=== PATIENT | female | born 1970 | race Caucasian/White ===

== ENCOUNTER 2018-07-05 20:12 | Inpatient (IN) | payer BC ==
--- NOTE | 2018-07-05 20:54 | EDM.PDOC ---
ED HPI GENERAL MEDICAL PROBLEM - General Chief Complaint: Respiratory Problem Stated Complaint: [facility] Time Seen by Provider: 07/05/18 20:22 Source of Information: Reports: Patient History Limitations: Reports: No Limitations - History of Present Illness INITIAL COMMENTS - FREE TEXT/NARRATIVE: The patient states that she underwent debridement of Luis's gangrene per Dr. Long Tong at [facility] on or about 05/29/2018. According to the patient and her , the patient required supplemental oxygen following surgery, but they do not know why. She remained hospitalized for 2 weeks before being transferred to [facility], where she remained until this past 06/29/2018. The patient's has been caring for the patient since then, with wet-to-dry dressing changes twice a day. The patient has continued to require 5 L of oxygen per nasal cannula at home. The patient states that she did not have any known chronic medical problems, however, was diagnosed during her stay at [facility] with diabetes, chronic kidney disease, and hypertension. The patient now presents with worsening shortness of breath since last night, although states that it has been waxing and waning. She states that her breathing became worse with exertion today. No recent cough. No recent fever. No recent chest pain or palpitations. No prior similar symptoms. The patient does not currently have a PCP, but is scheduled to see Dr. Yovana Goldstein this coming , 07/10/2018. Abdomen Pain Score (Numeric/FACES): 8 - Related Data Allergies Allergy/AdvReac Type Severity Reaction Status Date / Time No Known Allergies Allergy Verified 07/05/18 20:28 Home Meds: Home Meds Ascorbate Calcium [Vitamin C] 500 mg PO DAILY 07/05/18 [History] Ferrous Sulfate 325 mg PO DAILY 07/05/18 [History] Hydrocodone/Acetaminophen [Hydrocodon-Acetaminophen 5-325] 5 - 325 mg PO Q8H PRN 07/05/18 [History] Insulin Detemir [Levemir] 13 unit INJECT BEDTIME 07/05/18 [History] Insulin Lispro [Humalog] 3 unit INJECT TID 07/05/18 [History] Ipratropium/Albuterol Sulfate [Iprat-Albut 0.5-3(2.5) mg/3 ml] 0.5 mg INH QID [History] Ondansetron HCl [Zofran] 4 mg PO Q8H PRN 07/05/18 [History] Pantoprazole Sodium [Protonix] 40 mg PO DAILY 07/05/18 [History] Polyethylene Glycol 3350 [MiraLAX] 17 gram PO DAILY 07/05/18 [History] Promethazine [Phenergan] 0.2 ml TOP Q6H PRN 07/05/18 [History] amLODIPine [Norvasc] 5 mg PO DAILY 07/05/18 [History] Past Medical History Cardiovascular History: Reports: Hypertension Genitourinary History: Reports: Chronic Renal Insuffiency Endocrine/Metabolic History: Reports: Diabetes, Type II, Obesity/BMI 30+ - Past Surgical History HEENT Surgical History: Reports: Myringotomy w Tube(s) (bilateral) Dermatological Surgical History: Reports: Other (See Below) (Pilonidal cystectomy. Luis's gangrene debridement 05/29/2018 at [facility]) Social & Family History - Tobacco Use Smoking Status *Q: Former Smoker Years of Tobacco use: 30 Packs/Tins Daily: 1 Month/Year Tobacco Last Used: Quit 05/29/2018 - Alcohol Use Alcohol Use History: No - Recreational Drug Use Recreational Drug Use: No - Living Situation & Occupation Living situation: Reports: , with Spouse Occupation: Employed ([employer]) ED ROS GENERAL - Review of Systems Review Of Systems: ROS reveals no pertinent complaints other than HPI. ED EXAM, GENERAL - Physical Exam Exam: See Below Exam Limited By: No Limitations General Appearance: Alert, WD/WN, Mild Distress (mild apparent dyspnea) Eye Exam: Bilateral Eye: EOMI, Normal Inspection Ears: Normal External Exam, Hearing Grossly Normal Nose: Normal Inspection, No Blood Throat/Mouth: Normal Inspection, Normal Lips, Normal Voice, No Airway Compromise Head: Atraumatic, Normocephalic Neck: Normal Inspection, Full Range of Motion Respiratory/Chest: No Respiratory Distress, No Accessory Muscle Use, Decreased Breath Sounds (Decreased breath sounds and dullness to percussion lower half of lung esquivel, bilaterally), Crackles (Mid-lung), Rhonchi (Scattered). No: Wheezing Cardiovascular: Normal Peripheral Pulses, No Gallop, No JVD, No Murmur, No Rub, Tachycardia (regular) Peripheral Pulses: 4+: Radial (L), Radial (R) GI/Abdominal: Normal Bowel Sounds, Soft, Non-Tender, No Organomegaly, No Distention, No Abnormal Bruit, No Mass, Other (Obese) Rectal (Female) Exam: Other (Extensive surgical debridement extending from the superior aspect of the right labia majora, across the perineum, and into the right buttock. There is some purulence to the labial area, although the buttock area appears to be clean.) Back Exam: Normal Inspection, Full Range of Motion, NT Extremities: Normal Inspection, Normal Range of Motion, Normal Capillary Refill , Other (4+ pretibial pitting edema bilaterally) Neurological: Alert, Oriented, Normal Cognition, No Motor/Sensory Deficits Psychiatric: Normal Affect Skin Exam: Warm, Dry, Intact, Normal Color, No Rash EKG INTERPRETATION EKG Date: 07/05/18 Time: 20:31 Rhythm: Other (Sinus tachycardia) Rate (Beats/Min): 106 [place]: Normal P-Wave: Present QRS: Normal ST-T: Normal QT: Normal Comparison: NA - No Prior EKG Course - Vital Signs Last Recorded V/S: Last Vital Signs Temp 37.0 C 07/06/18 03:00 Pulse 99 07/05/18 23:51 Resp 25 H 07/06/18 03:00 BP 147/86 H 07/06/18 03:00 Pulse Ox 93 L 07/06/18 03:00 - Orders/Labs/Meds Orders: Active Orders 24 hr Category Date Time Status Insert Brown Catheter [Insert Urinary Catheter] [OM.PC] Care 07/06/18 00:45 Ordered Q24H Urinary Catheter Assessment [RC] Q4HR Care 07/06/18 00:36 Active Ang Chest [CT] Stat Exams 07/05/18 22:15 Taken Chest 2V [CR] Stat Exams 07/05/18 20:23 Taken CULTURE BLOOD [BC] Stat Lab 07/05/18 20:50 Received CULTURE BLOOD [BC] Stat Lab 07/05/18 21:00 Received Blood Culture x2 Reflex Set [OM.PC] Stat Oth 07/05/18 20:23 Ordered Medication Orders Acetaminophen (Tylenol) 650 mg PO Q6H PRN PRN Reason: Pain/Fever Hydrocodone Bitart/Acetaminophen ([place] 325-5 Mg) 1 tab PO Q6H PRN PRN Reason: Pain Albuterol (Proventil Neb Soln) 2.5 mg NEB Q4HRRT PRN PRN Reason: Shortness of Breath Albuterol/Ipratropium (Duoneb 3.0-0.5 Mg/3 Ml) 3 ml NEB QIDRT [facility] Heparin Sodium (Porcine) (Heparin Sodium) 5,000 units IVPUSH Q8HR [facility] Hydralazine HCl (Apresoline) 20 mg IVPUSH Q6H PRN PRN Reason: Hypertension Hydromorphone HCl (Dilaudid) 1 mg IVPUSH Q8H PRN PRN Reason: Pain Last Admin: 07/06/18 01:40 Dose: 1 mg Insulin Human Lispro (Humalog) 0 unit SUBCUT QIDACANDBED [facility]; Protocol Labs: Laboratory Tests 07/05/18 07/05/18 07/05/18 Range/Units 20:40 20:50 20:50 WBC 11.01 H (3.98-10.04) K/mm3 RBC 3.32 L (3.98-5.22) M/mm3 Hgb 9.4 L (11.2-15.7) gm/L Hct 31.2 L (34.1-44.9) % MCV 94.0 (79.4-94.8) fl MCH 28.3 (25.6-32.2) pg MCHC 30.1 L (32.2-35.5) g/dl RDW Std Deviation 58.0 H (36.4-46.3) fL Plt Count 546 H (182-369) K/mm3 MPV 8.3 L (9.4-12.3) fl Neutrophils % (Manual) 66 H (40-60) % Band Neutrophils % 1 (0-10) % Lymphocytes % (Manual) 22 (20-40) % Atypical Lymphs % 0 % Monocytes % (Manual) 6 (2-10) % Eosinophils % (Manual) 4 (0.7-5.8) % Basophils % (Manual) 1 (0.1-1.2) Toxic Granulation Few Platelet Estimate Adequate Plt Morphology Comment Normal Hypochromasia 2+ moderate Anisocytosis 1+ slight RBC Morph Comment Not Reportable PT 11.1 (9.5-12.1) SECONDS INR 1.02 APTT 30 (24-31) SECONDS D-Dimer, Quantitative 0.99 H (0.19-0.50) mg/L Puncture Site Rt brachial ABG pH 7.46 H (7.35-7.45) ABG pCO2 35.0 (35.0-45.0) mmHg ABG pO2 67.0 L (80.0-100.0) mmHg ABG HCO3 24.4 (22.0-26.0) meq/L ABG O2 Saturation 92.3 L (96.0-97.0) % ABG Base Excess 1.1 (-2-2.0) O2 Delivery Device Mask Oxygen Flow Rate 10.0 Sodium (136-145) mEq/L Potassium (3.5-5.1) mEq/L Chloride (98-107) mEq/L Carbon Dioxide (21-32) mEq/L Anion Gap (5-15) BUN (7-18) mg/dL Creatinine (0.55-1.02) mg/dL Est Cr Clr Drug Dosing mL/min Estimated GFR (MDRD) (>60) mL/min BUN/Creatinine Ratio (14-18) Glucose (74-106) mg/dL Lactic Acid (0.4-2.0) mmol/L Calcium (8.5-10.1) mg/dL Total Bilirubin (0.2-1.0) mg/dL AST (15-37) U/L ALT (14-59) U/L Alkaline Phosphatase (46-116) U/L Troponin I (0.00-0.056) ng/mL NT-Pro-B Natriuret Pep (0-125) pg/mL Total Protein (6.4-8.2) g/dl Albumin (3.4-5.0) g/dl Globulin gm/dL Albumin/Globulin Ratio (1-2) Urine Color (Yellow) Urine Appearance (Clear) Urine pH (5.0-8.0) Ur Specific [place] (1.005-1.030) Urine Protein (Negative) Urine Glucose (UA) (Negative) Urine Ketones (Negative) Urine Occult Blood (Negative) Urine Nitrite (Negative) Urine Bilirubin (Negative) Urine Urobilinogen (0.2-1.0) Ur Leukocyte Esterase (Negative) Urine RBC (0-5) /hpf Urine WBC (0-5) /hpf Ur Epithelial Cells (0-5) /hpf Urine Bacteria (FEW) /hpf Hyaline Casts (0-5) /lpf Urine Mucus (FEW) /hpf 07/05/18 07/05/18 07/05/18 Range/Units 20:50 20:50 20:50 WBC (3.98-10.04) K/mm3 RBC (3.98-5.22) M/mm3 Hgb (11.2-15.7) gm/L Hct (34.1-44.9) % MCV (79.4-94.8) fl MCH (25.6-32.2) pg MCHC (32.2-35.5) g/dl RDW Std Deviation (36.4-46.3) fL Plt Count (182-369) K/mm3 MPV (9.4-12.3) fl Neutrophils % (Manual) (40-60) % Band Neutrophils % (0-10) % Lymphocytes % (Manual) (20-40) % Atypical Lymphs % % Monocytes % (Manual) (2-10) % Eosinophils % (Manual) (0.7-5.8) % Basophils % (Manual) (0.1-1.2) Toxic Granulation Platelet Estimate Plt Morphology Comment Hypochromasia Anisocytosis RBC Morph Comment PT (9.5-12.1) SECONDS INR APTT (24-31) SECONDS D-Dimer, Quantitative (0.19-0.50) mg/L Puncture Site ABG pH (7.35-7.45) ABG pCO2 (35.0-45.0) mmHg ABG pO2 (80.0-100.0) mmHg ABG HCO3 (22.0-26.0) meq/L ABG O2 Saturation (96.0-97.0) % ABG Base Excess (-2-2.0) O2 Delivery Device Oxygen Flow Rate Sodium 138 (136-145) mEq/L Potassium 4.9 (3.5-5.1) mEq/L Chloride 104 (98-107) mEq/L Carbon Dioxide 27 (21-32) mEq/L Anion Gap 11.9 (5-15) BUN 24 H (7-18) mg/dL Creatinine 1.9 H (0.55-1.02) mg/dL Est Cr Clr Drug Dosing 36.53 mL/min Estimated GFR (MDRD) 28 (>60) mL/min BUN/Creatinine Ratio 12.6 L (14-18) Glucose 170 H (74-106) mg/dL Lactic Acid 0.6 (0.4-2.0) mmol/L Calcium 8.9 (8.5-10.1) mg/dL Total Bilirubin 0.3 (0.2-1.0) mg/dL AST 69 H (15-37) U/L ALT 69 H (14-59) U/L Alkaline Phosphatase 252 H (46-116) U/L Troponin I < 0.017 (0.00-0.056) ng/mL NT-Pro-B Natriuret Pep 8577 H (0-125) pg/mL Total Protein 7.8 (6.4-8.2) g/dl Albumin 2.4 L (3.4-5.0) g/dl Globulin 5.4 gm/dL Albumin/Globulin Ratio 0.4 L (1-2) Urine Color (Yellow) Urine Appearance (Clear) Urine pH (5.0-8.0) Ur Specific [place] (1.005-1.030) Urine Protein (Negative) Urine Glucose (UA) (Negative) Urine Ketones (Negative) Urine Occult Blood (Negative) Urine Nitrite (Negative) Urine Bilirubin (Negative) Urine Urobilinogen (0.2-1.0) Ur Leukocyte Esterase (Negative) Urine RBC (0-5) /hpf Urine WBC (0-5) /hpf Ur Epithelial Cells (0-5) /hpf Urine Bacteria (FEW) /hpf Hyaline Casts (0-5) /lpf Urine Mucus (FEW) /hpf 07/05/ Range/Units 21:30 WBC (3.98-10.04) K/mm3 RBC (3.98-5.22) M/mm3 Hgb (11.2-15.7) gm/L Hct (34.1-44.9) % MCV (79.4-94.8) fl MCH (25.6-32.2) pg MCHC (32.2-35.5) g/dl RDW Std Deviation (36.4-46.3) fL Plt Count (182-369) K/mm3 MPV (9.4-12.3) fl Neutrophils % (Manual) (40-60) % Band Neutrophils % (0-10) % Lymphocytes % (Manual) (20-40) % Atypical Lymphs % % Monocytes % (Manual) (2-10) % Eosinophils % (Manual) (0.7-5.8) % Basophils % (Manual) (0.1-1.2) Toxic Granulation Platelet Estimate Plt Morphology Comment Hypochromasia Anisocytosis RBC Morph Comment PT (9.5-12.1) SECONDS INR APTT (24-31) SECONDS D-Dimer, Quantitative (0.19-0.50) mg/L Puncture Site ABG pH (7.35-7.45) ABG pCO2 (35.0-45.0) mmHg ABG pO2 (80.0-100.0) mmHg ABG HCO3 (22.0-26.0) meq/L ABG O2 Saturation (96.0-97.0) % ABG Base Excess (-2-2.0) O2 Delivery Device Oxygen Flow Rate Sodium (136-145) mEq/L Potassium (3.5-5.1) mEq/L Chloride (98-107) mEq/L Carbon Dioxide (21-32) mEq/L Anion Gap (5-15) BUN (7-18) mg/dL Creatinine (0.55-1.02) mg/dL Est Cr Clr Drug Dosing mL/min Estimated GFR (MDRD) (>60) mL/min BUN/Creatinine Ratio (14-18) Glucose (74-106) mg/dL Lactic Acid (0.4-2.0) mmol/L Calcium (8.5-10.1) mg/dL Total Bilirubin (0.2-1.0) mg/dL AST (15-37) U/L ALT (14-59) U/L Alkaline Phosphatase (46-116) U/L Troponin I (0.00-0.056) ng/mL NT-Pro-B Natriuret Pep (0-125) pg/mL Total Protein (6.4-8.2) g/dl Albumin (3.4-5.0) g/dl Globulin gm/dL Albumin/Globulin Ratio (1-2) Urine Color Yellow (Yellow) Urine Appearance Clear (Clear) Urine pH 6.0 (5.0-8.0) Ur Specific [place] 1.025 (1.005-1.030) Urine Protein 3+ H (Negative) Urine Glucose (UA) Negative (Negative) Urine Ketones Negative (Negative) Urine Occult Blood Trace-lysed H (Negative) Urine Nitrite Negative (Negative) Urine Bilirubin Negative (Negative) Urine Urobilinogen 0.2 (0.2-1.0) Ur Leukocyte Esterase Negative (Negative) Urine RBC 0-5 (0-5) /hpf Urine WBC 0-5 (0-5) /hpf Ur Epithelial Cells 0-5 (0-5) /hpf Urine Bacteria Not seen (FEW) /hpf Hyaline Casts 0-5 (0-5) /lpf Urine Mucus Not seen (FEW) /hpf Meds: Medications Generic Name Dose Route Start Last Admin Trade Name Freq PRN Reason Stop Dose Admin Acetaminophen 650 mg 07/06/18 01:40 Tylenol PO Q6H PRN Pain/Fever Hydrocodone Bitart/Acetaminophen 1 tab 07/06/18 01:14 [place] 325-5 Mg PO Q6H PRN Pain Albuterol 2.5 mg 07/06/18 01:40 Proventil Neb Soln NEB Q4HRRT PRN Shortness of Breath Albuterol/Ipratropium 3 ml 07/06/18 06:00 Duoneb 3.0-0.5 Mg/3 Ml NEB QIDRT [facility] Heparin Sodium (Porcine) 5,000 units 07/06/18 06:00 Heparin Sodium IVPUSH Q8HR [facility] Hydralazine HCl 20 mg 07/06/18 01:40 Apresoline IVPUSH Q6H PRN Hypertension Hydromorphone HCl 1 mg 07/06/18 01:13 07/06/18 01:40 Dilaudid IVPUSH 1 mg Q8H PRN Administration Pain Insulin Human Lispro 0 unit 07/06/18 07:00 Humalog SUBCUT QIDACANDBED [facility] Protocol Discontinued Medications Generic Name Dose Route Start Last Admin Trade Name Freq PRN Reason Stop Dose Admin Albuterol/Ipratropium 3 ml 07/06/18 03:00 Duoneb 3.0-0.5 Mg/3 Ml NEB Q6HRRT [facility] Furosemide 40 mg 07/05/18 21:58 07/05/18 22:09 Lasix IVPUSH 07/05/18 21:59 40 mg NOW ONE Administration Sodium Chloride 100 mls @ 60 mls/hr 07/05/18 22:45 Normal Saline IV ASDIRECTED [facility] Iopamidol 100 ml 07/05/18 22:36 07/05/18 22:47 Isovue-370 (76%) IVPUSH 07/05/18 22:37 100 ml ONETIME ONE Administration Sodium Chloride 10 ml 07/05/18 22:36 07/05/18 22:47 Saline Flush FLUSH 07/05/18 22:37 10 ml ONETIME ONE Administration - Re-Assessments/Exams Free Text/Narrative Re-Assessment/Exam: 07/05/18 21:26 Two-view chest radiograph reviewed. There is cardiomegaly. There is pulmonary vascular congestion, later on the left than the right. There are bilateral pleural effusions. A focal infiltrate cannot be excluded. No pneumothorax seen. No prior chest radiographs for comparison. Formal read per the Radiologist pending. 07/05/18 21:54 The patient's D-dimer has returned modestly elevated at 0.99. Her BNP is significantly elevated at 8577. Her BUN/Cr is elevated at 24/1.9, which may be responsible for the elevation of the d-dimer and BNP, however, her chest radiograph suggests decompensated CHF. Based on the above findings, I have ordered a CT angiogram of the chest to evaluate for PE, as well as to better evaluate her abnormal chest x-ray. Because the patient appears to be in decompensated CHF, I have not ordered IV fluid to accompany the CT angiogram, and in fact, will diurese the patient. 07/05/18 23:34 CT angiogram of the chest is read by [facility] as: 1. Moderate to large bilateral pleural effusions with compressive atelectasis of both lower lobes 2. Nonspecific mediastinal lymphadenopathy 3. No evidence for pulmonary embolism 4. Small bilateral areas of atelectasis or infiltrate in both upper lung esquivel. With respect to the small bilateral areas of atelectasis or infiltrate in both upper lung esquivel, the patient does not have a history of cough or fever, and while her WBC count is mildly elevated at 11.01, it is with only 1% bandemia, therefore, from a clinical standpoint, the patient does not have pneumonia and antibiotics are not indicated. I would like to have the patient admitted to the hospital for diuresis, an echocardiogram, and bilateral thoracenteses. 07/05/18 23:48 Test results discussed with the patient and her . The patient is agreeable to being admitted. Case then discussed with Dr. Neumann at 23:41. She would prefer that the patient be transferred back to [facility], however, is agreeable to having the patient admitted here provided that Dr. Ryan would be willing to perform the thoracentesis, as she states that she does not perform that procedure. 07/05/18 23:[address] Ryan at 23:49. He is willing to be consulted to perform the thoracenteses. 07/06/18 00:01 Case discussed again with Dr. Neumann at 23:55. She accepted the patient for admission to the ICU. Departure - Departure Time of Disposition: 00:01 Disposition: Admitted As Inpatient 65 Condition: Fair Clinical Impression: Bilateral pleural effusion, Hypoxemia, Congestive heart failure (CHF), Hyperglycemia due to type 2 diabetes mellitus, Chronic kidney disease (CKD) - Discharge Information *PRESCRIPTION DRUG MONITORING PROGRAM REVIEWED*: Not Applicable *COPY OF PRESCRIPTION DRUG MONITORING REPORT IN PATIENT JONNIE: Not Applicable - My Orders Last 24 Hours: My Active Orders 07/05/18 20:23 Chest 2V [CR] Stat Blood Culture x2 Reflex Set [OM.PC] Stat 07/05/18 20:50 CULTURE BLOOD [BC] Stat 07/05/18 21:00 CULTURE BLOOD [BC] Stat 07/05/18 22:15 Ang Chest [CT] Stat - Assessment/Plan Last 24 Hours: My Active Orders 07/05/18 20:23 Chest 2V [CR] Stat Blood Culture x2 Reflex Set [OM.PC] Stat 07/05/18 20:50 CULTURE BLOOD [BC] Stat 07/05/18 21:00 CULTURE BLOOD [BC] Stat 07/05/18 22:15 Ang Chest [CT] Stat
[2018-07-05] MEDS ORDERED: Furosemide 40 MG/4 ML VIAL IVPUSH ONE (21:58)
[2018-07-05] MEDS ORDERED: Iopamidol 755 Mg/ML 100 ML Bottle IVPUSH ONE (22:36)
[2018-07-05] MEDS ORDERED: Sodium Chloride 0.9% 10 ML Syringe FLUSH ONE (22:36)
[2018-07-05] MEDS ORDERED: Sodium Chloride 0.9% 100 ML IV SCH (22:45)
[2018-07-06] MEDS: HYDROmorphone 1 MG/ML Syringe IVPUSH PRN ×2 (01:40→10:50)
[2018-07-06] MEDS ORDERED: Albuterol 0.083% 2.5 MG/3 ML Neb Soln NEB PRN (01:40)
[2018-07-06] MEDS ORDERED: hydrALAZINE 20 MG/ML SDV IVPUSH PRN (01:40)
[2018-07-06] MEDS ORDERED: Albuterol/Ipratropium 3.0-0.5 MG/3 ML Neb Soln NEB SCH (03:00)
[2018-07-06] MEDS ORDERED: Heparin Sodium 5,000 Units/ML Vial SUBCUT ONE (06:00)
[2018-07-06] MEDS: Albuterol/Ipratropium 3.0-0.5 MG/3 ML Neb Soln NEB SCH ×4 (06:08→20:22)
[2018-07-06] MEDS: Acetaminophen 325 MG Tab PO PRN ×2 (06:16→22:29)
[2018-07-06] MEDS: Heparin Sodium 5,000 Units/ML Vial IVPUSH SCH ×4 (06:16→20:43)
[2018-07-06] MEDS: Insulin Lispro 100 Unit/ML 3 ML KwikPen SUBCUT SCH ×4 (06:17→21:13)
[2018-07-06] MEDS: Acetaminophen/HYDROcodone 325-5 MG Tab PO PRN ×3 (07:52→21:04)
--- NOTE | 2018-07-06 09:38 | PCM.SN ---
- Free Text/Narrative Note: Thoracentesis on right side done and produced 1200cc of clear straw colored fluid. No apparent complications of procedure. CXR pending.
[2018-07-06] MEDS: Furosemide 100 MG in Sodium Chloride 0.9% 90 ML IV SCH (12:29)
[2018-07-06] MEDS ORDERED: Ondansetron 4 MG/2 ML SDV IVPUSH PRN ×2 (13:00→18:30)
--- NOTE | 2018-07-06 13:44 | PCM.HP ---
H&P History of Present Illness - General Date of Service: 07/06/18 Admit Problem/Dx: Admission Diagnosis/Problem Admission Diagnosis/Problem Pleural effusion Source of Information: Provider - History of Present Illness Initial Comments - Free Text/Narative: 47 year old female who presents with shortness of breath of undetermined duration. 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 At discharge, she was transferred to [facility]. She has been DC from the rehab center for less than a week. Reportedly the SOB was present at the time of DC from the hospital. She apparently required 5 l/m of oxygen. Evaluation in the ED documents acute respiratory distress, she is hypercapnic and hypoxic. The patient is noted to have 2-3+ peripheral edema on her lower extremities. A 2D echo was not done in [place]. 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 She was reported to have a history of a pilonidal cyst, and was treated at [facility] in clinic. During the hospitalization antibiotics that were provided included Zosyn, Clindamycin, and Vancomycin. The patient was treated for a UTI for 3 days with Fluconazole. The antibiotics were stopped 0n 06/12/18. However Zosyn was restarted after she developed bandemia Lab studies documented a HgbA1C of 13.0. She underwent operative re-exploration performed on 05/30/18. She subsequently underwent an additional debridement on . Re-exploration was again performed on 06/02/18. Pre/Post op diagnosis: Luis Gangrene; The patient underwent a total of four I/Ds. During the hospitalization, the patient had a Brown Catheter which was removed on 06/10/18. CXR changed with developing PNA and increasing O2 required on 06/15/18; peripheral edema L>R noted on on the DC exam. She was then transferred to the TCU, transitional care unit, 06/19/18. Home meds: Motrin 600 mg; [place] 5-325 mg ; Bactrim DS. She went to TCU requiring O2 2 l/m. She was reported to be a current daily tobacco smoker. 1/4 pack daily. Completion of IV antibiotics, 21 days. CXR 0n 06/16/18: retrocardiac opacities and left basilar opacities. Left sided pleural effusion developed subsequent right sided pleural effusion. Pre- albumin weekly was recorded, the goal was 20; documented low albumin 05/30-->7.3 ; 06/06-->10.6. Transfusion of 2 units PRBCs. DCd from TCU, 06/29/18. Cr, was 1.44; GFR 39. Pre-albumin on 06/27 was 13.1 Meds at DC: Norvasc 5 mg; [place] 5-325 mg; Protonix 40 mg; FeSO4 325 mg; Vitamin C 500 mg; Levemir/Humalog; Duoneb; Cultrelle; Zofran. Onset of Symptoms: Reports: Unknown/Unsure Duration of Symptoms: Reports: Day(s):, Getting Worse Location: Reports: Generalized Severity: Moderate Improves with: Reports: Medication Worsens with: Reports: None Associated Symptoms: Reports: Cough, Nausea/Vomiting, Shortness of Breath, Weakness Abdomen Pain Score (Numeric/FACES): 8 Right Groin Pain Score (Numeric/FACES): 2 Right Upper Back Pain Score (Numeric/FACES): 0 Right Lower Posterior Perineal Area Pain Score (Numeric/FACES): 2 - Related Data Allergies/Adverse Reactions: Allergies Allergy/AdvReac Type Severity Reaction Status Date / Time No Known Allergies Allergy Verified 07/05/18 20:28 Home Medications: Home Meds Ascorbate Calcium [Vitamin C] 500 mg PO DAILY 07/05/18 [History] Ferrous Sulfate 325 mg PO DAILY 07/05/18 [History] Hydrocodone/Acetaminophen [Hydrocodon-Acetaminophen 5-325] 5 - 325 mg PO Q8H PRN 07/05/18 [History] Insulin Detemir [Levemir] 13 unit INJECT BEDTIME 07/05/18 [History] Insulin Lispro [Humalog] 3 unit INJECT TID 07/05/18 [History] Ipratropium/Albuterol Sulfate [Iprat-Albut 0.5-3(2.5) mg/3 ml] 0.5 mg INH QID [History] Ondansetron HCl [Zofran] 4 mg PO Q8H PRN 09/22/18 [History] Pantoprazole Sodium [Protonix] 40 mg PO DAILY 07/05/18 [History] Polyethylene Glycol 3350 [MiraLAX] 17 gram PO DAILY 07/05/18 [History] Promethazine [Phenergan] 0.2 ml TOP Q6H PRN 07/05/18 [History] amLODIPine [Norvasc] 5 mg PO DAILY 07/05/18 [History] Past Medical History HEENT History: Reports: Impaired Vision Cardiovascular History: Reports: Hypertension Gastrointestinal History: Reports: Chronic Constipation, GERD Genitourinary History: Reports: Chronic Renal Insuffiency Psychiatric History: Reports: Anxiety Endocrine/Metabolic History: Reports: Diabetes, Type II, Obesity/BMI 30+ Dermatologic History: Reports: Other (See Below) Other Dermatologic History: pylonidol cyst - Past Surgical History HEENT Surgical History: Reports: Myringotomy w Tube(s) (bilateral) Dermatological Surgical History: Reports: Other (See Below) (Pilonidal cystectomy. Luis's gangrene debridement 05/29/2018 at [facility]) Social & Family History - Tobacco Use Smoking Status *Q: Former Smoker Years of Tobacco use: 30 Packs/Tins Daily: 1 Used Tobacco, but Quit: Yes Month/Year Tobacco Last Used: Quit 05/29/2018 - Caffeine Use Caffeine Use: Reports: None - Recreational Drug Use Recreational Drug Use: No - Living Situation & Occupation Living situation: Reports: , with Spouse Occupation: Employed ([employer]) H&P Review of Systems - Review of Systems: Review Of Systems: See Below General: Reports: Malaise, Weakness, Fatigue HEENT: Reports: No Symptoms Pulmonary: Reports: Shortness of Breath Cardiovascular: Reports: No Symptoms Gastrointestinal: Reports: No Symptoms Genitourinary: Reports: No Symptoms Musculoskeletal: Reports: No Symptoms Skin: Reports: No Symptoms Psychiatric: Reports: No Symptoms Neurological: Reports: No Symptoms Hematologic/Lymphatic: Reports: No Symptoms Immunologic: Reports: No Symptoms Exam - Exam Exam: See Below - Vital Signs Vital Signs: Last Vital Signs Temp 36.9 C 07/06/18 12:02 Pulse 99 07/05/18 23:51 Resp 20 07/06/18 12:02 BP 134/63 07/06/18 12:02 Pulse Ox 92 L 07/06/18 12:02 Weight: 102.149 kg - Exam Quality Assessment: Supplemental Oxygen General: Alert, Oriented, Mild Distress HEENT: Conjunctiva Clear, Nares Patent, Normal Nasal Septum, Pupils Equal, Pupils Reactive, PERRLA Neck: Supple, Trachea Midline Lungs: Normal Respiratory Effort, Decreased Breath Sounds, Rhonchi, Wheezing Cardiovascular: Regular Rate, Regular Rhythm GI/Abdominal Exam: Normal Bowel Sounds, Soft, Non-Tender, No Organomegaly, No Distention (Female) Exam: Deferred Rectal (Female) Exam: Deferred Back Exam: Normal Inspection Extremities: Normal Inspection, Pedal Edema (2-3+), Slow Capillary Refill Skin: Warm, Other (surgical wounds with healthy tissue; no exudate) Neurological: Cranial Nerves Intact, Normal Speech Neuro Extensive - Mental Status: Alert Neuro Extensive - Motor, Sensory, Reflexes: CN II-XII Intact Psychiatric: Alert - Patient Data Lab Results Last 24 hrs: Laboratory Results - last 24 hr 07/05/18 07/05/18 07/05/18 Range/Units 20:40 20:50 20:50 WBC 11.01 H (3.98-10.04) K/mm3 RBC 3.32 L (3.98-5.22) M/mm3 Hgb 9.4 L (11.2-15.7) gm/L Hct 31.2 L (34.1-44.9) % MCV 94.0 (79.4-94.8) fl MCH 28.3 (25.6-32.2) pg MCHC 30.1 L (32.2-35.5) g/dl RDW Std Deviation 58.0 H (36.4-46.3) fL Plt Count 546 H (182-369) K/mm3 MPV 8.3 L (9.4-12.3) fl Neut % (Auto) (34.0-71.1) % Lymph % (Auto) (19.3-51.7) % Ross % (Auto) (4.7-12.5) % Eos % (Auto) (0.7-5.8) Baso % (Auto) (0.1-1.2) % Neut # (Auto) (1.56-6.13) K/mm3 Lymph # (Auto) (1.18-3.74) K/mm3 Ross # (Auto) (0.24-0.36) K/mm3 Eos # (Auto) (0.04-0.36) K/mm3 Baso # (Auto) (0.01-0.08) K/mm3 Neutrophils % (Manual) 66 H (40-60) % Band Neutrophils % 1 (0-10) % Lymphocytes % (Manual) 22 (20-40) % Atypical Lymphs % 0 % Monocytes % (Manual) 6 (2-10) % Eosinophils % (Manual) 4 (0.7-5.8) % Basophils % (Manual) 1 (0.1-1.2) Toxic Granulation Few Platelet Estimate Adequate Plt Morphology Comment Normal Hypochromasia 2+ moderate Anisocytosis 1+ slight RBC Morph Comment Not Reportable PT 11.1 (9.5-12.1) SECONDS INR 1.02 APTT 30 (24-31) SECONDS D-Dimer, Quantitative 0.99 H (0.19-0.50) mg/L Puncture Site Rt brachial ABG pH 7.46 H (7.35-7.45) ABG pCO2 35.0 (35.0-45.0) mmHg ABG pO2 67.0 L (80.0-100.0) mmHg ABG HCO3 24.4 (22.0-26.0) meq/L ABG O2 Saturation 92.3 L (96.0-97.0) % ABG Base Excess 1.1 (-2-2.0) O2 Delivery Device Mask Oxygen Flow Rate 10.0 Sodium (136-145) mEq/L Potassium (3.5-5.1) mEq/L Chloride (98-107) mEq/L Carbon Dioxide (21-32) mEq/L Anion Gap (5-15) BUN (7-18) mg/dL Creatinine (0.55-1.02) mg/dL Est Cr Clr Drug Dosing mL/min Estimated GFR (MDRD) (>60) mL/min BUN/Creatinine Ratio (14-18) Glucose (74-106) mg/dL POC Glucose (70-105) mg/dL Lactic Acid (0.4-2.0) mmol/L Calcium (8.5-10.1) mg/dL Magnesium (1.8-2.4) mg/dl Total Bilirubin (0.2-1.0) mg/dL AST (15-37) U/L ALT (14-59) U/L Alkaline Phosphatase (46-116) U/L Troponin I (0.00-0.056) ng/mL NT-Pro-B Natriuret Pep (0-125) pg/mL Total Protein (6.4-8.2) g/dl Albumin (3.4-5.0) g/dl Globulin gm/dL Albumin/Globulin Ratio (1-2) Urine Color (Yellow) Urine Appearance (Clear) Urine pH (5.0-8.0) Ur Specific [place] (1.005-1.030) Urine Protein (Negative) Urine Glucose (UA) (Negative) Urine Ketones (Negative) Urine Occult Blood (Negative) Urine Nitrite (Negative) Urine Bilirubin (Negative) Urine Urobilinogen (0.2-1.0) Ur Leukocyte Esterase (Negative) Urine RBC (0-5) /hpf Urine WBC (0-5) /hpf Ur Epithelial Cells (0-5) /hpf Urine Bacteria (FEW) /hpf Hyaline Casts (0-5) /lpf Urine Mucus (FEW) /hpf Fluid Type Fluid Glucose mg/dL Fluid Total Protein gm/dl Fluid LDH U/L 07/05/18 07/05/18 07/05/18 Range/Units 20:50 20:50 20:50 WBC (3.98-10.04) K/mm3 RBC (3.98-5.22) M/mm3 Hgb (11.2-15.7) gm/L Hct (34.1-44.9) % MCV (79.4-94.8) fl MCH (25.6-32.2) pg MCHC (32.2-35.5) g/dl RDW Std Deviation (36.4-46.3) fL Plt Count (182-369) K/mm3 MPV (9.4-12.3) fl Neut % (Auto) (34.0-71.1) % Lymph % (Auto) (19.3-51.7) % Ross % (Auto) (4.7-12.5) % Eos % (Auto) (0.7-5.8) Baso % (Auto) (0.1-1.2) % Neut # (Auto) (1.56-6.13) K/mm3 Lymph # (Auto) (1.18-3.74) K/mm3 Ross # (Auto) (0.24-0.36) K/mm3 Eos # (Auto) (0.04-0.36) K/mm3 Baso # (Auto) (0.01-0.08) K/mm3 Neutrophils % (Manual) (40-60) % Band Neutrophils % (0-10) % Lymphocytes % (Manual) (20-40) % Atypical Lymphs % % Monocytes % (Manual) (2-10) % Eosinophils % (Manual) (0.7-5.8) % Basophils % (Manual) (0.1-1.2) Toxic Granulation Platelet Estimate Plt Morphology Comment Hypochromasia Anisocytosis RBC Morph Comment PT (9.5-12.1) SECONDS INR APTT (24-31) SECONDS D-Dimer, Quantitative (0.19-0.50) mg/L Puncture Site ABG pH (7.35-7.45) ABG pCO2 (35.0-45.0) mmHg ABG pO2 (80.0-100.0) mmHg ABG HCO3 (22.0-26.0) meq/L ABG O2 Saturation (96.0-97.0) % ABG Base Excess (-2-2.0) O2 Delivery Device Oxygen Flow Rate Sodium 138 (136-145) mEq/L Potassium 4.9 (3.5-5.1) mEq/L Chloride 104 (98-107) mEq/L Carbon Dioxide 27 (21-32) mEq/L Anion Gap 11.9 (5-15) BUN 24 H (7-18) mg/dL Creatinine 1.9 H (0.55-1.02) mg/dL Est Cr Clr Drug Dosing 36.53 mL/min Estimated GFR (MDRD) 28 (>60) mL/min BUN/Creatinine Ratio 12.6 L (14-18) Glucose 170 H (74-106) mg/dL POC Glucose (70-105) mg/dL Lactic Acid 0.6 (0.4-2.0) mmol/L Calcium 8.9 (8.5-10.1) mg/dL Magnesium (1.8-2.4) mg/dl Total Bilirubin 0.3 (0.2-1.0) mg/dL AST 69 H (15-37) U/L ALT 69 H (14-59) U/L Alkaline Phosphatase 252 H (46-116) U/L Troponin I < 0.017 (0.00-0.056) ng/mL NT-Pro-B Natriuret Pep 8577 H (0-125) pg/mL Total Protein 7.8 (6.4-8.2) g/dl Albumin 2.4 L (3.4-5.0) g/dl Globulin 5.4 gm/dL Albumin/Globulin Ratio 0.4 L (1-2) Urine Color (Yellow) Urine Appearance (Clear) Urine pH (5.0-8.0) Ur Specific [place] (1.005-1.030) Urine Protein (Negative) Urine Glucose (UA) (Negative) Urine Ketones (Negative) Urine Occult Blood (Negative) Urine Nitrite (Negative) Urine Bilirubin (Negative) Urine Urobilinogen (0.2-1.0) Ur Leukocyte Esterase (Negative) Urine RBC (0-5) /hpf Urine WBC (0-5) /hpf Ur Epithelial Cells (0-5) /hpf Urine Bacteria (FEW) /hpf Hyaline Casts (0-5) /lpf Urine Mucus (FEW) /hpf Fluid Type Fluid Glucose mg/dL Fluid Total Protein gm/dl Fluid LDH U/L 07/05/18 07/06/18 07/06/18 Range/Units 21:30 01:04 05:44 WBC 7.43 (3.98-10.04) K/mm3 RBC 2.96 L (3.98-5.22) M/mm3 Hgb 8.4 L (11.2-15.7) gm/L Hct 28.0 L (34.1-44.9) % MCV 94.6 (79.4-94.8) fl MCH 28.4 (25.6-32.2) pg MCHC 30.0 L (32.2-35.5) g/dl RDW Std Deviation 57.3 H (36.4-46.3) fL Plt Count 472 H (182-369) K/mm3 MPV 8.5 L (9.4-12.3) fl Neut % (Auto) 55.9 (34.0-71.1) % Lymph % (Auto) 24.8 (19.3-51.7) % Ross % (Auto) 9.7 (4.7-12.5) % Eos % (Auto) 8.7 H (0.7-5.8) Baso % (Auto) 0.8 (0.1-1.2) % Neut # (Auto) 4.15 (1.56-6.13) K/mm3 Lymph # (Auto) 1.84 (1.18-3.74) K/mm3 Ross # (Auto) 0.72 H (0.24-0.36) K/mm3 Eos # (Auto) 0.65 H (0.04-0.36) K/mm3 Baso # (Auto) 0.06 (0.01-0.08) K/mm3 Neutrophils % (Manual) (40-60) % Band Neutrophils % (0-10) % Lymphocytes % (Manual) (20-40) % Atypical Lymphs % % Monocytes % (Manual) (2-10) % Eosinophils % (Manual) (0.7-5.8) % Basophils % (Manual) (0.1-1.2) Toxic Granulation Platelet Estimate Plt Morphology Comment Hypochromasia Anisocytosis RBC Morph Comment PT (9.5-12.1) SECONDS INR APTT (24-31) SECONDS D-Dimer, Quantitative (0.19-0.50) mg/L Puncture Site ABG pH (7.35-7.45) ABG pCO2 (35.0-45.0) mmHg ABG pO2 (80.0-100.0) mmHg ABG HCO3 (22.0-26.0) meq/L ABG O2 Saturation (96.0-97.0) % ABG Base Excess (-2-2.0) O2 Delivery Device Oxygen Flow Rate Sodium (136-145) mEq/L Potassium (3.5-5.1) mEq/L Chloride (98-107) mEq/L Carbon Dioxide (21-32) mEq/L Anion Gap (5-15) BUN (7-18) mg/dL Creatinine (0.55-1.02) mg/dL Est Cr Clr Drug Dosing mL/min Estimated GFR (MDRD) (>60) mL/min BUN/Creatinine Ratio (14-18) Glucose (74-106) mg/dL POC Glucose 168 H (70-105) mg/dL Lactic Acid (0.4-2.0) mmol/L Calcium (8.5-10.1) mg/dL Magnesium (1.8-2.4) mg/dl Total Bilirubin (0.2-1.0) mg/dL AST (15-37) U/L ALT (14-59) U/L Alkaline Phosphatase (46-116) U/L Troponin I (0.00-0.056) ng/mL NT-Pro-B Natriuret Pep (0-125) pg/mL Total Protein (6.4-8.2) g/dl Albumin (3.4-5.0) g/dl Globulin gm/dL Albumin/Globulin Ratio (1-2) Urine Color Yellow (Yellow) Urine Appearance Clear (Clear) Urine pH 6.0 (5.0-8.0) Ur Specific [place] 1.025 (1.005-1.030) Urine Protein 3+ H (Negative) Urine Glucose (UA) Negative (Negative) Urine Ketones Negative (Negative) Urine Occult Blood Trace-lysed H (Negative) Urine Nitrite Negative (Negative) Urine Bilirubin Negative (Negative) Urine Urobilinogen 0.2 (0.2-1.0) Ur Leukocyte Esterase Negative (Negative) Urine RBC 0-5 (0-5) /hpf Urine WBC 0-5 (0-5) /hpf Ur Epithelial Cells 0-5 (0-5) /hpf Urine Bacteria Not seen (FEW) /hpf Hyaline Casts 0-5 (0-5) /lpf Urine Mucus Not seen (FEW) /hpf Fluid Type Fluid Glucose mg/dL Fluid Total Protein gm/dl Fluid LDH U/L 07/06/18 07/06/18 07/06/18 Range/Units 05:44 05:44 05:44 WBC (3.98-10.04) K/mm3 RBC (3.98-5.22) M/mm3 Hgb (11.2-15.7) gm/L Hct (34.1-44.9) % MCV (79.4-94.8) fl MCH (25.6-32.2) pg MCHC (32.2-35.5) g/dl RDW Std Deviation (36.4-46.3) fL Plt Count (182-369) K/mm3 MPV (9.4-12.3) fl Neut % (Auto) (34.0-71.1) % Lymph % (Auto) (19.3-51.7) % Ross % (Auto) (4.7-12.5) % Eos % (Auto) (0.7-5.8) Baso % (Auto) (0.1-1.2) % Neut # (Auto) (1.56-6.13) K/mm3 Lymph # (Auto) (1.18-3.74) K/mm3 Ross # (Auto) (0.24-0.36) K/mm3 Eos # (Auto) (0.04-0.36) K/mm3 Baso # (Auto) (0.01-0.08) K/mm3 Neutrophils % (Manual) (40-60) % Band Neutrophils % (0-10) % Lymphocytes % (Manual) (20-40) % Atypical Lymphs % % Monocytes % (Manual) (2-10) % Eosinophils % (Manual) (0.7-5.8) % Basophils % (Manual) (0.1-1.2) Toxic Granulation Platelet Estimate Plt Morphology Comment Hypochromasia Anisocytosis RBC Morph Comment PT (9.5-12.1) SECONDS INR APTT (24-31) SECONDS D-Dimer, Quantitative (0.19-0.50) mg/L Puncture Site ABG pH (7.35-7.45) ABG pCO2 (35.0-45.0) mmHg ABG pO2 (80.0-100.0) mmHg ABG HCO3 (22.0-26.0) meq/L ABG O2 Saturation (96.0-97.0) % ABG Base Excess (-2-2.0) O2 Delivery Device Oxygen Flow Rate Sodium 138 (136-145) mEq/L Potassium 4.3 (3.5-5.1) mEq/L Chloride 106 (98-107) mEq/L Carbon Dioxide 27 (21-32) mEq/L Anion Gap 9.3 (5-15) BUN 22 H (7-18) mg/dL Creatinine 1.8 H (0.55-1.02) mg/dL Est Cr Clr Drug Dosing 38.56 mL/min Estimated GFR (MDRD) 30 (>60) mL/min BUN/Creatinine Ratio 12.2 L (14-18) Glucose 157 H (74-106) mg/dL POC Glucose (70-105) mg/dL Lactic Acid 0.4 (0.4-2.0) mmol/L Calcium 8.5 (8.5-10.1) mg/dL Magnesium 1.9 (1.8-2.4) mg/dl Total Bilirubin (0.2-1.0) mg/dL AST (15-37) U/L ALT (14-59) U/L Alkaline Phosphatase (46-116) U/L Troponin I (0.00-0.056) ng/mL NT-Pro-B Natriuret Pep 9798 H (0-125) pg/mL Total Protein (6.4-8.2) g/dl Albumin (3.4-5.0) g/dl Globulin gm/dL Albumin/Globulin Ratio (1-2) Urine Color (Yellow) Urine Appearance (Clear) Urine pH (5.0-8.0) Ur Specific [place] (1.005-1.030) Urine Protein (Negative) Urine Glucose (UA) (Negative) Urine Ketones (Negative) Urine Occult Blood (Negative) Urine Nitrite (Negative) Urine Bilirubin (Negative) Urine Urobilinogen (0.2-1.0) Ur Leukocyte Esterase (Negative) Urine RBC (0-5) /hpf Urine WBC (0-5) /hpf Ur Epithelial Cells (0-5) /hpf Urine Bacteria (FEW) /hpf Hyaline Casts (0-5) /lpf Urine Mucus (FEW) /hpf Fluid Type Fluid Glucose mg/dL Fluid Total Protein gm/dl Fluid LDH U/L 07/06/18 07/06/18 07/06/18 Range/Units 05:45 09:15 09:15 WBC (3.98-10.04) K/mm3 RBC (3.98-5.22) M/mm3 Hgb (11.2-15.7) gm/L Hct (34.1-44.9) % MCV (79.4-94.8) fl MCH (25.6-32.2) pg MCHC (32.2-35.5) g/dl RDW Std Deviation (36.4-46.3) fL Plt Count (182-369) K/mm3 MPV (9.4-12.3) fl Neut % (Auto) (34.0-71.1) % Lymph % (Auto) (19.3-51.7) % Ross % (Auto) (4.7-12.5) % Eos % (Auto) (0.7-5.8) Baso % (Auto) (0.1-1.2) % Neut # (Auto) (1.56-6.13) K/mm3 Lymph # (Auto) (1.18-3.74) K/mm3 Ross # (Auto) (0.24-0.36) K/mm3 Eos # (Auto) (0.04-0.36) K/mm3 Baso # (Auto) (0.01-0.08) K/mm3 Neutrophils % (Manual) (40-60) % Band Neutrophils % (0-10) % Lymphocytes % (Manual) (20-40) % Atypical Lymphs % % Monocytes % (Manual) (2-10) % Eosinophils % (Manual) (0.7-5.8) % Basophils % (Manual) (0.1-1.2) Toxic Granulation Platelet Estimate Plt Morphology Comment Hypochromasia Anisocytosis RBC Morph Comment PT (9.5-12.1) SECONDS INR APTT (24-31) SECONDS D-Dimer, Quantitative (0.19-0.50) mg/L Puncture Site ABG pH (7.35-7.45) ABG pCO2 (35.0-45.0) mmHg ABG pO2 (80.0-100.0) mmHg ABG HCO3 (22.0-26.0) meq/L ABG O2 Saturation (96.0-97.0) % ABG Base Excess (-2-2.0) O2 Delivery Device Oxygen Flow Rate Sodium (136-145) mEq/L Potassium (3.5-5.1) mEq/L Chloride (98-107) mEq/L Carbon Dioxide (21-32) mEq/L Anion Gap (5-15) BUN (7-18) mg/dL Creatinine (0.55-1.02) mg/dL Est Cr Clr Drug Dosing mL/min Estimated GFR (MDRD) (>60) mL/min BUN/Creatinine Ratio (14-18) Glucose (74-106) mg/dL POC Glucose 159 H (70-105) mg/dL Lactic Acid (0.4-2.0) mmol/L Calcium (8.5-10.1) mg/dL Magnesium (1.8-2.4) mg/dl Total Bilirubin (0.2-1.0) mg/dL AST (15-37) U/L ALT (14-59) U/L Alkaline Phosphatase (46-116) U/L Troponin I (0.00-0.056) ng/mL NT-Pro-B Natriuret Pep (0-125) pg/mL Total Protein (6.4-8.2) g/dl Albumin (3.4-5.0) g/dl Globulin gm/dL Albumin/Globulin Ratio (1-2) Urine Color (Yellow) Urine Appearance (Clear) Urine pH (5.0-8.0) Ur Specific [place] (1.005-1.030) Urine Protein (Negative) Urine Glucose (UA) (Negative) Urine Ketones (Negative) Urine Occult Blood (Negative) Urine Nitrite (Negative) Urine Bilirubin (Negative) Urine Urobilinogen (0.2-1.0) Ur Leukocyte Esterase (Negative) Urine RBC (0-5) /hpf Urine WBC (0-5) /hpf Ur Epithelial Cells (0-5) /hpf Urine Bacteria (FEW) /hpf Hyaline Casts (0-5) /lpf Urine Mucus (FEW) /hpf Fluid Type Thoracentesis fluid Thoracentesis fluid Fluid Glucose 175 mg/dL Fluid Total Protein < 2.0 gm/dl Fluid LDH 65 U/L 07/06/18 Range/Units 11:42 WBC (3.98-10.04) K/mm3 RBC (3.98-5.22) M/mm3 Hgb (11.2-15.7) gm/L Hct (34.1-44.9) % MCV (79.4-94.8) fl MCH (25.6-32.2) pg MCHC (32.2-35.5) g/dl RDW Std Deviation (36.4-46.3) fL Plt Count (182-369) K/mm3 MPV (9.4-12.3) fl Neut % (Auto) (34.0-71.1) % Lymph % (Auto) (19.3-51.7) % Ross % (Auto) (4.7-12.5) % Eos % (Auto) (0.7-5.8) Baso % (Auto) (0.1-1.2) % Neut # (Auto) (1.56-6.13) K/mm3 Lymph # (Auto) (1.18-3.74) K/mm3 Ross # (Auto) (0.24-0.36) K/mm3 Eos # (Auto) (0.04-0.36) K/mm3 Baso # (Auto) (0.01-0.08) K/mm3 Neutrophils % (Manual) (40-60) % Band Neutrophils % (0-10) % Lymphocytes % (Manual) (20-40) % Atypical Lymphs % % Monocytes % (Manual) (2-10) % Eosinophils % (Manual) (0.7-5.8) % Basophils % (Manual) (0.1-1.2) Toxic Granulation Platelet Estimate Plt Morphology Comment Hypochromasia Anisocytosis RBC Morph Comment PT (9.5-12.1) SECONDS INR APTT (24-31) SECONDS D-Dimer, Quantitative (0.19-0.50) mg/L Puncture Site ABG pH (7.35-7.45) ABG pCO2 (35.0-45.0) mmHg ABG pO2 (80.0-100.0) mmHg ABG HCO3 (22.0-26.0) meq/L ABG O2 Saturation (96.0-97.0) % ABG Base Excess (-2-2.0) O2 Delivery Device Oxygen Flow Rate Sodium (136-145) mEq/L Potassium (3.5-5.1) mEq/L Chloride (98-107) mEq/L Carbon Dioxide (21-32) mEq/L Anion Gap (5-15) BUN (7-18) mg/dL Creatinine (0.55-1.02) mg/dL Est Cr Clr Drug Dosing mL/min Estimated GFR (MDRD) (>60) mL/min BUN/Creatinine Ratio (14-18) Glucose (74-106) mg/dL POC Glucose 210 H (70-105) mg/dL Lactic Acid (0.4-2.0) mmol/L Calcium (8.5-10.1) mg/dL Magnesium (1.8-2.4) mg/dl Total Bilirubin (0.2-1.0) mg/dL AST (15-37) U/L ALT (14-59) U/L Alkaline Phosphatase (46-116) U/L Troponin I (0.00-0.056) ng/mL NT-Pro-B Natriuret Pep (0-125) pg/mL Total Protein (6.4-8.2) g/dl Albumin (3.4-5.0) g/dl Globulin gm/dL Albumin/Globulin Ratio (1-2) Urine Color (Yellow) Urine Appearance (Clear) Urine pH (5.0-8.0) Ur Specific [place] (1.005-1.030) Urine Protein (Negative) Urine Glucose (UA) (Negative) Urine Ketones (Negative) Urine Occult Blood (Negative) Urine Nitrite (Negative) Urine Bilirubin (Negative) Urine Urobilinogen (0.2-1.0) Ur Leukocyte Esterase (Negative) Urine RBC (0-5) /hpf Urine WBC (0-5) /hpf Ur Epithelial Cells (0-5) /hpf Urine Bacteria (FEW) /hpf Hyaline Casts (0-5) /lpf Urine Mucus (FEW) /hpf Fluid Type Fluid Glucose mg/dL Fluid Total Protein gm/dl Fluid LDH U/L Result Diagrams: 07/09/18 05:45 07/09/18 05:45 Problem List Initiated/Reviewed/Updated: Yes Orders Last 24hrs: Active Orders 24 hr Category Date Time Status Patient Status [ADT] Routine ADT 07/06/18 09:30 Active Blood Glucose Check, Bedside [RC] QIDACANDBED Care 07/06/18 00:18 Active Insert Rbown Catheter [Insert Urinary Catheter] [OM.PC] Care 07/06/18 00:45 Ordered Q24H Insert Urinary Catheter [OM.PC] Q24H Care 07/06/18 00:18 Ordered Oxygen Therapy [RC] ASDIRECTED Care 07/06/18 00:18 Active RT Aerosol Therapy [RC] ASDIRECTED Care 07/06/18 01:42 Active Urinary Catheter Assessment [RC] Q4HR Care 07/06/18 00:36 Active Wound Care [RC] BID Care 07/06/18 09:00 Active Consult to Case Management/Abrasive Grader [CONS] Cons 07/06/18 03:51 Active Routine ADA Diabetic [[place] [employer] Diet] [DIET Diet 07/06/18 Breakfast Active ] Fluid Restriction [DIET] Diet 07/06/18 Dinner Active Ang Chest [CT] Stat Exams 07/05/18 22:15 Taken CXR [Chest 2V] [CR] Routine Exams 07/06/18 08:00 Taken Chest 1V Frontal [CR] Routine Exams 07/06/18 09:29 Taken Chest 2V [CR] Stat Exams 07/05/18 20:23 Taken ACID FAST BACILLI SMEAR [AFB] Routine Lab 07/06/18 10:00 Ordered CELL COUNT,BODY FLUID [BF] Routine Lab 07/06/18 09:15 Results CULTURE BLOOD [BC] Stat Lab 07/05/18 20:50 Received CULTURE BLOOD [BC] Stat Lab 07/05/18 21:00 Received CULTURE BODY FLUID + SMEAR [RM] Routine Lab 07/06/18 09:15 Received CULTURE WOUND [RM] Routine Lab 07/06/18 10:57 Received HEMOGLOBIN/HEMATOCRIT,HH [HEME] Stat Lab 07/06/18 13:40 Ordered LACTATE DEHYDROGENASE,BODY FL [BF] Routine Lab 07/06/18 09:15 Results METH-RESIST S.AUR,MRSA BY PCR [MOLEC] Routine Lab 07/06/18 10:40 Received Acetaminophen [Tylenol] Med 07/06/18 01:40 Active 650 mg PO Q6H PRN Acetaminophen/HYDROcodone [[place] 325-5 MG] Med 07/06/18 01:14 Active 1 tab PO Q6H PRN Albuterol [Proventil Neb Soln] Med 07/06/18 01:40 Active 2.5 mg NEB Q4HRRT PRN Albuterol/Ipratropium [DuoNeb 3.0-0.5 MG/3 ML] Med 07/06/18 06:00 Active 3 ml NEB QIDRT Furosemide [Lasix] 100 mg Med 07/06/18 12:00 Active Sodium Chloride 0.9% [Normal Saline] 90 ml IV TITRATE HYDROmorphone [Dilaudid] Med 07/06/18 01:13 Active 1 mg IVPUSH Q8H PRN Heparin Sodium Med 07/06/18 06:00 Active 5,000 units IVPUSH Q8HR Insulin Lispro [HumaLOG] Med 07/06/18 07:00 Active See Protocol SUBCUT QIDACANDBED Ondansetron [Zofran] Med 07/06/18 13:00 Active 4 mg IVPUSH Q8H PRN hydrALAZINE [Apresoline] Med 07/06/18 01:40 Active 20 mg IVPUSH Q6H PRN Blood Culture x2 Reflex Set [OM.PC] Stat Oth 07/05/18 20:23 Ordered Code Status [Resuscitation Status] Routine Resus Stat 07/06/18 03:52 Ordered Medication Orders Acetaminophen (Tylenol) 650 mg PO Q6H PRN PRN Reason: Pain/Fever Last Admin: 07/06/18 06:16 Dose: 650 mg Hydrocodone Bitart/Acetaminophen ([place] 325-5 Mg) 1 tab PO Q6H PRN PRN Reason: Pain Last Admin: 07/06/18 07:52 Dose: 1 tab Albuterol (Proventil Neb Soln) 2.5 mg NEB Q4HRRT PRN PRN Reason: Shortness of Breath Last Admin: 07/06/18 08:13 Dose: 2.5 mg Albuterol/Ipratropium (Duoneb 3.0-0.5 Mg/3 Ml) 3 ml NEB QIDRT [facility] Last Admin: 07/06/18 10:03 Dose: 3 ml Admin: 07/06/18 06:08 Dose: 3 ml Heparin Sodium (Porcine) (Heparin Sodium) 5,000 units IVPUSH Q8HR [facility] Last Admin: 07/06/18 06:16 Dose: 5,000 units Hydralazine HCl (Apresoline) 20 mg IVPUSH Q6H PRN PRN Reason: Hypertension Hydromorphone HCl (Dilaudid) 1 mg IVPUSH Q8H PRN PRN Reason: Pain Last Admin: 07/06/18 10:50 Dose: 1 mg Admin: 07/06/18 01:40 Dose: 1 mg Furosemide 100 mg/ Sodium (Chloride) 100 mls @ 4 mls/hr IV TITRATE [facility]; Protocol Last Admin: 07/06/18 12:29 Dose: 4 mg/hr, 4 mls/hr Insulin Human Lispro (Humalog) 0 unit SUBCUT QIDACANDBED [facility]; Protocol Last Admin: 07/06/18 12:26 Dose: 2 unit Admin: 07/06/18 06:17 Dose: 1 unit Ondansetron HCl (Zofran) 4 mg IVPUSH Q8H PRN PRN Reason: Nausea/Vomiting Last Admin: 07/06/18 13:14 Dose: 4 mg Assessment/Plan Comment:: Assessment:: Pleural Effusions * Bilateral pleural effusions seen on X-ray and CT with bibasilar atelectasis, more prominent on left side * X-ray done today shows decreased left sided pleural effusion with better aeration at the lung base. Small right sided pleural effusion is seen * CT also showed patchy alveolar densities in both upper lungs which may represent atelectasis as well as pneumonia. Prominent mediastinal lymph nodes are seen * Thoracocentesis performed on right side 07/06/18 yielded 1200 cc's of fluid, left side 07/07/18 yielded 1400 cc's of fluid * Fluid appears light yellow and slightly hazy * Studies from the right sided fluid showed a glucose of 175, protein <2.0, and a LDH of 65 * Consistent with heart failure Hypoxemia * Patient reports no oxygen use prior to her hospitilization in [place] for wound debridement. Since then, she has been needing oxygen. At home she is currently on 2L at rest and 5L as needed when she is moving around per nasal cannula * Her O2 stats are in the low 90's on 6L O2 nasal cannula * When she sits up/moves around, her stats drop into the high 70's/low 80's Elevated D-Dimer * D-dimer on admission was 0.99 * Chest CT showed no pulmonary artery filling defects to suggest pulmonary embolism * Patient continues to be hypoxic and short of breath, so V/Q scan will be done in the AM Heart Failure * Diagnosed in [place] in May. Reports a history of progressive shortness of breath before she came in with the wound. * BNP 10,797 * Bilateral lower leg edema Kidney Failure * Acute on chronic * Creatinine 1.9, BUN 22, EGFR 28 Diabetes Mellitus Type 2 * Patient reports starting on metformin >8 years ago. She took it for about a month, but it made her sick so she stopped. She has not followed up on this since then until they told her in [place] in May that she had diabetes. * HbA1C 7.2 Hypertension * Started on amlodipine in [place] in May * Blood pressures in the 130's/70's - Plan Plan:: Daily labs Daily chest X-ray V/Q scan Echocardiogram Fluid restriction and diurese Wound care primary special educator and dietary consult PT and social work consult DVT/GI prophylaxis Full Code
--- NOTE | 2018-07-06 13:47 | PROC ---
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 She was discharged last week and presented to the emergency room here at [facility] with complaints shortness of breath. Chest x-ray and CT scan showed significant bilateral pleural effusions causing compressive atelectasis of both lungs. PROCEDURE: Right thoracentesis with removal of 1200 mL of fluid. ANESTHESIA: Local. SPECIMEN: Pleural fluid which will be sent for cytology. DESCRIPTION OF PROCEDURE: After informed consent, an area on the back of the right side of the chest was infiltrated with lidocaine. A thoracentesis tray was used and the catheter placed intrapleurally. Then I was able to remove 1200 mL of fluid from the pleural space. This went without difficulty. The catheter site was removed and a Band-Aid placed over the stab incision. MMODAL /[id number]
[2018-07-06] MEDS ORDERED: Heparin Sodium 5,000 Units/ML Vial SUBCUT SCH (14:00)
[2018-07-06] MEDS ORDERED: Furosemide 40 MG/4 ML VIAL IVPUSH ONE (14:30)
[2018-07-06] MEDS ORDERED: HYDROmorphone 1 MG/ML Syringe IVPUSH ONE (15:15)
[2018-07-06] MEDS ORDERED: Sodium Chloride 0.9% 250 ML IV SCH (16:30)
[2018-07-06] MEDS ORDERED: PROMETHAZINE TOP PRN (18:06)
[2018-07-06] MEDS ORDERED: Ondansetron 4 MG Tab.DIS PO PRN (18:30)
[2018-07-06] MEDS: Ondansetron 4 MG/2 ML SDV IVPUSH PRN (18:39)
[2018-07-06] MEDS ORDERED: Furosemide 40 MG/4 ML VIAL ONE (19:13)
[2018-07-06] MEDS: HYDROmorphone 0.5 MG/0.5 ML Syringe IVPUSH PRN (19:21)
[2018-07-06] MEDS ORDERED: Gabapentin 300 MG Cap PO ONE (20:59)
[2018-07-06] MEDS: Insulin Glargine,Human Rec. Analog 100 Units/ML 3 ML Pen SUBCUT SCH (21:12)
[2018-07-07] MEDS: HYDROmorphone 0.5 MG/0.5 ML Syringe IVPUSH PRN ×2 (04:29→23:04)
[2018-07-07] MEDS: Insulin Lispro 100 Unit/ML 3 ML KwikPen SUBCUT SCH ×4 (06:02→21:00)
[2018-07-07] MEDS: Pantoprazole 40 MG Tab.CR PO SCH (06:06)
[2018-07-07] MEDS: Albuterol/Ipratropium 3.0-0.5 MG/3 ML Neb Soln NEB SCH ×4 (06:13→20:10)
--- NOTE | 2018-07-07 07:13 | CR ---
Chest: Two views of the chest are obtained. Comparison: Prior chest x-ray performed earlier on the same day (9:39 AM) Small left-sided pleural effusion is seen. Decreased pulmonary edema from prior study. Barbara B lines are noted likely representing mild persisting interstitial edema. Continuing increased density within left mid and lower lung with differential including atelectasis as well as pneumonia. Heart size appears within normal limits. Upper mediastinum is normal. Stable bony structures. Impression: 1. Decreased pulmonary edema from most recent chest x-ray. Mild persisting interstitial edema. 2. Small left-sided pleural effusion. 3. Continuing parenchymal density within the left mid and lower lung with differential remaining of atelectasis and/or pneumonia. Diagnostic code #3 Agree with preliminary report issued by [facility] ([facility] preliminary report dictated on 07/06/18, 4:57 PM Central Time)
--- NOTE | 2018-07-07 07:13 | CR ---
Chest: Frontal view of the chest was obtained. Comparison: Prior chest x-ray performed earlier on the same day (8:14 AM) Diffuse increased density throughout both lungs are seen most likely representing pulmonary edema. Bilateral pleural effusions are seen. Heart size and mediastinum are within normal limits. Pleural effusion has diminished on the left side from prior exam. Bony structures are grossly intact. Impression: 1. Diffuse increased density within the chest having the appearance of pulmonary edema. 2. Bilateral pleural effusions again noted but findings have decreased in prominence on the left side. Diagnostic code #3 Agree with preliminary report issued by [facility] ([facility] preliminary report dictated on 07/06/18, 10:59 AM Central Time)
--- NOTE | 2018-07-07 07:13 | CR ---
Chest: Two views of the chest were obtained. Comparison: Prior chest x-ray of 07/05/18. Bilateral pleural effusions are seen. Increased density within the left mid and lower lung which may represent atelectasis versus pneumonia. Heart does not appear enlarged. Anterior wedging is noted of several lower thoracic or upper lumbar vertebral bodies which appear old. Impression: 1. Bilateral pleural effusions. Increased density within the left mid and lower lung either due to atelectasis or pneumonia. 2. Other incidental findings as noted above. Diagnostic code #3 Agree with preliminary report issued by [facility] ([facility] preliminary report dictated on 07/06/18, 10:23 AM Central Time)
--- NOTE | 2018-07-07 07:14 | CR ---
Chest: Two views of the chest were obtained. Comparison: No prior chest x-ray. Bilateral pleural effusions are seen. Bibasilar atelectasis is noted which is more prominent on the left side. Upper lungs are clear. Heart is within normal limits in size. Bony structures are unremarkable. Impression: 1. Bilateral pleural effusions and bibasilar atelectasis. Diagnostic code #3
--- NOTE | 2018-07-07 07:14 | CT ---
CT chest Technique: Multiple axial sections through the chest were obtained. Intravenous contrast was utilized. Study has been performed as a pulmonary angiogram protocol. Findings: Moderately large bilateral pleural effusions are seen. Bibasilar atelectasis is noted on a compressive basis next to the pleural effusions which is more prominent on the left side. Patchy alveolar densities are noted within both upper lungs which may represent areas of atelectasis as well as pneumonia. Slightly prominent mediastinal lymph nodes are seen with largest measuring approximately 1.5 cm. No pericardial thickening is seen. Small portion of the visualized upper abdominal structures appear within normal limits. Pulmonary arteries show no filling defects to indicate pulmonary embolism. Bone window setting show an anterior wedge deformity at the thoracolumbar junction which appears old. Impression: 1. Moderately large bilateral pleural effusions causing compressive atelectasis within both lungs. 2. Patchy alveolar densities within both upper lungs either due to atelectasis or possibly small areas of pneumonia. 3. No findings of pulmonary embolism. 4. Other findings as noted above most likely incidental. Diagnostic code #3 I agree with preliminary report from [facility], finalized on 07/06/18, 12:24 AM Central Time
--- NOTE | 2018-07-07 08:51 | CR ---
Chest: Two views of the chest were obtained. Comparison: Prior chest x-ray of 07/06/18. Heart size and mediastinum are within normal limits. Small left-sided pleural effusion is again present. Increased parenchymal densities noted within both lung bases. Central pulmonary vessels remain minimally congested. Bony structures appear stable. Impression: 1. Continuing left-sided pleural effusion with pulmonary vascular congestion remaining but improved from prior exam. 2. Continuing parenchymal densities within both lung bases, worse on the left side which may represent continued atelectasis and/or pneumonia. Diagnostic code #3
[2018-07-07] MEDS: amLODIPine 5 MG Tab PO SCH (09:24)
[2018-07-07] MEDS: Ascorbic Acid 500 MG Tab PO SCH (09:24)
[2018-07-07] MEDS: Acetaminophen/HYDROcodone 325-5 MG Tab PO PRN (09:24)
[2018-07-07] MEDS: Ferrous Sulfate 325 MG Tab PO SCH (09:25)
[2018-07-07] MEDS: Polyethylene Glycol 3350 Powder 17 GM Packet PO SCH (09:25)
--- NOTE | 2018-07-07 10:01 | PCM.OPNOTE ---
- General Post-Op/Procedure Note Date of Surgery/Procedure: 07/07/18 Operative Procedure(s): left thorcenthesis 1400cc fluid Pre Op Diagnosis: left pleural effuisions Post-Op Diagnosis: Same Anesthesia Technique: Local Primary Surgeon: graciela PONCEL in mLs: 0 Complications: None Condition: Good Free Text/Narrative:: Intake & Output 07/06/18 07/07/18 07/07/18 23:59 07:59 15:59 Intake Total 1453 524 Output Total 2806 009 [id number] [facility] [phone]
--- NOTE | 2018-07-07 11:43 | CR ---
Chest: Portable view of the chest was obtained. Comparison: Prior chest x-ray of 07/07/18 (7:58 AM). Decreased left-sided pleural effusion is seen. Small right sided pleural effusion is noted. No pneumothorax is appreciated. Heart size and mediastinum are within normal limits. Areas of atelectasis are seen within the right lung base. Better aeration of the left lung base is seen. Impression: 1. Decreased left-sided pleural effusion with better aeration of the left lung base when compared to prior study. No left-sided pneumothorax is seen at this time. 2. Small right sided pleural effusion with right-sided parenchymal density most likely representing mild increased atelectasis from previous study. Diagnostic code #3
[2018-07-07] MEDS: fentaNYL 12 MCG/HR Transdermal Patch TRDERM SCH (12:51)
--- NOTE | 2018-07-07 14:07 | PCM.PN ---
<Gisella George - Last Filed: 07/07/18 17:01> - General Info Date of Service: 07/07/18 Admission Dx/Problem (Free Text): Bilateral pleural effusions Subjective Update: The patient reports feeling less short of breath since thoracocentesis. She reports a slight cough and pain with deep inspiration on the right side. Pain Score: 2 (Pain from her wound on her bottom) - Review of Systems General: Reports: No Symptoms Pulmonary: Reports: Shortness of Breath (Improved), Pleuritic Chest Pain, Cough Cardiovascular: Reports: Dyspnea on Exertion, Edema. 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; status post 5 operative debridements) Neurological: Reports: No Symptoms Psychiatric: Reports: No Symptoms - Patient Data Vitals - Most Recent: Last Vital Signs Temp 99 F 07/07/18 12:00 Pulse 89 07/07/18 12:00 Resp 19 07/07/18 12:00 BP 133/70 07/07/18 12:00 Pulse Ox 94 L 07/07/18 12:00 Weight - Most Recent: 100.335 kg I&O - Last 24 Hours: Intake & Output 07/06/18 07/07/18 07/07/18 22:59 06:59 14:59 Intake Total 1453 524 240 Output Total 2087 160 2070 Balance -38 -840 -035 Lab Results Last 24 Hours: Laboratory Results - last 24 hr 07/06/18 07/06/18 07/06/18 Range/Units 09:15 10:40 13:52 WBC (3.98-10.04) K/mm3 RBC (3.98-5.22) M/mm3 Hgb (11.2-15.7) gm/L Hct (34.1-44.9) % MCV (79.4-94.8) fl MCH (25.6-32.2) pg MCHC (32.2-35.5) g/dl RDW Std Deviation (36.4-46.3) fL Plt Count (182-369) K/mm3 MPV (9.4-12.3) fl Neut % (Auto) (34.0-71.1) % Lymph % (Auto) (19.3-51.7) % [place] % (Auto) (4.7-12.5) % Eos % (Auto) (0.7-5.8) Baso % (Auto) (0.1-1.2) % Neut # (Auto) (1.56-6.13) K/mm3 Lymph # (Auto) (1.18-3.74) K/mm3 [place] # (Auto) (0.24-0.36) K/mm3 Eos # (Auto) (0.04-0.36) K/mm3 Baso # (Auto) (0.01-0.08) K/mm3 Sodium (136-145) mEq/L Potassium (3.5-5.1) mEq/L Chloride (98-107) mEq/L Carbon Dioxide (21-32) mEq/L Anion Gap (5-15) BUN (7-18) mg/dL Creatinine (0.55-1.02) mg/dL Est Cr Clr Drug Dosing mL/min Estimated GFR (MDRD) (>60) mL/min BUN/Creatinine Ratio (14-18) Glucose (74-106) mg/dL POC Glucose (70-105) mg/dL Hemoglobin A1c (4.50-6.20) % Lactic Acid (0.4-2.0) mmol/L Calcium (8.5-10.1) mg/dL Magnesium (1.8-2.4) mg/dl C-Reactive Protein (<1.0) mg/dL NT-Pro-B Natriuret Pep (0-125) pg/mL Body Fluid Site Thoracentesis Fluid Volume 1300 ML Fluid Color Light yellow Fluid Appearance Hazy Fluid WBC 0.23 (0.20-0.60) k/mm*3 Fluid RBC (0.00-0.010) 10*6/uL Fluid Diff Comment TNP Fluid Seg Neutrophils 5.0 (0-25) % Fluid Lymphocytes 31.0 (0-78) % Fl Polymorphonucl Cell Not Reportable Fld Meso/Macro/Monocyte 64 MRSA (PCR) Negative Blood Type AB POSITIVE Gel Antibody Screen Negative Crossmatch See Detail 07/06/18 07/06/18 07/07/18 Range/Units 17:40 21:07 05:55 WBC 10.84 H (3.98-10.04) K/mm3 RBC 3.71 L (3.98-5.22) M/mm3 Hgb 10.7 L (11.2-15.7) gm/L Hct 34.1 (34.1-44.9) % MCV 91.9 (79.4-94.8) fl MCH 28.8 (25.6-32.2) pg MCHC 31.4 L (32.2-35.5) g/dl RDW Std Deviation 57.7 H (36.4-46.3) fL Plt Count 461 H (182-369) K/mm3 MPV 8.5 L (9.4-12.3) fl Neut % (Auto) 72.1 H (34.0-71.1) % Lymph % (Auto) 13.7 L (19.3-51.7) % [place] % (Auto) 11.0 (4.7-12.5) % Eos % (Auto) 2.7 (0.7-5.8) Baso % (Auto) 0.3 (0.1-1.2) % Neut # (Auto) 7.83 H (1.56-6.13) K/mm3 Lymph # (Auto) 1.48 (1.18-3.74) K/mm3 [place] # (Auto) 1.19 H (0.24-0.36) K/mm3 Eos # (Auto) 0.29 (0.04-0.36) K/mm3 Baso # (Auto) 0.03 (0.01-0.08) K/mm3 Sodium (136-145) mEq/L Potassium (3.5-5.1) mEq/L Chloride (98-107) mEq/L Carbon Dioxide (21-32) mEq/L Anion Gap (5-15) BUN (7-18) mg/dL Creatinine (0.55-1.02) mg/dL Est Cr Clr Drug Dosing mL/min Estimated GFR (MDRD) (>60) mL/min BUN/Creatinine Ratio (14-18) Glucose (74-106) mg/dL POC Glucose 232 H 202 H (70-105) mg/dL Hemoglobin A1c (4.50-6.20) % Lactic Acid (0.4-2.0) mmol/L Calcium (8.5-10.1) mg/dL Magnesium (1.8-2.4) mg/dl C-Reactive Protein (<1.0) mg/dL NT-Pro-B Natriuret Pep (0-125) pg/mL Body Fluid Site Fluid Volume ML Fluid Color Fluid Appearance Fluid WBC (0.20-0.60) k/mm*3 Fluid RBC (0.00-0.010) 10*6/uL Fluid Diff Comment Fluid Seg Neutrophils (0-25) % Fluid Lymphocytes (0-78) % Fl Polymorphonucl Cell Fld Meso/Macro/Monocyte MRSA (PCR) Blood Type Gel Antibody Screen Crossmatch 07/07/18 07/07/18 07/07/18 Range/Units 05:55 05:55 05:55 WBC (3.98-10.04) K/mm3 RBC (3.98-5.22) M/mm3 Hgb (11.2-15.7) gm/L Hct (34.1-44.9) % MCV (79.4-94.8) fl MCH (25.6-32.2) pg MCHC (32.2-35.5) g/dl RDW Std Deviation (36.4-46.3) fL Plt Count (182-369) K/mm3 MPV (9.4-12.3) fl Neut % (Auto) (34.0-71.1) % Lymph % (Auto) (19.3-51.7) % [place] % (Auto) (4.7-12.5) % Eos % (Auto) (0.7-5.8) Baso % (Auto) (0.1-1.2) % Neut # (Auto) (1.56-6.13) K/mm3 Lymph # (Auto) (1.18-3.74) K/mm3 [place] # (Auto) (0.24-0.36) K/mm3 Eos # (Auto) (0.04-0.36) K/mm3 Baso # (Auto) (0.01-0.08) K/mm3 Sodium 139 (136-145) mEq/L Potassium 4.1 (3.5-5.1) mEq/L Chloride 104 (98-107) mEq/L Carbon Dioxide 28 (21-32) mEq/L Anion Gap 11.1 (5-15) BUN 22 H (7-18) mg/dL Creatinine 1.9 H (0.55-1.02) mg/dL Est Cr Clr Drug Dosing 36.53 mL/min Estimated GFR (MDRD) 28 (>60) mL/min BUN/Creatinine Ratio 11.6 L (14-18) Glucose 134 H (74-106) mg/dL POC Glucose (70-105) mg/dL Hemoglobin A1c (4.50-6.20) % Lactic Acid 0.7 (0.4-2.0) mmol/L Calcium 8.8 (8.5-10.1) mg/dL Magnesium 1.8 (1.8-2.4) mg/dl C-Reactive Protein 12.4 H* (<1.0) mg/dL NT-Pro-B Natriuret Pep 79743 H (0-125) pg/mL Body Fluid Site Fluid Volume ML Fluid Color Fluid Appearance Fluid WBC (0.20-0.60) k/mm*3 Fluid RBC (0.00-0.010) 10*6/uL Fluid Diff Comment Fluid Seg Neutrophils (0-25) % Fluid Lymphocytes (0-78) % Fl Polymorphonucl Cell Fld [place]o/Macro/Monocyte MRSA (PCR) Blood Type Gel Antibody Screen Crossmatch 07/07/18 07/07/18 07/07/18 Range/Units 05:55 05:57 12:18 WBC (3.98-10.04) K/mm3 RBC (3.98-5.22) M/mm3 Hgb (11.2-15.7) gm/L Hct (34.1-44.9) % MCV (79.4-94.8) fl MCH (25.6-32.2) pg MCHC (32.2-35.5) g/dl RDW Std Deviation (36.4-46.3) fL Plt Count (182-369) K/mm3 MPV (9.4-12.3) fl Neut % (Auto) (34.0-71.1) % Lymph % (Auto) (19.3-51.7) % [place] % (Auto) (4.7-12.5) % Eos % (Auto) (0.7-5.8) Baso % (Auto) (0.1-1.2) % Neut # (Auto) (1.56-6.13) K/mm3 Lymph # (Auto) (1.18-3.74) K/mm3 [place] # (Auto) (0.24-0.36) K/mm3 Eos # (Auto) (0.04-0.36) K/mm3 Baso # (Auto) (0.01-0.08) K/mm3 Sodium (136-145) mEq/L Potassium (3.5-5.1) mEq/L Chloride (98-107) mEq/L Carbon Dioxide (21-32) mEq/L Anion Gap (5-15) BUN (7-18) mg/dL Creatinine (0.55-1.02) mg/dL Est Cr Clr Drug Dosing mL/min Estimated GFR (MDRD) (>60) mL/min BUN/Creatinine Ratio (14-18) Glucose (74-106) mg/dL POC Glucose 135 H 187 H (70-105) mg/dL Hemoglobin A1c 7.20 H (4.50-6.20) % Lactic Acid (0.4-2.0) mmol/L Calcium (8.5-10.1) mg/dL Magnesium (1.8-2.4) mg/dl C-Reactive Protein (<1.0) mg/dL NT-Pro-B Natriuret Pep (0-125) pg/mL Body Fluid Site Fluid Volume ML Fluid Color Fluid Appearance Fluid WBC (0.20-0.60) k/mm*3 Fluid RBC (0.00-0.010) 10*6/uL Fluid Diff Comment Fluid Seg Neutrophils (0-25) % Fluid Lymphocytes (0-78) % Fl Polymorphonucl Cell Fld Meso/Macro/Monocyte MRSA (PCR) Blood Type Gel Antibody Screen Crossmatch Yoshi Results Last 24 Hours: Microbiology 07/06/18 10:57 Wound Culture - Preliminary Groin, Right Gram Positive Cocci 07/06/18 09:15 Gram Stain - Final Thoracentesis Fluid Body Fluid Culture - Preliminary NO GROWTH AFTER 1 DAY 07/05/18 21:00 Aerobic Blood Culture - Preliminary Blood - Venous - Lab Draw NO GROWTH AFTER 1 DAY Anaerobic Blood Culture - Preliminary NO GROWTH AFTER 1 DAY 07/05/18 20:50 Aerobic Blood Culture - Preliminary Blood - Venous NO GROWTH AFTER 1 DAY Anaerobic Blood Culture - Preliminary NO GROWTH AFTER 1 DAY Med Orders - Current: Current Medications Acetaminophen (Tylenol) 650 mg PO Q6H PRN PRN Reason: Pain/Fever Last Admin: 07/06/18 22:29 Dose: 650 mg Hydrocodone Bitart/Acetaminophen ([place] 325-5 Mg) 1 tab PO Q8H PRN PRN Reason: Pain (moderate 4-6) Last Admin: 07/07/18 09:24 Dose: 1 tab Albuterol (Proventil Neb Soln) 2.5 mg NEB Q4HRRT PRN PRN Reason: Shortness of Breath Last Admin: 07/06/18 08:13 Dose: 2.5 mg Albuterol/Ipratropium (Duoneb 3.0-0.5 Mg/3 Ml) 3 ml NEB QIDRT [facility] Last Admin: 07/07/18 09:09 Dose: 3 ml Amlodipine Besylate (Norvasc) 5 mg PO DAILY [facility] Last Admin: 07/07/18 09:24 Dose: 5 mg Ascorbic Acid (Vitamin C) 500 mg PO DAILY [facility] Last Admin: 07/07/18 09:24 Dose: 500 mg Fentanyl (Duragesic) 12 mcg TRDERM Q72H [facility] Last Admin: 07/07/18 12:51 Dose: 12 mcg Ferrous Sulfate (Ferrous Sulfate) 325 mg PO DAILY [facility] Last Admin: 07/07/18 09:25 Dose: 325 mg Gabapentin (Neurontin) 300 mg PO TID [facility] Hydralazine HCl (Apresoline) 20 mg IVPUSH Q6H PRN PRN Reason: Hypertension Hydromorphone HCl (Dilaudid) 0.5 mg IVPUSH Q6H PRN PRN Reason: Pain (moderate 4-6) Last Admin: 07/07/18 04:29 Dose: 0.5 mg Furosemide 100 mg/ Sodium (Chloride) 100 mls @ 4 mls/hr IV TITRATE [facility]; Protocol Last Infusion: 07/06/18 22:57 Dose: 4 mg/hr, 4 mls/hr Sodium Chloride (Normal Saline) 250 mls @ 100 mls/hr IV ASDIRECTED [facility] Last Admin: 07/06/18 16:37 Dose: 100 mls/hr Insulin Glargine (Lantus Solostar) 13 units SUBCUT BEDTIME [facility] Last Admin: 09/23/18 21:12 Dose: 13 units Insulin Human Lispro (Humalog) 0 unit SUBCUT QIDACANDBED [facility]; Protocol Last Admin: 07/07/18 12:53 Dose: 1 unit Miscellaneous Information (Remove Patch) 0 ea TRDERM Q72H [facility] Ondansetron HCl (Zofran) 4 mg IVPUSH Q6H PRN PRN Reason: Nausea/Vomiting Last Admin: 07/06/18 18:39 Dose: 4 mg Pantoprazole Sodium (Protonix) 40 mg PO ACBRK [facility] Last Admin: 07/07/18 06:06 Dose: 40 mg Promethazine 0.2 Ml 0 each TOP Q6H PRN PRN Reason: Nausea Polyethylene Glycol (Miralax) 17 gm PO DAILY [facility] Last Admin: 07/07/18 09:25 Dose: 17 gm Discontinued Medications Hydrocodone Bitart/Acetaminophen ([place] 325-5 Mg) 1 tab PO Q6H PRN PRN Reason: Pain Last Admin: 07/06/18 15:02 Dose: 1 tab Albuterol/Ipratropium (Duoneb 3.0-0.5 Mg/3 Ml) 3 ml NEB Q6HRRT [facility] Furosemide (Lasix) 40 mg IVPUSH NOW ONE Stop: 07/05/18 21:59 Last Admin: 07/05/18 22:09 Dose: 40 mg Furosemide (Lasix) 40 mg IVPUSH NOW ONE Stop: 07/06/18 14:31 Last Admin: 07/06/18 19:30 Dose: 40 mg Furosemide (Lasix) Confirm Administered Dose 40 mg .ROUTE .STK-MED ONE Stop: 07/06/18 19:14 Last Admin: 07/06/18 20:16 Dose: Not Given Gabapentin (Neurontin) 300 mg PO ONETIME ONE Stop: 07/06/18 21:00 Last Admin: 07/06/18 21:11 Dose: 300 mg Heparin Sodium (Porcine) (Heparin Sodium) 5,000 units IVPUSH Q8HR [facility] Last Admin: 07/06/18 20:43 Dose: Not Given Heparin Sodium (Porcine) (Heparin Sodium) 5,000 units SUBCUT ONETIME ONE Stop: 07/06/18 06:01 Last Admin: 07/06/18 06:15 Dose: 5,000 units Hydromorphone HCl (Dilaudid) 1 mg IVPUSH Q8H PRN PRN Reason: Pain Last Admin: 07/06/18 10:50 Dose: 1 mg Hydromorphone HCl (Dilaudid) 1 mg IVPUSH ONETIME ONE Stop: 07/06/18 15:16 Last Admin: 07/06/18 15:23 Dose: 1 mg Sodium Chloride (Normal Saline) 100 mls @ 60 mls/hr IV ASDIRECTED [facility] Iopamidol (Isovue-370 (76%)) 100 ml IVPUSH ONETIME ONE Stop: 07/05/18 22:37 Last Admin: 07/05/18 22:47 Dose: 100 ml Ondansetron HCl (Zofran) 4 mg IVPUSH Q8H PRN PRN Reason: Nausea/Vomiting Last Admin: 07/06/18 13:14 Dose: 4 mg Ondansetron HCl (Zofran Odt) 4 mg PO Q8H PRN PRN Reason: Nausea Ondansetron HCl (Zofran) 4 mg IVPUSH Q6H PRN PRN Reason: Nausea/Vomiting Sodium Chloride (Saline Flush) 10 ml FLUSH ONETIME ONE Stop: 07/05/18 22:37 Last Admin: 07/05/18 22:47 Dose: 10 ml - Exam Quality Assessment: Supplemental Oxygen, DVT Prophylaxis General: Alert, Oriented, Cooperative HEENT: Pupils Equal, Pupils Reactive, EOMI, Mucous Membr. Moist/[place] Neck: Supple, Trachea Midline, No Thyromegaly, +2 Carotid Pulse wo Bruit Lungs: Crackles (Right and left bases), Wheezing (Left middle and lower lung esquivel). No: Normal Respiratory Effort Cardiovascular: Regular Rate, Regular Rhythm GI/Abdominal Exam: Normal Bowel Sounds, Soft, Non-Tender (Female) Exam: Deferred Back Exam: Full Range of Motion, Other (Bilateral small mid back incisions from thoracocentesis) Extremities: Normal Inspection, Normal Range of Motion, Non-Tender, Pedal Edema (1+) Peripheral Pulses: 2+: Carotid (L), Carotid (R), Radial (L), Radial (R), Posterior Tibial (L), Posterior Tibial (R), Dorsalis Pedis (L), Dorsalis Pedis ( R) Skin: Warm, Dry Wound/Incisions: Dressing Dry and Intact (To bilateral mid back incisions and buttocks/perineal area), No Drainage. No: Erythema Neurological: No New Focal Deficit Psy/Mental Status: Alert, Normal Affect, Normal Mood - Problem List Review Problem List Initiated/Reviewed/Updated: Yes - Assessment Assessment:: Pleural Effusions * Bilateral pleural effusions seen on X-ray and CT with bibasilar atelectasis, more prominent on left side * X-ray done today shows decreased left sided pleural effusion with better aeration at the lung base. Small right sided pleural effusion is seen * CT also showed patchy alveolar densities in both upper lungs which may represent atelectasis as well as pneumonia. Prominent mediastinal lymph nodes are seen * Thoracocentesis performed on right side 07/06/18 yielded 1200 cc's of fluid, left side 07/07/18 yielded 1400 cc's of fluid * Fluid appears light yellow and slightly hazy * Studies from the right sided fluid showed a glucose of 175, protein <2.0, and a LDH of 65 * Consistent with heart failure Hypoxemia * Patient reports no oxygen use prior to her hospitilization in [place] for wound debridement. Since then, she has been needing oxygen. At home she is currently on 2L at rest and 5L as needed when she is moving around per nasal cannula * Her O2 stats are in the low 90's on 6L O2 nasal cannula * When she sits up/moves around, her stats drop into the high 70's/low 80's Elevated D-Dimer * D-dimer on admission was 0.99 * Chest CT showed no pulmonary artery filling defects to suggest pulmonary embolism * Patient continues to be hypoxic and short of breath, so V/Q scan will be done in the AM Heart Failure * Diagnosed in [place] in May. Reports a history of progressive shortness of breath before she came in with the wound. * BNP 10,797 * Bilateral lower leg edema Kidney Failure * Acute on chronic * Creatinine 1.9, BUN 22, EGFR 28 Diabetes Mellitus Type 2 * Patient reports starting on metformin >8 years ago. She took it for about a month, but it made her sick so she stopped. She has not followed up on this since then until they told her in [place] in May that she had diabetes. 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 PT and social work consult DVT/GI prophylaxis Full Code <Clementine Neumann - Last Filed: 07/09/18 19:12> - Patient Data Vitals - Most Recent: Last Vital Signs Temp 36.8 C 07/09/18 08:00 Pulse 91 07/09/18 15:49 Resp 19 07/09/18 15:49 BP 142/71 H 07/09/18 15:49 Pulse Ox 95 07/09/18 15:59 I&O - Last 24 Hours: Intake & Output 07/09/18 07/09/18 07/09/18 06:59 14:59 22:59 Intake Total 318 617 420 Output Total 1050 1150 1375 Balance -651 -780 -333 Lab Results Last 24 Hours: Laboratory Results - last 24 hr 07/08/18 07/08/18 07/09/18 Range/Units 05:50 20:27 05:43 WBC (3.98-10.04) K/mm3 RBC (3.98-5.22) M/mm3 Hgb (11.2-15.7) gm/L Hct (34.1-44.9) % MCV (79.4-94.8) fl MCH (25.6-32.2) pg MCHC (32.2-35.5) g/dl RDW Std Deviation (36.4-46.3) fL Plt Count (182-369) K/mm3 MPV (9.4-12.3) fl Neut % (Auto) (34.0-71.1) % Lymph % (Auto) (19.3-51.7) % [place] % (Auto) (4.7-12.5) % Eos % (Auto) (0.7-5.8) Baso % (Auto) (0.1-1.2) % Neut # (Auto) (1.56-6.13) K/mm3 Lymph # (Auto) (1.18-3.74) K/mm3 [place] # (Auto) (0.24-0.36) K/mm3 Eos # (Auto) (0.04-0.36) K/mm3 Baso # (Auto) (0.01-0.08) K/mm3 Sodium (136-145) mEq/L Potassium (3.5-5.1) mEq/L Chloride (98-107) mEq/L Carbon Dioxide (21-32) mEq/L Anion Gap (5-15) BUN (7-18) mg/dL Creatinine (0.55-1.02) mg/dL Est Cr Clr Drug Dosing mL/min Estimated GFR (MDRD) (>60) mL/min BUN/Creatinine Ratio (14-18) Glucose (74-106) mg/dL POC Glucose 246 H 202 H (70-105) mg/dL Calcium (8.5-10.1) mg/dL Magnesium (1.8-2.4) mg/dl C-Reactive Protein (<1.0) mg/dL NT-Pro-B Natriuret Pep (0-125) pg/mL Ur Random Creatinine (30.0-125.0) mg/dL U Random Total Protein (0.0-11.8) mg/dL Protein/Creatinin Ratio (0-149) mg/g Mycoplasma pneumon IgM Negative (NEGATIVE) 07/09/18 07/09/18 07/09/18 Range/Units 05:45 05:45 05:45 WBC 9.80 (3.98-10.04) K/mm3 RBC 3.65 L (3.98-5.22) M/mm3 Hgb 10.5 L (11.2-15.7) gm/L Hct 33.3 L (34.1-44.9) % MCV 91.2 (79.4-94.8) fl MCH 28.8 (25.6-32.2) pg MCHC 31.5 L (32.2-35.5) g/dl RDW Std Deviation 52.8 H (36.4-46.3) fL Plt Count 448 H (182-369) K/mm3 MPV 8.6 L (9.4-12.3) fl Neut % (Auto) 65.9 (34.0-71.1) % Lymph % (Auto) 16.4 L (19.3-51.7) % [place] % (Auto) 9.3 (4.7-12.5) % Eos % (Auto) 7.8 H (0.7-5.8) Baso % (Auto) 0.4 (0.1-1.2) % Neut # (Auto) 6.46 H (1.56-6.13) K/mm3 Lymph # (Auto) 1.61 (1.18-3.74) K/mm3 [place] # (Auto) 0.91 H (0.24-0.36) K/mm3 Eos # (Auto) 0.76 H (0.04-0.36) K/mm3 Baso # (Auto) 0.04 (0.01-0.08) K/mm3 Sodium 136 (136-145) mEq/L Potassium 3.8 (3.5-5.1) mEq/L Chloride 102 (98-107) mEq/L Carbon Dioxide 29 (21-32) mEq/L Anion Gap 8.8 (5-15) BUN 27 H (7-18) mg/dL Creatinine 1.9 H (0.55-1.02) mg/dL Est Cr Clr Drug Dosing 36.53 mL/min Estimated GFR (MDRD) 28 (>60) mL/min BUN/Creatinine Ratio 14.2 (14-18) Glucose 208 H (74-106) mg/dL POC Glucose (70-105) mg/dL Calcium 8.7 (8.5-10.1) mg/dL Magnesium 1.9 (1.8-2.4) mg/dl C-Reactive Protein 16.3 H* (<1.0) mg/dL NT-Pro-B Natriuret Pep 85117 H (0-125) pg/mL Ur Random Creatinine (30.0-125.0) mg/dL U Random Total Protein (0.0-11.8) mg/dL Protein/Creatinin Ratio (0-149) mg/g Mycoplasma pneumon IgM (NEGATIVE) 07/09/18 07/09/18 07/09/18 Range/Units 11:59 13:13 17:12 WBC (3.98-10.04) K/mm3 RBC (3.98-5.22) M/mm3 Hgb (11.2-15.7) gm/L Hct (34.1-44.9) % MCV (79.4-94.8) fl MCH (25.6-32.2) pg MCHC (32.2-35.5) g/dl RDW Std Deviation (36.4-46.3) fL Plt Count (182-369) K/mm3 MPV (9.4-12.3) fl Neut % (Auto) (34.0-71.1) % Lymph % (Auto) (19.3-51.7) % [place] % (Auto) (4.7-12.5) % Eos % (Auto) (0.7-5.8) Baso % (Auto) (0.1-1.2) % Neut # (Auto) (1.56-6.13) K/mm3 Lymph # (Auto) (1.18-3.74) K/mm3 [place] # (Auto) (0.24-0.36) K/mm3 Eos # (Auto) (0.04-0.36) K/mm3 Baso # (Auto) (0.01-0.08) K/mm3 Sodium (136-145) mEq/L Potassium (3.5-5.1) mEq/L Chloride (98-107) mEq/L Carbon Dioxide (21-32) mEq/L Anion Gap (5-15) BUN (7-18) mg/dL Creatinine (0.55-1.02) mg/dL Est Cr Clr Drug Dosing mL/min Estimated GFR (MDRD) (>60) mL/min BUN/Creatinine Ratio (14-18) Glucose (74-106) mg/dL POC Glucose 210 H 210 H (70-105) mg/dL Calcium (8.5-10.1) mg/dL Magnesium (1.8-2.4) mg/dl C-Reactive Protein (<1.0) mg/dL NT-Pro-B Natriuret Pep (0-125) pg/mL Ur Random Creatinine 26.4 L (30.0-125.0) mg/dL U Random Total Protein 52.6 H (0.0-11.8) mg/dL Protein/Creatinin Ratio 1992.4 H (0-149) mg/g Mycoplasma pneumon IgM (NEGATIVE) Yoshi Results Last 24 Hours: Microbiology 07/07/18 09:53 Gram Stain - Final Thoracentesis Fluid Body Fluid Culture - Preliminary NO GROWTH AFTER 2 DAYS 07/06/18 09:15 Gram Stain - Final Thoracentesis Fluid Body Fluid Culture - Preliminary NO GROWTH AFTER 3 DAYS 07/05/18 21:00 Aerobic Blood Culture - Preliminary Blood - Venous - Lab Draw NO GROWTH AFTER 3 DAYS Anaerobic Blood Culture - Preliminary NO GROWTH AFTER 3 DAYS 07/05/18 20:50 Aerobic Blood Culture - Preliminary Blood - Venous NO GROWTH AFTER 3 DAYS Anaerobic Blood Culture - Preliminary NO GROWTH AFTER 3 DAYS 07/06/18 09:15 Acid Fast Bacilli Smear - Final Thoracentesis Fluid - Right 07/06/18 10:57 Wound Culture - Preliminary Groin, Right Beta Streptococcus Group B Med Orders - Current: Current Medications Acetaminophen (Tylenol) 650 mg PO Q6H PRN PRN Reason: Pain/Fever Last Admin: 07/09/18 03:53 Dose: 650 mg Hydrocodone Bitart/Acetaminophen ([place] 325-5 Mg) 1 tab PO Q8H PRN PRN Reason: Pain (moderate 4-6) Last Admin: 07/07/18 09:24 Dose: 1 tab Albuterol (Proventil Neb Soln) 2.5 mg NEB Q4HRRT PRN PRN Reason: Shortness of Breath Last Admin: 07/06/18 08:13 Dose: 2.5 mg Albuterol/Ipratropium (Duoneb 3.0-0.5 Mg/3 Ml) 3 ml NEB QIDRT [facility] Last Admin: 07/09/18 15:51 Dose: 3 ml Amlodipine Besylate (Norvasc) 5 mg PO DAILY [facility] Last Admin: 07/09/18 09:32 Dose: 5 mg Ascorbic Acid (Vitamin C) 500 mg PO DAILY [facility] Last Admin: 07/09/18 09:31 Dose: 500 mg Fentanyl (Duragesic) 12 mcg TRDERM Q72H [facility] Last Admin: 07/07/18 12:51 Dose: 12 mcg Ferrous Sulfate (Ferrous Sulfate) 325 mg PO DAILY [facility] Last Admin: 07/09/18 09:31 Dose: 325 mg Gabapentin (Neurontin) 300 mg PO TID [facility] Last Admin: 07/09/18 15:41 Dose: 300 mg Heparin Sodium (Porcine) (Heparin Sodium) 5,000 units SUBCUT Q8H [facility] Last Admin: 07/09/18 17:13 Dose: 5,000 units Hydralazine HCl (Apresoline) 20 mg IVPUSH Q6H PRN PRN Reason: Hypertension Hydromorphone HCl (Dilaudid) 0.5 mg IVPUSH Q6H PRN PRN Reason: Pain (moderate 4-6) Last Admin: 07/09/18 15:40 Dose: 0.5 mg Furosemide 100 mg/ Sodium (Chloride) 100 mls @ 4 mls/hr IV TITRATE [facility]; Protocol Last Infusion: 07/09/18 10:27 Dose: 0 mg/hr, 0 mls/hr Sodium Chloride (Normal Saline) 250 mls @ 100 mls/hr IV ASDIRECTED [facility] Last Admin: 07/06/18 16:37 Dose: 100 mls/hr Ampicillin Sodium 2 gm/ Sodium (Chloride) 100 mls @ 200 mls/hr IV Q6H [facility] Last Admin: 07/09/18 15:42 Dose: 200 mls/hr Insulin Glargine (Lantus Solostar) 13 units SUBCUT BEDTIME [facility] Last Admin: 07/08/18 20:31 Dose: 13 units Insulin Human Lispro (Humalog) 0 unit SUBCUT QIDACANDBED [facility]; Protocol Last Admin: 07/09/18 17:12 Dose: 2 unit Miscellaneous Information (Remove Patch) 0 ea TRDERM Q72H [facility] Ondansetron HCl (Zofran) 4 mg IVPUSH Q6H PRN PRN Reason: Nausea/Vomiting Last Admin: 07/09/18 16:02 Dose: 4 mg Pantoprazole Sodium (Protonix) 40 mg PO ACBRK [facility] Last Admin: 07/09/18 06:12 Dose: 40 mg Promethazine 0.2 Ml 0 each TOP Q6H PRN PRN Reason: Nausea Polyethylene Glycol (Miralax) 17 gm PO DAILY [facility] Last Admin: 07/09/18 09:32 Dose: Not Given Saccharomyces Boulardii (Florastor) 250 mg PO BID [facility] Last Admin: 07/09/18 10:17 Dose: 250 mg Discontinued Medications Hydrocodone Bitart/Acetaminophen ([place] 325-5 Mg) 1 tab PO Q6H PRN PRN Reason: Pain Last Admin: 07/06/18 15:02 Dose: 1 tab Albuterol/Ipratropium (Duoneb 3.0-0.5 Mg/3 Ml) 3 ml NEB Q6HRRT [facility] Furosemide (Lasix) 40 mg IVPUSH NOW ONE Stop: 07/05/18 21:59 Last Admin: 07/05/18 22:09 Dose: 40 mg Furosemide (Lasix) 40 mg IVPUSH NOW ONE Stop: 07/06/18 14:31 Last Admin: 07/06/18 19:30 Dose: 40 mg Furosemide (Lasix) Confirm Administered Dose 40 mg .ROUTE .STK-MED ONE Stop: 07/06/18 19:14 Last Admin: 07/06/18 20:16 Dose: Not Given Gabapentin (Neurontin) 300 mg PO ONETIME ONE Stop: 07/06/18 21:00 Last Admin: 07/06/18 21:11 Dose: 300 mg Heparin Sodium (Porcine) (Heparin Sodium) 5,000 units IVPUSH Q8HR TAHIR Last Admin: 07/06/18 20:43 Dose: Not Given Heparin Sodium (Porcine) (Heparin Sodium) 5,000 units SUBCUT ONETIME ONE Stop: 07/06/18 06:01 Last Admin: 07/06/18 06:15 Dose: 5,000 units Hydromorphone HCl (Dilaudid) 1 mg IVPUSH Q8H PRN PRN Reason: Pain Last Admin: 07/06/18 10:50 Dose: 1 mg Hydromorphone HCl (Dilaudid) 1 mg IVPUSH ONETIME ONE Stop: 07/06/18 15:16 Last Admin: 07/06/18 15:23 Dose: 1 mg Sodium Chloride (Normal Saline) 100 mls @ 60 mls/hr IV ASDIRECTED [facility] Magnesium Sulfate 2 gm/ Premix 50 mls @ 25 mls/hr IV ONETIME ONE Stop: 07/08/18 12:14 Last Admin: 07/08/18 10:34 Dose: 25 mls/hr Iopamidol (Isovue-370 (76%)) 100 ml IVPUSH ONETIME ONE Stop: 07/05/18 22:37 Last Admin: 07/05/18 22:47 Dose: 100 ml Ondansetron HCl (Zofran) 4 mg IVPUSH Q8H PRN PRN Reason: Nausea/Vomiting Last Admin: 07/06/18 13:14 Dose: 4 mg Ondansetron HCl (Zofran Odt) 4 mg PO Q8H PRN PRN Reason: Nausea Ondansetron HCl (Zofran) 4 mg IVPUSH Q6H PRN PRN Reason: Nausea/Vomiting Sodium Chloride (Saline Flush) 10 ml FLUSH ONETIME ONE Stop: 07/05/18 22:37 Last Admin: 07/05/18 22:47 Dose: 10 ml - My Orders Last 24 Hours: My Active Orders 07/10/18 05:00 BMP [BASIC METABOLIC PANEL,BMP] [CHEM] DAILY CBC WITH AUTO DIFF [HEME] DAILY CRP [C-REACTIVE PROTEIN] [CHEM] DAILY MAGNESIUM [CHEM] DAILY PRO B-TYPE NATRIUR PEPT,BNPPRO [CHEM] DAILY 07/10/18 07:00 CBC W/O DIFF,HEMOGRAM [HEME] MOTH@0700 07/10/18 11:00 Remove Patch 0 ea TRDERM Q72H 07/14/18 07:00 CBC W/O DIFF,HEMOGRAM [HEME] MOTH@0700 07/17/18 07:00 CBC W/O DIFF,HEMOGRAM [HEME] MOTH@0700 07/21/18 07:00 CBC W/O DIFF,HEMOGRAM [HEME] MOTH@0700 07/24/18 07:00 CBC W/O DIFF,HEMOGRAM [HEME] MOTH@0700 - Plan Plan:: Patient was seen and examined; agree with assessment and plan. Pulmonary Toilet Negative PE work up Wound healing Diurese and monitor electrolytes
[2018-07-07] MEDS: Gabapentin 300 MG Cap PO SCH ×2 (14:24→20:53)
[2018-07-07] MEDS: Furosemide 100 MG in Sodium Chloride 0.9% 90 ML IV SCH (18:27)
[2018-07-07] MEDS: Insulin Glargine,Human Rec. Analog 100 Units/ML 3 ML Pen SUBCUT SCH (20:58)
[2018-07-08] MEDS: Acetaminophen 325 MG Tab PO PRN ×2 (03:43→10:23)
[2018-07-08] MEDS: Albuterol/Ipratropium 3.0-0.5 MG/3 ML Neb Soln NEB SCH ×4 (05:33→21:00)
[2018-07-08] MEDS: Pantoprazole 40 MG Tab.CR PO SCH (05:43)
[2018-07-08] MEDS: Insulin Lispro 100 Unit/ML 3 ML KwikPen SUBCUT SCH ×4 (05:59→21:23)
--- NOTE | 2018-07-08 08:26 | PCM.PN ---
<Gisella George - Last Filed: 07/08/18 11:08> - General Info Date of Service: 07/08/18 Admission Dx/Problem (Free Text): Admission Diagnosis/Problem Admission Diagnosis/Problem Pleural effusion Subjective Update: Mrs. Gan reports sleeping really well last night. She says her shortness of breath has improved significantly and she has not been coughing today. She reports resolution of the pain on the right side with deep inspiration. She states that she thinks going to a skilled rehab facility would be the best option for her to get stronger and have proper wound care. She says that her tries to take care of her, but he has to work as well. Functional Status: Reports: Pain Controlled - Review of Systems General: Reports: No Symptoms, Appetite (Good) HEENT: Reports: No Symptoms, Glasses Pulmonary: Reports: Shortness of Breath (Significantly improved). Denies: Pleuritic Chest Pain, Cough Cardiovascular: Reports: Dyspnea on Exertion, Edema. Denies: Chest Pain, Palpitations Gastrointestinal: Reports: No Symptoms Genitourinary: Reports: No Symptoms Musculoskeletal: Reports: No Symptoms Skin: Reports: No Symptoms Neurological: Reports: Numbness (To the tips of fingers on her left hand). Denies: Confusion, Dizziness, Headache, Trouble Speaking, Change in Speech Psychiatric: Reports: No Symptoms - Patient Data Vitals - Most Recent: Last Vital Signs Temp 99.0 F 07/08/18 04:00 Pulse 77 07/08/18 04:00 Resp 15 07/08/18 04:00 BP 123/61 07/08/18 04:00 Pulse Ox 96 07/08/18 05:40 Weight - Most Recent: 98.004 kg I&O - Last 24 Hours: Intake & Output 07/07/18 07/08/18 07/08/18 22:59 06:59 14:59 Intake Total 1352 36 Output Total 800 700 Balance 552 -664 Lab Results Last 24 Hours: Laboratory Results - last 24 hr 07/07/18 07/07/18 07/07/18 Range/Units 12:18 17:32 20:51 WBC (3.98-10.04) K/mm3 RBC (3.98-5.22) M/mm3 Hgb (11.2-15.7) gm/L Hct (34.1-44.9) % MCV (79.4-94.8) fl MCH (25.6-32.2) pg MCHC (32.2-35.5) g/dl RDW Std Deviation (36.4-46.3) fL Plt Count (182-369) K/mm3 MPV (9.4-12.3) fl Neut % (Auto) (34.0-71.1) % Lymph % (Auto) (19.3-51.7) % [place] % (Auto) (4.7-12.5) % Eos % (Auto) (0.7-5.8) Baso % (Auto) (0.1-1.2) % Neut # (Auto) (1.56-6.13) K/mm3 Lymph # (Auto) (1.18-3.74) K/mm3 [place] # (Auto) (0.24-0.36) K/mm3 Eos # (Auto) (0.04-0.36) K/mm3 Baso # (Auto) (0.01-0.08) K/mm3 Sodium (136-145) mEq/L Potassium (3.5-5.1) mEq/L Chloride (98-107) mEq/L Carbon Dioxide (21-32) mEq/L Anion Gap (5-15) BUN (7-18) mg/dL Creatinine (0.55-1.02) mg/dL Est Cr Clr Drug Dosing mL/min Estimated GFR (MDRD) (>60) mL/min BUN/Creatinine Ratio (14-18) Glucose (74-106) mg/dL POC Glucose 187 H 261 H 267 H (70-105) mg/dL Calcium (8.5-10.1) mg/dL Magnesium (1.8-2.4) mg/dl C-Reactive Protein (<1.0) mg/dL NT-Pro-B Natriuret Pep (0-125) pg/mL 07/08/18 07/08/18 07/08/18 Range/Units 05:37 05:55 05:57 WBC 10.94 H (3.98-10.04) K/mm3 RBC 3.77 L (3.98-5.22) M/mm3 Hgb 11.0 L (11.2-15.7) gm/L Hct 34.4 (34.1-44.9) % MCV 91.2 (79.4-94.8) fl MCH 29.2 (25.6-32.2) pg MCHC 32.0 L (32.2-35.5) g/dl RDW Std Deviation 55.0 H (36.4-46.3) fL Plt Count 438 H (182-369) K/mm3 MPV 8.5 L (9.4-12.3) fl Neut % (Auto) 61.6 (34.0-71.1) % Lymph % (Auto) 18.5 L (19.3-51.7) % [place] % (Auto) 11.2 (4.7-12.5) % Eos % (Auto) 8.1 H (0.7-5.8) Baso % (Auto) 0.3 (0.1-1.2) % Neut # (Auto) 6.75 H (1.56-6.13) K/mm3 Lymph # (Auto) 2.02 (1.18-3.74) K/mm3 [place] # (Auto) 1.22 H (0.24-0.36) K/mm3 Eos # (Auto) 0.89 H (0.04-0.36) K/mm3 Baso # (Auto) 0.03 (0.01-0.08) K/mm3 Sodium 137 (136-145) mEq/L Potassium 3.8 (3.5-5.1) mEq/L Chloride 103 (98-107) mEq/L Carbon Dioxide 29 (21-32) mEq/L Anion Gap 8.8 (5-15) BUN 22 H (7-18) mg/dL Creatinine 1.8 H (0.55-1.02) mg/dL Est Cr Clr Drug Dosing 38.56 mL/min Estimated GFR (MDRD) 30 (>60) mL/min BUN/Creatinine Ratio 12.2 L (14-18) Glucose 125 H (74-106) mg/dL POC Glucose 131 H (70-105) mg/dL Calcium 8.7 (8.5-10.1) mg/dL Magnesium 1.7 L (1.8-2.4) mg/dl C-Reactive Protein 16.9 H* (<1.0) mg/dL NT-Pro-B Natriuret Pep (0-125) pg/mL 07/08/18 Range/Units 05:57 WBC (3.98-10.04) K/mm3 RBC (3.98-5.22) M/mm3 Hgb (11.2-15.7) gm/L Hct (34.1-44.9) % MCV (79.4-94.8) fl MCH (25.6-32.2) pg MCHC (32.2-35.5) g/dl RDW Std Deviation (36.4-46.3) fL Plt Count (182-369) K/mm3 MPV (9.4-12.3) fl Neut % (Auto) (34.0-71.1) % Lymph % (Auto) (19.3-51.7) % [place] % (Auto) (4.7-12.5) % Eos % (Auto) (0.7-5.8) Baso % (Auto) (0.1-1.2) % Neut # (Auto) (1.56-6.13) K/mm3 Lymph # (Auto) (1.18-3.74) K/mm3 [place] # (Auto) (0.24-0.36) K/mm3 Eos # (Auto) (0.04-0.36) K/mm3 Baso # (Auto) (0.01-0.08) K/mm3 Sodium (136-145) mEq/L Potassium (3.5-5.1) mEq/L Chloride (98-107) mEq/L Carbon Dioxide (21-32) mEq/L Anion Gap (5-15) BUN (7-18) mg/dL Creatinine (0.55-1.02) mg/dL Est Cr Clr Drug Dosing mL/min Estimated GFR (MDRD) (>60) mL/min BUN/Creatinine Ratio (14-18) Glucose (74-106) mg/dL POC Glucose (70-105) mg/dL Calcium (8.5-10.1) mg/dL Magnesium (1.8-2.4) mg/dl C-Reactive Protein (<1.0) mg/dL NT-Pro-B Natriuret Pep 74823 H (0-125) pg/mL Yoshi Results Last 24 Hours: Microbiology 07/05/18 21:00 Aerobic Blood Culture - Preliminary Blood - Venous - Lab Draw NO GROWTH AFTER 2 DAYS Anaerobic Blood Culture - Preliminary NO GROWTH AFTER 2 DAYS 07/05/18 20:50 Aerobic Blood Culture - Preliminary Blood - Venous NO GROWTH AFTER 2 DAYS Anaerobic Blood Culture - Preliminary NO GROWTH AFTER 2 DAYS 07/07/18 09:53 Gram Stain - Final Thoracentesis Fluid 07/06/18 10:57 Wound Culture - Preliminary Groin, Right Gram Positive Cocci 07/06/18 09:15 Gram Stain - Final Thoracentesis Fluid Body Fluid Culture - Preliminary NO GROWTH AFTER 1 DAY Med Orders - Current: Current Medications Acetaminophen (Tylenol) 650 mg PO Q6H PRN PRN Reason: Pain/Fever Last Admin: 07/08/18 03:43 Dose: 650 mg Hydrocodone Bitart/Acetaminophen ([place] 325-5 Mg) 1 tab PO Q8H PRN PRN Reason: Pain (moderate 4-6) Last Admin: 07/07/18 09:24 Dose: 1 tab Albuterol (Proventil Neb Soln) 2.5 mg NEB Q4HRRT PRN PRN Reason: Shortness of Breath Last Admin: 07/06/18 08:13 Dose: 2.5 mg Albuterol/Ipratropium (Duoneb 3.0-0.5 Mg/3 Ml) 3 ml NEB QIDRT [facility] Last Admin: 07/08/18 05:33 Dose: 3 ml Amlodipine Besylate (Norvasc) 5 mg PO DAILY [facility] Last Admin: 07/07/18 09:24 Dose: 5 mg Ascorbic Acid (Vitamin C) 500 mg PO DAILY [facility] Last Admin: 07/07/18 09:24 Dose: 500 mg Fentanyl (Duragesic) 12 mcg TRDERM Q72H [facility] Last Admin: 07/07/18 12:51 Dose: 12 mcg Ferrous Sulfate (Ferrous Sulfate) 325 mg PO DAILY [facility] Last Admin: 07/07/18 09:25 Dose: 325 mg Gabapentin (Neurontin) 300 mg PO TID [facility] Last Admin: 07/07/18 20:53 Dose: 300 mg Hydralazine HCl (Apresoline) 20 mg IVPUSH Q6H PRN PRN Reason: Hypertension Hydromorphone HCl (Dilaudid) 0.5 mg IVPUSH Q6H PRN PRN Reason: Pain (moderate 4-6) Last Admin: 07/07/18 23:04 Dose: 0.5 mg Furosemide 100 mg/ Sodium (Chloride) 100 mls @ 4 mls/hr IV TITRATE [facility]; Protocol Last Admin: 07/07/18 18:27 Dose: 4 mg/hr, 4 mls/hr Sodium Chloride (Normal Saline) 250 mls @ 100 mls/hr IV ASDIRECTED [facility] Last Admin: 07/06/18 16:37 Dose: 100 mls/hr Insulin Glargine (Lantus Solostar) 13 units SUBCUT BEDTIME [facility] Last Admin: 07/07/18 20:58 Dose: 13 units Insulin Human Lispro (Humalog) 0 unit SUBCUT QIDACANDBED [facility]; Protocol Last Admin: 07/08/18 05:59 Dose: Not Given Miscellaneous Information (Remove Patch) 0 ea TRDERM Q72H [facility] Ondansetron HCl (Zofran) 4 mg IVPUSH Q6H PRN PRN Reason: Nausea/Vomiting Last Admin: 07/06/18 18:39 Dose: 4 mg Pantoprazole Sodium (Protonix) 40 mg PO ACBRK [facility] Last Admin: 07/08/18 05:43 Dose: 40 mg Promethazine 0.2 Ml 0 each TOP Q6H PRN PRN Reason: Nausea Polyethylene Glycol (Miralax) 17 gm PO DAILY [facility] Last Admin: 07/07/18 09:25 Dose: 17 gm Discontinued Medications Hydrocodone Bitart/Acetaminophen ([place] 325-5 Mg) 1 tab PO Q6H PRN PRN Reason: Pain Last Admin: 07/06/18 15:02 Dose: 1 tab Albuterol/Ipratropium (Duoneb 3.0-0.5 Mg/3 Ml) 3 ml NEB Q6HRRT [facility] Furosemide (Lasix) 40 mg IVPUSH NOW ONE Stop: 07/05/18 21:59 Last Admin: 07/05/18 22:09 Dose: 40 mg Furosemide (Lasix) 40 mg IVPUSH NOW ONE Stop: 07/06/18 14:31 Last Admin: 07/06/18 19:30 Dose: 40 mg Furosemide (Lasix) Confirm Administered Dose 40 mg .ROUTE .STK-MED ONE Stop: 07/06/18 19:14 Last Admin: 07/06/18 20:16 Dose: Not Given Gabapentin (Neurontin) 300 mg PO ONETIME ONE Stop: 07/06/18 21:00 Last Admin: 07/06/18 21:11 Dose: 300 mg Heparin Sodium (Porcine) (Heparin Sodium) 5,000 units IVPUSH Q8HR [facility] Last Admin: 07/06/18 20:43 Dose: Not Given Heparin Sodium (Porcine) (Heparin Sodium) 5,000 units SUBCUT ONETIME ONE Stop: 07/06/18 06:01 Last Admin: 07/06/18 06:15 Dose: 5,000 units Hydromorphone HCl (Dilaudid) 1 mg IVPUSH Q8H PRN PRN Reason: Pain Last Admin: 07/06/18 10:50 Dose: 1 mg Hydromorphone HCl (Dilaudid) 1 mg IVPUSH ONETIME ONE Stop: 07/06/18 15:16 Last Admin: 07/06/18 15:23 Dose: 1 mg Sodium Chloride (Normal Saline) 100 mls @ 60 mls/hr IV ASDIRECTED [facility] Iopamidol (Isovue-370 (76%)) 100 ml IVPUSH ONETIME ONE Stop: 07/05/18 22:37 Last Admin: 07/05/18 22:47 Dose: 100 ml Ondansetron HCl (Zofran) 4 mg IVPUSH Q8H PRN PRN Reason: Nausea/Vomiting Last Admin: 07/06/18 13:14 Dose: 4 mg Ondansetron HCl (Zofran Odt) 4 mg PO Q8H PRN PRN Reason: Nausea Ondansetron HCl (Zofran) 4 mg IVPUSH Q6H PRN PRN Reason: Nausea/Vomiting Sodium Chloride (Saline Flush) 10 ml FLUSH ONETIME ONE Stop: 07/05/18 22:37 Last Admin: 07/05/18 22:47 Dose: 10 ml - Exam Quality Assessment: Supplemental Oxygen (5L), Urine Catheter General: Alert, Oriented, Cooperative HEENT: Pupils Equal, Pupils Reactive, EOMI, Mucous Membr. Moist/[place] Neck: Supple, Trachea Midline, No Thyromegaly, +2 Carotid Pulse wo Bruit Lungs: Normal Respiratory Effort, Crackles (at right base and left mid and base) . No: Wheezing Cardiovascular: Regular Rate, Regular Rhythm GI/Abdominal Exam: Normal Bowel Sounds, Soft, Non-Tender (Female) Exam: Normal External Exam Back Exam: Normal Inspection, Full Range of Motion Extremities: Normal Inspection, Normal Range of Motion, Non-Tender, Normal Capillary Refill, Pedal Edema (2+ to bilateral feet/ankles) Peripheral Pulses: 2+: Carotid (L), Carotid (R), Radial (L), Radial (R), Posterior Tibial (L), Posterior Tibial (R), Dorsalis Pedis (L), Dorsalis Pedis ( R) Skin: Warm, Dry, Intact Wound/Incisions: Dressing Dry and Intact, No Drainage, Other (Wound to bottom did not have purulent drainage or erythema. Dressing changed by PT) Neurological: No New Focal Deficit Psy/Mental Status: Alert, Normal Affect, Normal Mood - Problem List Review Problem List Initiated/Reviewed/Updated: Yes - My Orders Last 24 Hours: My Active Orders 07/08/18 12:00 Lung Vent Perfusion [NM] - Assessment Assessment:: Pleural Effusions * Bilateral pleural effusions seen on X-ray and CT with bibasilar atelectasis, more prominent on left side * X-ray done yesterdy showed decreased left sided pleural effusion with better aeration at the lung base. Small right sided pleural effusion is seen * CT also showed patchy alveolar densities in both upper lungs which may represent atelectasis as well as pneumonia. Prominent mediastinal lymph nodes are seen * Thoracocentesis performed on right side 07/06/18 yielded 1200 cc's of fluid, left side 07/07/18 yielded 1400 cc's of fluid * Fluid appears light yellow and slightly hazy * Studies from the right sided fluid showed a glucose of 175, protein <2.0, and a LDH of 65 * Consistent with heart failure Hypoxemia * Patient reports no oxygen use prior to her hospitilization in [place] for wound debridement. Since then, she has been needing oxygen. At home she is currently on 2L at rest and 5L as needed when she is moving around per nasal cannula * She was on 6L of O2, now she is statting in the low 90's on 5L * When she sits up/moves around, her stats continue to drop into the high 70's/ low 80's Elevated D-Dimer * D-dimer on admission was 0.99 * Chest CT showed no pulmonary artery filling defects to suggest pulmonary embolism * Patient continues to be hypoxic * V/Q scan ordered today Heart Failure * Diagnosed in [place] in May. Reports a history of progressive shortness of breath before she came in with the wound. * BNP 10,797 --> 10,687 * Bilateral lower leg edema * Weight down from 221 on admission to 216 today with diuresis and fluid restriction * Echocardiogram to be done today Kidney Failure * Acute on chronic * Creatinine 1.9 --> 1.8, BUN 22, EGFR 28. Minimal change since admission Diabetes Mellitus Type 2 * Patient reports starting on metformin >8 years ago. She took it for about a month, but it made her sick so she stopped. She has not followed up on this since then until they told her in [place] in May that she had diabetes. She started insulin in May. * She would like more education on a diabetic diet and using the insulin * HbA1C 7.2 Hypertension * Started on amlodipine in [place] in May * Blood pressures in the 130's/70's Wound on buttocks * Fornier's gangrene with 5 surgical debridements in [place] in May * PT evaluated and nursing will follow up with wound care * Lesion has not had purulent drainage or surrounding erythema * Preliminary culture shows gram positive cocci Magnesium 1.7 today; will get supplementation - Plan Plan:: Daily labs Daily chest X-ray V/Q scan to be done today Echocardiogram to be done today Fluid restriction and diurese ADA diet Wound care by nursing community health educator consult PT and social work consult DVT/GI prophylaxis Patient plans to follow up with Dr. Goldstein for primary care Full Code <Clementine Neumann - Last Filed: 07/09/18 19:07> - Patient Data Vitals - Most Recent: Last Vital Signs Temp 36.8 C 07/09/18 08:00 Pulse 91 07/09/18 15:49 Resp 19 07/09/18 15:49 BP 142/71 H 07/09/18 15:49 Pulse Ox 95 07/09/18 15:59 I&O - Last 24 Hours: Intake & Output 07/09/18 07/09/18 07/09/18 06:59 14:59 22:59 Intake Total 318 617 420 Output Total 0801 7149 5855 Balance -073 -539 -258 Lab Results Last 24 Hours: Laboratory Results - last 24 hr 07/08/18 07/08/18 07/09/18 Range/Units 05:50 20:27 05:43 WBC (3.98-10.04) K/mm3 RBC (3.98-5.22) M/mm3 Hgb (11.2-15.7) gm/L Hct (34.1-44.9) % MCV (79.4-94.8) fl MCH (25.6-32.2) pg MCHC (32.2-35.5) g/dl RDW Std Deviation (36.4-46.3) fL Plt Count (182-369) K/mm3 MPV (9.4-12.3) fl Neut % (Auto) (34.0-71.1) % Lymph % (Auto) (19.3-51.7) % [place] % (Auto) (4.7-12.5) % Eos % (Auto) (0.7-5.8) Baso % (Auto) (0.1-1.2) % Neut # (Auto) (1.56-6.13) K/mm3 Lymph # (Auto) (1.18-3.74) K/mm3 [place] # (Auto) (0.24-0.36) K/mm3 Eos # (Auto) (0.04-0.36) K/mm3 Baso # (Auto) (0.01-0.08) K/mm3 Sodium (136-145) mEq/L Potassium (3.5-5.1) mEq/L Chloride (98-107) mEq/L Carbon Dioxide (21-32) mEq/L Anion Gap (5-15) BUN (7-18) mg/dL Creatinine (0.55-1.02) mg/dL Est Cr Clr Drug Dosing mL/min Estimated GFR (MDRD) (>60) mL/min BUN/Creatinine Ratio (14-18) Glucose (74-106) mg/dL POC Glucose 246 H 202 H (70-105) mg/dL Calcium (8.5-10.1) mg/dL Magnesium (1.8-2.4) mg/dl C-Reactive Protein (<1.0) mg/dL NT-Pro-B Natriuret Pep (0-125) pg/mL Ur Random Creatinine (30.0-125.0) mg/dL U Random Total Protein (0.0-11.8) mg/dL Protein/Creatinin Ratio (0-149) mg/g Mycoplasma pneumon IgM Negative (NEGATIVE) 07/09/18 07/09/18 07/09/18 Range/Units 05:45 05:45 05:45 WBC 9.80 (3.98-10.04) K/mm3 RBC 3.65 L (3.98-5.22) M/mm3 Hgb 10.5 L (11.2-15.7) gm/L Hct 33.3 L (34.1-44.9) % MCV 91.2 (79.4-94.8) fl MCH 28.8 (25.6-32.2) pg MCHC 31.5 L (32.2-35.5) g/dl RDW Std Deviation 52.8 H (36.4-46.3) fL Plt Count 448 H (182-369) K/mm3 MPV 8.6 L (9.4-12.3) fl Neut % (Auto) 65.9 (34.0-71.1) % Lymph % (Auto) 16.4 L (19.3-51.7) % [place] % (Auto) 9.3 (4.7-12.5) % Eos % (Auto) 7.8 H (0.7-5.8) Baso % (Auto) 0.4 (0.1-1.2) % Neut # (Auto) 6.46 H (1.56-6.13) K/mm3 Lymph # (Auto) 1.61 (1.18-3.74) K/mm3 [place] # (Auto) 0.91 H (0.24-0.36) K/mm3 Eos # (Auto) 0.76 H (0.04-0.36) K/mm3 Baso # (Auto) 0.04 (0.01-0.08) K/mm3 Sodium 136 (136-145) mEq/L Potassium 3.8 (3.5-5.1) mEq/L Chloride 102 (98-107) mEq/L Carbon Dioxide 29 (21-32) mEq/L Anion Gap 8.8 (5-15) BUN 27 H (7-18) mg/dL Creatinine 1.9 H (0.55-1.02) mg/dL Est Cr Clr Drug Dosing 36.53 mL/min Estimated GFR (MDRD) 28 (>60) mL/min BUN/Creatinine Ratio 14.2 (14-18) Glucose 208 H (74-106) mg/dL POC Glucose (70-105) mg/dL Calcium 8.7 (8.5-10.1) mg/dL Magnesium 1.9 (1.8-2.4) mg/dl C-Reactive Protein 16.3 H* (<1.0) mg/dL NT-Pro-B Natriuret Pep 79654 H (0-125) pg/mL Ur Random Creatinine (30.0-125.0) mg/dL U Random Total Protein (0.0-11.8) mg/dL Protein/Creatinin Ratio (0-149) mg/g Mycoplasma pneumon IgM (NEGATIVE) 07/09/18 07/09/18 07/09/18 Range/Units 11:59 13:13 17:12 WBC (3.98-10.04) K/mm3 RBC (3.98-5.22) M/mm3 Hgb (11.2-15.7) gm/L Hct (34.1-44.9) % MCV (79.4-94.8) fl MCH (25.6-32.2) pg MCHC (32.2-35.5) g/dl RDW Std Deviation (36.4-46.3) fL Plt Count (182-369) K/mm3 MPV (9.4-12.3) fl Neut % (Auto) (34.0-71.1) % Lymph % (Auto) (19.3-51.7) % [place] % (Auto) (4.7-12.5) % Eos % (Auto) (0.7-5.8) Baso % (Auto) (0.1-1.2) % Neut # (Auto) (1.56-6.13) K/mm3 Lymph # (Auto) (1.18-3.74) K/mm3 [place] # (Auto) (0.24-0.36) K/mm3 Eos # (Auto) (0.04-0.36) K/mm3 Baso # (Auto) (0.01-0.08) K/mm3 Sodium (136-145) mEq/L Potassium (3.5-5.1) mEq/L Chloride (98-107) mEq/L Carbon Dioxide (21-32) mEq/L Anion Gap (5-15) BUN (7-18) mg/dL Creatinine (0.55-1.02) mg/dL Est Cr Clr Drug Dosing mL/min Estimated GFR (MDRD) (>60) mL/min BUN/Creatinine Ratio (14-18) Glucose (74-106) mg/dL POC Glucose 210 H 210 H (70-105) mg/dL Calcium (8.5-10.1) mg/dL Magnesium (1.8-2.4) mg/dl C-Reactive Protein (<1.0) mg/dL NT-Pro-B Natriuret Pep (0-125) pg/mL Ur Random Creatinine 26.4 L (30.0-125.0) mg/dL U Random Total Protein 52.6 H (0.0-11.8) mg/dL Protein/Creatinin Ratio 1992.4 H (0-149) mg/g Mycoplasma pneumon IgM (NEGATIVE) Yoshi Results Last 24 Hours: Microbiology 07/07/18 09:53 Gram Stain - Final Thoracentesis Fluid Body Fluid Culture - Preliminary NO GROWTH AFTER 2 DAYS 07/06/18 09:15 Gram Stain - Final Thoracentesis Fluid Body Fluid Culture - Preliminary NO GROWTH AFTER 3 DAYS 07/05/18 21:00 Aerobic Blood Culture - Preliminary Blood - Venous - Lab Draw NO GROWTH AFTER 3 DAYS Anaerobic Blood Culture - Preliminary NO GROWTH AFTER 3 DAYS 07/05/18 20:50 Aerobic Blood Culture - Preliminary Blood - Venous NO GROWTH AFTER 3 DAYS Anaerobic Blood Culture - Preliminary NO GROWTH AFTER 3 DAYS 07/06/18 09:15 Acid Fast Bacilli Smear - Final Thoracentesis Fluid - Right 07/06/18 10:57 Wound Culture - Preliminary Groin, Right Beta Streptococcus Group B Med Orders - Current: Current Medications Acetaminophen (Tylenol) 650 mg PO Q6H PRN PRN Reason: Pain/Fever Last Admin: 07/09/18 03:53 Dose: 650 mg Hydrocodone Bitart/Acetaminophen ([place] 325-5 Mg) 1 tab PO Q8H PRN PRN Reason: Pain (moderate 4-6) Last Admin: 07/07/18 09:24 Dose: 1 tab Albuterol (Proventil Neb Soln) 2.5 mg NEB Q4HRRT PRN PRN Reason: Shortness of Breath Last Admin: 07/06/18 08:13 Dose: 2.5 mg Albuterol/Ipratropium (Duoneb 3.0-0.5 Mg/3 Ml) 3 ml NEB QIDRT [facility] Last Admin: 07/09/18 15:51 Dose: 3 ml Amlodipine Besylate (Norvasc) 5 mg PO DAILY [facility] Last Admin: 07/09/18 09:32 Dose: 5 mg Ascorbic Acid (Vitamin C) 500 mg PO DAILY [facility] Last Admin: 07/09/18 09:31 Dose: 500 mg Fentanyl (Duragesic) 12 mcg TRDERM Q72H [facility] Last Admin: 07/07/18 12:51 Dose: 12 mcg Ferrous Sulfate (Ferrous Sulfate) 325 mg PO DAILY [facility] Last Admin: 07/09/18 09:31 Dose: 325 mg Gabapentin (Neurontin) 300 mg PO TID [facility] Last Admin: 07/09/18 15:41 Dose: 300 mg Heparin Sodium (Porcine) (Heparin Sodium) 5,000 units SUBCUT Q8H [facility] Last Admin: 07/09/18 17:13 Dose: 5,000 units Hydralazine HCl (Apresoline) 20 mg IVPUSH Q6H PRN PRN Reason: Hypertension Hydromorphone HCl (Dilaudid) 0.5 mg IVPUSH Q6H PRN PRN Reason: Pain (moderate 4-6) Last Admin: 07/09/18 15:40 Dose: 0.5 mg Furosemide 100 mg/ Sodium (Chloride) 100 mls @ 4 mls/hr IV TITRATE [facility]; Protocol Last Infusion: 07/09/18 10:27 Dose: 0 mg/hr, 0 mls/hr Sodium Chloride (Normal Saline) 250 mls @ 100 mls/hr IV ASDIRECTED [facility] Last Admin: 07/06/18 16:37 Dose: 100 mls/hr Ampicillin Sodium 2 gm/ Sodium (Chloride) 100 mls @ 200 mls/hr IV Q6H [facility] Last Admin: 07/09/18 15:42 Dose: 200 mls/hr Insulin Glargine (Lantus Solostar) 13 units SUBCUT BEDTIME [facility] Last Admin: 07/08/18 20:31 Dose: 13 units Insulin Human Lispro (Humalog) 0 unit SUBCUT QIDACANDBED [facility]; Protocol Last Admin: 07/09/18 17:12 Dose: 2 unit Miscellaneous Information (Remove Patch) 0 ea TRDERM Q72H [facility] Ondansetron HCl (Zofran) 4 mg IVPUSH Q6H PRN PRN Reason: Nausea/Vomiting Last Admin: 07/09/18 16:02 Dose: 4 mg Pantoprazole Sodium (Protonix) 40 mg PO ACBRK [facility] Last Admin: 07/09/18 06:12 Dose: 40 mg Promethazine 0.2 Ml 0 each TOP Q6H PRN PRN Reason: Nausea Polyethylene Glycol (Miralax) 17 gm PO DAILY [facility] Last Admin: 07/09/18 09:32 Dose: Not Given Saccharomyces Boulardii (Florastor) 250 mg PO BID [facility] Last Admin: 07/09/18 10:17 Dose: 250 mg Discontinued Medications Hydrocodone Bitart/Acetaminophen ([place] 325-5 Mg) 1 tab PO Q6H PRN PRN Reason: Pain Last Admin: 07/06/18 15:02 Dose: 1 tab Albuterol/Ipratropium (Duoneb 3.0-0.5 Mg/3 Ml) 3 ml NEB Q6HRRT [facility] Furosemide (Lasix) 40 mg IVPUSH NOW ONE Stop: 07/05/18 21:59 Last Admin: 07/05/18 22:09 Dose: 40 mg Furosemide (Lasix) 40 mg IVPUSH NOW ONE Stop: 07/06/18 14:31 Last Admin: 07/06/18 19:30 Dose: 40 mg Furosemide (Lasix) Confirm Administered Dose 40 mg .ROUTE .STK-MED ONE Stop: 07/06/18 19:14 Last Admin: 07/06/18 20:16 Dose: Not Given Gabapentin (Neurontin) 300 mg PO ONETIME ONE Stop: 07/06/18 21:00 Last Admin: 07/06/18 21:11 Dose: 300 mg Heparin Sodium (Porcine) (Heparin Sodium) 5,000 units IVPUSH Q8HR [facility] Last Admin: 07/06/18 20:43 Dose: Not Given Heparin Sodium (Porcine) (Heparin Sodium) 5,000 units SUBCUT ONETIME ONE Stop: 07/06/18 06:01 Last Admin: 07/06/18 06:15 Dose: 5,000 units Hydromorphone HCl (Dilaudid) 1 mg IVPUSH Q8H PRN PRN Reason: Pain Last Admin: 07/06/18 10:50 Dose: 1 mg Hydromorphone HCl (Dilaudid) 1 mg IVPUSH ONETIME ONE Stop: 07/06/18 15:16 Last Admin: 07/06/18 15:23 Dose: 1 mg Sodium Chloride (Normal Saline) 100 mls @ 60 mls/hr IV ASDIRECTED [facility] Magnesium Sulfate 2 gm/ Premix 50 mls @ 25 mls/hr IV ONETIME ONE Stop: 07/08/18 12:14 Last Admin: 07/08/18 10:34 Dose: 25 mls/hr Iopamidol (Isovue-370 (76%)) 100 ml IVPUSH ONETIME ONE Stop: 07/05/18 22:37 Last Admin: 07/05/18 22:47 Dose: 100 ml Ondansetron HCl (Zofran) 4 mg IVPUSH Q8H PRN PRN Reason: Nausea/Vomiting Last Admin: 07/06/18 13:14 Dose: 4 mg Ondansetron HCl (Zofran Odt) 4 mg PO Q8H PRN PRN Reason: Nausea Ondansetron HCl (Zofran) 4 mg IVPUSH Q6H PRN PRN Reason: Nausea/Vomiting Sodium Chloride (Saline Flush) 10 ml FLUSH ONETIME ONE Stop: 07/05/18 22:37 Last Admin: 07/05/18 22:47 Dose: 10 ml - My Orders Last 24 Hours: My Active Orders 07/10/18 05:00 BMP [BASIC METABOLIC PANEL,BMP] [CHEM] DAILY CBC WITH AUTO DIFF [HEME] DAILY CRP [C-REACTIVE PROTEIN] [CHEM] DAILY MAGNESIUM [CHEM] DAILY PRO B-TYPE NATRIUR PEPT,BNPPRO [CHEM] DAILY 07/10/18 07:00 CBC W/O DIFF,HEMOGRAM [HEME] MOTH@0700 07/10/18 11:00 Remove Patch 0 ea TRDERM Q72H 07/14/18 07:00 CBC W/O DIFF,HEMOGRAM [HEME] MOTH@0700 07/17/18 07:00 CBC W/O DIFF,HEMOGRAM [HEME] MOTH@0700 07/21/18 07:00 CBC W/O DIFF,HEMOGRAM [HEME] MOTH@0700 07/24/18 07:00 CBC W/O DIFF,HEMOGRAM [HEME] MOTH@0700 - Plan Plan:: Patient was seen and examined; agree with assessment and plan. Patient hopes to go to [facility] for additional PT/OT during wound healing. Continue Brown until DC Diurese, correct electrolytes, follow Bun/Cr
[2018-07-08] MEDS: Gabapentin 300 MG Cap PO SCH ×3 (08:32→20:24)
[2018-07-08] MEDS: amLODIPine 5 MG Tab PO SCH (08:32)
[2018-07-08] MEDS: Ascorbic Acid 500 MG Tab PO SCH (08:33)
[2018-07-08] MEDS: Polyethylene Glycol 3350 Powder 17 GM Packet PO SCH (08:33)
[2018-07-08] MEDS: Ferrous Sulfate 325 MG Tab PO SCH (08:33)
--- NOTE | 2018-07-08 08:41 | OR ---
DATE OF OPERATION: 07/06/2018 SURGEON: Alexandro Vasquez MD PREOPERATIVE DIAGNOSIS: Left pleural effusion. POSTOPERATIVE DIAGNOSIS: Left pleural effusion. OPERATION PERFORMED: Left thoracentesis, 1400 mL of straw-colored fluid. ANESTHESIA: Done under local anesthetic with 1% Xylocaine with ultrasound guidance. DESCRIPTION OF PROCEDURE: The patient was seen in the ICU, was placed in the upright sitting position on the edge of the bed over a bedside table, cushioned with pillows. The area in the back was identified by ultrasound on the left side and this was marked and prepped with chlorhexidine, prepped and draped off in a sterile fashion. The skin was anesthetized as was the deep tissues with 1% Xylocaine. A small needle was inserted and clear fluid was obtained. This was followed by a thoracentesis catheter, which was then inserted after placing an incision in the skin and advanced the needle into the pleural space. This was then connected to suction bottles and 1400 mL were removed. This was done without incident. The catheter was removed. Pressure placed and then a Band-Aid was placed and chest x-ray was ordered. The patient tolerated the procedure. ESTIMATED BLOOD LOSS: MMODAL /[id number]
[2018-07-08] MEDS ORDERED: Magnesium Sulfate/Water 2 GM in Premix Bag 1 BAG IV ONE (10:15)
[2018-07-08] MEDS: Heparin Sodium 5,000 Units/ML Vial SUBCUT SCH ×2 (10:22→17:37)
--- NOTE | 2018-07-08 12:31 | CR ---
Chest: Two views of the chest are obtained. Comparison: Prior chest x-ray of 07/07/18. Persisting atelectasis within both lung bases. Poor inspiratory effort is noted. Upper lungs are clear. Heart size is normal. Bony structures are unchanged. Small bilateral pleural effusions are noted. Impression: 1. Increased density within both lung bases most likely due to atelectasis. Small bilateral pleural effusions are noted. Poor inspiratory effort is seen. Diagnostic code #3
--- NOTE | 2018-07-08 15:19 | NM ---
Ventilation/perfusion lung scan Technique: 2.0 mCi of technetium 99m MAA was given intravenously. Scintigraphic imaging then obtained over the chest. Following the perfusion exam, 40 mCi of technetium 99m DTPA was aerosolized and patient inhaled the mixture. Continued scintigraphic imaging was performed. Findings: Scattered small areas of matched perfusion and ventilation defects are seen. When correlating with chest x-ray performed earlier on the same day, findings are felt to have a low probability for pulmonary embolism. Impression: 1. Findings as noted above. Diagnostic code #3
[2018-07-08] MEDS: Furosemide 100 MG in Sodium Chloride 0.9% 90 ML IV SCH (17:32)
[2018-07-08] MEDS: HYDROmorphone 0.5 MG/0.5 ML Syringe IVPUSH PRN (20:24)
[2018-07-08] MEDS: Insulin Glargine,Human Rec. Analog 100 Units/ML 3 ML Pen SUBCUT SCH (20:31)
[2018-07-09] MEDS: Heparin Sodium 5,000 Units/ML Vial SUBCUT SCH ×3 (01:22→17:13)
[2018-07-09] MEDS: Acetaminophen 325 MG Tab PO PRN ×2 (03:53→21:21)
[2018-07-09] MEDS: Albuterol/Ipratropium 3.0-0.5 MG/3 ML Neb Soln NEB SCH ×4 (05:35→20:35)
[2018-07-09] MEDS: Pantoprazole 40 MG Tab.CR PO SCH (06:12)
[2018-07-09] MEDS: HYDROmorphone 0.5 MG/0.5 ML Syringe IVPUSH PRN ×3 (06:14→21:59)
[2018-07-09] MEDS: Insulin Lispro 100 Unit/ML 3 ML KwikPen SUBCUT SCH ×4 (06:15→21:18)
[2018-07-09] MEDS: Gabapentin 300 MG Cap PO SCH ×3 (09:31→20:14)
[2018-07-09] MEDS: Ferrous Sulfate 325 MG Tab PO SCH (09:31)
[2018-07-09] MEDS: Ascorbic Acid 500 MG Tab PO SCH (09:31)
[2018-07-09] MEDS: amLODIPine 5 MG Tab PO SCH (09:32)
[2018-07-09] MEDS: Polyethylene Glycol 3350 Powder 17 GM Packet PO SCH (09:32)
[2018-07-09] MEDS: Ampicillin 2 GM in Sodium Chloride 0.9% 100 ML IV SCH ×3 (10:16→21:58)
[2018-07-09] MEDS: Saccharomyces Boulardii (Probiotic) 250 MG Cap PO SCH ×2 (10:17→20:14)
--- NOTE | 2018-07-09 12:02 | PCM.PN ---
<Gisella George - Last Filed: 07/09/18 15:14> - General Info Date of Service: 07/09/18 Admission Dx/Problem (Free Text): Admission Diagnosis/Problem Admission Diagnosis/Problem Pleural effusion Subjective Update: Patient remains stable from yesterday. She is able to get up and walk around the floor with O2 stats in the 90's. She reports minimal shortness of breath and no cough. She is tolerating the diabetic diet. She plans to go to [facility]. Functional Status: Reports: Pain Controlled, Tolerating Diet, Ambulating - Review of Systems General: Reports: No Symptoms HEENT: Reports: Glasses. Denies: Dysphasia, Ear Pain, Eye Pain, Headaches, Sore Throat Pulmonary: Reports: Shortness of Breath (Significantly improved). Denies: Cough , Sputum, Hemoptysis Cardiovascular: Reports: No Symptoms Gastrointestinal: Reports: Abdominal Pain (Reports cramps this morning, relieved by bowel movement) Genitourinary: Reports: No Symptoms Musculoskeletal: Reports: No Symptoms Skin: Reports: No Symptoms Neurological: Reports: No Symptoms Psychiatric: Reports: No Symptoms - Patient Data Vitals - Most Recent: Last Vital Signs Temp 98.3 F 07/09/18 08:00 Pulse 95 07/09/18 08:00 Resp 18 07/09/18 08:00 BP 128/98 H 07/09/18 09:32 Pulse Ox 96 07/09/18 09:42 Weight - Most Recent: 96.275 kg I&O - Last 24 Hours: Intake & Output 07/08/18 07/09/18 07/09/18 22:59 06:59 14:59 Intake Total 794 318 400 Output Total 1550 1050 625 Balance -066 -308 -302 Lab Results Last 24 Hours: Laboratory Results - last 24 hr 07/08/18 07/08/18 07/08/18 Range/Units 05:50 17:39 20:27 WBC (3.98-10.04) K/mm3 RBC (3.98-5.22) M/mm3 Hgb (11.2-15.7) gm/L Hct (34.1-44.9) % MCV (79.4-94.8) fl MCH (25.6-32.2) pg MCHC (32.2-35.5) g/dl RDW Std Deviation (36.4-46.3) fL Plt Count (182-369) K/mm3 MPV (9.4-12.3) fl Neut % (Auto) (34.0-71.1) % Lymph % (Auto) (19.3-51.7) % Cotton % (Auto) (4.7-12.5) % Eos % (Auto) (0.7-5.8) Baso % (Auto) (0.1-1.2) % Neut # (Auto) (1.56-6.13) K/mm3 Lymph # (Auto) (1.18-3.74) K/mm3 Cotton # (Auto) (0.24-0.36) K/mm3 Eos # (Auto) (0.04-0.36) K/mm3 Baso # (Auto) (0.01-0.08) K/mm3 Sodium (136-145) mEq/L Potassium (3.5-5.1) mEq/L Chloride (98-107) mEq/L Carbon Dioxide (21-32) mEq/L Anion Gap (5-15) BUN (7-18) mg/dL Creatinine (0.55-1.02) mg/dL Est Cr Clr Drug Dosing mL/min Estimated GFR (MDRD) (>60) mL/min BUN/Creatinine Ratio (14-18) Glucose (74-106) mg/dL POC Glucose 230 H 246 H (70-105) mg/dL Calcium (8.5-10.1) mg/dL Magnesium (1.8-2.4) mg/dl C-Reactive Protein (<1.0) mg/dL NT-Pro-B Natriuret Pep (0-125) pg/mL Mycoplasma pneumon IgM Negative (NEGATIVE) 07/09/18 07/09/18 07/09/18 Range/Units 05:43 05:45 05:45 WBC 9.80 (3.98-10.04) K/mm3 RBC 3.65 L (3.98-5.22) M/mm3 Hgb 10.5 L (11.2-15.7) gm/L Hct 33.3 L (34.1-44.9) % MCV 91.2 (79.4-94.8) fl MCH 28.8 (25.6-32.2) pg MCHC 31.5 L (32.2-35.5) g/dl RDW Std Deviation 52.8 H (36.4-46.3) fL Plt Count 448 H (182-369) K/mm3 MPV 8.6 L (9.4-12.3) fl Neut % (Auto) 65.9 (34.0-71.1) % Lymph % (Auto) 16.4 L (19.3-51.7) % Cotton % (Auto) 9.3 (4.7-12.5) % Eos % (Auto) 7.8 H (0.7-5.8) Baso % (Auto) 0.4 (0.1-1.2) % Neut # (Auto) 6.46 H (1.56-6.13) K/mm3 Lymph # (Auto) 1.61 (1.18-3.74) K/mm3 Cotton # (Auto) 0.91 H (0.24-0.36) K/mm3 Eos # (Auto) 0.76 H (0.04-0.36) K/mm3 Baso # (Auto) 0.04 (0.01-0.08) K/mm3 Sodium 136 (136-145) mEq/L Potassium 3.8 (3.5-5.1) mEq/L Chloride 102 (98-107) mEq/L Carbon Dioxide 29 (21-32) mEq/L Anion Gap 8.8 (5-15) BUN 27 H (7-18) mg/dL Creatinine 1.9 H (0.55-1.02) mg/dL Est Cr Clr Drug Dosing 36.53 mL/min Estimated GFR (MDRD) 28 (>60) mL/min BUN/Creatinine Ratio 14.2 (14-18) Glucose 208 H (74-106) mg/dL POC Glucose 202 H (70-105) mg/dL Calcium 8.7 (8.5-10.1) mg/dL Magnesium 1.9 (1.8-2.4) mg/dl C-Reactive Protein 16.3 H* (<1.0) mg/dL NT-Pro-B Natriuret Pep (0-125) pg/mL Mycoplasma pneumon IgM (NEGATIVE) 07/09/18 Range/Units 05:45 WBC (3.98-10.04) K/mm3 RBC (3.98-5.22) M/mm3 Hgb (11.2-15.7) gm/L Hct (34.1-44.9) % MCV (79.4-94.8) fl MCH (25.6-32.2) pg MCHC (32.2-35.5) g/dl RDW Std Deviation (36.4-46.3) fL Plt Count (182-369) K/mm3 MPV (9.4-12.3) fl Neut % (Auto) (34.0-71.1) % Lymph % (Auto) (19.3-51.7) % Cotton % (Auto) (4.7-12.5) % Eos % (Auto) (0.7-5.8) Baso % (Auto) (0.1-1.2) % Neut # (Auto) (1.56-6.13) K/mm3 Lymph # (Auto) (1.18-3.74) K/mm3 Cotton # (Auto) (0.24-0.36) K/mm3 Eos # (Auto) (0.04-0.36) K/mm3 Baso # (Auto) (0.01-0.08) K/mm3 Sodium (136-145) mEq/L Potassium (3.5-5.1) mEq/L Chloride (98-107) mEq/L Carbon Dioxide (21-32) mEq/L Anion Gap (5-15) BUN (7-18) mg/dL Creatinine (0.55-1.02) mg/dL Est Cr Clr Drug Dosing mL/min Estimated GFR (MDRD) (>60) mL/min BUN/Creatinine Ratio (14-18) Glucose (74-106) mg/dL POC Glucose (70-105) mg/dL Calcium (8.5-10.1) mg/dL Magnesium (1.8-2.4) mg/dl C-Reactive Protein (<1.0) mg/dL NT-Pro-B Natriuret Pep 67373 H (0-125) pg/mL Mycoplasma pneumon IgM (NEGATIVE) Yoshi Results Last 24 Hours: Microbiology 07/05/18 21:00 Aerobic Blood Culture - Preliminary Blood - Venous - Lab Draw NO GROWTH AFTER 3 DAYS Anaerobic Blood Culture - Preliminary NO GROWTH AFTER 3 DAYS 07/05/18 20:50 Aerobic Blood Culture - Preliminary Blood - Venous NO GROWTH AFTER 3 DAYS Anaerobic Blood Culture - Preliminary NO GROWTH AFTER 3 DAYS 07/06/18 09:15 Acid Fast Bacilli Smear - Final Thoracentesis Fluid - Right 07/06/18 10:57 Wound Culture - Preliminary Groin, Right Beta Streptococcus Group B 07/06/18 09:15 Gram Stain - Final Thoracentesis Fluid Body Fluid Culture - Preliminary NO GROWTH AFTER 2 DAYS 07/07/18 09:53 Gram Stain - Final Thoracentesis Fluid Body Fluid Culture - Preliminary NO GROWTH AFTER 1 DAY Med Orders - Current: Current Medications Acetaminophen (Tylenol) 650 mg PO Q6H PRN PRN Reason: Pain/Fever Last Admin: 07/09/18 03:53 Dose: 650 mg Hydrocodone Bitart/Acetaminophen ([place] 325-5 Mg) 1 tab PO Q8H PRN PRN Reason: Pain (moderate 4-6) Last Admin: 07/07/18 09:24 Dose: 1 tab Albuterol (Proventil Neb Soln) 2.5 mg NEB Q4HRRT PRN PRN Reason: Shortness of Breath Last Admin: 07/06/18 08:13 Dose: 2.5 mg Albuterol/Ipratropium (Duoneb 3.0-0.5 Mg/3 Ml) 3 ml NEB QIDRT [facility] Last Admin: 07/09/18 09:40 Dose: 3 ml Amlodipine Besylate (Norvasc) 5 mg PO DAILY [facility] Last Admin: 07/09/18 09:32 Dose: 5 mg Ascorbic Acid (Vitamin C) 500 mg PO DAILY [facility] Last Admin: 07/09/18 09:31 Dose: 500 mg Fentanyl (Duragesic) 12 mcg TRDERM Q72H [facility] Last Admin: 07/07/18 12:51 Dose: 12 mcg Ferrous Sulfate (Ferrous Sulfate) 325 mg PO DAILY [facility] Last Admin: 07/09/18 09:31 Dose: 325 mg Gabapentin (Neurontin) 300 mg PO TID [facility] Last Admin: 07/09/18 09:31 Dose: 300 mg Heparin Sodium (Porcine) (Heparin Sodium) 5,000 units SUBCUT Q8H [facility] Last Admin: 07/09/18 09:31 Dose: 5,000 units Hydralazine HCl (Apresoline) 20 mg IVPUSH Q6H PRN PRN Reason: Hypertension Hydromorphone HCl (Dilaudid) 0.5 mg IVPUSH Q6H PRN PRN Reason: Pain (moderate 4-6) Last Admin: 07/09/18 06:14 Dose: 0.5 mg Furosemide 100 mg/ Sodium (Chloride) 100 mls @ 4 mls/hr IV TITRATE [facility]; Protocol Last Infusion: 07/09/18 10:27 Dose: 0 mg/hr, 0 mls/hr Sodium Chloride (Normal Saline) 250 mls @ 100 mls/hr IV ASDIRECTED [facility] Last Admin: 07/06/18 16:37 Dose: 100 mls/hr Ampicillin Sodium 2 gm/ Sodium (Chloride) 100 mls @ 200 mls/hr IV Q6H [facility] Last Admin: 07/09/18 10:16 Dose: 200 mls/hr Insulin Glargine (Lantus Solostar) 13 units SUBCUT BEDTIME [facility] Last Admin: 07/08/18 20:31 Dose: 13 units Insulin Human Lispro (Humalog) 0 unit SUBCUT QIDACANDBED [facility]; Protocol Last Admin: 07/09/18 06:15 Dose: 2 unit Miscellaneous Information (Remove Patch) 0 ea TRDERM Q72H [facility] Ondansetron HCl (Zofran) 4 mg IVPUSH Q6H PRN PRN Reason: Nausea/Vomiting Last Admin: 07/06/18 18:39 Dose: 4 mg Pantoprazole Sodium (Protonix) 40 mg PO ACBRK [facility] Last Admin: 07/09/18 06:12 Dose: 40 mg Promethazine 0.2 Ml 0 each TOP Q6H PRN PRN Reason: Nausea Polyethylene Glycol (Miralax) 17 gm PO DAILY [facility] Last Admin: 07/09/18 09:32 Dose: Not Given Saccharomyces Boulardii (Florastor) 250 mg PO BID [facility] Last Admin: 07/09/18 10:17 Dose: 250 mg Discontinued Medications Hydrocodone Bitart/Acetaminophen ([place] 325-5 Mg) 1 tab PO Q6H PRN PRN Reason: Pain Last Admin: 07/06/18 15:02 Dose: 1 tab Albuterol/Ipratropium (Duoneb 3.0-0.5 Mg/3 Ml) 3 ml NEB Q6HRRT [facility] Furosemide (Lasix) 40 mg IVPUSH NOW ONE Stop: 07/05/18 21:59 Last Admin: 07/05/18 22:09 Dose: 40 mg Furosemide (Lasix) 40 mg IVPUSH NOW ONE Stop: 07/06/18 14:31 Last Admin: 07/06/18 19:30 Dose: 40 mg Furosemide (Lasix) Confirm Administered Dose 40 mg .ROUTE .STK-MED ONE Stop: 07/06/18 19:14 Last Admin: 07/06/18 20:16 Dose: Not Given Gabapentin (Neurontin) 300 mg PO ONETIME ONE Stop: 07/06/18 21:00 Last Admin: 07/06/18 21:11 Dose: 300 mg Heparin Sodium (Porcine) (Heparin Sodium) 5,000 units IVPUSH Q8HR [facility] Last Admin: 07/06/18 20:43 Dose: Not Given Heparin Sodium (Porcine) (Heparin Sodium) 5,000 units SUBCUT ONETIME ONE Stop: 07/06/18 06:01 Last Admin: 07/06/18 06:15 Dose: 5,000 units Hydromorphone HCl (Dilaudid) 1 mg IVPUSH Q8H PRN PRN Reason: Pain Last Admin: 07/06/18 10:50 Dose: 1 mg Hydromorphone HCl (Dilaudid) 1 mg IVPUSH ONETIME ONE Stop: 07/06/18 15:16 Last Admin: 07/06/18 15:23 Dose: 1 mg Sodium Chloride (Normal Saline) 100 mls @ 60 mls/hr IV ASDIRECTED [facility] Magnesium Sulfate 2 gm/ Premix 50 mls @ 25 mls/hr IV ONETIME ONE Stop: 07/08/18 12:14 Last Admin: 07/08/18 10:34 Dose: 25 mls/hr Iopamidol (Isovue-370 (76%)) 100 ml IVPUSH ONETIME ONE Stop: 07/05/18 22:37 Last Admin: 07/05/18 22:47 Dose: 100 ml Ondansetron HCl (Zofran) 4 mg IVPUSH Q8H PRN PRN Reason: Nausea/Vomiting Last Admin: 07/06/18 13:14 Dose: 4 mg Ondansetron HCl (Zofran Odt) 4 mg PO Q8H PRN PRN Reason: Nausea Ondansetron HCl (Zofran) 4 mg IVPUSH Q6H PRN PRN Reason: Nausea/Vomiting Sodium Chloride (Saline Flush) 10 ml FLUSH ONETIME ONE Stop: 07/05/18 22:37 Last Admin: 07/05/18 22:47 Dose: 10 ml - Exam Quality Assessment: Supplemental Oxygen (4L nasal cannula), Urine Catheter, DVT Prophylaxis General: Alert, Oriented, Cooperative HEENT: Pupils Equal, Pupils Reactive, EOMI, Mucous Membr. Moist/[place] Neck: Supple, Trachea Midline, +2 Carotid Pulse wo Bruit Lungs: Normal Respiratory Effort, Crackles (At bases bilaterally). No: Rub, Stridor, Wheezing Cardiovascular: Regular Rate, Regular Rhythm GI/Abdominal Exam: Normal Bowel Sounds, Soft, Non-Tender (Female) Exam: Deferred Back Exam: Normal Inspection, Full Range of Motion Extremities: Normal Inspection, Normal Range of Motion, Non-Tender, Normal Capillary Refill, Pedal Edema (2+) Peripheral Pulses: 2+: Carotid (L), Carotid (R), Radial (L), Radial (R), Posterior Tibial (L), Posterior Tibial (R), Dorsalis Pedis (L), Dorsalis Pedis ( R) Skin: Warm, Dry, Intact Wound/Incisions: Dressing Dry and Intact, No Drainage. No: Erythema Neurological: No New Focal Deficit Psy/Mental Status: Alert, Normal Affect, Normal Mood - Problem List Review Problem List Initiated/Reviewed/Updated: Yes - My Orders Last 24 Hours: My Active Orders 07/08/18 10:57 Consult to Ux Information Architect [Consult to Diabetic Nurse Specialist] [CONS] Routine 07/08/18 Lunch ADA Diabetic [[place] [employer] Diet] [DIET] 07/09/18 09:45 Saccharomyces Boulardii [Florastor] 250 mg PO BID 07/09/18 10:00 Ampicillin 2 gm Sodium Chloride 0.9% [Normal Saline] 100 ml IV Q6H 07/09/18 10:50 Nutrition Reassessment/Plan, Adult [Consult to Sourcing Analyst] [CONS] Routine Retroperitoneal Comp [US] Routine 07/09/18 11:00 PROTEIN/CREATININE RATIO,URINE [URCHEM] Routine - Assessment Assessment:: Pleural Effusions - status post bilateral thoracocentesis * Bilateral pleural effusions seen on X-ray and CT with bibasilar atelectasis, more prominent on left side (admission) * CT also showed patchy alveolar densities in both upper lungs which may represent atelectasis as well as pneumonia. Prominent mediastinal lymph nodes are seen * Thoracocentesis performed on right side 07/06/18 yielded 1200 cc's of fluid, left side 07/07/18 yielded 1400 cc's of fluid * Fluid appears light yellow and slightly hazy * Studies from the right sided fluid showed a glucose of 175, protein <2.0, and a LDH of 65 * Current X-rays show bilateral persisting atelectasis and small bilateral effusions Hypoxemia * Patient reports no oxygen use prior to her hospitilization in [place] for wound debridement. Since then, she has been needing oxygen. At home she is currently on 2L at rest and 5L as needed when she is moving around per nasal cannula * She was on 6L of O2 on admission and her oxygen saturation dropped into the low 80's with movement * Now she is on 4L and is able to walk around the unit with stats around 90% Elevated D-Dimer * D-dimer on admission was 0.99 * Chest CT showed no pulmonary artery filling defects to suggest pulmonary embolism * Patient continues to be hypoxic * V/Q scan showed low probability of pulmonary emboli Heart Failure ?? * Diagnosed in [place] in May. Reports a history of progressive shortness of breath before she came in with the wound. * BNP 10,797 --> 10,687 --> 10,332 * Bilateral lower leg edema * Weight down from 221 on admission to 212 today with diuresis and fluid restriction * BNPs not correlating to associated weight loss * Echocardiogram showed an ejection fraction of 60-65% with normal systolic function. The aortic valve was normal. There was trace mitral and tricuspid regurgitation. No regional wall abnormalities. This is not consistent with the diagnosis of heart failure. Kidney Failure * Chronic * Creatinine 1.9 --> 1.8, BUN 22, EGFR 28. Minimal change since admission Proteinuria - query nephrotic syndrome * Patient had 3+ urine upon admission * Her total protein was 7.2 and her albumin was low at 2.4 * Ordered urine creatinine and protein to further assess * Urine creatinine 26.4, urine protein 52.6. Urine protein/creatinine ratio 1992.4 * Ordered dietary consult to assess her protein status * Renal ultrasound to be done today Diabetes Mellitus Type 2 * Patient reports starting on metformin >8 years ago. She took it for about a month, but it made her sick so she stopped. She has not followed up on this since then until they told her in [place] in May that she had diabetes. She started insulin in May. * She was seen by the stove fitter and plans to follow up with Dr. Goldstein for primary care * HbA1C 7.2 Hypertension * Started on amlodipine in [place] in May * Blood pressures in the 130's/70's Wound on buttocks * Fornier's gangrene with 5 surgical debridements in [place] in May * PT evaluated and nursing will follow up with wound care * Lesion has not had purulent drainage or surrounding erythema * Culture grew group B Streptococci * Due to the severity of the wound, ampicillin will be used to treat Low magnesium - resolved - Plan Plan:: Daily labs Daily chest X-ray Hold lasix drip Fluid restriction ADA diet Dietary to assess protein status Wound care by nursing chocolate coater consult PT and social work consult DVT/GI prophylaxis Patient plans to follow up with Dr. Goldstein for primary care. Patient needs a nephrology referral for outpatient care. Will try to schedule in [place] on the same date she will be returning for wound follow up. Currently planning to D/C Saturday to [facility] Full Code <ThienClementine M - Last Filed: 07/12/18 19:48> - Patient Data Vitals - Most Recent: Last Vital Signs Temp 36.5 C 07/11/18 15:00 Pulse 107 H 07/11/18 15:00 Resp 18 07/11/18 15:00 BP 137/68 07/11/18 15:00 Pulse Ox 92 L 07/11/18 15:39 Lab Results Last 24 Hours: Laboratory Results - last 24 hr 07/11/18 07/11/18 Range/Units 05:17 09:50 Prealbumin 9.9 L (17.0-34.0) mg/dL Complement C4 38.1 (19.0-52.0) mg/dL Yoshi Results Last 24 Hours: Microbiology 07/07/18 09:53 Gram Stain - Final Thoracentesis Fluid Body Fluid Culture - Preliminary NO GROWTH AFTER 5 DAYS 07/06/18 09:15 Gram Stain - Final Thoracentesis Fluid Body Fluid Culture - Preliminary NO GROWTH AFTER 6 DAYS 07/05/18 21:00 Aerobic Blood Culture - Preliminary Blood - Venous - Lab Draw NO GROWTH AFTER 6 DAYS Anaerobic Blood Culture - Preliminary NO GROWTH AFTER 6 DAYS 07/05/18 20:50 Aerobic Blood Culture - Preliminary Blood - Venous NO GROWTH AFTER 6 DAYS Anaerobic Blood Culture - Preliminary NO GROWTH AFTER 6 DAYS Med Orders - Current: Current Medications Discontinued Medications Acetaminophen (Tylenol) 650 mg PO Q6H PRN PRN Reason: Pain/Fever Last Admin: 07/11/18 04:51 Dose: 650 mg Hydrocodone Bitart/Acetaminophen ([place] 325-5 Mg) 1 tab PO Q6H PRN PRN Reason: Pain Last Admin: 07/06/18 15:02 Dose: 1 tab Hydrocodone Bitart/Acetaminophen ([place] 325-5 Mg) 1 tab PO Q8H PRN PRN Reason: Pain (moderate 4-6) Last Admin: 07/11/18 16:49 Dose: 1 tab Albuterol (Proventil Neb Soln) 2.5 mg NEB Q4HRRT PRN PRN Reason: Shortness of Breath Last Admin: 07/06/18 08:13 Dose: 2.5 mg Albuterol/Ipratropium (Duoneb 3.0-0.5 Mg/3 Ml) 3 ml NEB Q6HRRT T[facility] Albuterol/Ipratropium (Duoneb 3.0-0.5 Mg/3 Ml) 3 ml NEB QIDRT [facility] Last Admin: 07/11/18 15:38 Dose: 3 ml Amlodipine Besylate (Norvasc) 5 mg PO DAILY [facility] Last Admin: 07/11/18 08:15 Dose: 5 mg Ascorbic Acid (Vitamin C) 500 mg PO DAILY [facility] Last Admin: 07/11/18 08:15 Dose: 500 mg Fentanyl (Duragesic) 12 mcg TRDERM Q72H [facility] Last Admin: 07/10/18 11:32 Dose: 12 mcg Ferrous Sulfate (Ferrous Sulfate) 325 mg PO DAILY [facility] Last Admin: 07/11/18 08:15 Dose: 325 mg Furosemide (Lasix) 40 mg IVPUSH NOW ONE Stop: 07/05/18 21:59 Last Admin: 07/05/18 22:09 Dose: 40 mg Furosemide (Lasix) 40 mg IVPUSH NOW ONE Stop: 07/06/18 14:31 Last Admin: 07/06/18 19:30 Dose: 40 mg Furosemide (Lasix) Confirm Administered Dose 40 mg .ROUTE .STK-MED ONE Stop: 07/06/18 19:14 Last Admin: 07/06/18 20:16 Dose: Not Given Gabapentin (Neurontin) 300 mg PO ONETIME ONE Stop: 07/06/18 21:00 Last Admin: 07/06/18 21:11 Dose: 300 mg Gabapentin (Neurontin) 300 mg PO TID [facility] Last Admin: 07/11/18 16:49 Dose: 300 mg Heparin Sodium (Porcine) (Heparin Sodium) 5,000 units IVPUSH Q8HR [facility] Last Admin: 07/06/18 20:43 Dose: Not Given Heparin Sodium (Porcine) (Heparin Sodium) 5,000 units SUBCUT ONETIME ONE Stop: 07/06/18 06:01 Last Admin: 07/06/18 06:15 Dose: 5,000 units Heparin Sodium (Porcine) (Heparin Sodium) 5,000 units SUBCUT Q8H [facility] Last Admin: 07/11/18 16:50 Dose: 5,000 units Hydralazine HCl (Apresoline) 20 mg IVPUSH Q6H PRN PRN Reason: Hypertension Hydromorphone HCl (Dilaudid) 1 mg IVPUSH Q8H PRN PRN Reason: Pain Last Admin: 07/06/18 10:50 Dose: 1 mg Hydromorphone HCl (Dilaudid) 1 mg IVPUSH ONETIME ONE Stop: 07/06/18 15:16 Last Admin: 07/06/18 15:23 Dose: 1 mg Hydromorphone HCl (Dilaudid) 0.5 mg IVPUSH Q6H PRN PRN Reason: Pain (moderate 4-6) Last Admin: 07/11/18 17:45 Dose: 0.5 mg Sodium Chloride (Normal Saline) 100 mls @ 60 mls/hr IV ASDIRECTED [facility] Furosemide 100 mg/ Sodium (Chloride) 100 mls @ 4 mls/hr IV TITRATE [facility]; Protocol Last Infusion: 07/09/18 10:27 Dose: 0 mg/hr, 0 mls/hr Sodium Chloride (Normal Saline) 250 mls @ 100 mls/hr IV ASDIRECTED [facility] Last Admin: 07/06/18 16:37 Dose: 100 mls/hr Magnesium Sulfate 2 gm/ Premix 50 mls @ 25 mls/hr IV ONETIME ONE Stop: 07/08/18 12:14 Last Admin: 07/08/18 10:34 Dose: 25 mls/hr Ampicillin Sodium 2 gm/ Sodium (Chloride) 100 mls @ 200 mls/hr IV Q6H [facility] Last Admin: 07/11/18 16:48 Dose: 200 mls/hr Insulin Glargine (Lantus Solostar) 13 units SUBCUT BEDTIME [facility] Last Admin: 07/10/18 22:27 Dose: 13 units Insulin Human Lispro (Humalog) 0 unit SUBCUT QIDACANDBED [facility]; Protocol Last Admin: 07/11/18 17:13 Dose: 3 unit Iopamidol (Isovue-370 (76%)) 100 ml IVPUSH ONETIME ONE Stop: 07/05/18 22:37 Last Admin: 07/05/18 22:47 Dose: 100 ml Lisinopril (Prinivil) 2.5 mg PO DAILY [facility] Last Admin: 07/11/18 10:51 Dose: 2.5 mg Miscellaneous Information (Remove Patch) 0 ea TRDERM Q72H [facility] Last Admin: 07/10/18 11:33 Dose: 1 ea Ondansetron HCl (Zofran) 4 mg IVPUSH Q8H PRN PRN Reason: Nausea/Vomiting Last Admin: 07/06/18 13:14 Dose: 4 mg Ondansetron HCl (Zofran Odt) 4 mg PO Q8H PRN PRN Reason: Nausea Ondansetron HCl (Zofran) 4 mg IVPUSH Q6H PRN PRN Reason: Nausea/Vomiting Last Admin: 07/11/18 17:47 Dose: 4 mg Ondansetron HCl (Zofran) 4 mg IVPUSH Q6H PRN PRN Reason: Nausea/Vomiting Pantoprazole Sodium (Protonix) 40 mg PO ACBRK [facility] Last Admin: 07/11/18 06:20 Dose: 40 mg Promethazine 0.2 Ml 0 each TOP Q6H PRN PRN Reason: Nausea Polyethylene Glycol (Miralax) 17 gm PO DAILY [facility] Last Admin: 07/11/18 08:16 Dose: 17 gm Saccharomyces Boulardii (Florastor) 250 mg PO BID [facility] Last Admin: 07/11/18 08:14 Dose: 250 mg Sodium Chloride (Saline Flush) 10 ml FLUSH ONETIME ONE Stop: 07/05/18 22:37 Last Admin: 07/05/18 22:47 Dose: 10 ml - Plan Plan:: Patient seen and examined. Agree with plan of care. Will continue HTN meds for now but will likely changed to an ACEI and DC Calcium Channel latoya. Protein loss was not address during hospitalization, will attempt to sloww loss. Anticipate nephrology consult as soon as possible, TBD.
--- NOTE | 2018-07-09 15:14 | US ---
Renal ultrasound: Multiple real-time images of the kidneys were obtained. Left kidney not well visualized Kidneys show no hydronephrosis or mass. Right kidney is smaller than the left kidney. Right kidney measures 9.9 cm in length and left kidney measures 12.9 cm in length. Resistivity indices are felt to be within normal limits. Brown catheter noted within the bladder. Bilateral ureteral jets are seen. Impression: 1. Asymmetric kidney size. 2. Brown catheter within the bladder. 3. No additional abnormality is appreciated on renal ultrasound exam. Diagnostic code #2
[2018-07-09] MEDS: Ondansetron 4 MG/2 ML SDV IVPUSH PRN (16:02)
[2018-07-09] MEDS: Insulin Glargine,Human Rec. Analog 100 Units/ML 3 ML Pen SUBCUT SCH (21:16)
[2018-07-10] MEDS: Heparin Sodium 5,000 Units/ML Vial SUBCUT SCH ×3 (01:32→17:00)
[2018-07-10] MEDS: Ampicillin 2 GM in Sodium Chloride 0.9% 100 ML IV SCH ×4 (03:28→23:11)
[2018-07-10] MEDS: Albuterol/Ipratropium 3.0-0.5 MG/3 ML Neb Soln NEB SCH ×4 (05:15→20:13)
[2018-07-10] MEDS: Pantoprazole 40 MG Tab.CR PO SCH (06:20)
[2018-07-10] MEDS: Insulin Lispro 100 Unit/ML 3 ML KwikPen SUBCUT SCH ×4 (06:21→22:28)
[2018-07-10] MEDS: Acetaminophen 325 MG Tab PO PRN (08:21)
[2018-07-10] MEDS: Saccharomyces Boulardii (Probiotic) 250 MG Cap PO SCH ×2 (08:22→22:25)
[2018-07-10] MEDS: amLODIPine 5 MG Tab PO SCH (08:22)
[2018-07-10] MEDS: Ferrous Sulfate 325 MG Tab PO SCH (08:22)
[2018-07-10] MEDS: Gabapentin 300 MG Cap PO SCH ×3 (08:22→22:25)
[2018-07-10] MEDS: Ascorbic Acid 500 MG Tab PO SCH (08:22)
[2018-07-10] MEDS: Polyethylene Glycol 3350 Powder 17 GM Packet PO SCH (09:03)
[2018-07-10] MEDS: HYDROmorphone 0.5 MG/0.5 ML Syringe IVPUSH PRN ×2 (09:48→22:31)
--- NOTE | 2018-07-10 10:04 | PCM.PN ---
<Gisella George - Last Filed: 07/10/18 15:44> - General Info Date of Service: 07/10/18 Admission Dx/Problem (Free Text): Admission Diagnosis/Problem Admission Diagnosis/Problem Pleural effusion Subjective Update: Chely is feeling well today. She reports no new symptoms. She is up and walking around throughout the day. Functional Status: Reports: Pain Controlled, Tolerating Diet, Ambulating - Review of Systems General: Reports: No Symptoms HEENT: Reports: No Symptoms, Glasses Pulmonary: Reports: No Symptoms Cardiovascular: Reports: Edema. Denies: Chest Pain, Palpitations, Lightheadedness (Slightly increased from yesterday; furosemide drip was discontinued yesterday) Gastrointestinal: Reports: Vomiting (Vomitted once last night after eating too much too fast.). Denies: Abdominal Pain, Constipation, Decreased Appetite, Diarrhea, Difficulty Swallowing, Hematochezia, Melena, Nausea Genitourinary: Reports: No Symptoms Musculoskeletal: Reports: No Symptoms Skin: Reports: No Symptoms Neurological: Reports: No Symptoms Psychiatric: Reports: No Symptoms - Patient Data Vitals - Most Recent: Last Vital Signs Temp 98.4 F 07/10/18 08:00 Pulse 84 07/10/18 08:00 Resp 14 07/10/18 08:00 BP 132/65 07/10/18 08:22 Pulse Ox 92 L 07/10/18 08:00 Weight - Most Recent: 94.829 kg I&O - Last 24 Hours: Intake & Output 07/09/18 07/10/18 07/10/18 22:59 06:59 14:59 Intake Total 520 660 Output Total 2025 450 225 Balance -1505 210 -225 Lab Results Last 24 Hours: Laboratory Results - last 24 hr 07/08/18 07/09/18 07/09/18 Range/Units 22:50 11:59 13:13 WBC (3.98-10.04) K/mm3 RBC (3.98-5.22) M/mm3 Hgb (11.2-15.7) gm/L Hct (34.1-44.9) % MCV (79.4-94.8) fl MCH (25.6-32.2) pg MCHC (32.2-35.5) g/dl RDW Std Deviation (36.4-46.3) fL Plt Count (182-369) K/mm3 MPV (9.4-12.3) fl Neut % (Auto) (34.0-71.1) % Lymph % (Auto) (19.3-51.7) % [place] % (Auto) (4.7-12.5) % Eos % (Auto) (0.7-5.8) Baso % (Auto) (0.1-1.2) % Neut # (Auto) (1.56-6.13) K/mm3 Lymph # (Auto) (1.18-3.74) K/mm3 [place] # (Auto) (0.24-0.36) K/mm3 Eos # (Auto) (0.04-0.36) K/mm3 Baso # (Auto) (0.01-0.08) K/mm3 Sodium (136-145) mEq/L Potassium (3.5-5.1) mEq/L Chloride (98-107) mEq/L Carbon Dioxide (21-32) mEq/L Anion Gap (5-15) BUN (7-18) mg/dL Creatinine (0.55-1.02) mg/dL Est Cr Clr Drug Dosing mL/min Estimated GFR (MDRD) (>60) mL/min BUN/Creatinine Ratio (14-18) Glucose (74-106) mg/dL POC Glucose 210 H (70-105) mg/dL Calcium (8.5-10.1) mg/dL Magnesium (1.8-2.4) mg/dl Total Bilirubin (0.2-1.0) mg/dL AST (15-37) U/L ALT (14-59) U/L Alkaline Phosphatase (46-116) U/L C-Reactive Protein (<1.0) mg/dL NT-Pro-B Natriuret Pep (0-125) pg/mL Total Protein (6.4-8.2) g/dl Albumin (3.4-5.0) g/dl Globulin gm/dL Albumin/Globulin Ratio (1-2) Ur Random Creatinine 26.4 L (30.0-125.0) mg/dL U Random Total Protein 52.6 H (0.0-11.8) mg/dL Protein/Creatinin Ratio 1992.4 H (0-149) mg/g Adenovirus (PCR) Not detected (Not Detected) B. pertussis DNA (PCR) Not detected (Not Detected) B.parapertussis DNA PCR Not detected (Not Detected) C. pneumoniae DNA (PCR) Not detected (Not Detected) Coronavirus (PCR) Not detected (Not Detected) Human Metapneumovir PCR Not detected (Not Detected) Influenza A (RT-PCR) Not detected (Not Detected) Influenza B (RT-PCR) Not detected (Not Detected) M. pneumoniae (PCR) Not detected (Not Detected) Parainfluen 1,2,3,4 PCR Not detected (Not Detected) RSV (PCR) Not detected (Not Detected) Entero/Rhino (PCR) Not detected (Not Detected) 07/09/18 07/09/18 07/10/18 Range/Units 17:12 20:17 05:41 WBC 9.45 (3.98-10.04) K/mm3 RBC 3.63 L (3.98-5.22) M/mm3 Hgb 10.5 L (11.2-15.7) gm/L Hct 33.3 L (34.1-44.9) % MCV 91.7 (79.4-94.8) fl MCH 28.9 (25.6-32.2) pg MCHC 31.5 L (32.2-35.5) g/dl RDW Std Deviation 51.6 H (36.4-46.3) fL Plt Count 444 H (182-369) K/mm3 MPV 8.4 L (9.4-12.3) fl Neut % (Auto) 58.0 (34.0-71.1) % Lymph % (Auto) 19.7 (19.3-51.7) % [place] % (Auto) 10.7 (4.7-12.5) % Eos % (Auto) 11.1 H (0.7-5.8) Baso % (Auto) 0.3 (0.1-1.2) % Neut # (Auto) 5.48 (1.56-6.13) K/mm3 Lymph # (Auto) 1.86 (1.18-3.74) K/mm3 [place] # (Auto) 1.01 H (0.24-0.36) K/mm3 Eos # (Auto) 1.05 H (0.04-0.36) K/mm3 Baso # (Auto) 0.03 (0.01-0.08) K/mm3 Sodium (136-145) mEq/L Potassium (3.5-5.1) mEq/L Chloride (98-107) mEq/L Carbon Dioxide (21-32) mEq/L Anion Gap (5-15) BUN (7-18) mg/dL Creatinine (0.55-1.02) mg/dL Est Cr Clr Drug Dosing mL/min Estimated GFR (MDRD) (>60) mL/min BUN/Creatinine Ratio (14-18) Glucose (74-106) mg/dL POC Glucose 210 H 219 H (70-105) mg/dL Calcium (8.5-10.1) mg/dL Magnesium (1.8-2.4) mg/dl Total Bilirubin (0.2-1.0) mg/dL AST (15-37) U/L ALT (14-59) U/L Alkaline Phosphatase (46-116) U/L C-Reactive Protein (<1.0) mg/dL NT-Pro-B Natriuret Pep (0-125) pg/mL Total Protein (6.4-8.2) g/dl Albumin (3.4-5.0) g/dl Globulin gm/dL Albumin/Globulin Ratio (1-2) Ur Random Creatinine (30.0-125.0) mg/dL U Random Total Protein (0.0-11.8) mg/dL Protein/Creatinin Ratio (0-149) mg/g Adenovirus (PCR) (Not Detected) B. pertussis DNA (PCR) (Not Detected) B.parapertussis DNA PCR (Not Detected) C. pneumoniae DNA (PCR) (Not Detected) Coronavirus (PCR) (Not Detected) Human Metapneumovir PCR (Not Detected) Influenza A (RT-PCR) (Not Detected) Influenza B (RT-PCR) (Not Detected) M. pneumoniae (PCR) (Not Detected) Parainfluen 1,2,3,4 PCR (Not Detected) RSV (PCR) (Not Detected) Entero/Rhino (PCR) (Not Detected) 07/10/18 07/10/18 07/10/18 Range/Units 05:41 05:41 05:41 WBC (3.98-10.04) K/mm3 RBC (3.98-5.22) M/mm3 Hgb (11.2-15.7) gm/L Hct (34.1-44.9) % MCV (79.4-94.8) fl MCH (25.6-32.2) pg MCHC (32.2-35.5) g/dl RDW Std Deviation (36.4-46.3) fL Plt Count (182-369) K/mm3 MPV (9.4-12.3) fl Neut % (Auto) (34.0-71.1) % Lymph % (Auto) (19.3-51.7) % [place] % (Auto) (4.7-12.5) % Eos % (Auto) (0.7-5.8) Baso % (Auto) (0.1-1.2) % Neut # (Auto) (1.56-6.13) K/mm3 Lymph # (Auto) (1.18-3.74) K/mm3 [place] # (Auto) (0.24-0.36) K/mm3 Eos # (Auto) (0.04-0.36) K/mm3 Baso # (Auto) (0.01-0.08) K/mm3 Sodium 137 (136-145) mEq/L Potassium 3.6 (3.5-5.1) mEq/L Chloride 101 (98-107) mEq/L Carbon Dioxide 33 H (21-32) mEq/L Anion Gap 6.6 (5-15) BUN 27 H (7-18) mg/dL Creatinine 1.8 H (0.55-1.02) mg/dL Est Cr Clr Drug Dosing 38.56 mL/min Estimated GFR (MDRD) 30 (>60) mL/min BUN/Creatinine Ratio 15.0 (14-18) Glucose 224 H (74-106) mg/dL POC Glucose (70-105) mg/dL Calcium 8.4 L (8.5-10.1) mg/dL Magnesium 1.9 (1.8-2.4) mg/dl Total Bilirubin 0.2 (0.2-1.0) mg/dL AST 58 H (15-37) U/L ALT 41 (14-59) U/L Alkaline Phosphatase 276 H (46-116) U/L C-Reactive Protein 13.7 H* (<1.0) mg/dL NT-Pro-B Natriuret Pep 61328 H (0-125) pg/mL Total Protein 6.6 (6.4-8.2) g/dl Albumin 1.7 L (3.4-5.0) g/dl Globulin 4.9 gm/dL Albumin/Globulin Ratio 0.4 L (1-2) Ur Random Creatinine (30.0-125.0) mg/dL U Random Total Protein (0.0-11.8) mg/dL Protein/Creatinin Ratio (0-149) mg/g Adenovirus (PCR) (Not Detected) B. pertussis DNA (PCR) (Not Detected) B.parapertussis DNA PCR (Not Detected) C. pneumoniae DNA (PCR) (Not Detected) Coronavirus (PCR) (Not Detected) Human Metapneumovir PCR (Not Detected) Influenza A (RT-PCR) (Not Detected) Influenza B (RT-PCR) (Not Detected) M. pneumoniae (PCR) (Not Detected) Parainfluen 1,2,3,4 PCR (Not Detected) RSV (PCR) (Not Detected) Entero/Rhino (PCR) (Not Detected) 07/10/18 Range/Units 05:42 WBC (3.98-10.04) K/mm3 RBC (3.98-5.22) M/mm3 Hgb (11.2-15.7) gm/L Hct (34.1-44.9) % MCV (79.4-94.8) fl MCH (25.6-32.2) pg MCHC (32.2-35.5) g/dl RDW Std Deviation (36.4-46.3) fL Plt Count (182-369) K/mm3 MPV (9.4-12.3) fl Neut % (Auto) (34.0-71.1) % Lymph % (Auto) (19.3-51.7) % [place] % (Auto) (4.7-12.5) % Eos % (Auto) (0.7-5.8) Baso % (Auto) (0.1-1.2) % Neut # (Auto) (1.56-6.13) K/mm3 Lymph # (Auto) (1.18-3.74) K/mm3 [place] # (Auto) (0.24-0.36) K/mm3 Eos # (Auto) (0.04-0.36) K/mm3 Baso # (Auto) (0.01-0.08) K/mm3 Sodium (136-145) mEq/L Potassium (3.5-5.1) mEq/L Chloride (98-107) mEq/L Carbon Dioxide (21-32) mEq/L Anion Gap (5-15) BUN (7-18) mg/dL Creatinine (0.55-1.02) mg/dL Est Cr Clr Drug Dosing mL/min Estimated GFR (MDRD) (>60) mL/min BUN/Creatinine Ratio (14-18) Glucose (74-106) mg/dL POC Glucose 236 H (70-105) mg/dL Calcium (8.5-10.1) mg/dL Magnesium (1.8-2.4) mg/dl Total Bilirubin (0.2-1.0) mg/dL AST (15-37) U/L ALT (14-59) U/L Alkaline Phosphatase (46-116) U/L C-Reactive Protein (<1.0) mg/dL NT-Pro-B Natriuret Pep (0-125) pg/mL Total Protein (6.4-8.2) g/dl Albumin (3.4-5.0) g/dl Globulin gm/dL Albumin/Globulin Ratio (1-2) Ur Random Creatinine (30.0-125.0) mg/dL U Random Total Protein (0.0-11.8) mg/dL Protein/Creatinin Ratio (0-149) mg/g Adenovirus (PCR) (Not Detected) B. pertussis DNA (PCR) (Not Detected) B.parapertussis DNA PCR (Not Detected) C. pneumoniae DNA (PCR) (Not Detected) Coronavirus (PCR) (Not Detected) Human Metapneumovir PCR (Not Detected) Influenza A (RT-PCR) (Not Detected) Influenza B (RT-PCR) (Not Detected) M. pneumoniae (PCR) (Not Detected) Parainfluen 1,2,3,4 PCR (Not Detected) RSV (PCR) (Not Detected) Entero/Rhino (PCR) (Not Detected) Yoshi Results Last 24 Hours: Microbiology 07/07/18 09:53 Gram Stain - Final Thoracentesis Fluid Body Fluid Culture - Preliminary NO GROWTH AFTER 3 DAYS 07/06/18 09:15 Gram Stain - Final Thoracentesis Fluid Body Fluid Culture - Preliminary NO GROWTH AFTER 4 DAYS 07/06/18 10:57 Wound Culture - Final Groin, Right Beta Streptococcus Group B 07/08/18 22:50 Streptococcus pneumoniae Antigen (M - Final Urine 07/05/18 21:00 Aerobic Blood Culture - Preliminary Blood - Venous - Lab Draw NO GROWTH AFTER 4 DAYS Anaerobic Blood Culture - Preliminary NO GROWTH AFTER 4 DAYS 07/05/18 20:50 Aerobic Blood Culture - Preliminary Blood - Venous NO GROWTH AFTER 4 DAYS Anaerobic Blood Culture - Preliminary NO GROWTH AFTER 4 DAYS Med Orders - Current: Current Medications Acetaminophen (Tylenol) 650 mg PO Q6H PRN PRN Reason: Pain/Fever Last Admin: 07/10/18 08:21 Dose: 650 mg Hydrocodone Bitart/Acetaminophen ([place] 325-5 Mg) 1 tab PO Q8H PRN PRN Reason: Pain (moderate 4-6) Last Admin: 07/07/18 09:24 Dose: 1 tab Albuterol (Proventil Neb Soln) 2.5 mg NEB Q4HRRT PRN PRN Reason: Shortness of Breath Last Admin: 07/06/18 08:13 Dose: 2.5 mg Albuterol/Ipratropium (Duoneb 3.0-0.5 Mg/3 Ml) 3 ml NEB QIDRT [facility] Last Admin: 07/10/18 05:15 Dose: 3 ml Amlodipine Besylate (Norvasc) 5 mg PO DAILY [facility] Last Admin: 07/10/18 08:22 Dose: 5 mg Ascorbic Acid (Vitamin C) 500 mg PO DAILY [facility] Last Admin: 07/10/18 08:22 Dose: 500 mg Fentanyl (Duragesic) 12 mcg TRDERM Q72H [facility] Last Admin: 07/07/18 12:51 Dose: 12 mcg Ferrous Sulfate (Ferrous Sulfate) 325 mg PO DAILY [facility] Last Admin: 07/10/18 08:22 Dose: 325 mg Gabapentin (Neurontin) 300 mg PO TID [facility] Last Admin: 07/10/18 08:22 Dose: 300 mg Heparin Sodium (Porcine) (Heparin Sodium) 5,000 units SUBCUT Q8H [facility] Last Admin: 07/10/18 01:32 Dose: 5,000 units Hydralazine HCl (Apresoline) 20 mg IVPUSH Q6H PRN PRN Reason: Hypertension Hydromorphone HCl (Dilaudid) 0.5 mg IVPUSH Q6H PRN PRN Reason: Pain (moderate 4-6) Last Admin: 07/10/18 09:48 Dose: 0.5 mg Furosemide 100 mg/ Sodium (Chloride) 100 mls @ 4 mls/hr IV TITRATE [facility]; Protocol Last Infusion: 07/09/18 10:27 Dose: 0 mg/hr, 0 mls/hr Sodium Chloride (Normal Saline) 250 mls @ 100 mls/hr IV ASDIRECTED [facility] Last Admin: 07/06/18 16:37 Dose: 100 mls/hr Ampicillin Sodium 2 gm/ Sodium (Chloride) 100 mls @ 200 mls/hr IV Q6H [facility] Last Admin: 07/10/18 03:28 Dose: 200 mls/hr Insulin Glargine (Lantus Solostar) 13 units SUBCUT BEDTIME [facility] Last Admin: 07/09/18 21:16 Dose: 13 units Insulin Human Lispro (Humalog) 0 unit SUBCUT QIDACANDBED [facility]; Protocol Last Admin: 07/10/18 06:21 Dose: 2 unit Miscellaneous Information (Remove Patch) 0 ea TRDERM Q72H [facility] Ondansetron HCl (Zofran) 4 mg IVPUSH Q6H PRN PRN Reason: Nausea/Vomiting Last Admin: 07/09/18 16:02 Dose: 4 mg Pantoprazole Sodium (Protonix) 40 mg PO ACBRK [facility] Last Admin: 07/10/18 06:20 Dose: 40 mg Promethazine 0.2 Ml 0 each TOP Q6H PRN PRN Reason: Nausea Polyethylene Glycol (Miralax) 17 gm PO DAILY [facility] Last Admin: 07/10/18 09:03 Dose: 17 gm Saccharomyces Boulardii (Florastor) 250 mg PO BID [facility] Last Admin: 07/10/18 08:22 Dose: 250 mg Discontinued Medications Hydrocodone Bitart/Acetaminophen ([place] 325-5 Mg) 1 tab PO Q6H PRN PRN Reason: Pain Last Admin: 07/06/18 15:02 Dose: 1 tab Albuterol/Ipratropium (Duoneb 3.0-0.5 Mg/3 Ml) 3 ml NEB Q6HRRT [facility] Furosemide (Lasix) 40 mg IVPUSH NOW ONE Stop: 07/05/18 21:59 Last Admin: 07/05/18 22:09 Dose: 40 mg Furosemide (Lasix) 40 mg IVPUSH NOW ONE Stop: 07/06/18 14:31 Last Admin: 07/06/18 19:30 Dose: 40 mg Furosemide (Lasix) Confirm Administered Dose 40 mg .ROUTE .STK-MED ONE Stop: 07/06/18 19:14 Last Admin: 07/06/18 20:16 Dose: Not Given Gabapentin (Neurontin) 300 mg PO ONETIME ONE Stop: 07/06/18 21:00 Last Admin: 07/06/18 21:11 Dose: 300 mg Heparin Sodium (Porcine) (Heparin Sodium) 5,000 units IVPUSH Q8HR [facility] Last Admin: 07/06/18 20:43 Dose: Not Given Heparin Sodium (Porcine) (Heparin Sodium) 5,000 units SUBCUT ONETIME ONE Stop: 07/06/18 06:01 Last Admin: 07/06/18 06:15 Dose: 5,000 units Hydromorphone HCl (Dilaudid) 1 mg IVPUSH Q8H PRN PRN Reason: Pain Last Admin: 07/06/18 10:50 Dose: 1 mg Hydromorphone HCl (Dilaudid) 1 mg IVPUSH ONETIME ONE Stop: 07/06/18 15:16 Last Admin: 07/06/18 15:23 Dose: 1 mg Sodium Chloride (Normal Saline) 100 mls @ 60 mls/hr IV ASDIRECTED [facility] Magnesium Sulfate 2 gm/ Premix 50 mls @ 25 mls/hr IV ONETIME ONE Stop: 07/08/18 12:14 Last Admin: 07/08/18 10:34 Dose: 25 mls/hr Iopamidol (Isovue-370 (76%)) 100 ml IVPUSH ONETIME ONE Stop: 07/05/18 22:37 Last Admin: 07/05/18 22:47 Dose: 100 ml Ondansetron HCl (Zofran) 4 mg IVPUSH Q8H PRN PRN Reason: Nausea/Vomiting Last Admin: 07/06/18 13:14 Dose: 4 mg Ondansetron HCl (Zofran Odt) 4 mg PO Q8H PRN PRN Reason: Nausea Ondansetron HCl (Zofran) 4 mg IVPUSH Q6H PRN PRN Reason: Nausea/Vomiting Sodium Chloride (Saline Flush) 10 ml FLUSH ONETIME ONE Stop: 07/05/18 22:37 Last Admin: 07/05/18 22:47 Dose: 10 ml - Exam Quality Assessment: Supplemental Oxygen (3-4L), Urine Catheter, DVT Prophylaxis General: Alert, Oriented, Cooperative, No Acute Distress HEENT: Pupils Equal, Pupils Reactive, EOMI, Mucous Membr. Moist/[place] Neck: Supple, Trachea Midline, +2 Carotid Pulse wo Bruit Lungs: Normal Respiratory Effort, Crackles (Right lung base). No: Stridor, Wheezing Cardiovascular: Regular Rate, Regular Rhythm GI/Abdominal Exam: Normal Bowel Sounds, Soft, Non-Tender (Female) Exam: Deferred Back Exam: Normal Inspection, Full Range of Motion Extremities: Normal Inspection, Normal Range of Motion, Non-Tender, Normal Capillary Refill, Pedal Edema (2+) Peripheral Pulses: 2+: Carotid (L), Carotid (R), Radial (L), Radial (R), Posterior Tibial (L), Posterior Tibial (R), Dorsalis Pedis (L), Dorsalis Pedis ( R) Skin: Warm, Dry, Intact Wound/Incisions: Dressing Dry and Intact, No Drainage Neurological: No New Focal Deficit, Normal Gait Psy/Mental Status: Alert, Normal Affect, Normal Mood - Problem List Review Problem List Initiated/Reviewed/Updated: Yes - My Orders Last 24 Hours: My Active Orders 07/09/18 09:45 Saccharomyces Boulardii [Florastor] 250 mg PO BID 07/09/18 10:00 Ampicillin 2 gm Sodium Chloride 0.9% [Normal Saline] 100 ml IV Q6H 07/09/18 10:50 Nutrition Reassessment/Plan, Adult [Consult to Rate Marker] [CONS] Routine 07/10/18 05:41 NEVIN [REF] Routine 07/10/18 08:00 Chest 2V [CR] Routine - Assessment Assessment:: Pleural Effusions - status post bilateral thoracocentesis * Bilateral pleural effusions seen on X-ray and CT with bibasilar atelectasis, more prominent on left side (admission) * CT also showed patchy alveolar densities in both upper lungs which may represent atelectasis as well as pneumonia. Prominent mediastinal lymph nodes are seen * Thoracocentesis performed on right side 07/06/18 yielded 1200 cc's of fluid, left side 07/07/18 yielded 1400 cc's of fluid * Fluid appears light yellow and slightly hazy * Studies from the right sided fluid showed a glucose of 175, protein <2.0, and a LDH of 65 * Current X-rays show bilateral persisting atelectasis and small bilateral effusions * Documentation from her hospital stay in [place] note bilateral pleural fluid accumulations on 06/14, which were thought to be stable Hypoxemia * Patient reports no oxygen use prior to her hospitalization in [place] for wound debridement. Since then, she has been needing oxygen. At home she is currently on 2L at rest and 5L as needed when she is moving around per nasal cannula * She was on 6L of O2 on admission and her oxygen saturation dropped into the low 80's with movement * 07/09 on 4L and is able to walk around the unit with stats around 90% * Today RT turned her down to 3L. Will monitor O2 stats. Elevated D-Dimer * D-dimer on admission was 0.99 * Chest CT showed no pulmonary artery filling defects to suggest pulmonary embolism * Patient continued to be hypoxic so V/Q scan was ordered * V/Q scan showed low probability of pulmonary emboli Heart Failure ?? * Diagnosed in [place] in May. Reports a history of progressive shortness of breath before she came in with the wound. * BNP 10,797 --> 10,687 --> 10,332 --> 10,455 * Bilateral lower leg edema * Weight down from 221 on admission to 209 today with diuresis and fluid restriction * BNPs not correlating to associated weight loss * Echocardiogram showed an ejection fraction of 60-65% with normal systolic function. The aortic valve was normal. There was trace mitral and tricuspid regurgitation. No regional wall abnormalities. This is not consistent with the diagnosis of heart failure. Kidney Failure * Chronic * Creatinine 1.9 --> 1.8, BUN 22, EGFR 28. Minimal change since admission Proteinuria - query nephrotic syndrome * Patient was noted in [place] on 05/28 to have 3+ protein in urine with a total protein of 5.1 and an albumin of 2.5. Attributed to severe protein malnutrition. Patient was on a high protein diet but protein status did not improve significantly before discharge. * Patient had 3+ urine upon admission on 07/05 * Her total protein was 7.2 and her albumin was low at 2.4 on admission. Today her total protein is 6.6 and albumin is 1.7. * Ordered urine creatinine and protein to further assess on 07/09 * Urine creatinine 26.4, urine protein 52.6. Urine protein/creatinine ratio 1992.4 * Dietary reports adequate protein intake in her diet here. However, there is concerns with her diet at home * Renal ultrasound showed no hydronephrosis or mass. Right kidney measures 9.9 cm; left kidney measures 12.9 cm. Diabetes Mellitus Type 2 * Patient reports starting on metformin >8 years ago. She took it for about a month, but it made her sick so she stopped. She has not followed up on this since then until they told her in [place] in May that she had diabetes. She started insulin in May. * She was seen by the elementary educator and plans to follow up with Dr. Goldstein for primary care * HbA1C 7.2 Hypertension * Started on amlodipine in [place] in May * Blood pressures in the 130's/70's Wound on buttocks * Fornier's gangrene status post 5 surgical debridements in [place] in May and 21 days of antibiotics * PT evaluated and nursing will follow up with wound care * Lesion has not had purulent drainage or surrounding erythema * Culture grew group B Streptococci * Due to the severity of the wound, ampicillin will be used to treat - Plan Plan:: Daily labs Daily chest X-ray Hold lasix drip Fluid restriction ADA diet Wound care by nursing Ampicillin for GBS in wound agricultural extension educator consult PT and social work consult DVT/GI prophylaxis Patient plans to follow up with Dr. Goldstein for primary care. Patient needs a nephrology referral for outpatient care. Will try to schedule in [place] on the same date she will be returning for wound follow up. Currently planning to D/C Saturday to [facility], pending insurance and acceptance Full Code <ThienClementine M - Last Filed: 07/12/18 19:49> - Patient Data Vitals - Most Recent: Last Vital Signs Temp 36.5 C 07/11/18 15:00 Pulse 107 H 07/11/18 15:00 Resp 18 07/11/18 15:00 BP 137/68 07/11/18 15:00 Pulse Ox 92 L 07/11/18 15:39 Lab Results Last 24 Hours: Laboratory Results - last 24 hr 07/11/18 07/11/18 Range/Units 05:17 09:50 Prealbumin 9.9 L (17.0-34.0) mg/dL Complement C4 38.1 (19.0-52.0) mg/dL Yoshi Results Last 24 Hours: Microbiology 07/07/18 09:53 Gram Stain - Final Thoracentesis Fluid Body Fluid Culture - Preliminary NO GROWTH AFTER 5 DAYS 07/06/18 09:15 Gram Stain - Final Thoracentesis Fluid Body Fluid Culture - Preliminary NO GROWTH AFTER 6 DAYS 07/05/18 21:00 Aerobic Blood Culture - Preliminary Blood - Venous - Lab Draw NO GROWTH AFTER 6 DAYS Anaerobic Blood Culture - Preliminary NO GROWTH AFTER 6 DAYS 07/05/18 20:50 Aerobic Blood Culture - Preliminary Blood - Venous NO GROWTH AFTER 6 DAYS Anaerobic Blood Culture - Preliminary NO GROWTH AFTER 6 DAYS Med Orders - Current: Current Medications Discontinued Medications Acetaminophen (Tylenol) 650 mg PO Q6H PRN PRN Reason: Pain/Fever Last Admin: 07/11/18 04:51 Dose: 650 mg Hydrocodone Bitart/Acetaminophen ([place] 325-5 Mg) 1 tab PO Q6H PRN PRN Reason: Pain Last Admin: 07/06/18 15:02 Dose: 1 tab Hydrocodone Bitart/Acetaminophen ([place] 325-5 Mg) 1 tab PO Q8H PRN PRN Reason: Pain (moderate 4-6) Last Admin: 07/11/18 16:49 Dose: 1 tab Albuterol (Proventil Neb Soln) 2.5 mg NEB Q4HRRT PRN PRN Reason: Shortness of Breath Last Admin: 07/06/18 08:13 Dose: 2.5 mg Albuterol/Ipratropium (Duoneb 3.0-0.5 Mg/3 Ml) 3 ml NEB Q6HRRT [facility] Albuterol/Ipratropium (Duoneb 3.0-0.5 Mg/3 Ml) 3 ml NEB QIDRT [facility]AHIR Last Admin: 07/11/18 15:38 Dose: 3 ml Amlodipine Besylate (Norvasc) 5 mg PO DAILY [facility] Last Admin: 07/11/18 08:15 Dose: 5 mg Ascorbic Acid (Vitamin C) 500 mg PO DAILY [facility] Last Admin: 07/11/18 08:15 Dose: 500 mg Fentanyl (Duragesic) 12 mcg TRDERM Q72H [facility] Last Admin: 07/10/18 11:32 Dose: 12 mcg Ferrous Sulfate (Ferrous Sulfate) 325 mg PO DAILY [facility] Last Admin: 07/11/18 08:15 Dose: 325 mg Furosemide (Lasix) 40 mg IVPUSH NOW ONE Stop: 07/05/18 21:59 Last Admin: 07/05/18 22:09 Dose: 40 mg Furosemide (Lasix) 40 mg IVPUSH NOW ONE Stop: 07/06/18 14:31 Last Admin: 07/06/18 19:30 Dose: 40 mg Furosemide (Lasix) Confirm Administered Dose 40 mg .ROUTE .STK-MED ONE Stop: 07/06/18 19:14 Last Admin: 07/06/18 20:16 Dose: Not Given Gabapentin (Neurontin) 300 mg PO ONETIME ONE Stop: 07/06/18 21:00 Last Admin: 07/06/18 21:11 Dose: 300 mg Gabapentin (Neurontin) 300 mg PO TID [facility] Last Admin: 07/11/18 16:49 Dose: 300 mg Heparin Sodium (Porcine) (Heparin Sodium) 5,000 units IVPUSH Q8HR [facility] Last Admin: 07/06/18 20:43 Dose: Not Given Heparin Sodium (Porcine) (Heparin Sodium) 5,000 units SUBCUT ONETIME ONE Stop: 07/06/18 06:01 Last Admin: 07/06/18 06:15 Dose: 5,000 units Heparin Sodium (Porcine) (Heparin Sodium) 5,000 units SUBCUT Q8H [facility] Last Admin: 07/11/18 16:50 Dose: 5,000 units Hydralazine HCl (Apresoline) 20 mg IVPUSH Q6H PRN PRN Reason: Hypertension Hydromorphone HCl (Dilaudid) 1 mg IVPUSH Q8H PRN PRN Reason: Pain Last Admin: 07/06/18 10:50 Dose: 1 mg Hydromorphone HCl (Dilaudid) 1 mg IVPUSH ONETIME ONE Stop: 07/06/18 15:16 Last Admin: 07/06/18 15:23 Dose: 1 mg Hydromorphone HCl (Dilaudid) 0.5 mg IVPUSH Q6H PRN PRN Reason: Pain (moderate 4-6) Last Admin: 07/11/18 17:45 Dose: 0.5 mg Sodium Chloride (Normal Saline) 100 mls @ 60 mls/hr IV ASDIRECTED [facility] Furosemide 100 mg/ Sodium (Chloride) 100 mls @ 4 mls/hr IV TITRATE [facility]; Protocol Last Infusion: 07/09/18 10:27 Dose: 0 mg/hr, 0 mls/hr Sodium Chloride (Normal Saline) 250 mls @ 100 mls/hr IV ASDIRECTED [facility] Last Admin: 07/06/18 16:37 Dose: 100 mls/hr Magnesium Sulfate 2 gm/ Premix 50 mls @ 25 mls/hr IV ONETIME ONE Stop: 07/08/18 12:14 Last Admin: 07/08/18 10:34 Dose: 25 mls/hr Ampicillin Sodium 2 gm/ Sodium (Chloride) 100 mls @ 200 mls/hr IV Q6H [facility] Last Admin: 07/11/18 16:48 Dose: 200 mls/hr Insulin Glargine (Lantus Solostar) 13 units SUBCUT BEDTIME [facility] Last Admin: 07/10/18 22:27 Dose: 13 units Insulin Human Lispro (Humalog) 0 unit SUBCUT QIDACANDBED [facility]; Protocol Last Admin: 07/11/18 17:13 Dose: 3 unit Iopamidol (Isovue-370 (76%)) 100 ml IVPUSH ONETIME ONE Stop: 07/05/18 22:37 Last Admin: 07/05/18 22:47 Dose: 100 ml Lisinopril (Prinivil) 2.5 mg PO DAILY [facility] Last Admin: 07/11/18 10:51 Dose: 2.5 mg Miscellaneous Information (Remove Patch) 0 ea TRDERM Q72H [facility] Last Admin: 07/10/18 11:33 Dose: 1 ea Ondansetron HCl (Zofran) 4 mg IVPUSH Q8H PRN PRN Reason: Nausea/Vomiting Last Admin: 07/06/18 13:14 Dose: 4 mg Ondansetron HCl (Zofran Odt) 4 mg PO Q8H PRN PRN Reason: Nausea Ondansetron HCl (Zofran) 4 mg IVPUSH Q6H PRN PRN Reason: Nausea/Vomiting Last Admin: 07/11/18 17:47 Dose: 4 mg Ondansetron HCl (Zofran) 4 mg IVPUSH Q6H PRN PRN Reason: Nausea/Vomiting Pantoprazole Sodium (Protonix) 40 mg PO ACBRK [facility] Last Admin: 07/11/18 06:20 Dose: 40 mg Promethazine 0.2 Ml 0 each TOP Q6H PRN PRN Reason: Nausea Polyethylene Glycol (Miralax) 17 gm PO DAILY [facility] Last Admin: 07/11/18 08:16 Dose: 17 gm Saccharomyces Boulardii (Florastor) 250 mg PO BID [facility] Last Admin: 07/11/18 08:14 Dose: 250 mg Sodium Chloride (Saline Flush) 10 ml FLUSH ONETIME ONE Stop: 07/05/18 22:37 Last Admin: 07/05/18 22:47 Dose: 10 ml - Plan Plan:: Patient seen and examined, agree with assessment and plan as outlined.
[2018-07-10] MEDS: fentaNYL 12 MCG/HR Transdermal Patch TRDERM SCH (11:32)
--- NOTE | 2018-07-10 13:59 | CR ---
Chest: Two views of the chest were obtained. Comparison: Previous chest x-ray of 07/08/18. Small pleural effusions are noted. Increased density within both lung bases, worse on the left side most likely due to persisting atelectasis. Heart does not appear enlarged. Upper mediastinum is within normal limits. Impression: 1. Small pleural effusions and probable bibasilar atelectasis. Findings are minimally improved within the left base from previous exam. Diagnostic code #3
[2018-07-10] MEDS: Ondansetron 4 MG/2 ML SDV IVPUSH PRN (17:51)
[2018-07-10] MEDS: Insulin Glargine,Human Rec. Analog 100 Units/ML 3 ML Pen SUBCUT SCH (22:27)
[2018-07-11] MEDS: Heparin Sodium 5,000 Units/ML Vial SUBCUT SCH ×3 (01:28→16:50)
[2018-07-11] MEDS: Ampicillin 2 GM in Sodium Chloride 0.9% 100 ML IV SCH ×3 (04:11→16:48)
[2018-07-11] MEDS: Acetaminophen 325 MG Tab PO PRN (04:51)
[2018-07-11] MEDS: Albuterol/Ipratropium 3.0-0.5 MG/3 ML Neb Soln NEB SCH ×3 (05:40→15:38)
[2018-07-11] MEDS: Pantoprazole 40 MG Tab.CR PO SCH (06:20)
[2018-07-11] MEDS: Insulin Lispro 100 Unit/ML 3 ML KwikPen SUBCUT SCH ×3 (06:25→17:13)
[2018-07-11] MEDS: Saccharomyces Boulardii (Probiotic) 250 MG Cap PO SCH (08:14)
[2018-07-11] MEDS: Ascorbic Acid 500 MG Tab PO SCH (08:15)
[2018-07-11] MEDS: Acetaminophen/HYDROcodone 325-5 MG Tab PO PRN ×2 (08:15→16:49)
[2018-07-11] MEDS: Gabapentin 300 MG Cap PO SCH ×2 (08:15→16:49)
[2018-07-11] MEDS: Ferrous Sulfate 325 MG Tab PO SCH (08:15)
[2018-07-11] MEDS: amLODIPine 5 MG Tab PO SCH (08:15)
[2018-07-11] MEDS: Polyethylene Glycol 3350 Powder 17 GM Packet PO SCH (08:16)
[2018-07-11] MEDS ORDERED: Lisinopril 2.5 MG Tab PO SCH (10:00)
--- NOTE | 2018-07-11 11:03 | CR ---
Chest: Two views of the chest were obtained. Comparison: Prior chest x-ray of 07/10/18. Small bilateral pleural effusions are seen. Increased density within both lung bases which is worse on the left side. Findings are felt to be fairly stable from prior exam. Upper lungs are clear. Heart size and mediastinum are normal. Bony structures are unchanged. Impression: 1. Small bilateral pleural effusions. Mild atelectasis within both lung bases, worse on the left side. Note: No significant change from previous study. Diagnostic code #3
[2018-07-11] MEDS: HYDROmorphone 0.5 MG/0.5 ML Syringe IVPUSH PRN ×2 (11:28→17:45)
--- NOTE | 2018-07-11 13:05 | PCM.DCSUM1 ---
<Gisella George - Last Filed: 07/11/18 13:35> Discharge Summary - Hospital Course Free Text/Narrative:: 47 year old female who presented to the ER on 07/05 with shortness of breath of undetermined duration. 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 At discharge, [facility] She has been DC from the rehab center for less than a week. Reportedly the SOB was present at the time of DC from the hospital. She apparently required 5 l/m of oxygen. Evaluation in the ED documents acute respiratory distress, she is hypercapnic and hypoxic. The patient is noted to have 2-3+ peripheral edema on her lower extremities. A 2D echo was not done in [place]. 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 She was reported to have a history of a pilonidal cyst, and was treated at [facility] in clinic. During the hospitalization antibiotics that were provided included Zosyn, Clindamycin, and Vancomycin. The patient was treated for a UTI for 3 days with Fluconazole. The antibiotics were stopped 0n 06/12/18. However Zosyn was restarted after she developed bandemia Lab studies documented a HgbA1C of 13.0. She underwent operative re-exploration performed on 05/30/18. She subsequently underwent an additional debridement on . Re-exploration was again performed on 06/02/18. Pre/Post op diagnosis: Luis Gangrene; The patient underwent a total of four I/Ds. During the hospitalization, the patient had a Brown Catheter which was removed on 06/10/18. CXR changed with developing PNA and increasing O2 required on 06/15/18; peripheral edema L>R noted on on the DC exam. She was then transferred to the TCU, transitional care unit, 06/19/18. Home meds: Motrin 600 mg; Woodlawn 5-325 mg ; Bactrim DS. She went to TCU requiring O2 2 l/m. She was reported to be a current daily tobacco smoker. 1/4 pack daily. Completion of IV antibiotics, 21 days. CXR 0n 06/16/18: retrocardiac opacities and left basilar opacities. Left sided pleural effusion developed subsequent right sided pleural effusion. Pre- albumin weekly was recorded, the goal was 20; documented low albumin 05/30-->7.3 ; 06/06-->10.6. Transfusion of 2 units PRBCs. DCd from TCU, 06/29/18. Cr, was 1.44; GFR 39. Pre-albumin on 06/27 was 13.1 Meds at DC: Norvasc 5 mg; Woodlawn 5-325 mg; Protonix 40 mg; FeSO4 325 mg; Vitamin C 500 mg; Levemir/Humalog; Duoneb; Cultrelle; Zofran. Hospital Stay Overview Patient was noted on chest X-ray done in the ER to have an enlarged cardiac silhouette, pulmonary vascular congestion, and bilateral pleural effusions. Her D-Dimer was elevated at 0.99, but CT and V/Q scan did not suggest pulmonary emboli. Pleural Effusions - status post bilateral thoracocentesis * Bilateral pleural effusions seen on X-ray and CT with bibasilar atelectasis, more prominent on left side (admission) * CT also showed patchy alveolar densities in both upper lungs which are thought to represent atelectasis. Prominent mediastinal lymph nodes are seen * Thoracocentesis performed on right side 07/06/18 yielded 1200 cc's of fluid, left side 07/07/18 yielded 1400 cc's of fluid * Fluid appears light yellow and slightly hazy * Studies from the right sided fluid showed a glucose of 175, protein <2.0, and a LDH of 65 * Current X-rays show bilateral persisting atelectasis and small bilateral effusions, stable * Documentation from her hospital stay in [place] note bilateral pleural fluid accumulations on 06/14, which were thought to be stable Hypoxemia * Patient reports no oxygen use prior to her hospitalization in [place] for wound debridement. Since then, she has been needing oxygen. At home she is currently on 2L at rest and 5L as needed when she is moving around per nasal cannula * She was on 6L of O2 on admission. She is now using 3L O2. R/O Heart Failure * It was thought due to her presentation with pleural effusions, shortness of breath, bilateral lower leg edema, and enlarged cardiac silhouette that she may have heart failure. Reports a history of progressive shortness of breath before she came in with the wound. * BNP 10,797 --> 10,687 --> 10,332 --> 10,455 --> 10,828 * Weight down from 221 on admission to 209 today with diuresis and fluid restriction * BNPs not correlating to associated weight loss * Echocardiogram showed an ejection fraction of 60-65% with normal systolic function. The aortic valve was normal. There was trace mitral and tricuspid regurgitation. No regional wall abnormalities. This is not consistent with the diagnosis of heart failure. Kidney Failure * Chronic * Creatinine 1.9 --> 1.8, BUN 22, EGFR 28. Minimal change since admission Proteinuria - query nephrotic syndrome * Patient was noted in [place] on 05/28 to have 3+ protein in urine with a total protein of 5.1 and an albumin of 2.5. Attributed to severe protein malnutrition. Patient was on a high protein diet but protein status did not improve significantly before discharge. * Patient had 3+ urine upon admission on 07/05 * Her total protein was 7.2 and her albumin was low at 2.4 on admission. 07/10 her total protein was 6.6 and albumin was 1.7. Her albumin is 1.9 today. * Ordered urine creatinine and protein to further assess on 07/09 * Urine creatinine 26.4, urine protein 52.6. Urine protein/creatinine ratio 1992.4 * Dietary reports adequate protein intake in her diet here. However, there is concerns with her diet at home * Renal ultrasound showed no hydronephrosis or mass. Right kidney measures 9.9 cm; left kidney measures 12.9 cm. * NEVIN level, complement levels, and RYAN were ordered to further assess * She will discharge on an NEVIN inhibitor and lasix. Diabetes Mellitus Type 2 * Patient reports starting on metformin >8 years ago. She took it for about a month, but it made her sick so she stopped. She has not followed up on this since then until they told her in [place] in May that she had diabetes. She started insulin in May. * She was seen by the museum educator and plans to follow up with Dr. Goldstein for primary care * HbA1C 7.2 Hypertension * Started on amlodipine in [place] in May * Blood pressures in the 130's/70's Wound on buttocks * Fornier's gangrene status post 5 surgical debridements in [place] in May and 21 days of antibiotics * PT evaluated and nursing will follow up with wound care * Lesion has not had purulent drainage or surrounding erythema * Culture grew group B Streptococci * Due to the severity of the wound, ampicillin was used to treat. She got 2 days of IV and will discharge on PO. Diagnosis: Stroke: No - Discharge Data Discharge Date: 07/11/18 Discharge Disposition: DC/Tfer to Inpt Rehab Fac 62 Condition: Good - Patient Summary/Data Operative Procedure(s) Performed: right thoracocentesis 1200 cc fluid. left thorcenthesis 1400cc fluid Consults: Consultations 07/06/18 03:51 Consult to Case Management/Director Call [CONS] Routine 07/06/18 06:00 Consult to Physician [CONS] Routine 07/08/18 06:21 PT Evaluation and Treatment [CONS] Routine 07/08/18 09:08 PT Evaluation and Treatment [CONS] Routine 07/08/18 10:01 Consult to Occupational Therapy [OT Evaluation and Treatment] [CONS] Routine 07/08/18 10:57 Consult to Annual Greenhouse Manager [Consult to Diabetic Nurse Specialist] [CONS] Routine 07/09/18 10:50 Nutrition Reassessment/Plan, Adult [Consult to Army Officer] [CONS] Routine Recommended Follow-up Testing/Procedures: Patient needs to follow up with primary care for sequelae of diabetes and diabetes management. Patient needs to follow up with nephrology for persistent albuminurea. - Patient Instructions Diet: Fluid Restriction, Diabetic Diet Fluid Restriction: 2000 mL Showering/Bathing: May Shower Wound/Incision Care: Keep Operative Site/Wound Site Clean and Dry, Change Dressing Daily (Change dressing twice daily or as needed for hygeine) Notify Provider of: Fever, Swelling and Redness, Drainage, Nausea and/or Vomiting - Discharge Plan *PRESCRIPTION DRUG MONITORING PROGRAM REVIEWED*: Not Applicable *COPY OF PRESCRIPTION DRUG MONITORING REPORT IN PATIENT JONNIE: Not Applicable Prescriptions/Med Rec: Ampicillin [Principen] 500 mg PO Q8H #21 cap Furosemide 20 mg PO ASDIRECTED #30 tablet Lisinopril 5 mg PO BEDTIME #30 tablet Saccharomyces Boulardii [Florastor] 250 mg PO BID #28 cap Home Medications: Home Meds Ascorbate Calcium [Vitamin C] 500 mg PO DAILY 07/05/18 [History] Ferrous Sulfate 325 mg PO DAILY 07/05/18 [History] Hydrocodone/Acetaminophen [Hydrocodon-Acetaminophen 5-325] 5 - 325 mg PO Q8H PRN 07/05/18 [History] Insulin Detemir [Levemir] 13 unit INJECT BEDTIME 07/05/18 [History] Insulin Lispro [Humalog] 3 unit INJECT TID 07/05/18 [History] Ipratropium/Albuterol Sulfate [Iprat-Albut 0.5-3(2.5) mg/3 ml] 0.5 mg INH QID [History] Ondansetron HCl [Zofran] 4 mg PO Q8H PRN 07/05/18 [History] Pantoprazole Sodium [Protonix] 40 mg PO DAILY 07/05/18 [History] Polyethylene Glycol 3350 [MiraLAX] 17 gram PO DAILY 07/05/18 [History] Promethazine [Phenergan] 0.2 ml TOP Q6H PRN 07/05/18 [History] Ampicillin [Principen] 500 mg PO Q8H #21 cap 07/11/18 [Rx] Furosemide 20 mg PO ASDIRECTED #30 tablet 07/11/18 [Rx] Lisinopril 5 mg PO BEDTIME #30 tablet 07/11/18 [Rx] Saccharomyces Boulardii [Florastor] 250 mg PO BID cap 07/11/18 [Rx] Saccharomyces Boulardii [Florastor] 250 mg PO BID #28 cap 07/11/18 [Rx] Patient Handouts: Pleural Effusion, Heart Failure, [id number], Steps to Quit Smoking Referrals: Yovana Goldstein MD [Physician] - Long Tong MD [Primary Care Provider] - Melo Alexis MD [Ordering Only Provider] - 08/07/18 12:00 pm (This appt. is in [place] come to the hospital [facility] (clinic side) This is your nephrology appt.) - Discharge Summary/Plan Comment DC Time >30 min.: No Discharge Summary/Plan Comment: Patient with discharge today to [facility] for continued wound care, physical therapy , and nutritional support. She needs to maintain adequate protein in her diet and should supplement iron, zinc, and vitamin C to promote wound healing. She currently does not have a primary care physician but plans to follow up with Dr. Goldstein. This follow up is essential in managing her chronic conditions. She has scheduled an appointment with nephrology to follow up on her albuminurea. - General Info Date of Service: 07/11/18 Admission Dx/Problem (Free Text: Admission Diagnosis/Problem Admission Diagnosis/Problem Pleural effusion Subjective Update: Chely is doing well today. She is reporting some pain on her bottom and minimal shortness of breath on 3L O2. Functional Status: Reports: Tolerating Diet, Ambulating - Review of Systems General: Reports: No Symptoms HEENT: Reports: No Symptoms, Glasses Pulmonary: Reports: Shortness of Breath (Improved. Some heaviness in chest when she takes a deep breath). Denies: Pleuritic Chest Pain, Sputum, Wheezing Cardiovascular: Reports: Dyspnea on Exertion. Denies: Chest Pain, Palpitations Gastrointestinal: Reports: No Symptoms Genitourinary: Reports: No Symptoms Musculoskeletal: Reports: No Symptoms Skin: Reports: No Symptoms Neurological: Reports: No Symptoms Psychiatric: Reports: No Symptoms - Patient Data Vitals - Most Recent: Last Vital Signs Temp 98.2 F 07/11/18 08:19 Pulse 86 07/11/18 08:19 Resp 18 07/11/18 08:19 BP 129/72 07/11/18 10:51 Pulse Ox 94 L 07/11/18 10:04 Weight - Most Recent: 94.801 kg I&O - Last 24 hours: Intake & Output 07/10/18 07/11/18 07/11/18 22:59 06:59 14:59 Intake Total 680 550 300 Output Total 500 475 325 Balance 180 75 -25 Lab Results - Last 24 hrs: Laboratory Results - last 24 hr 07/10/18 07/10/18 07/11/18 Range/Units 17:00 21:12 05:17 WBC 9.78 (3.98-10.04) K/mm3 RBC 3.72 L (3.98-5.22) M/mm3 Hgb 10.7 L (11.2-15.7) gm/L Hct 34.3 (34.1-44.9) % MCV 92.2 (79.4-94.8) fl MCH 28.8 (25.6-32.2) pg MCHC 31.2 L (32.2-35.5) g/dl RDW Std Deviation 51.3 H (36.4-46.3) fL Plt Count 471 H (182-369) K/mm3 MPV 8.6 L (9.4-12.3) fl Neut % (Auto) 56.9 (34.0-71.1) % Lymph % (Auto) 21.8 (19.3-51.7) % [place] % (Auto) 9.7 (4.7-12.5) % Eos % (Auto) 11.1 H (0.7-5.8) Baso % (Auto) 0.3 (0.1-1.2) % Neut # (Auto) 5.56 (1.56-6.13) K/mm3 Lymph # (Auto) 2.13 (1.18-3.74) K/mm3 [place] # (Auto) 0.95 H (0.24-0.36) K/mm3 Eos # (Auto) 1.09 H (0.04-0.36) K/mm3 Baso # (Auto) 0.03 (0.01-0.08) K/mm3 Sodium (136-145) mEq/L Potassium (3.5-5.1) mEq/L Chloride (98-107) mEq/L Carbon Dioxide (21-32) mEq/L Anion Gap (5-15) BUN (7-18) mg/dL Creatinine (0.55-1.02) mg/dL Est Cr Clr Drug Dosing mL/min Estimated GFR (MDRD) (>60) mL/min BUN/Creatinine Ratio (14-18) Glucose (74-106) mg/dL POC Glucose 270 H 272 H (70-105) mg/dL Calcium (8.5-10.1) mg/dL C-Reactive Protein (<1.0) mg/dL NT-Pro-B Natriuret Pep (0-125) pg/mL Albumin (3.4-5.0) g/dl 07/11/18 07/11/18 07/11/18 Range/Units 05:17 05:17 05:17 WBC (3.98-10.04) K/mm3 RBC (3.98-5.22) M/mm3 Hgb (11.2-15.7) gm/L Hct (34.1-44.9) % MCV (79.4-94.8) fl MCH (25.6-32.2) pg MCHC (32.2-35.5) g/dl RDW Std Deviation (36.4-46.3) fL Plt Count (182-369) K/mm3 MPV (9.4-12.3) fl Neut % (Auto) (34.0-71.1) % Lymph % (Auto) (19.3-51.7) % [place] % (Auto) (4.7-12.5) % Eos % (Auto) (0.7-5.8) Baso % (Auto) (0.1-1.2) % Neut # (Auto) (1.56-6.13) K/mm3 Lymph # (Auto) (1.18-3.74) K/mm3 [place] # (Auto) (0.24-0.36) K/mm3 Eos # (Auto) (0.04-0.36) K/mm3 Baso # (Auto) (0.01-0.08) K/mm3 Sodium 142 (136-145) mEq/L Potassium 4.0 (3.5-5.1) mEq/L Chloride 105 (98-107) mEq/L Carbon Dioxide 30 (21-32) mEq/L Anion Gap 11.0 (5-15) BUN 32 H (7-18) mg/dL Creatinine 1.9 H (0.55-1.02) mg/dL Est Cr Clr Drug Dosing 36.53 mL/min Estimated GFR (MDRD) 28 (>60) mL/min BUN/Creatinine Ratio 16.8 (14-18) Glucose 176 H (74-106) mg/dL POC Glucose 192 H (70-105) mg/dL Calcium 8.6 (8.5-10.1) mg/dL C-Reactive Protein 10.5 H* (<1.0) mg/dL NT-Pro-B Natriuret Pep 17104 H (0-125) pg/mL Albumin (3.4-5.0) g/dl 07/11/18 07/11/18 Range/Units 09:56 11:57 WBC (3.98-10.04) K/mm3 RBC (3.98-5.22) M/mm3 Hgb (11.2-15.7) gm/L Hct (34.1-44.9) % MCV (79.4-94.8) fl MCH (25.6-32.2) pg MCHC (32.2-35.5) g/dl RDW Std Deviation (36.4-46.3) fL Plt Count (182-369) K/mm3 MPV (9.4-12.3) fl Neut % (Auto) (34.0-71.1) % Lymph % (Auto) (19.3-51.7) % [place] % (Auto) (4.7-12.5) % Eos % (Auto) (0.7-5.8) Baso % (Auto) (0.1-1.2) % Neut # (Auto) (1.56-6.13) K/mm3 Lymph # (Auto) (1.18-3.74) K/mm3 [place] # (Auto) (0.24-0.36) K/mm3 Eos # (Auto) (0.04-0.36) K/mm3 Baso # (Auto) (0.01-0.08) K/mm3 Sodium (136-145) mEq/L Potassium (3.5-5.1) mEq/L Chloride (98-107) mEq/L Carbon Dioxide (21-32) mEq/L Anion Gap (5-15) BUN (7-18) mg/dL Creatinine (0.55-1.02) mg/dL Est Cr Clr Drug Dosing mL/min Estimated GFR (MDRD) (>60) mL/min BUN/Creatinine Ratio (14-18) Glucose (74-106) mg/dL POC Glucose 189 H (70-105) mg/dL Calcium (8.5-10.1) mg/dL C-Reactive Protein (<1.0) mg/dL NT-Pro-B Natriuret Pep (0-125) pg/mL Albumin 1.9 L (3.4-5.0) g/dl TOMASA Results - Last 24 hrs: Microbiology 07/06/18 09:15 Gram Stain - Final Thoracentesis Fluid Body Fluid Culture - Preliminary NO GROWTH AFTER 5 DAYS 07/07/18 09:53 Gram Stain - Final Thoracentesis Fluid Body Fluid Culture - Preliminary NO GROWTH AFTER 4 DAYS 07/05/18 21:00 Aerobic Blood Culture - Preliminary Blood - Venous - Lab Draw NO GROWTH AFTER 5 DAYS Anaerobic Blood Culture - Preliminary NO GROWTH AFTER 5 DAYS 07/05/18 20:50 Aerobic Blood Culture - Preliminary Blood - Venous NO GROWTH AFTER 5 DAYS Anaerobic Blood Culture - Preliminary NO GROWTH AFTER 5 DAYS 07/06/18 10:57 Wound Culture - Final Groin, Right Beta Streptococcus Group B 07/08/18 22:50 Streptococcus pneumoniae Antigen (M - Final Urine Med Orders - Current: Current Medications Acetaminophen (Tylenol) 650 mg PO Q6H PRN PRN Reason: Pain/Fever Last Admin: 07/11/18 04:51 Dose: 650 mg Hydrocodone Bitart/Acetaminophen (Woodlawn 325-5 Mg) 1 tab PO Q8H PRN PRN Reason: Pain (moderate 4-6) Last Admin: 07/11/18 08:15 Dose: 1 tab Albuterol (Proventil Neb Soln) 2.5 mg NEB Q4HRRT PRN PRN Reason: Shortness of Breath Last Admin: 07/06/18 08:13 Dose: 2.5 mg Albuterol/Ipratropium (Duoneb 3.0-0.5 Mg/3 Ml) 3 ml NEB QIDRT [facility] Last Admin: 07/11/18 10:03 Dose: 3 ml Amlodipine Besylate (Norvasc) 5 mg PO DAILY [facility] Last Admin: 07/11/18 08:15 Dose: 5 mg Ascorbic Acid (Vitamin C) 500 mg PO DAILY [facility] Last Admin: 07/11/18 08:15 Dose: 500 mg Fentanyl (Duragesic) 12 mcg TRDERM Q72H [facility] Last Admin: 07/10/18 11:32 Dose: 12 mcg Ferrous Sulfate (Ferrous Sulfate) 325 mg PO DAILY [facility] Last Admin: 07/11/18 08:15 Dose: 325 mg Gabapentin (Neurontin) 300 mg PO TID [facility] Last Admin: 07/11/18 08:15 Dose: 300 mg Heparin Sodium (Porcine) (Heparin Sodium) 5,000 units SUBCUT Q8H [facility] Last Admin: 07/11/18 10:51 Dose: 5,000 units Hydralazine HCl (Apresoline) 20 mg IVPUSH Q6H PRN PRN Reason: Hypertension Hydromorphone HCl (Dilaudid) 0.5 mg IVPUSH Q6H PRN PRN Reason: Pain (moderate 4-6) Last Admin: 07/11/18 11:28 Dose: 0.5 mg Furosemide 100 mg/ Sodium (Chloride) 100 mls @ 4 mls/hr IV TITRATE [facility]; Protocol Last Infusion: 07/09/18 10:27 Dose: 0 mg/hr, 0 mls/hr Sodium Chloride (Normal Saline) 250 mls @ 100 mls/hr IV ASDIRECTED [facility] Last Admin: 07/06/18 16:37 Dose: 100 mls/hr Ampicillin Sodium 2 gm/ Sodium (Chloride) 100 mls @ 200 mls/hr IV Q6H [facility] Last Admin: 07/11/18 10:51 Dose: 200 mls/hr Insulin Glargine (Lantus Solostar) 13 units SUBCUT BEDTIME [facility] Last Admin: 07/10/18 22:27 Dose: 13 units Insulin Human Lispro (Humalog) 0 unit SUBCUT QIDACANDBED [facility]; Protocol Last Admin: 07/11/18 11:57 Dose: 1 unit Lisinopril (Prinivil) 2.5 mg PO DAILY [facility] Last Admin: 07/11/18 10:51 Dose: 2.5 mg Miscellaneous Information (Remove Patch) 0 ea TRDERM Q72H [facility] Last Admin: 07/10/18 11:33 Dose: 1 ea Ondansetron HCl (Zofran) 4 mg IVPUSH Q6H PRN PRN Reason: Nausea/Vomiting Last Admin: 07/10/18 17:51 Dose: 4 mg Pantoprazole Sodium (Protonix) 40 mg PO ACBRK [facility] Last Admin: 07/11/18 06:20 Dose: 40 mg Promethazine 0.2 Ml 0 each TOP Q6H PRN PRN Reason: Nausea Polyethylene Glycol (Miralax) 17 gm PO DAILY [facility] Last Admin: 07/11/18 08:16 Dose: 17 gm Saccharomyces Boulardii (Florastor) 250 mg PO BID [facility] Last Admin: 07/11/18 08:14 Dose: 250 mg Discontinued Medications Hydrocodone Bitart/Acetaminophen ([place] 325-5 Mg) 1 tab PO Q6H PRN PRN Reason: Pain Last Admin: 07/06/18 15:02 Dose: 1 tab Albuterol/Ipratropium (Duoneb 3.0-0.5 Mg/3 Ml) 3 ml NEB Q6HRRT [facility] Furosemide (Lasix) 40 mg IVPUSH NOW ONE Stop: 07/05/18 21:59 Last Admin: 07/05/18 22:09 Dose: 40 mg Furosemide (Lasix) 40 mg IVPUSH NOW ONE Stop: 07/06/18 14:31 Last Admin: 07/06/18 19:30 Dose: 40 mg Furosemide (Lasix) Confirm Administered Dose 40 mg .ROUTE .STK-MED ONE Stop: 07/06/18 19:14 Last Admin: 07/06/18 20:16 Dose: Not Given Gabapentin (Neurontin) 300 mg PO ONETIME ONE Stop: 07/06/18 21:00 Last Admin: 07/06/18 21:11 Dose: 300 mg Heparin Sodium (Porcine) (Heparin Sodium) 5,000 units IVPUSH Q8HR [facility] Last Admin: 07/06/18 20:43 Dose: Not Given Heparin Sodium (Porcine) (Heparin Sodium) 5,000 units SUBCUT ONETIME ONE Stop: 07/06/18 06:01 Last Admin: 07/06/18 06:15 Dose: 5,000 units Hydromorphone HCl (Dilaudid) 1 mg IVPUSH Q8H PRN PRN Reason: Pain Last Admin: 07/06/18 10:50 Dose: 1 mg Hydromorphone HCl (Dilaudid) 1 mg IVPUSH ONETIME ONE Stop: 07/06/18 15:16 Last Admin: 07/06/18 15:23 Dose: 1 mg Sodium Chloride (Normal Saline) 100 mls @ 60 mls/hr IV ASDIRECTED [facility] Magnesium Sulfate 2 gm/ Premix 50 mls @ 25 mls/hr IV ONETIME ONE Stop: 07/08/18 12:14 Last Admin: 07/08/18 10:34 Dose: 25 mls/hr Iopamidol (Isovue-370 (76%)) 100 ml IVPUSH ONETIME ONE Stop: 07/05/18 22:37 Last Admin: 07/05/18 22:47 Dose: 100 ml Ondansetron HCl (Zofran) 4 mg IVPUSH Q8H PRN PRN Reason: Nausea/Vomiting Last Admin: 07/06/18 13:14 Dose: 4 mg Ondansetron HCl (Zofran Odt) 4 mg PO Q8H PRN PRN Reason: Nausea Ondansetron HCl (Zofran) 4 mg IVPUSH Q6H PRN PRN Reason: Nausea/Vomiting Sodium Chloride (Saline Flush) 10 ml FLUSH ONETIME ONE Stop: 07/05/18 22:37 Last Admin: 07/05/18 22:47 Dose: 10 ml - Exam Quality Assessment: Reports: Supplemental Oxygen (3L), Urine Catheter, DVT Prophylaxis General: Reports: Alert, Oriented, Cooperative, No Acute Distress HEENT: Reports: Pupils Equal, Pupils Reactive, EOMI, Mucous Membr. Moist/Rodney Neck: Reports: Supple, Trachea Midline, +2 Carotid Pulse wo Bruit Lungs: Reports: Normal Respiratory Effort, Crackles (at bases bilaterally). Denies: Rub, Stridor, Wheezing Cardiovascular: Reports: Regular Rate, Regular Rhythm, No Murmurs GI/Abdominal Exam: Normal Bowel Sounds, Soft, Non-Tender (Female) Exam: Deferred Rectal (Female) Exam: Deferred Back Exam: Reports: Normal Inspection, Full Range of Motion Extremities: Normal Inspection, Normal Range of Motion, Non-Tender, Normal Capillary Refill, Pedal Edema (1+) Skin: Reports: Warm, Dry, Intact Wound/Incisions: Reports: Dressing Dry and Intact, No Drainage. Denies: Erythema Neurological: Reports: No New Focal Deficit Psy/Mental Status: Reports: Alert, Normal Affect, Normal Mood <Clementine Neumann - Last Filed: 07/12/18 19:54> Discharge Summary - Hospital Course HPI Initial Comments: See remarks as above, goal of [facility] admission wound care, become more functional. Monitor fluid loss/renal function with change of BP med to ACEI and need for Lasix. Discharge summary is comprehensive as written. - Patient Summary/Data Consults: Consultations 07/06/18 03:51 Consult to Case Management/Director Call [CONS] Routine 07/06/18 06:00 Consult to Physician [CONS] Routine 07/08/18 06:21 PT Evaluation and Treatment [CONS] Routine 07/08/18 09:08 PT Evaluation and Treatment [CONS] Routine 07/08/18 10:01 Consult to Occupational Therapy [OT Evaluation and Treatment] [CONS] Routine 07/08/18 10:57 Consult to Annual Greenhouse Manager [Consult to Diabetic Nurse Specialist] [CONS] Routine 07/09/18 10:50 Nutrition Reassessment/Plan, Adult [Consult to Army Officer] [CONS] Routine - Patient Data Vitals - Most Recent: Last Vital Signs Temp 36.5 C 07/11/18 15:00 Pulse 107 H 07/11/18 15:00 Resp 18 07/11/18 15:00 BP 137/68 07/11/18 15:00 Pulse Ox 92 L 07/11/18 15:39 Lab Results - Last 24 hrs: Laboratory Results - last 24 hr 07/11/18 07/11/18 Range/Units 05:17 09:50 Prealbumin 9.9 L (17.0-34.0) mg/dL Complement C4 38.1 (19.0-52.0) mg/dL TOMASA Results - Last 24 hrs: Microbiology 07/07/18 09:53 Gram Stain - Final Thoracentesis Fluid Body Fluid Culture - Preliminary NO GROWTH AFTER 5 DAYS 07/06/18 09:15 Gram Stain - Final Thoracentesis Fluid Body Fluid Culture - Preliminary NO GROWTH AFTER 6 DAYS 07/05/18 21:00 Aerobic Blood Culture - Preliminary Blood - Venous - Lab Draw NO GROWTH AFTER 6 DAYS Anaerobic Blood Culture - Preliminary NO GROWTH AFTER 6 DAYS 07/05/18 20:50 Aerobic Blood Culture - Preliminary Blood - Venous NO GROWTH AFTER 6 DAYS Anaerobic Blood Culture - Preliminary NO GROWTH AFTER 6 DAYS Med Orders - Current: Current Medications Discontinued Medications Acetaminophen (Tylenol) 650 mg PO Q6H PRN PRN Reason: Pain/Fever Last Admin: 07/11/18 04:51 Dose: 650 mg Hydrocodone Bitart/Acetaminophen ([place] 325-5 Mg) 1 tab PO Q6H PRN PRN Reason: Pain Last Admin: 07/06/18 15:02 Dose: 1 tab Hydrocodone Bitart/Acetaminophen ([place] 325-5 Mg) 1 tab PO Q8H PRN PRN Reason: Pain (moderate 4-6) Last Admin: 07/11/18 16:49 Dose: 1 tab Albuterol (Proventil Neb Soln) 2.5 mg NEB Q4HRRT PRN PRN Reason: Shortness of Breath Last Admin: 07/06/18 08:13 Dose: 2.5 mg Albuterol/Ipratropium (Duoneb 3.0-0.5 Mg/3 Ml) 3 ml NEB Q6HRRT TAHIR Albuterol/Ipratropium (Duoneb 3.0-0.5 Mg/3 Ml) 3 ml NEB QIDRT [facility] Last Admin: 07/11/18 15:38 Dose: 3 ml Amlodipine Besylate (Norvasc) 5 mg PO DAILY [facility] Last Admin: 07/11/18 08:15 Dose: 5 mg Ascorbic Acid (Vitamin C) 500 mg PO DAILY [facility] Last Admin: 07/11/18 08:15 Dose: 500 mg Fentanyl (Duragesic) 12 mcg TRDERM Q72H [facility] Last Admin: 07/10/18 11:32 Dose: 12 mcg Ferrous Sulfate (Ferrous Sulfate) 325 mg PO DAILY [facility] Last Admin: 07/11/18 08:15 Dose: 325 mg Furosemide (Lasix) 40 mg IVPUSH NOW ONE Stop: 07/05/18 21:59 Last Admin: 07/05/18 22:09 Dose: 40 mg Furosemide (Lasix) 40 mg IVPUSH NOW ONE Stop: 07/06/18 14:31 Last Admin: 07/06/18 19:30 Dose: 40 mg Furosemide (Lasix) Confirm Administered Dose 40 mg .ROUTE .STK-MED ONE Stop: 07/06/18 19:14 Last Admin: 07/06/18 20:16 Dose: Not Given Gabapentin (Neurontin) 300 mg PO ONETIME ONE Stop: 07/06/18 21:00 Last Admin: 07/06/18 21:11 Dose: 300 mg Gabapentin (Neurontin) 300 mg PO TID [facility] Last Admin: 07/11/18 16:49 Dose: 300 mg Heparin Sodium (Porcine) (Heparin Sodium) 5,000 units IVPUSH Q8HR [facility] Last Admin: 07/06/18 20:43 Dose: Not Given Heparin Sodium (Porcine) (Heparin Sodium) 5,000 units SUBCUT ONETIME ONE Stop: 07/06/18 06:01 Last Admin: 07/06/18 06:15 Dose: 5,000 units Heparin Sodium (Porcine) (Heparin Sodium) 5,000 units SUBCUT Q8H [facility] Last Admin: 07/11/18 16:50 Dose: 5,000 units Hydralazine HCl (Apresoline) 20 mg IVPUSH Q6H PRN PRN Reason: Hypertension Hydromorphone HCl (Dilaudid) 1 mg IVPUSH Q8H PRN PRN Reason: Pain Last Admin: 07/06/18 10:50 Dose: 1 mg Hydromorphone HCl (Dilaudid) 1 mg IVPUSH ONETIME ONE Stop: 07/06/18 15:16 Last Admin: 07/06/18 15:23 Dose: 1 mg Hydromorphone HCl (Dilaudid) 0.5 mg IVPUSH Q6H PRN PRN Reason: Pain (moderate 4-6) Last Admin: 07/11/18 17:45 Dose: 0.5 mg Sodium Chloride (Normal Saline) 100 mls @ 60 mls/hr IV ASDIRECTED TAHIR Furosemide 100 mg/ Sodium (Chloride) 100 mls @ 4 mls/hr IV TITRATE TAHIR; Protocol Last Infusion: 07/09/18 10:27 Dose: 0 mg/hr, 0 mls/hr Sodium Chloride (Normal Saline) 250 mls @ 100 mls/hr IV ASDIRECTED TAHIR Last Admin: 07/06/18 16:37 Dose: 100 mls/hr Magnesium Sulfate 2 gm/ Premix 50 mls @ 25 mls/hr IV ONETIME ONE Stop: 07/08/18 12:14 Last Admin: 07/08/18 10:34 Dose: 25 mls/hr Ampicillin Sodium 2 gm/ Sodium (Chloride) 100 mls @ 200 mls/hr IV Q6H [facility] Last Admin: 07/11/18 16:48 Dose: 200 mls/hr Insulin Glargine (Lantus Solostar) 13 units SUBCUT BEDTIME [facility] Last Admin: 07/10/18 22:27 Dose: 13 units Insulin Human Lispro (Humalog) 0 unit SUBCUT QIDACANDBED [facility]; Protocol Last Admin: 07/11/18 17:13 Dose: 3 unit Iopamidol (Isovue-370 (76%)) 100 ml IVPUSH ONETIME ONE Stop: 07/05/18 22:37 Last Admin: 07/05/18 22:47 Dose: 100 ml Lisinopril (Prinivil) 2.5 mg PO DAILY [facility] Last Admin: 07/11/18 10:51 Dose: 2.5 mg Miscellaneous Information (Remove Patch) 0 ea TRDERM Q72H [facility] Last Admin: 07/10/18 11:33 Dose: 1 ea Ondansetron HCl (Zofran) 4 mg IVPUSH Q8H PRN PRN Reason: Nausea/Vomiting Last Admin: 07/06/18 13:14 Dose: 4 mg Ondansetron HCl (Zofran Odt) 4 mg PO Q8H PRN PRN Reason: Nausea Ondansetron HCl (Zofran) 4 mg IVPUSH Q6H PRN PRN Reason: Nausea/Vomiting Last Admin: 07/11/18 17:47 Dose: 4 mg Ondansetron HCl (Zofran) 4 mg IVPUSH Q6H PRN PRN Reason: Nausea/Vomiting Pantoprazole Sodium (Protonix) 40 mg PO ACBRK [facility] Last Admin: 07/11/18 06:20 Dose: 40 mg Promethazine 0.2 Ml 0 each TOP Q6H PRN PRN Reason: Nausea Polyethylene Glycol (Miralax) 17 gm PO DAILY [facility] Last Admin: 07/11/18 08:16 Dose: 17 gm Saccharomyces Boulardii (Florastor) 250 mg PO BID [facility] Last Admin: 07/11/18 08:14 Dose: 250 mg Sodium Chloride (Saline Flush) 10 ml FLUSH ONETIME ONE Stop: 07/05/18 22:37 Last Admin: 07/05/18 22:47 Dose: 10 ml
[2018-07-11] MEDS: Ondansetron 4 MG/2 ML SDV IVPUSH PRN (17:47)
== END 2018-07-11 17:50 | DRG 143 ==
LOC: SUPCPDRO 20:12 → JD.ED 20:12 → JD.ICU 07-06 00:40
PROVIDERS: ADMIT Internal Medicine Cardiovascular Disease; ATTEND Internal Medicine Cardiovascular Disease
PROC: 0W993ZZ Drainage of Right Pleural Cavity, Percutaneous Approach (ICD-10-PCS; 2018-07-06)
PROC: 0W9B3ZZ Drainage of Left Pleural Cavity, Percutaneous Approach (ICD-10-PCS; principal; 2018-07-07)
DX: J90 Pleural effusion, not elsewhere classified (principal); E11.22 Type 2 diabetes mellitus with diabetic chronic kidney disease; Z99.81 Dependence on supplemental oxygen; E11.65 Type 2 diabetes mellitus with hyperglycemia; R09.02 Hypoxemia; N18.9 Chronic kidney disease, unspecified; R80.9 Proteinuria, unspecified; I12.9 Hypertensive chronic kidney disease with stage 1 through stage 4 chronic kidney disease, or unspecified chronic kidney disease; N76.89 Other specified inflammation of vagina and vulva; B95.1 Streptococcus, group B, as the cause of diseases classified elsewhere; R60.0 Localized edema; R06.89 Other abnormalities of breathing; R06.03 Acute respiratory distress; H54.7 Unspecified visual loss; K59.09 Other constipation; K21.9 Gastro-esophageal reflux disease without esophagitis; F41.9 Anxiety disorder, unspecified; E66.9 Obesity, unspecified; R79.1 Abnormal coagulation profile; Z79.899 Other long term (current) drug therapy; Z87.891 Personal history of nicotine dependence; Z79.82 Long term (current) use of aspirin; Z68.38 Body mass index [BMI] 38.0-38.9, adult
CPT/HCPCS: 36415; 36430; 36600; 71045; 71045-26; 71046; 71046-26; 71275; 71275-26; 76770; 76770-26; 78582; 78582-26; 80048; 80053; 81001; 82040; 82164; 82570; 82803; 82945; 82962; 83036; 83605; 83615; 83735; 83880; 84134; 84156; 84157; 84484; 85007; 85014; 85018; 85025; 85027; 85379; 85610; 85730; 86038; 86140; 86160; 86162; 86738; 86850; 86900; 86901; 86922; 87040; 87070; 87077; 87186; 87205; 87486; 87581; 87632; 87641; 87798; 87899; 88112-26; 89050; 93005; 93010; 93306; 94640; 94761; 96374; 97116-GP; 97162-GP; 97165-GO; 97530-GP; 99285-25; A9270-GY; A9540; C1729; J0290; J1170; J1644; J1815; J1815-GY; J1940; J2405; J3475; J7030; J7050; J7620-GY; P9016; Q9967

== ENCOUNTER 2018-10-10 14:44 | Emergency (ER) | payer BC ==
[2018-10-10] MEDS ORDERED: Sodium Chloride 0.9% 10 ML Syringe FLUSH PRN (15:34)
--- NOTE | 2018-10-10 15:41 | EDM.PDOC ---
ED HPI GENERAL MEDICAL PROBLEM - General Chief Complaint: Diabetic Complaint Stated Complaint: LIGHTHEADED Time Seen by Provider: 10/10/18 15:04 Source of Information: Reports: Patient, RN Notes Reviewed History Limitations: Reports: No Limitations - History of Present Illness INITIAL COMMENTS - FREE TEXT/NARRATIVE: Patient is a 47 year old female who presents to the ED for the evaluation of lightheadedness. She is a diabetic and for the last few months, she has been having issues where she gets dehydrated to the point she needs IV fluids. She states that this feeling started this morning; her blood sugar at home was 75 & 97. She feels worn out and fatigued and states that it is harder to breathe with walking. She feels some slight chest pressure but denies any blurred vision , fevers/chills, nausea/vomiting/diarrhea. She is not having pain anywhere. - Related Data Allergies Allergy/AdvReac Type Severity Reaction Status Date / Time Latex, Natural Rubber Allergy Rash Verified 10/10/18 17:18 Home Meds: Home Meds Hydrocodone/Acetaminophen [Hydrocodon-Acetaminophen 5-325] 5 - 325 mg PO Q8H PRN 07/05/18 [History] Ondansetron HCl [Zofran] 4 mg PO Q8H PRN 07/05/18 [History] Liraglutide [Victoza] 18 mg SUBCUT ASDIRECTED #1 pen 09/13/18 [Rx] Rosuvastatin [Crestor] 5 mg PO BEDTIME 09/13/18 [History] Insulin Detemir [Levemir] 10 unit INJECT BID #1 09/16/18 [Rx] Dapagliflozin Propanediol [Farxiga] 10 mg PO DAILY 10/10/18 [History] amLODIPine [Norvasc] 5 mg PO DAILY 10/10/18 [History] Past Medical History HEENT History: Reports: Impaired Vision Cardiovascular History: Reports: Hypertension Respiratory History: Reports: None, Other (See Below) Gastrointestinal History: Reports: Chronic Constipation, GERD Genitourinary History: Reports: Chronic Renal Insuffiency 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 - Infectious Disease History Infectious Disease History: Reports: C-Difficile Other Infectious Disease History: found this admission - Past Surgical History HEENT Surgical History: Reports: Myringotomy w Tube(s) Cardiovascular Surgical History: Reports: None GI Surgical History: Reports: Cholecystectomy Endocrine Surgical History: Reports: None Social & Family History - Family History Family Medical History: Noncontributory - Tobacco Use Smoking Status *Q: Never Smoker - Caffeine Use Caffeine Use: Reports: Coffee, Soda, Tea - Recreational Drug Use Recreational Drug Use: No - Living Situation & Occupation Living situation: Reports: , with Spouse Occupation: Employed ([employer]) ED ROS GENERAL - Review of Systems Review Of Systems: See Below Constitutional: Reports: Fatigue. Denies: Fever, Chills, Weakness, Decreased Appetite, Weight Loss HEENT: Denies: Sinus Problem, Vertigo, Vision Change Respiratory: Reports: Shortness of Breath (with activity). Denies: Cough, Sputum Cardiovascular: Reports: Chest Pain (chest pressure), Lightheadedness. Denies: Orthopnea, Palpitations Endocrine: Reports: Fatigue GI/Abdominal: Denies: Abdominal Pain, Diarrhea, Nausea, Vomiting : Reports: No Symptoms Musculoskeletal: Reports: Neck Pain Skin: Reports: No Symptoms Neurological: Reports: No Symptoms Psychiatric: Reports: No Symptoms Hematologic/Lymphatic: Reports: No Symptoms Immunologic: Reports: No Symptoms ED EXAM GENERAL NO PERIP PULSE - Physical Exam Exam: See Below Exam Limited By: No Limitations General Appearance: Alert, WD/WN, No Apparent Distress Eye Exam: Bilateral Eye: EOMI, Normal Inspection, PERRL Ears: Normal External Exam Nose: Normal Inspection Throat/Mouth: Normal Inspection, Normal Lips, Normal Oropharynx, No Airway Compromise Head: Atraumatic, Normocephalic Neck: Normal Inspection, Supple, Non-Tender, Full Range of Motion Respiratory/Chest: No Respiratory Distress, Lungs Clear, Normal Breath Sounds, No Accessory Muscle Use, Chest Non-Tender Cardiovascular: Normal Peripheral Pulses, Regular Rate, Rhythm, No Murmur GI/Abdominal: Normal Bowel Sounds, Soft, Non-Tender, No Organomegaly, No Distention, No Mass Extremities: Normal Inspection, Normal Capillary Refill Neurological: Alert, Oriented, Normal Cognition, No Motor/Sensory Deficits Psychiatric: Normal Affect, Normal Mood Skin Exam: Warm, Dry, Intact, Normal Color, No Rash Lymphatic: No Adenopathy Course - Vital Signs Last Recorded V/S: Last Vital Signs Temp 97.1 F 10/10/18 15:07 Pulse 95 10/10/18 17:03 Resp 18 10/10/18 17:03 BP 147/92 H 10/10/18 17:03 Pulse Ox 97 10/10/18 17:03 - Orders/Labs/Meds Orders: Active Orders 24 hr Category Date Time Status Peripheral IV Care [RC] . DIRECTED Care 10/10/18 15:34 Active Peripheral IV Insertion Adult [OM.PC] Routine Oth 10/10/18 15:34 Ordered Labs: Laboratory Tests 10/10/18 10/10/18 10/10/18 Range/Units 15:50 15:51 15:51 WBC 10.58 H (3.98-10.04) K/mm3 RBC 4.25 (3.98-5.22) M/mm3 Hgb 12.0 (11.2-15.7) gm/L Hct 36.0 (34.1-44.9) % MCV 84.7 (79.4-94.8) fl MCH 28.2 (25.6-32.2) pg MCHC 33.3 (32.2-35.5) g/dl RDW Std Deviation 43.8 (36.4-46.3) fL Plt Count 588 H (182-369) K/mm3 MPV 8.3 L (9.4-12.3) fl Neutrophils % (Manual) 62 H (40-60) % Band Neutrophils % 5 (0-10) % Lymphocytes % (Manual) 23 (20-40) % Atypical Lymphs % 0 % Monocytes % (Manual) 5 (2-10) % Eosinophils % (Manual) 4 (0.7-5.8) % Basophils % (Manual) 0 L (0.1-1.2) Myelocytes % 1 Platelet Estimate Marked inc Plt Morphology Comment Normal RBC Morph Comment Normal Sodium 138 (136-145) mEq/L Potassium 4.6 (3.5-5.1) mEq/L Chloride 105 (98-107) mEq/L Carbon Dioxide 24 (21-32) mEq/L Anion Gap 13.6 (5-15) BUN 32 H (7-18) mg/dL Creatinine 2.3 H (0.55-1.02) mg/dL Est Cr Clr Drug Dosing 30.18 mL/min Estimated GFR (MDRD) 23 (>60) mL/min BUN/Creatinine Ratio 13.9 L (14-18) Glucose 121 H (74-106) mg/dL POC Glucose 116 H (70-105) mg/dL Calcium 9.8 (8.5-10.1) mg/dL Total Bilirubin 0.4 (0.2-1.0) mg/dL AST 35 (15-37) U/L ALT 42 (14-59) U/L Alkaline Phosphatase 105 (46-116) U/L Total Protein 8.1 (6.4-8.2) g/dl Albumin 3.0 L (3.4-5.0) g/dl Globulin 5.1 gm/dL Albumin/Globulin Ratio 0.6 L (1-2) Meds: Medications Discontinued Medications Generic Name Dose Route Start Last Admin Trade Name Freq PRN Reason Stop Dose Admin Sodium Chloride 1,000 mls @ 999 mls/hr 10/10/18 15:45 10/10/18 15:55 Normal Saline IV 999 mls/hr ASDIRECTED TAHIR Administration Sodium Chloride 10 ml 10/10/18 15:34 10/10/18 15:56 Saline Flush FLUSH 10 ml ASDIRECTED PRN Administration Keep Vein Open - Re-Assessments/Exams Free Text/Narrative Re-Assessment/Exam: 10/10/18 15:43 Pt presents to ED for feelings of lightheadedness. Have ordered CBC, and CMP for further evaluation and will start with IV bolus to see if this helps. 10/10/18 16:30 Labs have returned and are WNL, she is a little dry, will re-asses how she feels after the first bolus of fluid is done. Blood sugar is around 115-120. Plan is to d/c home after first liter of fluids. The patient states that she is feeling better after the liter of fluids. Departure - Departure Time of Disposition: 16:45 Disposition: Home, Self-Care 01 Condition: Fair Clinical Impression: Light-headedness - Discharge Information *PRESCRIPTION DRUG MONITORING PROGRAM REVIEWED*: No *COPY OF PRESCRIPTION DRUG MONITORING REPORT IN PATIENT JONNIE: No Instructions: Dizziness, [id number] Referrals: Anne Woody MD [Primary Care Provider] - Forms: ED Department Discharge Additional Instructions: You have been evaluated in the ED for your lightheadedness. Your workup was essentially normal, you did receive IV fluids; this should hopefully help this feeling. Please return to ED if your symptoms change or worsen. - My Orders Last 24 Hours: My Active Orders 10/10/18 15:34 Peripheral IV Care [RC] . DIRECTED Peripheral IV Insertion Adult [OM.PC] Routine - Assessment/Plan Last 24 Hours: My Active Orders 10/10/18 15:34 Peripheral IV Care [RC] . DIRECTED Peripheral IV Insertion Adult [OM.PC] Routine
[2018-10-10] MEDS ORDERED: Sodium Chloride 0.9% 1,000 ML IV SCH (15:45)
== END 2018-10-10 17:06 | disposition home or self-care (01) ==
LOC: JD.ED 14:44
DX: R42 Dizziness and giddiness (principal); E11.9 Type 2 diabetes mellitus without complications; I12.9 Hypertensive chronic kidney disease with stage 1 through stage 4 chronic kidney disease, or unspecified chronic kidney disease; N18.9 Chronic kidney disease, unspecified; Z91.040 Latex allergy status; Z79.899 Other long term (current) drug therapy; Z79.4 Long term (current) use of insulin
CPT/HCPCS: 36415; 80053; 82962; 85007; 85027; 96360; 99284; J7040

== ENCOUNTER 2018-10-13 14:33 | Emergency (ER) | payer BC ==
--- NOTE | 2018-10-13 14:50 | EDM.PDOC ---
ED HPI GENERAL MEDICAL PROBLEM - General Chief Complaint: General Stated Complaint: SYNCOPE/SOB Time Seen by Provider: 10/13/18 14:44 Source of Information: Reports: Patient, RN Notes Reviewed History Limitations: Reports: No Limitations - History of Present Illness INITIAL COMMENTS - FREE TEXT/NARRATIVE: Patient is s 47 year old female who presents to the ED for the evaluation of headache/lightheadedness/SOB. She was previously evaluated in the ED for lightheadedness a few days ago by myself, she was given 1 liter of fluids and she felt better and was discharged home. Today she again feels lightheaded and has developed a headache. She states that her blood sugar this morning was 75 and she ate a bowl of cereal and felt better. As for the headache she states this to mainly in the front of her head and feels like a rubber band around her head. The nurse did do laying and sitting blood pressures and she did have a significant systolic BP drop to 80 from 130. She states that she takes only 5mg amlodipine for blood pressure and does this once daily. She has noticed some increased shortness of breath with activity. She denies any fever/chills, nausea /vomiting/diarrhea, or chest pain. - Related Data Allergies Allergy/AdvReac Type Severity Reaction Status Date / Time Latex, Natural Rubber Allergy Rash Verified 10/13/18 14:44 Home Meds: Home Meds Hydrocodone/Acetaminophen [Hydrocodon-Acetaminophen 5-325] 5 - 325 mg PO Q8H PRN 07/05/18 [History] Ondansetron HCl [Zofran] 4 mg PO Q8H PRN 07/05/18 [History] Liraglutide [Victoza] 18 mg SUBCUT ASDIRECTED #1 pen 09/13/18 [Rx] Rosuvastatin [Crestor] 5 mg PO BEDTIME 09/13/18 [History] Insulin Detemir [Levemir] 10 unit INJECT BID #1 09/16/18 [Rx] Dapagliflozin Propanediol [Farxiga] 10 mg PO DAILY 10/10/18 [History] amLODIPine [Norvasc] 5 mg PO DAILY 10/10/18 [History] Past Medical History HEENT History: Reports: Impaired Vision Cardiovascular History: Reports: Hypertension Respiratory History: Reports: None, Other (See Below) Gastrointestinal History: Reports: Chronic Constipation, GERD Genitourinary History: Reports: Chronic Renal Insuffiency [employer]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 - Infectious Disease History Infectious Disease History: Reports: C-Difficile Other Infectious Disease History: found this admission - Past Surgical History HEENT Surgical History: Reports: Myringotomy w Tube(s) Cardiovascular Surgical History: Reports: None GI Surgical History: Reports: Cholecystectomy Endocrine Surgical History: Reports: None Social & Family History - Family History Family Medical History: Noncontributory - Caffeine Use Caffeine Use: Reports: Coffee, Soda, Tea - Living Situation & Occupation Living situation: Reports: , with Spouse Occupation: Employed ([employer]) ED ROS GENERAL - Review of Systems Review Of Systems: See Below Constitutional: Denies: Fever, Chills, Weakness, Fatigue HEENT: Reports: Other (blurred vision with headache). Denies: Vertigo Respiratory: Reports: Shortness of Breath (with activity). Denies: Cough, Sputum Cardiovascular: Reports: Blood Pressure Problem, Lightheadedness. Denies: Chest Pain, Palpitations, Syncope Endocrine: Reports: No Symptoms GI/Abdominal: Reports: No Symptoms : Reports: No Symptoms Musculoskeletal: Reports: No Symptoms Skin: Reports: No Symptoms Neurological: Reports: Headache. Denies: Dizziness, Numbness, Paresthesia, Syncope, Tingling, Weakness Psychiatric: Reports: No Symptoms Hematologic/Lymphatic: Reports: No Symptoms Immunologic: Reports: No Symptoms ED EXAM, GENERAL - Physical Exam Exam: See Below Exam Limited By: No Limitations General Appearance: Alert, WD/WN, No Apparent Distress Eye Exam: Bilateral Eye: EOMI, Normal Inspection, PERRL Ears: Normal External Exam Nose: Normal Inspection Throat/Mouth: Normal Inspection, Normal Teeth, Normal Oropharynx, No Airway Compromise Head: Atraumatic, Normocephalic Neck: Normal Inspection, Supple, Non-Tender, Full Range of Motion Respiratory/Chest: No Respiratory Distress, Lungs Clear, Normal Breath Sounds, No Accessory Muscle Use, Chest Non-Tender Cardiovascular: Normal Peripheral Pulses, Regular Rate, Rhythm, No Edema, No JVD , No Murmur GI/Abdominal: Normal Bowel Sounds, Soft, Non-Tender, No Distention Extremities: Normal Inspection, Normal Capillary Refill Neurological: Alert, Oriented, Normal Cognition, Normal Reflexes, No Motor/ Sensory Deficits Psychiatric: Normal Affect, Normal Mood Skin Exam: Warm, Dry, Intact, Normal Color, No Rash EKG INTERPRETATION EKG Date: 10/13/18 Time: 15:13 Rhythm: NSR Rate (Beats/Min): 89 [place]: Normal P-Wave: Present QRS: Normal ST-T: Normal QT: Prolonged (borderline prolonged at 486) Comparison: No Change EKG Interpretation Comments: Reviewed with Dr. Strickland. Course - Vital Signs Last Recorded V/S: Last Vital Signs Temp 97.3 F 10/13/18 14:40 Pulse 95 10/13/18 14:40 Resp 16 10/13/18 14:40 BP 132/75 10/13/18 14:40 Pulse Ox 100 10/13/18 14:40 Orthostatic Blood Pressure [ 83/56 Standing] - Orders/Labs/Meds Orders: Active Orders 24 hr Category Date Time Status EKG Documentation Completion [RC] STAT Care 10/13/18 14:57 Active Peripheral IV Care [RC] . DIRECTED Care 10/13/18 14:57 Active Sodium Chloride 0.9% [Normal Saline] 1,000 ml Med 10/13/18 15:00 Active IV ASDIRECTED Sodium Chloride 0.9% [Normal Saline] 1,000 ml Med 10/13/18 17:00 Active IV ASDIRECTED Sodium Chloride 0.9% [Saline Flush] Med 10/13/18 14:57 Active 10 ml FLUSH ASDIRECTED PRN Peripheral IV Insertion Adult [OM.PC] Routine Oth 10/13/18 14:57 Ordered Medication Orders Sodium Chloride (Normal Saline) 1,000 mls @ 999 mls/hr IV ASDIRECTED TAHIR Last Admin: 10/13/18 15:33 Dose: 999 mls/hr Sodium Chloride (Normal Saline) 1,000 mls @ 999 mls/hr IV ASDIRECTED TAHIR Sodium Chloride (Saline Flush) 10 ml FLUSH ASDIRECTED PRN PRN Reason: Keep Vein Open Last Admin: 10/13/18 15:32 Dose: 10 ml Labs: Laboratory Tests 10/13/18 10/13/18 10/13/18 Range/Units 15:27 15:27 15:27 WBC 10.99 H (3.98-10.04) K/mm3 RBC 4.23 (3.98-5.22) M/mm3 Hgb 12.0 (11.2-15.7) gm/L Hct 35.9 (34.1-44.9) % MCV 84.9 (79.4-94.8) fl MCH 28.4 (25.6-32.2) pg MCHC 33.4 (32.2-35.5) g/dl RDW Std Deviation 43.6 (36.4-46.3) fL Plt Count 547 H (182-369) K/mm3 MPV 8.3 L (9.4-12.3) fl Neutrophils % (Manual) 79 H (40-60) % Band Neutrophils % 0 (0-10) % Lymphocytes % (Manual) 14 L (20-40) % Atypical Lymphs % 0 % Monocytes % (Manual) 2 (2-10) % Eosinophils % (Manual) 4 (0.7-5.8) % Basophils % (Manual) 1 (0.1-1.2) Platelet Estimate Increased Plt Morphology Comment Normal RBC Morph Comment Normal Sodium 138 (136-145) mEq/L Potassium 4.6 (3.5-5.1) mEq/L Chloride 105 (98-107) mEq/L Carbon Dioxide 23 (21-32) mEq/L Anion Gap 14.6 (5-15) BUN 36 H (7-18) mg/dL Creatinine 2.4 H (0.55-1.02) mg/dL Est Cr Clr Drug Dosing 28.92 mL/min Estimated GFR (MDRD) 22 (>60) mL/min BUN/Creatinine Ratio 15.0 (14-18) Glucose 147 H (74-106) mg/dL Calcium 9.5 (8.5-10.1) mg/dL Total Bilirubin 0.3 (0.2-1.0) mg/dL AST 37 (15-37) U/L ALT 54 (14-59) U/L Alkaline Phosphatase 111 (46-116) U/L NT-Pro-B Natriuret Pep 7589 H (0-125) pg/mL Total Protein 8.0 (6.4-8.2) g/dl Albumin 3.0 L (3.4-5.0) g/dl Globulin 5.0 gm/dL Albumin/Globulin Ratio 0.6 L (1-2) Meds: Medications Generic Name Dose Route Start Last Admin Trade Name Freq PRN Reason Stop Dose Admin Sodium Chloride 1,000 mls @ 999 mls/hr 10/13/18 15:00 10/13/18 15:33 Normal Saline IV 999 mls/hr ASDIRECTED TAHIR Administration Sodium Chloride 1,000 mls @ 999 mls/hr 10/13/18 17:00 Normal Saline IV ASDIRECTED TAHIR Sodium Chloride 10 ml 10/13/18 14:57 10/13/18 15:32 Saline Flush FLUSH 10 ml ASDIRECTED PRN Administration Keep Vein Open Discontinued Medications Generic Name Dose Route Start Last Admin Trade Name Freq PRN Reason Stop Dose Admin Diphenhydramine HCl 25 mg 10/13/18 14:57 10/13/18 15:33 Benadryl IVPUSH 10/13/18 14:58 25 mg ONETIME ONE Administration Sodium Chloride 1,000 mls @ 999 mls/hr 10/13/18 17:10 10/13/18 17:12 Normal Saline IV 10/13/18 18:10 999 mls/hr ONETIME ONE Administration Ketorolac Tromethamine 30 mg 10/13/18 14:57 10/13/18 15:34 Toradol IVPUSH 10/13/18 14:58 30 mg ONETIME ONE Administration Metoclopramide HCl 10 mg 10/13/18 14:57 10/13/18 15:35 Reglan IVPUSH 10/13/18 14:58 10 mg ONETIME ONE Administration - Re-Assessments/Exams Free Text/Narrative Re-Assessment/Exam: 10/13/18 15:10 Pt presents to the ED for the evaluation of headache/lightheadedness/SOB. Have ordered EKG, CXR, CBC, CMP, BNP for further evaluation of symptoms, and IV bolus , 30mg toradol, 10mg reglan, and 25 mg benadryl for her headache. 10/13/18 17:00 Pt labs have returned and her BUN is increased at 36, creatinine 2.4 and has a BNP of 7,589. She has been evaluated by Dr. Alexis in the past and he has not done anything for her kidney problems. Her levels are elevated, but are only mildly elevated from her baseline. The elevated BNP is felt to be likely d/t her kidney function at this ED visit. Results were discussed at pt bedside. 1 more liter of fluids have been ordered for hydration. The medicines have helped the patients headache. Her EKG shows no change from previous EKG and her CXR is WNL. Departure - Departure Time of Disposition: 18:18 Disposition: Home, Self-Care 01 Condition: Fair Clinical Impression: Lightheadedness Headache Qualifiers: Headache type: unspecified Headache chronicity pattern: acute headache Intractability: not intractable Qualified Code(s): R51 - Headache - Discharge Information *PRESCRIPTION DRUG MONITORING PROGRAM REVIEWED*: No *COPY OF PRESCRIPTION DRUG MONITORING REPORT IN PATIENT JONNIE: No Instructions: Migraine Headache, [id number] Referrals: Anne Woody MD [Primary Care Provider] - Forms: ED Department Discharge Additional Instructions: You have been evaluated in the ED for your headache and lightheadedness. Your work-up did not demonstrate a clear etiology of your symptoms. It is felt that this may be likely due to kidney issues. Recommend follow up with PCP for another referral to nephrology. Please return if your symptoms should change or worsen. - My Orders Last 24 Hours: My Active Orders 10/13/18 14:57 EKG Documentation Completion [RC] STAT Peripheral IV Care [RC] . DIRECTED Sodium Chloride 0.9% [Saline Flush] 10 ml FLUSH ASDIRECTED PRN Peripheral IV Insertion Adult [OM.PC] Routine 10/13/18 15:00 Sodium Chloride 0.9% [Normal Saline] 1,000 ml IV ASDIRECTED 10/13/18 17:00 Sodium Chloride 0.9% [Normal Saline] 1,000 ml IV ASDIRECTED - Assessment/Plan Last 24 Hours: My Active Orders 10/13/18 14:57 EKG Documentation Completion [RC] STAT Peripheral IV Care [RC] . DIRECTED Sodium Chloride 0.9% [Saline Flush] 10 ml FLUSH ASDIRECTED PRN Peripheral IV Insertion Adult [OM.PC] Routine 10/13/18 15:00 Sodium Chloride 0.9% [Normal Saline] 1,000 ml IV ASDIRECTED 10/13/18 17:00 Sodium Chloride 0.9% [Normal Saline] 1,000 ml IV ASDIRECTED
[2018-10-13] MEDS ORDERED: Metoclopramide 10 MG/2 ML SDV IVPUSH ONE (14:57)
[2018-10-13] MEDS ORDERED: Ketorolac 30 MG/ML SDV IVPUSH ONE (14:57)
[2018-10-13] MEDS ORDERED: Sodium Chloride 0.9% 10 ML Syringe FLUSH PRN (14:57)
[2018-10-13] MEDS ORDERED: diphenhydrAMINE 50 MG/ML SDV IVPUSH ONE (14:57)
[2018-10-13] MEDS ORDERED: Sodium Chloride 0.9% 1,000 ML IV SCH ×2 (15:00→17:00)
--- NOTE | 2018-10-13 15:44 | CR ---
Chest: Portable view of the chest was obtained. Comparison: Prior chest x-ray of 08/15/18. Heart size and mediastinum are within normal limits for portable technique. Lungs are clear. Bony structures are grossly intact. Surgical clips are noted within the upper right abdomen from prior cholecystectomy. Impression: 1. Incidental findings. Nothing acute is seen on portable chest x-ray. Diagnostic code #2
[2018-10-13] MEDS ORDERED: Sodium Chloride 0.9% 1,000 ML IV ONE (17:10)
== END 2018-10-13 18:38 | disposition home or self-care (01) ==
LOC: JD.ED 14:33
DX: R51 Headache (principal); R42 Dizziness and giddiness; I12.9 Hypertensive chronic kidney disease with stage 1 through stage 4 chronic kidney disease, or unspecified chronic kidney disease; N18.9 Chronic kidney disease, unspecified; E11.22 Type 2 diabetes mellitus with diabetic chronic kidney disease; Z91.040 Latex allergy status; Z79.899 Other long term (current) drug therapy; Z79.4 Long term (current) use of insulin
CPT/HCPCS: 36415; 71045; 80053; 83880; 85007; 85027; 93005; 96361; 96374; 96375; 99284; J1200; J1885; J2765; J7040

== ENCOUNTER 2018-11-04 15:05 | Emergency (ER) | payer BC ==
[2018-11-04] MEDS: Sodium Chloride 0.9% 10 ML Syringe FLUSH PRN ×2 (16:12→16:39)
[2018-11-04] MEDS ORDERED: Lactated Ringers 1,000 ML IV ONE ×2 (16:15→17:36)
[2018-11-04] MEDS ORDERED: Dicyclomine 20 MG/2 ML SDV IM ONE (16:15)
[2018-11-04] MEDS ORDERED: Ondansetron 4 MG/2 ML SDV IVPUSH ONE ×2 (16:15→17:38)
[2018-11-04] MEDS ORDERED: HYDROmorphone 1 MG/ML Syringe IVPUSH ONE (17:38)
[2018-11-04] MEDS ORDERED: Vancomycin 50 MG/ML Oral Solution Bottle Kit PO ONE (18:12)
--- NOTE | 2018-11-04 18:46 | EDM.PDOC ---
ED HPI GENERAL MEDICAL PROBLEM - General Chief Complaint: Gastrointestinal Problem Stated Complaint: DIARRHEA, SOB Time Seen by Provider: 11/04/18 15:35 Source of Information: Reports: Patient History Limitations: Reports: No Limitations - History of Present Illness INITIAL COMMENTS - FREE TEXT/NARRATIVE: 47-year-old female presents for evaluation and treatment of nausea, vomiting and diarrhea. Reports her symptoms started last night. She reports she is having diarrhea-like stools every half an hour. No blood in her stools. Has had several episodes of emesis as well, no blood in her emesis. She reports associated symptoms of chills, lightheadedness and dizziness. No fevers or syncope. Reports some abdominal discomfort associated with the nausea and vomiting. She describes as a sharp pain and cramping. She also reports stool urgency. Patient denies any urinary symptoms. patient reports that she's been feeling short of breath. She states that she gets this when she feels dehydrated. No chest pain. Patient given a bag of fluids in the clinic yesterday. She has standing orders from her primary care provider to receive fluids every few weeks when she is dehydrated. Her last visit with Dr. Woody, her primary care provider, with the beginning of the month. Patient is a type II diabetic reports her sugars have been running in the 90s to 120s. She is currently on insulin. Patient does have some Zofran when necessary for nausea. Last dose was this morning. Review the patient's records she tested positive for C. difficile colitis in September. She was placed on a 2 week course of oral vancomycin but she has now been off this for several weeks. Patient has also had a complicated last year. She initially started being seen in the ER in June. 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 Abdomen Pain Score (Numeric/FACES): 5 - Related Data Allergies Allergy/AdvReac Type Severity Reaction Status Date / Time Latex, Natural Rubber Allergy Rash Verified 11/04/18 15:24 Home Meds: Home Meds Ondansetron HCl [Zofran] 4 mg PO Q8H PRN 07/05/18 [History] Rosuvastatin [Crestor] 5 mg PO BEDTIME 09/13/18 [History] Insulin Detemir [Levemir] 10 unit INJECT BID #1 09/16/18 [Rx] amLODIPine [Norvasc] 5 mg PO DAILY 10/10/18 [History] Acetaminophen/HYDROcodone [[place] 325-5 MG] 1 tab PO Q6H PRN #15 tablet 11/04/18 [Rx] Famotidine [Pepcid AC] 10 mg PO ASDIRECTED 11/04/18 [History] Insulin Lispro [HumaLOG] 10 unit SQ ASDIRECTED 11/04/18 [History] Past Medical History HEENT History: Reports: Impaired Vision Cardiovascular History: Reports: High Cholesterol, Hypertension Respiratory History: Reports: None, Other (See Below) Gastrointestinal History: Reports: Chronic Constipation, Chronic Diarrhea, GERD Genitourinary History: Reports: Chronic Renal Insuffiency TOWERMAN History: Reports: None Other TOWERMAN History: started menopause Psychiatric History: Reports: Anxiety Endocrine/Metabolic History: Reports: Diabetes, Type II Dermatologic History: Reports: Other (See Below) Other Dermatologic History: Ulceration to 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 - Infectious Disease History Infectious Disease History: Reports: C-Difficile Other Infectious Disease History: found this admission - Past Surgical History HEENT Surgical History: Reports: Myringotomy w Tube(s), Oral Surgery Cardiovascular Surgical History: Reports: None GI Surgical History: Reports: Cholecystectomy Endocrine Surgical History: Reports: None Social & Family History - Family History Family Medical History: Noncontributory Cardiac: Reports: CAD - Tobacco Use Smoking Status *Q: Never Smoker - Caffeine Use Caffeine Use: Reports: Coffee, Soda - Recreational Drug Use Recreational Drug Use: No - Living Situation & Occupation Living situation: Reports: , with Spouse Occupation: Employed ([employer]) ED ROS GENERAL - Review of Systems Review Of Systems: See Below Constitutional: Reports: Chills. Denies: Fever Respiratory: Reports: Shortness of Breath Cardiovascular: Denies: Chest Pain Endocrine: Denies: High Glucose (sugars running 90 to 120s ) GI/Abdominal: Reports: Abdominal Pain, Diarrhea, Nausea, Vomiting, Other ( reports stool urgency) : Reports: No Symptoms. Denies: Dysuria Neurological: Reports: Dizziness. Denies: Syncope ED EXAM, GI/ABD - Physical Exam Exam: See Below Exam Limited By: No Limitations General Appearance: Alert, WD/WN, Mild Distress (acutely ill apprearing) Throat/Mouth: Normal Inspection, Normal Voice, No Airway Compromise Respiratory/Chest: No Respiratory Distress, Lungs Clear, Normal Breath Sounds Cardiovascular: Normal Peripheral Pulses, Regular Rate, Rhythm, No Murmur GI/Abdominal Exam: Normal Bowel Sounds, Soft, Non-Tender. No: Guarding, Rigid, Rebound Neurological: Alert, Oriented, Normal Cognition Psychiatric: Normal Affect, Normal Mood Skin Exam: Warm, Dry, Normal Color Course - Vital Signs Last Recorded V/S: Last Vital Signs Temp 98.8 F 11/04/18 15:30 Pulse 89 11/04/18 19:36 Resp 18 11/04/18 19:36 BP 134/79 11/04/18 19:36 Pulse Ox 96 11/04/18 19:36 - Orders/Labs/Meds Labs: Laboratory Tests 11/04/18 11/04/18 11/04/18 Range/Units 15:45 16:10 16:10 WBC 10.96 H (3.98-10.04) K/mm3 RBC 3.94 L (3.98-5.22) M/mm3 Hgb 11.4 (11.2-15.7) gm/L Hct 34.3 (34.1-44.9) % MCV 87.1 (79.4-94.8) fl MCH 28.9 (25.6-32.2) pg MCHC 33.2 (32.2-35.5) g/dl RDW Std Deviation 44.2 (36.4-46.3) fL Plt Count 447 H (182-369) K/mm3 MPV 8.4 L (9.4-12.3) fl Neutrophils % (Manual) 63 H (40-60) % Band Neutrophils % 0 (0-10) % Lymphocytes % (Manual) 28 (20-40) % Atypical Lymphs % 0 % Monocytes % (Manual) 8 (2-10) % Eosinophils % (Manual) 1 (0.7-5.8) % Basophils % (Manual) 0 L (0.1-1.2) Platelet Estimate Increased Plt Morphology Comment Normal RBC Morph Comment Normal Sodium 138 (136-145) mEq/L Potassium 4.4 (3.5-5.1) mEq/L Chloride 106 (98-107) mEq/L Carbon Dioxide 24 (21-32) mEq/L Anion Gap 12.4 (5-15) BUN 44 H (7-18) mg/dL Creatinine 2.6 H (0.55-1.02) mg/dL Est Cr Clr Drug Dosing 26.69 mL/min Estimated GFR (MDRD) 20 (>60) mL/min BUN/Creatinine Ratio 16.9 (14-18) Glucose 117 H (74-106) mg/dL Serum Osmolality (280-300) mosm/kg Calcium 9.0 (8.5-10.1) mg/dL Magnesium (1.8-2.4) mg/dl Total Bilirubin 0.4 (0.2-1.0) mg/dL AST 18 (15-37) U/L ALT 28 (14-59) U/L Alkaline Phosphatase 74 (46-116) U/L C-Reactive Protein 3.3 H* (<1.0) mg/dL Total Protein 7.2 (6.4-8.2) g/dl Albumin 2.7 L (3.4-5.0) g/dl Globulin 4.5 gm/dL Albumin/Globulin Ratio 0.6 L (1-2) Ketones (0.0-0.3) mM C.difficile [id number] Presumptive negative C. difficile Tox (PCR) Positive H 11/04/18 11/04/18 Range/Units 16:10 16:10 WBC (3.98-10.04) K/mm3 RBC (3.98-5.22) M/mm3 Hgb (11.2-15.7) gm/L Hct (34.1-44.9) % MCV (79.4-94.8) fl MCH (25.6-32.2) pg MCHC (32.2-35.5) g/dl RDW Std Deviation (36.4-46.3) fL Plt Count (182-369) K/mm3 MPV (9.4-12.3) fl Neutrophils % (Manual) (40-60) % Band Neutrophils % (0-10) % Lymphocytes % (Manual) (20-40) % Atypical Lymphs % % Monocytes % (Manual) (2-10) % Eosinophils % (Manual) (0.7-5.8) % Basophils % (Manual) (0.1-1.2) Platelet Estimate Plt Morphology Comment RBC Morph Comment Sodium (136-145) mEq/L Potassium (3.5-5.1) mEq/L Chloride (98-107) mEq/L Carbon Dioxide (21-32) mEq/L Anion Gap (5-15) BUN (7-18) mg/dL Creatinine (0.55-1.02) mg/dL Est Cr Clr Drug Dosing mL/min Estimated GFR (MDRD) (>60) mL/min BUN/Creatinine Ratio (14-18) Glucose (74-106) mg/dL Serum Osmolality 306 H (280-300) mosm/kg Calcium (8.5-10.1) mg/dL Magnesium 1.8 (1.8-2.4) mg/dl Total Bilirubin (0.2-1.0) mg/dL AST (15-37) U/L ALT (14-59) U/L Alkaline Phosphatase (46-116) U/L C-Reactive Protein (<1.0) mg/dL Total Protein (6.4-8.2) g/dl Albumin (3.4-5.0) g/dl Globulin gm/dL Albumin/Globulin Ratio (1-2) Ketones 0.35 (0.0-0.3) mM C.difficile [id number] C. difficile Tox (PCR) Meds: Medications Discontinued Medications Generic Name Dose Route Start Last Admin Trade Name Freq PRN Reason Stop Dose Admin Dicyclomine HCl 20 mg 11/04/18 16:15 11/04/18 16:38 Bentyl IM 11/04/18 16:16 20 mg ONETIME ONE Administration Hydromorphone HCl 0.5 mg 11/04/18 17:38 11/04/18 17:55 Dilaudid IVPUSH 11/04/18 17:39 0.5 mg ONETIME ONE Administration Lactated Ringer's 1,000 mls @ 999 mls/hr 11/04/18 16:15 11/04/18 16:39 Ringers, Lactated IV 11/04/18 17:15 999 mls/hr .BOLUS ONE Administration Lactated Ringer's 1,000 mls @ 999 mls/hr 11/04/18 17:36 11/04/18 17:55 Ringers, Lactated IV 11/04/18 18:36 999 mls/hr .BOLUS ONE Administration Ondansetron HCl 4 mg 11/04/18 16:15 11/04/18 16:38 Zofran IVPUSH 11/04/18 16:16 4 mg ONETIME ONE Administration Ondansetron HCl 4 mg 11/04/18 17:38 11/04/18 17:56 Zofran IVPUSH 11/04/18 17:39 Not Given ONETIME ONE Sodium Chloride 10 ml 11/04/18 16:09 11/04/18 16:39 Saline Flush FLUSH 10 ml ASDIRECTED PRN Administration Keep Vein Open Vancomycin HCl 125 mg 11/04/18 18:12 11/04/18 19:13 Vancomycin 50 Mg/Ml Soln PO 11/04/18 18:13 2.5 ml ONETIME ONE Administration - Re-Assessments/Exams Free Text/Narrative Re-Assessment/Exam: 11/04/18 19:11 Patient's stool is + for C.Diff. Stool looks highly suspicious for C.diff. Thrifty white does not carry dificid. Given this is a recurrence of C.diff will need a longer taper of oral vancomycin, at least 6 weeks up to 12 weeks. Highly recommend a probiotic. Will send home with a bottle of oral vancomycin and Rx for oral vancomycin. Will prescribed medication for pain. Instructed to follow- up with PCP for continued treatment of the c.diff 2 liters of fluids given. Patient is feeling improved. Instructed to return to the ER should her symptoms change or worsen. Discharge instructions as documented. Departure - Departure Time of Disposition: 19:12 Disposition: Home, Self-Care 01 Condition: Fair Clinical Impression: Clostridium difficile diarrhea - Discharge Information *PRESCRIPTION DRUG MONITORING PROGRAM REVIEWED*: No *COPY OF PRESCRIPTION DRUG MONITORING REPORT IN PATIENT JONNIE: No Prescriptions: Acetaminophen/HYDROcodone [[place] 325-5 MG] 1 tab PO Q6H PRN #15 tablet PRN Reason: Pain Instructions: Clostridium Difficile Infection, [id number], Clostridium Difficile Infection Referrals: Anne Woody MD [Primary Care Provider] - Forms: ED Department Discharge, ED Return to Work/School Form Additional Instructions: Follow-up with PCP this week as planned. Oral vancomycin as prescribed. This is a tapered medication. Take as prescribed. 2.5mls (125mg) PO every 6 hours x 2 weeks, then 2.5mls (125mg) PO every 12 hours x 7 days, then 2.5mls (125mg) PO daily x 7 days then 125mg PO every 2 days x 2 weeks. Follow-up with PCP for refills as needed. you were given medication in the ER that can affect your ability to drive and operate machinery. Do not drive or operate machinery within 10 hours of taking prescription narcotic pain medication. You may take [place] one tablet every 6 hours as needed for severe pain not relieved by [id number] ibuprofen. take the Zofran you have at home as needed for nausea. Start a probiotic, these are available OTC. Recommend clear fluids and a bland diet as tolerated. Please return to the ER should your symptom change or worsen.
== END 2018-11-04 19:30 | disposition home or self-care (01) ==
LOC: JD.ED 15:05
DX: A04.72 Enterocolitis due to Clostridium difficile, not specified as recurrent (principal); E11.22 Type 2 diabetes mellitus with diabetic chronic kidney disease; I12.9 Hypertensive chronic kidney disease with stage 1 through stage 4 chronic kidney disease, or unspecified chronic kidney disease; N18.9 Chronic kidney disease, unspecified
CPT/HCPCS: 36415; 80053; 82009; 83735; 83930; 85007; 85027; 86140; 87046; 87493; 89055; 96361; 96372; 96374; 96375; 99284; A9270; J0500; J1170; J2405; J7120; 87427

== ENCOUNTER 2019-01-29 16:17 | Emergency (ER) | payer BC ==
--- NOTE | 2019-01-29 17:50 | EDM.PDOC ---
ED HPI GENERAL MEDICAL PROBLEM - General Chief Complaint: Genitourinary Problem Stated Complaint: BACK PAIN/NAUSEA/SWOLLEN LEGS Time Seen by Provider: 01/29/19 16:31 Source of Information: Reports: Patient, Residential Records History Limitations: Reports: No Limitations - History of Present Illness INITIAL COMMENTS - FREE TEXT/NARRATIVE: 48 y/o female presents to ER with cc lower back pain that started last evening. She states she has had increased urination and is concerned she may have a kidney infection. In addition she reports increased swelling in her lower legs. She denies fever, SOB or chest pain. She does take Lasix twice daily. She has a history of DM which is controlled by diet. She reports having renal insufficiency and is currently being treated by Dr. Silverio. Her PCP is Dr. Galicia Onset Date: 01/28/19 Onset Time: 21:00 Duration: Getting Worse Location: Reports: Back (lower) Quality: Reports: Ache Severity: Mild Improves with: Reports: None Worsens with: Reports: None Associated Symptoms: Reports: Other (urinary frequency) Middle Back Pain Score (Numeric/FACES): 6 - Related Data Allergies Allergy/AdvReac Type Severity Reaction Status Date / Time Latex, Natural Rubber Allergy Rash Verified 01/29/19 16:25 Home Meds: Home Meds Ondansetron HCl [Zofran] 4 mg PO Q8H PRN 07/05/18 [History] Rosuvastatin [Crestor] 5 mg PO BEDTIME 09/13/18 [History] amLODIPine [Norvasc] 10 mg PO DAILY 10/10/18 [History] Furosemide [Lasix] 20 mg PO BID 01/29/19 [History] L.acidoph,Paracasei, B.lactis [Probiotic] 1 each PO DAILY 01/29/19 [History] Losartan Potassium 12.5 mg PO DAILY 01/29/19 [History] Past Medical History HEENT History: Reports: Impaired Vision Cardiovascular History: Reports: High Cholesterol, Hypertension Respiratory History: Reports: None, Other (See Below) Gastrointestinal History: Reports: Chronic Constipation, Chronic Diarrhea, GERD Genitourinary History: Reports: Chronic Renal Insuffiency HIP HOP PERFORMERS History: Reports: None Other HIP HOP PERFORMERS History: started menopause Psychiatric History: Reports: Anxiety Endocrine/Metabolic History: Reports: Diabetes, Type II Dermatologic History: Reports: Other (See Below) Other Dermatologic History: Ulceration to 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 - Infectious Disease History Infectious Disease History: Reports: C-Difficile Other Infectious Disease History: found this admission - Past Surgical History HEENT Surgical History: Reports: Myringotomy w Tube(s), Oral Surgery Cardiovascular Surgical History: Reports: None GI Surgical History: Reports: Cholecystectomy Endocrine Surgical History: Reports: None Social & Family History - Family History Family Medical History: Noncontributory Cardiac: Reports: CAD - Tobacco Use Smoking Status *Q: Never Smoker - Caffeine Use Caffeine Use: Reports: Coffee, Soda - Recreational Drug Use Recreational Drug Use: No - Living Situation & Occupation Living situation: Reports: , with Spouse Occupation: Employed ([employer]) ED ROS GENERAL - Review of Systems Review Of Systems: See Below Constitutional: Reports: Chills. Denies: Fever HEENT: Reports: No Symptoms Respiratory: Denies: Shortness of Breath Cardiovascular: Denies: Chest Pain Endocrine: Reports: No Symptoms GI/Abdominal: Denies: Abdominal Pain : Reports: No Symptoms Musculoskeletal: Reports: Back Pain, Other (bilateral lower leg edema.) Skin: Reports: No Symptoms Neurological: Reports: No Symptoms Psychiatric: Reports: No Symptoms Hematologic/Lymphatic: Reports: No Symptoms Immunologic: Reports: No Symptoms ED EXAM, GI/ABD - Physical Exam Exam: See Below Exam Limited By: No Limitations General Appearance: Alert, WD/WN, No Apparent Distress Neck: Normal Inspection, Supple, Non-Tender, Full Range of Motion Respiratory/Chest: No Respiratory Distress, Lungs Clear, Normal Breath Sounds, No Accessory Muscle Use, Chest Non-Tender Cardiovascular: Normal Peripheral Pulses, Regular Rate, Rhythm, No Gallop, No JVD, No Murmur, No Rub, Other (lower extremity edema no pitting) Back Exam: Normal Inspection, Decreased Range of Motion Extremities: Normal Inspection, Normal Range of Motion, Normal Capillary Refill. No: Josep's Sign, Increased Warmth Neurological: Alert, Oriented, Normal Cognition, Normal Gait, Normal Reflexes, No Motor/Sensory Deficits Course - Vital Signs Last Recorded V/S: Last Vital Signs Temp 97.0 F 01/29/19 16:26 Pulse 95 01/29/19 16:26 Resp 16 01/29/19 16:26 BP 176/86 H 01/29/19 16:26 Pulse Ox 96 01/29/19 16:26 - Orders/Labs/Meds Labs: Laboratory Tests 01/29/19 01/29/19 Range/Units 17:40 17:45 Sodium 140 (136-145) mEq/L Potassium 4.6 (3.5-5.1) mEq/L Chloride 106 (98-107) mEq/L Carbon Dioxide 25 (21-32) mEq/L Anion Gap 13.6 (5-15) BUN 70 H (7-18) mg/dL Creatinine 3.0 H (0.55-1.02) mg/dL Est Cr Clr Drug Dosing 22.88 mL/min Estimated GFR (MDRD) 17 (>60) mL/min BUN/Creatinine Ratio 23.3 H (14-18) Glucose 133 H (74-106) mg/dL Calcium 9.3 (8.5-10.1) mg/dL Urine Color Yellow (Yellow) Urine Appearance Clear (Clear) Urine pH 6.5 (5.0-8.0) Ur Specific [place] 1.025 (1.005-1.030) Urine Protein 3+ H (Negative) Urine Glucose (UA) Trace H (Negative) Urine Ketones Negative (Negative) Urine Occult Blood 1+ H (Negative) Urine Nitrite Negative (Negative) Urine Bilirubin Negative (Negative) Urine Urobilinogen 0.2 (0.2-1.0) Ur Leukocyte Esterase Negative (Negative) - Re-Assessments/Exams Free Text/Narrative Re-Assessment/Exam: 01/29/19 18:45 48 y/o female presented to ER with cc lower back pain, nausea, and lower leg swelling that started last evening. Her urinalysis was negative for a UTI. Her Na+ 140 K+ 4.6 chloride 106 glucose 133 bun 70 creatine 3.3 ( this is down compared to 12/2018 labs). I will discharge home with instructions to follow up with her urologist for further evaluation and treatment of her renal insufficiency. I instructed her to take Tylenol for her back pain. Instructed to take her Zofran as needed for her nausea. Instructed to follow up with Dr. Galicia as needed. Instructed to return to the ER for any new or acute worsening symptoms. Patient verbalized understanding and is comfortable with plan for discharge. She is stable at time of discharge. Departure - Departure Time of Disposition: 18:49 Disposition: Home, Self-Care 01 Condition: Good Clinical Impression: Dysuria, Nausea Back pain Qualifiers: Back pain location: low back pain Chronicity: unspecified Back pain laterality : bilateral Sciatica presence: without sciatica Qualified Code(s): M54.5 - Low back pain - Discharge Information Instructions: Radicular Pain, Back Exercises, Nausea and Vomiting, Adult, Dysuria Referrals: Almas Galicia MD [Primary Care Provider] - Forms: ED Department Discharge Additional Instructions: You have been diagnosis with dysuria (painful urination) your urinalysis shows no sign of infection. Take Tylenol for your lower back pain. Continue taking Zofran as needed for nausea. You kidney level are still elevated 3.0 this is down from your results in December 2018 of 3.3. I recommend you follow up with your urologist for further evaluation and treatment. Follow up with Dr. Galicia regarding your leg swelling. Return to the ER for any new or acute worsening symptoms.
== END 2019-01-29 19:10 | disposition home or self-care (01) ==
LOC: JD.ED 16:17
DX: R30.0 Dysuria (principal); M54.5 Low back pain; R11.0 Nausea; E78.00 Pure hypercholesterolemia, unspecified; K21.9 Gastro-esophageal reflux disease without esophagitis; E11.22 Type 2 diabetes mellitus with diabetic chronic kidney disease; I12.9 Hypertensive chronic kidney disease with stage 1 through stage 4 chronic kidney disease, or unspecified chronic kidney disease; N18.9 Chronic kidney disease, unspecified; Z91.040 Latex allergy status; Z79.899 Other long term (current) drug therapy
CPT/HCPCS: 36415; 80048; 81003; 99284

== ENCOUNTER 2019-06-08 05:45 | Emergency (ER) | payer BC ==
--- NOTE | 2019-06-08 06:09 | EDM.PDOC ---
ED HPI GENERAL MEDICAL PROBLEM - General Chief Complaint: ENT Problem Stated Complaint: EAR ACHE Time Seen by Provider: 06/08/19 05:53 Source of Information: Reports: Patient History Limitations: Reports: No Limitations - History of Present Illness INITIAL COMMENTS - FREE TEXT/NARRATIVE: The patient states that she has had a left earache with drainage for the past 2 days, she states that her right ear doesn't feel totally normal, either. She reports decreased hearing to her left ear over the past few days. No recent fever. She states that she tried [id number] "swimmer's ear", which burned. She tried hydrogen peroxide, which is, and she tried sweet oil, which didn't do anything. The patient states that she has not had similar symptoms since she was a child. She states that she has not actually gone swimming recently. The patient has diet controlled diabetes. She checks her blood glucose 3 times a day, with a typical range between 80 and 116. This morning's Accu-Chek was 99. The patient's PCP is Dr. Almas Galicia. Her nuclear medicine physician is Dr. Paul Rai. Left Ear Pain Score (Numeric/FACES): 6 - Related Data Allergies Allergy/AdvReac Type Severity Reaction Status Date / Time Latex, Natural Rubber Allergy Rash Verified 05/28/19 15:43 Home Meds: Home Meds Ondansetron HCl [Zofran] 4 mg PO Q8H PRN 07/05/18 [History] Rosuvastatin [Crestor] 5 mg PO BEDTIME 09/13/18 [History] amLODIPine [Norvasc] 10 mg PO DAILY 10/10/18 [History] Furosemide [Lasix] 20 mg PO BID 01/29/19 [History] Calcium Acetate 667 mg PO TID 06/08/19 [History] Hydrocort/Neomycin/Polymyxin B [Tejxhild-Tdxhkwvpk-BX Otic Susp] 4 drop EARLF TID #1 bottle 06/08/19 [Rx] Past Medical History HEENT History: Reports: Hard of Hearing, Impaired Vision Cardiovascular History: Reports: High Cholesterol, Hypertension Gastrointestinal History: Reports: GERD Genitourinary History: Reports: Chronic Renal Insuffiency Psychiatric History: Reports: Anxiety Endocrine/Metabolic History: Reports: Diabetes, Type II (diet-controlled) Dermatologic History: Reports: Other (See Below) (Pilonidal cyst) - Infectious Disease History Infectious Disease History: Reports: C-Difficile, Other (See Below) (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 Pilonidal cystectomy.) Social & Family History - Family History Family Medical History: Noncontributory Cardiac: Reports: CAD - Tobacco Use Smoking Status *Q: Former Smoker Years of Tobacco use: 30 Packs/Tins Daily: 1 Month/Year Tobacco Last Used: Quit 05/29/2018 - Caffeine Use Caffeine Use: Reports: Coffee, Soda - Alcohol Use Alcohol Use History: No - Recreational Drug Use Recreational Drug Use: No - Living Situation & Occupation Living situation: Reports: , with Spouse Occupation: Employed ([employer]) ED ROS ENT - Review of Systems Review Of Systems: ROS reveals no pertinent complaints other than HPI. ED EXAM, ENT - Physical Exam Exam: See Below Exam Limited By: No Limitations General Appearance: Alert, WD/WN, No Apparent Distress Eye Exam: Bilateral Eye: EOMI, Normal Inspection Ears: Normal External Exam, Canal Discharge (left only), Canal Swelling (mild, left only). No: Mastoid Swelling, Mastoid Tenderness, Canal Foreign Body, Canal Material, TM Erythema Nose: Normal Inspection Mouth/Throat: Normal Inspection, Normal Lips Head: Atraumatic, Normocephalic Course - Vital Signs Last Recorded V/S: Last Vital Signs Temp 36.2 C 06/08/19 05:51 Pulse 82 06/08/19 05:51 Resp 18 06/08/19 05:51 BP 142/71 H 06/08/19 05:51 Pulse Ox 100 06/08/19 05:51 - Re-Assessments/Exams Free Text/Narrative Re-Assessment/Exam: 06/08/19 06:04 The patient appears to have moderate otitis externa to her left ear. I will prescribe Cortisporin otic suspension. Departure - Departure Time of Disposition: 06:04 Disposition: Home, Self-Care 01 Condition: Good Clinical Impression: Otitis externa of left ear - Discharge Information *PRESCRIPTION DRUG MONITORING PROGRAM REVIEWED*: Not Applicable *COPY OF PRESCRIPTION DRUG MONITORING REPORT IN PATIENT JONNIE: Not Applicable Prescriptions: Hydrocort/Neomycin/Polymyxin B [Gejgbkob-Hlwrhytlu-FX Otic Susp] 4 drop EARLF TID #1 bottle Referrals: Almas Galicia MD [Primary Care Provider] - Arianne Rai MD [Consulting Physician] - Additional Instructions: You were seen in the emergency room for a left earache with decreased hearing over the past few days. On examination, you appear to have otitis externa, also known as swimmer's ear, on the left. A prescription for Cortisporin otic suspension has been sent to the [facility], located just south and across the [address] from [facility]. Instill 4 drops of Cortisporin otic suspension into your left ear, 3-4 times a day, until your symptoms have resolved. Follow-up with your PCP, Dr. Almas Galicia, as needed. If any other problems, please do not hesitate to return to the ER.
== END 2019-06-08 06:10 | disposition home or self-care (01) ==
LOC: JD.ED 05:45
DX: H60.92 Unspecified otitis externa, left ear (principal); I12.9 Hypertensive chronic kidney disease with stage 1 through stage 4 chronic kidney disease, or unspecified chronic kidney disease; E11.22 Type 2 diabetes mellitus with diabetic chronic kidney disease; N18.9 Chronic kidney disease, unspecified; E78.00 Pure hypercholesterolemia, unspecified; Z87.891 Personal history of nicotine dependence; Z91.040 Latex allergy status; Z79.899 Other long term (current) drug therapy
CPT/HCPCS: 99282; 99283

== ENCOUNTER 2019-07-16 15:48 | Emergency (ER) | payer BC ==
--- NOTE | 2019-07-16 16:29 | EDM.PDOC ---
ED HPI GENERAL MEDICAL PROBLEM - General Chief Complaint: Flank Pain Stated Complaint: BACK PAIN Time Seen by Provider: 07/16/19 15:57 Source of Information: Reports: Patient, Old Records, RN Notes Reviewed History Limitations: Reports: No Limitations - History of Present Illness INITIAL COMMENTS - FREE TEXT/NARRATIVE: Patient is a 48-year-old female who presents to the ED for evaluation of lower back/bilateral flank pain. Patient notes that this is been present since yesterday, she tried it take some hot baths and treat this at home, however it is not going away. Patient notes that she believes she might have a kidney infection or a bladder infection as this is commonly the symptoms she receives when she gets an infection. She denies any dysuria. The patient notes that she has stage IV kidney failure, and she is doctoring with Dr. Rai for this, she states that she is supposed to start dialysis in the next couple weeks. Review of her recent lab work demonstrated creatinine of 4.0 done on July 10, 2019. The patient states that she is having some chills, and the back pain or bilateral flank pain, but does not have any sort of nausea vomiting or diarrhea. Patient does state that although she has bilateral flank pain the right side seems to be hurting worse than the left. She notes this to be a dull ache in nature, and is constant since it started hurting. She does not notice anything makes is really worse or much better, she is not taking any medications at home for pain relief such as ibuprofen or Tylenol. She would rate her pain at a 4 out of 10 today. Bilateral Flank Pain Score (Numeric/FACES): 4 - Related Data Allergies Allergy/AdvReac Type Severity Reaction Status Date / Time Latex, Natural Rubber Allergy Rash Verified 07/16/19 18:02 Home Meds: Home Meds Ondansetron HCl [Zofran] 4 mg PO Q8H PRN 07/05/18 [History] Rosuvastatin [Crestor] 5 mg PO BEDTIME 09/13/18 [History] amLODIPine [Norvasc] 10 mg PO DAILY 10/10/18 [History] Furosemide [Lasix] 20 mg PO BID 01/29/19 [History] Calcium Acetate 667 mg PO TID 06/08/19 [History] Acetaminophen/HYDROcodone [[place] 325-5 MG] 1 tab PO Q6H PRN #14 tablet 10/03/19 [Rx] Iron Polysaccharide Complex [Iferex 150] 150 mg PO BID 07/16/19 [History] Multivitamin [Multi-Vitamin Daily] 1 tab PO DAILY 07/16/19 [History] hydrALAZINE [Apresoline] 10 mg PO BID 07/16/19 [History] Past Medical History HEENT History: Reports: Hard of Hearing, Impaired Vision, Otitis Media Cardiovascular History: Reports: High Cholesterol, Hypertension Respiratory History: Reports: Pneumonia, Recurrent Gastrointestinal History: Reports: GERD Genitourinary History: Reports: Chronic Renal Insuffiency AVIATION PROJECT ENGINEER History: Reports: Other (See Below) Other AVIATION PROJECT ENGINEER History: started menopause Psychiatric History: Reports: Anxiety Endocrine/Metabolic History: Reports: Diabetes, Type II Dermatologic History: Reports: Other (See Below) Other Dermatologic History: Ulceration to 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 - Infectious Disease History Infectious Disease History: Reports: C-Difficile, Other (See Below) Other Infectious Disease History: found this admission - Past Surgical History HEENT Surgical History: Reports: Myringotomy w Tube(s), Oral Surgery GI Surgical History: Reports: Cholecystectomy Dermatological Surgical History: Reports: Other (See Below) Social & Family History - Family History Family Medical History: Noncontributory Cardiac: Reports: CAD - Tobacco Use Smoking Status *Q: Never Smoker - Caffeine Use Caffeine Use: Reports: None - Recreational Drug Use Recreational Drug Use: No - Living Situation & Occupation Living situation: Reports: , with Spouse Occupation: Employed ([employer]) ED ROS GENERAL - Review of Systems Review Of Systems: See Below Constitutional: Reports: Chills. Denies: Fever HEENT: Reports: No Symptoms Respiratory: Denies: Shortness of Breath Cardiovascular: Denies: Chest Pain GI/Abdominal: Denies: Constipation, Diarrhea, Nausea, Vomiting : Reports: Flank Pain (Bilaterall, but worse on right). Denies: Dysuria, Hematuria Musculoskeletal: Reports: Back Pain (lower back) Skin: Reports: No Symptoms Neurological: Reports: No Symptoms Psychiatric: Reports: No Symptoms Hematologic/Lymphatic: Reports: No Symptoms ED EXAM, RENAL/ - Physical Exam Exam: See Below Exam Limited By: No Limitations General Appearance: Alert, WD/WN, No Apparent Distress (she appears to moderately uncomfortable on the ED cot) Eye Exam: Bilateral Eye: EOMI, Normal Inspection, PERRL Respiratory/Chest: No Respiratory Distress, Lungs Clear, Normal Breath Sounds, No Accessory Muscle Use, Chest Non-Tender Cardiovascular: Normal Peripheral Pulses, Regular Rate, Rhythm, No Murmur GI/Abdominal: Normal Bowel Sounds, Soft, Non-Tender, No Distention, No Mass Back Exam: Normal Inspection, Other (R lower flank pain). No: CVA Tenderness (L ), CVA Tenderness (R) Extremities: Normal Inspection, Normal Capillary Refill Neurological: Alert, Oriented, Normal Cognition, No Motor/Sensory Deficits Psychiatric: Normal Affect, Normal Mood Skin Exam: Warm, Dry, Intact, Normal Color, No Rash Course - Vital Signs Last Recorded V/S: Last Vital Signs Temp 98.1 F 07/16/19 15:57 Pulse 99 07/16/19 15:57 Resp 20 07/16/19 15:57 BP 166/77 H 07/16/19 15:57 Pulse Ox - Orders/Labs/Meds Labs: Laboratory Tests 07/16/19 07/16/19 07/16/19 Range/Units 16:10 16:31 16:31 WBC 7.60 (3.98-10.04) K/mm3 RBC 3.75 L (3.98-5.22) M/mm3 Hgb 10.6 L (11.2-15.7) gm/dl Hct 31.0 L (34.1-44.9) % MCV 82.7 (79.4-94.8) fl MCH 28.3 (25.6-32.2) pg MCHC 34.2 (32.2-35.5) g/dl RDW Std Deviation 40.6 (36.4-46.3) fL Plt Count 284 D (182-369) K/mm3 MPV 8.7 L (9.4-12.3) fl Neut % (Auto) 64.0 (34.0-71.1) % Lymph % (Auto) 24.9 (19.3-51.7) % [place] % (Auto) 7.0 (4.7-12.5) % Eos % (Auto) 3.6 (0.7-5.8) Baso % (Auto) 0.5 (0.1-1.2) % Neut # (Auto) 4.87 (1.56-6.13) K/mm3 Lymph # (Auto) 1.89 (1.18-3.74) K/mm3 [place] # (Auto) 0.53 H (0.24-0.36) K/mm3 Eos # (Auto) 0.27 (0.04-0.36) K/mm3 Baso # (Auto) 0.04 (0.01-0.08) K/mm3 Sodium 138 (136-145) mEq/L Potassium 4.5 (3.5-5.1) mEq/L Chloride 104 (98-107) mEq/L Carbon Dioxide 24 (21-32) mEq/L Anion Gap 14.5 (5-15) BUN 81 H (7-18) mg/dL Creatinine 4.1 H (0.55-1.02) mg/dL Est Cr Clr Drug Dosing 16.14 mL/min Estimated GFR (MDRD) 12 (>60) mL/min BUN/Creatinine Ratio 19.8 H (14-18) Glucose 128 H (74-106) mg/dL Calcium 8.8 (8.5-10.1) mg/dL Total Bilirubin 0.3 (0.2-1.0) mg/dL AST 22 (15-37) U/L ALT 25 (14-59) U/L Alkaline Phosphatase 63 (46-116) U/L Total Protein 7.7 (6.4-8.2) g/dl Albumin 3.5 (3.4-5.0) g/dl Globulin 4.2 gm/dL Albumin/Globulin Ratio 0.8 L (1-2) Urine Color Yellow (Yellow) Urine Appearance Clear (Clear) Urine pH 6.5 (5.0-8.0) Ur Specific [place] 1.020 (1.005-1.030) Urine Protein 3+ H (Negative) Urine Glucose (UA) Trace H (Negative) Urine Ketones Negative (Negative) Urine Occult Blood 2+ H (Negative) Urine Nitrite Negative (Negative) Urine Bilirubin Negative (Negative) Urine Urobilinogen 0.2 (0.2-1.0) Ur Leukocyte Esterase Negative (Negative) Urine RBC 5-10 H (0-5) /hpf Urine WBC 0-5 (0-5) /hpf Ur Squamous Epith Cells 0-5 (0-5) /hpf Urine Bacteria Few (FEW) /hpf Urine Mucus Few (FEW) /hpf Meds: Medications Discontinued Medications Generic Name Dose Route Start Last Admin Trade Name Freq PRN Reason Stop Dose Admin Acetaminophen 650 mg 07/16/19 17:51 07/16/19 18:02 Tylenol PO 07/16/19 17:52 Not Given NOW ONE - Re-Assessments/Exams Free Text/Narrative Re-Assessment/Exam: 07/16/19 16:28 Patient presents to the ED for evaluation of lower back pain and flank pain. Did order a UA to be obtained, a CBC and a CMP for further lab evaluation. Patient was not requesting anything for pain medication at this time. 07/16/19 17:46 Patient labs are done, the urinalysis shows some blood in the urine, but no sign of any urinary tract infection. Patient does have some flank/back pain which would be consistent with a possible kidney stone. I did offer to do a CT for further evaluation, but the patient refused at this time. The patient's laboratory evaluation demonstrated a creatinine of 4.1, and a GFR of 12, this is relatively stable from her last lab draw on 07/10/19. The patient was relieved that she did not have a urinary tract infection. She was still having some pain, and I will provide her with a few tablets of pain medication until she can be seen by the chemical compounder and hopefully get in to dialysis. Departure - Departure Time of Disposition: 17:49 Disposition: Home, Self-Care 01 Condition: Fair Clinical Impression: Right flank pain, Stage 4 chronic kidney disease Low back ache Qualifiers: Chronicity: acute Back pain laterality: right Sciatica presence: without sciatica Qualified Code(s): M54.5 - Low back pain - Discharge Information *PRESCRIPTION DRUG MONITORING PROGRAM REVIEWED*: No *COPY OF PRESCRIPTION DRUG MONITORING REPORT IN PATIENT JONNIE: No Prescriptions: Acetaminophen/HYDROcodone [[place] 325-5 MG] 1 tab PO Q6H PRN #14 tablet PRN Reason: Pain Instructions: Flank Pain, Adult, [id number], Chronic Kidney Disease, Adult Referrals: Almas Galicia MD [Primary Care Provider] - Forms: ED Department Discharge Additional Instructions: You evaluated in the ED today for your flank/back pain. Your urinalysis demonstrated no UTI at this time, your creatinine was 4.1 and your GFR was 12. This is not much change from your previous lab draw on . Which revealed a creatinine of 4.0 and a GFR of 12. You were given some tablets of pain medication, please take as few of these as possible, as these can be habit forming. You only take his pain medication if your pain is not relieved by Tylenol alone. Please return to the ER if your symptoms change or worsen.
[2019-07-16] MEDS ORDERED: Acetaminophen 325 MG Tab PO ONE (17:51)
== END 2019-07-16 18:12 | disposition home or self-care (01) ==
LOC: JD.ED 15:48
DX: M54.5 Low back pain (principal); E78.00 Pure hypercholesterolemia, unspecified; E11.22 Type 2 diabetes mellitus with diabetic chronic kidney disease; I12.9 Hypertensive chronic kidney disease with stage 1 through stage 4 chronic kidney disease, or unspecified chronic kidney disease; N18.4 Chronic kidney disease, stage 4 (severe); Z79.899 Other long term (current) drug therapy; Z91.040 Latex allergy status
CPT/HCPCS: 36415; 80053; 81001; 85025; 99284

== ENCOUNTER 2019-09-17 11:21 | Emergency (ER) | payer BC ==
[2019-09-17] MEDS ORDERED: HYDROmorphone 0.5 MG/0.5 ML Syringe IVPUSH ONE ×3 (11:48→13:43)
[2019-09-17] MEDS ORDERED: Ondansetron 4 MG/2 ML SDV IVPUSH ONE (11:48)
--- NOTE | 2019-09-17 12:04 | EDM.PDOC ---
<Kina Soriano - Last Filed: 09/17/19 15:53> ED HPI GENERAL MEDICAL PROBLEM - General Chief Complaint: Abdominal Pain Stated Complaint: POST SURGICAL COMPLICATIONS- TRIPLE BYPASS Time Seen by Provider: 09/17/19 11:37 Source of Information: Reports: Patient History Limitations: Reports: No Limitations - History of Present Illness INITIAL COMMENTS - FREE TEXT/NARRATIVE: 48 year old female who presents to the ED from dialysis with complaints of abdominal pain. She states that yesterday she developed dull periumbilical pain. She states that it was not bad and tolerated it. She states that this morning at about 0900 at dialysis, it became severe and she began vomiting. She was unable to complete her dialysis run due to the abdominal pain and vomiting. Pt recently had a CABG in August of 2019 and has had her gallbladder removed. Pt describes the pain as colicky and she is very uncomfortable sitting on the side of the bed guarding her abdomen. The patient does have a history of constipation issues for which she takes miralax and senna. Her last BM was yesterday and she denies constipation with this. Treatments BILINGUAL MANAGER: Reports: Acetaminophen Middle Abdomen Pain Score (Numeric/FACES): 9 - Related Data Allergies Allergy/AdvReac Type Severity Reaction Status Date / Time Latex, Natural Rubber Allergy Rash Verified 09/17/19 11:32 Home Meds: Home Meds Rosuvastatin [Crestor] 5 mg PO BEDTIME 09/13/18 [History] Furosemide [Lasix] 20 mg PO BID 01/29/19 [History] Calcium Acetate 667 mg PO TID 06/08/19 [History] Acetaminophen/HYDROcodone [[place] 325-5 MG] 1 tab PO Q6H PRN #14 tablet 07/16/19 [Rx] Iron Polysaccharide Complex [Iferex 150] 150 mg PO BID 07/16/19 [History] Aspirin 81 mg PO DAILY 09/17/19 [History] Cholecalciferol (Vitamin D3) [Vitamin D] 0 unit PO DAILY 09/17/19 [History] Metoprolol Tartrate 12.5 mg PO BID 09/17/19 [History] Ondansetron [Zofran ODT] 4 mg PO Q6H PRN #10 tab.dis 09/17/19 [Rx] Polyethylene Glycol 3350 [MiraLAX] 17 gm PO DAILY 09/17/19 [History] Sennosides [Senna] 8.6 mg PO DAILY 09/17/19 [History] Past Medical History HEENT History: Reports: Hard of Hearing, Impaired Vision, Otitis Media Cardiovascular History: Reports: Bypass, High Cholesterol, Hypertension Respiratory History: Reports: Pneumonia, Recurrent Gastrointestinal History: Reports: GERD Genitourinary History: Reports: Chronic Renal Insuffiency, Dialysis MANAGER SECURITY History: Reports: None Other MANAGER SECURITY History: started menopause Musculoskeletal History: Reports: None Neurological History: Reports: None Psychiatric History: Reports: Anxiety Endocrine/Metabolic History: Reports: Diabetes, Type II Hematologic History: Reports: Iron Deficiency Immunologic History: Reports: None Oncologic (Cancer) History: Reports: None Dermatologic History: Reports: Other (See Below) Other Dermatologic History: Ulceration to 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 - Infectious Disease History Infectious Disease History: Reports: C-Difficile, Other (See Below) Other Infectious Disease History: found this admission - Past Surgical History HEENT Surgical History: Reports: Myringotomy w Tube(s), Oral Surgery Cardiovascular Surgical History: Reports: Coronary Artery Bypass Other Cardiovascular Surgeries/Procedures: Triple Bypass done on August 27, 2019. Respiratory Surgical History: Reports: Thoracentesis GI Surgical History: Reports: Cholecystectomy Social & Family History - Family History Family Medical History: Noncontributory Cardiac: Reports: CAD - Tobacco Use Smoking Status *Q: Never Smoker - Caffeine Use Caffeine Use: Reports: None - Recreational Drug Use Recreational Drug Use: No - Living Situation & Occupation Living situation: Reports: , with Spouse Occupation: Employed ([employer]) ED [facility] GENERAL - Review of Systems Review Of Systems: See Below Constitutional: Reports: No Symptoms. Denies: Fever, Chills, Diaphoresis HEENT: Reports: No Symptoms Respiratory: Reports: No Symptoms. Denies: Shortness of Breath, Cough Cardiovascular: Reports: No Symptoms. Denies: Chest Pain, Lightheadedness, Palpitations Endocrine: Reports: No Symptoms GI/Abdominal: Reports: Abdominal Pain, Constipation, Nausea, Vomiting. Denies: Black Stool, Bloody Stool, Diarrhea : Reports: No Symptoms. Denies: Dysuria, Flank Pain, Frequency, Pain Musculoskeletal: Reports: No Symptoms Skin: Reports: No Symptoms Neurological: Reports: No Symptoms Psychiatric: Reports: No Symptoms Hematologic/Lymphatic: Reports: No Symptoms Immunologic: Reports: No Symptoms ED EXAM, GI/ABD - Physical Exam Exam: See Below Exam Limited By: No Limitations General Appearance: Alert, WD/WN, Severe Distress (umbilical pain) Ears: Normal External Exam, Hearing Grossly Normal Nose: Normal Inspection Throat/Mouth: Normal Inspection, Normal Teeth, Normal Voice, No Airway Compromise Head: Atraumatic, Normocephalic Neck: Normal Inspection, Supple Respiratory/Chest: No Respiratory Distress, Lungs Clear, Normal Breath Sounds, Other (scabbed area noted to sternum from CABG). No: Respiratory Distress, Crackles, Rales, Rhonchi, Wheezing Cardiovascular: Normal Peripheral Pulses, Regular Rate, Rhythm, No Murmur GI/Abdominal Exam: Normal Bowel Sounds, Soft, Guarding, Tender, Other (unable to lay flat in the bed, examined the patient sitting at the bedside) (Female) Exam: Deferred Rectal (Female) Exam: Deferred Back Exam: Normal Inspection, Full Range of Motion Extremities: Normal Inspection, Normal Range of Motion, Non-Tender Neurological: Alert, Oriented, Normal Cognition, No Motor/Sensory Deficits Psychiatric: Normal Affect, Normal Mood Skin Exam: Warm, Dry, Normal Color, No Rash (numerous scabbed areas to chest and abdomen) Lymphatic: No Adenopathy Course - Vital Signs Text/Narrative:: I ordered Dilaudid and zofran on this patient and she states that it did not touch her pain. After consulting with Dr. Osorio, I ordered another 0.5mg IV diluadid to be given. Last Recorded V/S: Last Vital Signs Temp 97.7 F 09/17/19 11:28 Pulse 95 09/17/19 11:28 Resp 20 09/17/19 11:28 BP 129/70 09/17/19 11:28 Pulse Ox 98 09/17/19 11:28 - Orders/Labs/Meds Orders: Active Orders 24 hr Category Date Time Status Abdomen 2V AP Flat Upright [CR] Stat Exams 09/17/19 11:48 Taken Abdomen Pelvis wo Cont [CT] Stat Exams 09/17/19 13:43 Taken Chest 1V Frontal [CR] Stat Exams 09/17/19 14:41 Taken CULTURE URINE [RM] Stat Lab 09/17/19 12:00 Received Labs: Laboratory Tests 09/17/19 09/17/19 09/17/19 Range/Units 11:39 11:39 12:03 WBC 11.15 H (3.98-10.04) K/mm3 RBC 3.56 L (3.98-5.22) M/mm3 Hgb 10.5 L (11.2-15.7) gm/dl Hct 32.6 L (34.1-44.9) % MCV 91.6 D (79.4-94.8) fl MCH 29.5 (25.6-32.2) pg MCHC 32.2 (32.2-35.5) g/dl RDW Std Deviation 49.1 H (36.4-46.3) fL Plt Count 487 H D (182-369) K/mm3 MPV 8.7 L (9.4-12.3) fl Neutrophils % (Manual) 65 H (40-60) % Band Neutrophils % 0 (0-10) % Lymphocytes % (Manual) 23 (20-40) % Atypical Lymphs % 0 % Monocytes % (Manual) 7 (2-10) % Eosinophils % (Manual) 5 (0.7-5.8) % Basophils % (Manual) 0 L (0.1-1.2) Platelet Estimate Adequate RBC Morph Comment Normal Sodium 137 (136-145) mEq/L Potassium 3.2 L (3.5-5.1) mEq/L Chloride 96 L (98-107) mEq/L Carbon Dioxide 29 (21-32) mEq/L Anion Gap 15.2 H (5-15) BUN 9 (7-18) mg/dL Creatinine 2.0 H D (0.55-1.02) mg/dL Est Cr Clr Drug Dosing 33.09 mL/min Estimated GFR (MDRD) 26 (>60) mL/min BUN/Creatinine Ratio 4.5 L (14-18) Glucose 110 H (74-106) mg/dL Calcium 9.2 (8.5-10.1) mg/dL Total Bilirubin 0.4 (0.2-1.0) mg/dL AST 20 (15-37) U/L ALT 15 (14-59) U/L Alkaline Phosphatase 119 H (46-116) U/L C-Reactive Protein 2.5 H* (<1.0) mg/dL Total Protein 7.9 (6.4-8.2) g/dl Albumin 3.3 L (3.4-5.0) g/dl Globulin 4.6 gm/dL Albumin/Globulin Ratio 0.7 L (1-2) Lipase 333 (73-393) U/L Urine Color Yellow (Yellow) Urine Appearance Slt cloudy H (Clear) Urine pH 8.5 H (5.0-8.0) Ur Specific [place] 1.020 (1.005-1.030) Urine Protein 3+ H (Negative) Urine Glucose (UA) Negative (Negative) Urine Ketones Negative (Negative) Urine Occult Blood 1+ H (Negative) Urine Nitrite Negative (Negative) Urine Bilirubin Negative (Negative) Urine Urobilinogen 0.2 (0.2-1.0) Ur Leukocyte Esterase Trace H (Negative) Urine RBC 10-20 H (0-5) /hpf Urine WBC 5-10 H (0-5) /hpf Ur Epithelial Cells 0-5 (0-5) /hpf Urine Bacteria Moderate H (FEW) /hpf Urine Mucus Few (FEW) /hpf Meds: Medications Discontinued Medications Generic Name Dose Route Start Last Admin Trade Name Freq PRN Reason Stop Dose Admin Diatrizoate Meglum/Diatrizoate Sod 120 ml 09/17/19 13:48 Gastrografin 37% PO 09/17/19 13:49 ONETIME ONE Hydromorphone HCl 0.5 mg 09/17/19 11:48 09/17/19 12:02 Dilaudid IVPUSH 09/17/19 11:49 0.5 mg ONETIME ONE Administration Hydromorphone HCl 0.5 mg 09/17/19 12:47 09/17/19 12:51 Dilaudid IVPUSH 09/17/19 12:48 0.5 mg ONETIME ONE Administration Hydromorphone HCl 0.5 mg 09/17/19 13:43 09/17/19 14:08 Dilaudid IVPUSH 09/17/19 13:44 0.5 mg ONETIME ONE Administration Sodium Chloride 500 mls @ 999 mls/hr 09/17/19 14:41 09/17/19 15:00 Normal Saline IV 09/17/19 15:11 999 mls/hr .BOLUS ONE Administration Iopamidol 100 ml 09/17/19 13:48 Isovue-300 (61%) IVPUSH 09/17/19 13:49 ONETIME ONE Magnesium Citrate 296 ml 09/17/19 16:36 09/17/19 16:52 Citrate Of Magnesia PO 09/17/19 16:37 296 ml ONETIME ONE Administration Metoclopramide HCl 5 mg 09/17/19 14:02 09/17/19 14:08 Reglan IVPUSH 09/17/19 14:03 5 mg ONETIME ONE Administration Ondansetron HCl 4 mg 09/17/19 11:48 09/17/19 12:02 Zofran IVPUSH 09/17/19 11:49 4 mg ONETIME ONE Administration Sodium Chloride 10 ml 09/17/19 13:48 Saline Flush FLUSH ONETIME PRN IV FLUSH Departure - Departure Disposition: Home, Self-Care 01 Clinical Impression: Abdominal pain Qualifiers: Abdominal location: generalized Qualified Code(s): R10.84 - Generalized abdominal pain Constipation Qualifiers: Constipation type: unspecified constipation type Qualified Code(s): K59.00 - Constipation, unspecified - Discharge Information Prescriptions: Ondansetron [Zofran ODT] 4 mg PO Q6H PRN #10 tab.dis PRN Reason: Nausea/Vomiting Instructions: Constipation, Adult Referrals: Almas Galicia MD [Primary Care Provider] - Forms: ED Department Discharge Additional Instructions: Clear liquids for the next several hours, then very careful bland diet as tolerated. Mag citrate, drink one half bottle remainder of this afternoon and early evening. If you have not had a good BM within 4-5 hours then drink the remainder of the bottle tomorrow morning. Continue current medications. Take a stool softener once or twice daily as needed. MiraLAX once or twice daily as needed. Dialysis next Saturday 2 days from now as planned. Return to ED as needed if symptoms worsening in any way. <Baron Osorio - Last Filed: 09/17/19 18:51> Course - Re-Assessments/Exams Free Text/Narrative Re-Assessment/Exam: 09/17/19 18:46 Initial hx and exam was done by Kina Allison, EMPLOYEE BENEFITS ATTORNEY student. I agree with her hx and exam as documented. I have also interviewed and examined patient. She was in severe distress on arrival to ED. She was given 0.5 mg Dilaudid IV 3 and also Zofran and Reglan IV before she did obtain reasonable relief of her discomfort. White blood count for a mildly elevated at around 10,000, C-reactive protein 2.5. Flat and upright of the abdomen did show moderate stool, no other apparent abnormality. Due to severity of her pain and difficulty getting pain under control plan was made for CT abdomen pelvis. At first there was intention to do this with contrast. Her had severe objection to that and even doing abdominal CT in the first place. Of note creatinine came back at 2.0. she does have moderate kidney function, does make urine. states creatinine normally is in the 3-3.5 range. Not wanting to further stress her kidney it was decided to do the abdominal CT without contrast. We did attempt to have her drink some oral contrast but due to continued repetitive vomiting that was stopped. CT abdomen pelvis without IV or oral contrast did not show acute abnormality other than constipation. See radiology report for details. At time of reevaluation shortly before discharge her pain was completely under control with IV meds given, abd now nontender. She is no longer vomiting and feeling up to going home. Discharge instructions as documented. Departure - Departure Time of Disposition: 16:36 Condition: Fair
[2019-09-17] MEDS ORDERED: Iopamidol 612 MG/ML 100 ML Bottle IVPUSH ONE (13:48)
[2019-09-17] MEDS ORDERED: Sodium Chloride 0.9% 10 ML Syringe FLUSH PRN (13:48)
[2019-09-17] MEDS ORDERED: Diatrizoate Meglumine/Diatrizoate Sodium 37% 120 ML Bottle PO ONE (13:48)
[2019-09-17] MEDS ORDERED: Metoclopramide 10 MG/2 ML SDV IVPUSH ONE (14:02)
[2019-09-17] MEDS ORDERED: Sodium Chloride 0.9% 500 ML IV ONE (14:41)
[2019-09-17] MEDS ORDERED: Magnesium Citrate Solution 296 ML Bottle PO ONE (16:36)
--- NOTE | 2019-09-21 06:36 | CR ---
Chest: PA view of the chest was obtained. Comparison: Prior chest x-ray of 05/09/19. Small right-sided pleural effusion is seen with slightly larger left-sided pleural effusion. Increased parenchymal density within the left base is also noted which is better seen on recent CT exam. Heart size at the upper limits of normal. Upper mediastinum is normal. Previous sternotomy is seen. No additional parenchymal change is seen within the lungs. Bony structures are grossly intact. Impression: 1. Small bilateral pleural effusions larger in size on the left side. 2. Parenchymal density within left lung base described on recent chest CT. 3. Previous sternotomy. Diagnostic code #3 This report was dictated in [place] Standard Time
--- NOTE | 2019-09-21 06:36 | CT ---
CT abdomen and pelvis Technique: Multiple axial sections were obtained from above the dome of the diaphragm inferiorly through the pubic symphysis. Patient refused intravenous and oral contrast and it diminishes details and interpretation accuracy. Comparison: Prior abdominal x-ray performed earlier on the same day, previous abdominal and pelvic CT exam of 09/13/18. Findings: Small bilateral pleural effusions are seen which is slightly larger on the left side. Compressive type atelectasis is noted within the left lung base as well as early consolidating change within the left base. Liver shows no discrete abnormality. Surgical clips are seen from prior cholecystectomy. Spleen appears within normal limits. Small hiatal hernia is noted. No discrete abnormality is seen within the pancreas. Adrenal glands show no nodule. Two small calcifications are seen within the right kidney believed to represent very small nonobstructing calculi. Minimal calcification is seen within the upper left kidney also believed to represent a small nonobstructing calculus. No hydronephrosis is seen. Aorta shows atherosclerotic calcification which continues into the iliac vessels with no aneurysm. No retroperitoneal adenopathy or mesenteric abnormalities are seen. No pelvic mass or adenopathy is seen. Small exophytic uterine fibroid noted anteriorly containing several calcifications measuring 1.9 cm. Additional subserosal fibroid is seen on the reconstructed sagittal images measuring about 1.4 cm. Appendix is visualized and is felt to be normal in size. Mild increased stool seen throughout the colon. Increased soft tissue density is seen extending from the rectum to the posterior right soft tissues which shows no appreciable change from previous CT exam. Bone window settings were reviewed which show degenerative change within the lower thoracic spine. Several anterior wedge deformities within the lower thoracic spine are seen which are likely old. Impression: 1. Small bilateral pleural effusions, slightly larger on the left side. 2. Left basilar atelectasis as well as early consolidation within the left base. Difficult to exclude developing pneumonia. 3. Mild increased stool within the colon. 4. Small nonobstructing calculi within both kidneys. 5. Increased soft tissue density from the rectum to the posterior right soft tissues. Difficult to exclude infection as well as fistula. This may also represent scarring from old infection as no significant change is seen to this finding from prior study. Diagnostic code #3 This report was dictated in [place] Standard Time I agree with preliminary report from [facility], finalized on 09/17/19, 3:57 PM Central Time
--- NOTE | 2019-09-21 06:36 | CR ---
Abdomen: Supine and upright views of the abdomen were obtained. Comparison: Prior abdominal x-ray of 09/17/18. Increased density within the left lung base is seen. Calcifications within the pelvis are likely phleboliths. Bowel gas pattern is normal. Surgical clips are seen anterior to the heart as well as within the left upper abdomen. Prior cholecystectomy is noted. Previous sternotomy is noted. Bony structures show nothing acute. No soft tissue abnormality is seen. Impression: 1. Increased density within the left lung base which appears to mostly correlate to pleural effusion and atelectasis on subsequent CT exam. 2. Other findings as noted above believed to be incidental. Diagnostic code #3 This report was dictated in [place] Standard Time
== END 2019-09-17 16:55 | disposition home or self-care (01) ==
LOC: JD.ED 11:21
DX: R10.84 Generalized abdominal pain (principal); K59.00 Constipation, unspecified; I12.9 Hypertensive chronic kidney disease with stage 1 through stage 4 chronic kidney disease, or unspecified chronic kidney disease; E11.22 Type 2 diabetes mellitus with diabetic chronic kidney disease; N18.9 Chronic kidney disease, unspecified; I10 Essential (primary) hypertension; E78.00 Pure hypercholesterolemia, unspecified; Z99.2 Dependence on renal dialysis; Z91.040 Latex allergy status; Z79.82 Long term (current) use of aspirin; Z79.899 Other long term (current) drug therapy
CPT/HCPCS: 36415; 71045; 74019; 74176; 80053; 81001; 83690; 85007; 85027; 86140; 87086; 87186; 96361; 96374; 96375; 96376; 99284; A9270; J1170; J2405; J2765; J7030; Q9963; 93010

== ENCOUNTER 2019-09-17 21:10 | Emergency (ER) | payer BC ==
[2019-09-17] MEDS ORDERED: Sodium Chloride 0.9% 10 ML Syringe FLUSH PRN (21:40)
[2019-09-17] MEDS ORDERED: Famotidine 20 MG/2 ML SDV IVPUSH ONE (21:41)
[2019-09-17] MEDS ORDERED: Ondansetron 4 MG/2 ML SDV IVPUSH ONE (21:41)
[2019-09-17] MEDS ORDERED: HYDROmorphone 1 MG/ML Syringe IVPUSH ONE (21:41)
[2019-09-17] MEDS ORDERED: cefTRIAXone 2 GM in Sodium Chloride 0.9% 100 ML IV ONE (22:41)
--- NOTE | 2019-09-17 23:12 | EDM.PDOC ---
ED HPI GENERAL MEDICAL PROBLEM - General Chief Complaint: Abdominal Pain Stated Complaint: PAIN EVERYWHERE Time Seen by Provider: 09/17/19 21:19 Source of Information: Reports: Patient, Family History Limitations: Reports: No Limitations - History of Present Illness INITIAL COMMENTS - FREE TEXT/NARRATIVE: The patient returns to the ER with upper abdominal pain. She was just discharged her about 3 to 4 hours ago. She came in for the same and she had a complete work up to include labs, UA and a CT of her abdomen and pelvis. She was found to be constipated. She went home and she took magnesium citrate and she had about 4 bowel movements. After those BMs her pain came back and it is more severe. She has nausea and vomiting. She has renal failure and she is on dialysis and she had to cut her dialysis short today because she had the abdominal pain, nausea and vomiting. She denies a headache. She has no fever or chills. She has a slight cough at times. She had CABG in [place] in August. She had some pain like this after the surgery and had a large pleural effusion and she had to have a thorocentesis. She does not have shortness of breath. She has no chest pain. She has no dysuria. She still does make urine. Onset: Gradual Duration: Hour(s): Location: Reports: Abdomen Quality: Reports: Sharp Severity: Moderate Improves with: Reports: None Worsens with: Reports: None Associated Symptoms: Reports: Cough, Nausea/Vomiting. Denies: Chest Pain, Fever /Chills, Headaches, Shortness of Breath Upper Abdominal Pain Score (Numeric/FACES): 9 - Related Data Allergies Allergy/AdvReac Type Severity Reaction Status Date / Time Latex, Natural Rubber Allergy Rash Verified 09/17/19 21:22 Home Meds: Home Meds Rosuvastatin [Crestor] 5 mg PO BEDTIME 09/13/18 [History] Furosemide [Lasix] 20 mg PO BID 01/29/19 [History] Calcium Acetate 667 mg PO TID 06/08/19 [History] Acetaminophen/HYDROcodone [[place] 325-5 MG] 1 tab PO Q6H PRN #14 tablet 07/16/19 [Rx] Iron Polysaccharide Complex [Iferex 150] 150 mg PO BID 07/16/19 [History] Aspirin 81 mg PO DAILY 09/17/19 [History] Cholecalciferol (Vitamin D3) [Vitamin D] 0 unit PO DAILY 09/17/19 [History] Metoprolol Tartrate 12.5 mg PO BID 09/17/19 [History] Ondansetron [Zofran ODT] 4 mg PO Q6H PRN #10 tab.dis 09/17/19 [Rx] Polyethylene Glycol 3350 [MiraLAX] 17 gm PO DAILY 09/17/19 [History] Sennosides [Senna] 8.6 mg PO DAILY 09/17/19 [History] Past Medical History HEENT History: Reports: Hard of Hearing, Impaired Vision, Otitis Media Cardiovascular History: Reports: Bypass, High Cholesterol, Hypertension Respiratory History: Reports: Pneumonia, Recurrent Gastrointestinal History: Reports: GERD Genitourinary History: Reports: Chronic Renal Insuffiency, Dialysis PUBLIC HEALTH REGISTRAR History: Reports: None Other PUBLIC HEALTH REGISTRAR History: started menopause Musculoskeletal History: Reports: None Neurological History: Reports: None Psychiatric History: Reports: Anxiety Endocrine/Metabolic History: Reports: Diabetes, Type II Hematologic History: Reports: Iron Deficiency Immunologic History: Reports: None Oncologic (Cancer) History: Reports: None Dermatologic History: Reports: Other (See Below) Other Dermatologic History: Ulceration to 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 - Infectious Disease History Infectious Disease History: Reports: C-Difficile, Other (See Below) Other Infectious Disease History: found this admission - Past Surgical History HEENT Surgical History: Reports: Myringotomy w Tube(s), Oral Surgery Cardiovascular Surgical History: Reports: Coronary Artery Bypass Other Cardiovascular Surgeries/Procedures: Triple Bypass done on August 27, 2019. Respiratory Surgical History: Reports: Thoracentesis GI Surgical History: Reports: Cholecystectomy Social & Family History - Family History Family Medical History: Noncontributory Cardiac: Reports: CAD - Tobacco Use Smoking Status *Q: Never Smoker - Caffeine Use Caffeine Use: Reports: None - Recreational Drug Use Recreational Drug Use: No - Living Situation & Occupation Living situation: Reports: , with Spouse Occupation: Employed ([employer]) [facility] - Review of Systems Review Of Systems: See Below Constitutional: Reports: No Symptoms HEENT: Reports: No Symptoms Respiratory: Reports: Cough. Denies: Shortness of Breath Cardiovascular: Reports: No Symptoms GI/Abdominal: Reports: Abdominal Pain, Nausea, Vomiting. Denies: Diarrhea : Reports: No Symptoms Musculoskeletal: Reports: No Symptoms Skin: Reports: No Symptoms Neurological: Reports: No Symptoms ED EXAM, GI/ABD - Physical Exam Exam: See Below Exam Limited By: No Limitations General Appearance: Moderate Distress Ears: Normal External Exam Nose: Normal Inspection Head: Atraumatic, Normocephalic Neck: Normal Inspection, Supple, Non-Tender Respiratory/Chest: No Respiratory Distress, Lungs Clear, Normal Breath Sounds Cardiovascular: Regular Rate, Rhythm, No Edema, No Murmur GI/Abdominal Exam: Soft, No Organomegaly, No Mass, Tender (Moderate tenderness to the upper abdomen) Back Exam: Normal Inspection EKG INTERPRETATION EKG Date: 09/17/19 Time: 22:58 Rhythm: NSR Rate (Beats/Min): 88 [place]: Normal P-Wave: Present QRS: Normal ST-T: Normal QT: Normal EKG Interpretation Comments: Q waves in the anterior leads and PVC Course - Vital Signs Last Recorded V/S: Last Vital Signs Temp 98.4 F 09/17/19 21:18 Pulse 94 09/17/19 21:18 Resp 18 09/17/19 21:18 BP 165/73 H 09/17/19 21:18 Pulse Ox 100 09/17/19 22:25 - Orders/Labs/Meds Orders: Active Orders 24 hr Category Date Time Status EKG Documentation Completion [RC] ASDIRECTED Care 09/17/19 22:51 Active Peripheral IV Care [RC] . DIRECTED Care 09/17/19 21:41 Active CULTURE BLOOD [BC] Stat Lab 09/17/19 23:00 Received CULTURE BLOOD [BC] Stat Lab 09/17/19 23:10 Received CULTURE URINE [RM] Stat Lab 09/17/19 12:00 Received Sodium Chloride 0.9% [Saline Flush] Med 09/17/19 21:40 Active 10 ml FLUSH ASDIRECTED PRN Blood Culture x2 Reflex Set [OM.PC] Stat Oth 09/17/19 22:40 Ordered Peripheral IV Insertion Adult [OM.PC] Stat Oth 09/17/19 21:40 Ordered EKG 12 Lead [EK] Stat Ther 09/17/19 22:50 Ordered Medication Orders Sodium Chloride (Saline Flush) 10 ml FLUSH ASDIRECTED PRN PRN Reason: Keep Vein Open Last Admin: 09/17/19 21:57 Dose: 10 ml Labs: Laboratory Tests 09/17/19 09/17/19 09/17/19 Range/Units 21:54 21:54 23:00 WBC 12.93 H (3.98-10.04) K/mm3 RBC 3.40 L (3.98-5.22) M/mm3 Hgb 9.9 L (11.2-15.7) gm/dl Hct 31.2 L (34.1-44.9) % MCV 91.8 (79.4-94.8) fl MCH 29.1 (25.6-32.2) pg MCHC 31.7 L (32.2-35.5) g/dl RDW Std Deviation 49.4 H (36.4-46.3) fL Plt Count 488 H (182-369) K/mm3 MPV 8.8 L (9.4-12.3) fl Neut % (Auto) 89.7 H (34.0-71.1) % Lymph % (Auto) 7.4 L (19.3-51.7) % [place] % (Auto) 2.3 L (4.7-12.5) % Eos % (Auto) 0 L (0.7-5.8) Baso % (Auto) 0.4 (0.1-1.2) % Neut # (Auto) 11.59 H (1.56-6.13) K/mm3 Lymph # (Auto) 0.96 L (1.18-3.74) K/mm3 [place] # (Auto) 0.30 (0.24-0.36) K/mm3 Eos # (Auto) 0.00 L (0.04-0.36) K/mm3 Baso # (Auto) 0.05 (0.01-0.08) K/mm3 Manual Slide Review Abnormal smear Sodium 136 (136-145) mEq/L Potassium 3.5 (3.5-5.1) mEq/L Chloride 96 L (98-107) mEq/L Carbon Dioxide 26 (21-32) mEq/L Anion Gap 17.5 H (5-15) BUN 13 (7-18) mg/dL Creatinine 2.6 H (0.55-1.02) mg/dL Est Cr Clr Drug Dosing 25.45 mL/min Estimated GFR (MDRD) 20 (>60) mL/min BUN/Creatinine Ratio 5.0 L (14-18) Glucose 200 H (74-106) mg/dL Lactic Acid 1.2 (0.4-2.0) mmol/L Calcium 9.0 (8.5-10.1) mg/dL Total Bilirubin 0.5 (0.2-1.0) mg/dL AST 26 (15-37) U/L ALT 13 L (14-59) U/L Alkaline Phosphatase 120 H (46-116) U/L Troponin I 0.024 (0.00-0.056) ng/mL Total Protein 7.9 (6.4-8.2) g/dl Albumin 3.5 (3.4-5.0) g/dl Globulin 4.4 gm/dL Albumin/Globulin Ratio 0.8 L (1-2) Meds: Medications Generic Name Dose Route Start Last Admin Trade Name Freq PRN Reason Stop Dose Admin Sodium Chloride 10 ml 09/17/19 21:40 09/17/19 21:57 Saline Flush FLUSH 10 ml ASDIRECTED PRN Administration Keep Vein Open Discontinued Medications Generic Name Dose Route Start Last Admin Trade Name Freq PRN Reason Stop Dose Admin Famotidine 20 mg 09/17/19 21:41 09/17/19 22:03 Pepcid IVPUSH 09/17/19 21:42 20 mg ONETIME ONE Administration Hydromorphone HCl 1 mg 09/17/19 21:41 09/17/19 22:00 Dilaudid IVPUSH 09/17/19 21:42 1 mg ONETIME ONE Administration Ceftriaxone Sodium 2 gm/ 100 mls @ 200 mls/hr 09/17/19 22:41 09/17/19 23:11 Sodium Chloride IV 09/17/19 23:10 200 mls/hr ONETIME ONE Administration Ondansetron HCl 4 mg 09/17/19 21:41 09/17/19 21:57 Zofran IVPUSH 09/17/19 21:42 4 mg ONETIME ONE Administration - Re-Assessments/Exams Free Text/Narrative Re-Assessment/Exam: 09/17/19 23:18 I ordered an IV saline lock, dilaudid 1mg IV, zofran 4mg IV, pepcid 20mg IV, labs, and EKG. Her EKG shows a NSR with no acute changes. I looked at her CXR from prior and she has a left sided pleural effusion. The CT from earlier shows small bilateral pleural effusions. Subsegmental atelectasis at the right base. Infiltrate with air bronchograms in the left lower lobe. Nonobstructive right renal stone measuring 2mm. Exophytic uterine fibroid measuring 2cm. 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 Mild constipation. 09/17/19 23:23 Her WBC is elevated at 12.93. That has increased from 11.15 from earlier in the day. Her Hgb is 9.9 and that is down from 10.5 from earlier in the day. Her platelets are 488. Her anion gap is elevated at 17.5. Her creatinine is 2.6 and that is up from 2 from today. Her glucose is 200. Her alk phos is elevated at 120. Her troponin is negative. Her UA from earlier in the day shows a UTI. I have ordered a culture on that and I also ordered lactic acid, blood cultures and rocephin 2 grams. She also has the infiltrate in the left lower lung. I feel she has pneumonia also. She is a dialysis patient. She needs to be admitted so she will have to go down to [place]. 09/18/19 00:[address] [facility] and talked with the hospitalist Dr Helm and he agreed to the transfer. Departure - Departure Time of Disposition: 00:15 Disposition: DC/Tfer to [facility] ([facility]3] Hospital 02 Condition: Poor Clinical Impression: Bilateral pleural effusion, End stage renal failure on dialysis, Fistula Pneumonia Qualifiers: Pneumonia type: due to unspecified organism Laterality: left Lung location: lower lobe of lung Qualified Code(s): J18.9 - Pneumonia, unspecified organism UTI (urinary tract infection) Qualifiers: Urinary tract infection type: acute cystitis Hematuria presence: without hematuria Qualified Code(s): N30.00 - Acute cystitis without hematuria - Discharge Information Referrals: Almas Galicia MD [Primary Care Provider] - Forms: ED Department Discharge - My Orders Last 24 Hours: My Active Orders 09/17/19 12:00 CULTURE URINE [RM] Stat 09/17/19 21:40 Sodium Chloride 0.9% [Saline Flush] 10 ml FLUSH ASDIRECTED PRN Peripheral IV Insertion Adult [OM.PC] Stat 09/17/19 21:41 Peripheral IV Care [RC] . DIRECTED 09/17/19 22:40 Blood Culture x2 Reflex Set [OM.PC] Stat 09/17/19 22:50 EKG 12 Lead [EK] Stat 09/17/19 22:51 EKG Documentation Completion [RC] ASDIRECTED 09/17/19 23:00 CULTURE BLOOD [BC] Stat 09/17/19 23:10 CULTURE BLOOD [BC] Stat - Assessment/Plan Last 24 Hours: My Active Orders 09/17/19 12:00 CULTURE URINE [RM] Stat 09/17/19 21:40 Sodium Chloride 0.9% [Saline Flush] 10 ml FLUSH ASDIRECTED PRN Peripheral IV Insertion Adult [OM.PC] Stat 09/17/19 21:41 Peripheral IV Care [RC] . DIRECTED 09/17/19 22:40 Blood Culture x2 Reflex Set [OM.PC] Stat 09/17/19 22:50 EKG 12 Lead [EK] Stat 09/17/19 22:51 EKG Documentation Completion [RC] ASDIRECTED 09/17/19 23:00 CULTURE BLOOD [BC] Stat 09/17/19 23:10 CULTURE BLOOD [BC] Stat
[2019-09-18] MEDS ORDERED: HYDROmorphone 0.5 MG/0.5 ML Syringe IVPUSH ONE (00:13)
== END 2019-09-18 00:30 ==
LOC: JD.ED 21:10
DX: J18.9 Pneumonia, unspecified organism (principal); N30.00 Acute cystitis without hematuria; J90 Pleural effusion, not elsewhere classified; I12.0 Hypertensive chronic kidney disease with stage 5 chronic kidney disease or end stage renal disease; N18.6 End stage renal disease; L98.8 Other specified disorders of the skin and subcutaneous tissue; E11.9 Type 2 diabetes mellitus without complications; Z91.040 Latex allergy status; Z79.82 Long term (current) use of aspirin; Z79.899 Other long term (current) drug therapy
CPT/HCPCS: 36415; 80053; 83605; 84484; 85025; 87040; 87086; 93005; 96374; 96375; 96376; 99285; J0696; J1170; J2405; J3490; J7030; 93010; 99284; J7050

== ENCOUNTER 2019-09-20 09:51 | Emergency (ER) | payer BC ==
[2019-09-20] MEDS ORDERED: Metoclopramide 10 MG/2 ML SDV IVPUSH ONE (10:07)
[2019-09-20] MEDS ORDERED: HYDROmorphone 1 MG/ML Syringe IVPUSH ONE (10:08)
--- NOTE | 2019-09-20 10:12 | EDM.PDOC ---
ED HPI GENERAL MEDICAL PROBLEM - General Chief Complaint: Chest Pain Stated Complaint: CHEST PAIN, VOMITING Time Seen by Provider: 09/20/19 10:06 Source of Information: Reports: Patient History Limitations: Reports: No Limitations - History of Present Illness INITIAL COMMENTS - FREE TEXT/NARRATIVE: 48-year-old female presents with intractable nausea and vomiting. She states she awoke around 0530 hrs. this morning with epigastric central chest pressure discomfort which then turned into nausea and vomiting of ileus material in no mostly dry heaving. Denies taking any pain medication overnight on an empty stomach. Of note she underwent triple bypass surgery on 28 August in [place]. ECG shows a wandering baseline but no signs of definitive ischemia. 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 Patient is vomiting and not able to provide much history on initial evaluation. Onset: Today Onset Date: 09/20/19 Onset Time: 05:30 Duration: Hour(s): Location: Reports: Chest, Abdomen (Lower retrosternal chest discomfort strict abdominal pain.) Quality: Reports: Ache, Other (Deep aching pain.) Severity: Severe (She with intractable nausea and vomiting) Improves with: Reports: None, Other Worsens with: Reports: None (Vomiting does not relieve the discomfort.) Context: Reports: Other (Spontaneous occurrence of retrosternal pressure discomfort and epigastric discomfort about 0530 hrs. this morning.). Denies: Activity, Exercise, Lifting, Sick Contact, Trauma Associated Symptoms: Reports: Loss of Appetite, Malaise, Nausea/Vomiting, Shortness of Breath. Denies: Confusion, Chest Pain, cough w sputum ( Intractable nausea and vomiting of bilious material with no blood), Seizure Treatments [employer]: Reports: Other (see below) (Nothing will stay down.) Chest Pain Score (Numeric/FACES): 9 - Related Data Allergies Allergy/AdvReac Type Severity Reaction Status Date / Time Latex, Natural Rubber Allergy Rash Verified 09/17/19 21:22 Home Meds: Home Meds Rosuvastatin [Crestor] 5 mg PO BEDTIME 09/13/18 [History] Furosemide [Lasix] 20 mg PO BID 01/29/19 [History] Calcium Acetate 667 mg PO TID 06/08/19 [History] Acetaminophen/HYDROcodone [Tolley 325-5 MG] 1 tab PO Q6H PRN #14 tablet 07/16/19 [Rx] Iron Polysaccharide Complex [Iferex 150] 150 mg PO BID 07/16/19 [History] Aspirin 81 mg PO DAILY 09/17/19 [History] Cholecalciferol (Vitamin D3) [Vitamin D] 0 unit PO DAILY 09/17/19 [History] Metoprolol Tartrate 12.5 mg PO BID 09/17/19 [History] Ondansetron [Zofran ODT] 4 mg PO Q6H PRN #10 tab.dis 09/17/19 [Rx] Polyethylene Glycol 3350 [MiraLAX] 17 gm PO DAILY 09/17/19 [History] Sennosides [Senna] 8.6 mg PO DAILY 09/17/19 [History] Dicyclomine [Bentyl] 20 mg PO Q6H PRN #16 tablet 09/20/19 [Rx] Famotidine [Pepcid] 20 mg PO BID #28 tab 09/20/19 [Rx] HYDROmorphone [Dilaudid] 2 mg PO ASDIRECTED #14 tab 09/20/19 [Rx] Past Medical History HEENT History: Reports: Hard of Hearing, Impaired Vision, Otitis Media Cardiovascular History: Reports: Bypass (Triple bypass carried out August 28, 2019), High Cholesterol, Hypertension Respiratory History: Reports: Pneumonia, Recurrent Gastrointestinal History: Reports: GERD Genitourinary History: Reports: Chronic Renal Insuffiency, Dialysis Other Genitourinary History: Patient has been on hemodialysis since July. 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 SCALE EXPERT History: Reports: None Other SCALE EXPERT History: started menopause Musculoskeletal History: Reports: None Neurological History: Reports: None Psychiatric History: Reports: Anxiety Endocrine/Metabolic History: Reports: Diabetes, Type II (Controlled primarily with diet.) Hematologic History: Reports: Iron Deficiency Immunologic History: Reports: None Oncologic (Cancer) History: Reports: None Dermatologic History: Reports: Other (See Below) Other Dermatologic History: Ulceration to 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 - Infectious Disease History Infectious Disease History: Reports: C-Difficile, Other (See Below) Other Infectious Disease History: found this admissionshouldn't develop Luis's gangrene in her right inguinal area that took almost a year to heal. She was in hospital for almost 6 months with multiple antibiotics that are thought to have probably hasten the demise of her kidneys. - Past Surgical History HEENT Surgical History: Reports: Myringotomy w Tube(s), Oral Surgery Cardiovascular Surgical History: Reports: Coronary Artery Bypass Other Cardiovascular Surgeries/Procedures: Triple Bypass done on August 27, 2019. Respiratory Surgical History: Reports: Thoracentesis GI Surgical History: Reports: Cholecystectomy Social & Family History - Family History Family Medical History: Noncontributory Cardiac: Reports: CAD - Caffeine Use Caffeine Use: Reports: None - Living Situation & Occupation Living situation: Reports: , with Spouse Occupation: Employed ([employer]) ED ROS GENERAL - Review of Systems Review Of Systems: See Below Constitutional: Reports: Chills, Malaise, Weakness, Fatigue, Decreased Appetite HEENT: Reports: Glasses Respiratory: Reports: Shortness of Breath. Denies: Wheezing, Pleuritic Chest Pain, Cough, Sputum Cardiovascular: Reports: Chest Pain (Lower retrosternal chest pain since 0530 hrs. this morning), Dyspnea on Exertion, Lightheadedness. Denies: Blood Pressure Problem, Claudication, Edema, Orthopnea Endocrine: Reports: Fatigue (While to covering from major surgery) GI/Abdominal: Reports: Abdominal Pain (Diffuse epigastric abdominal pain), Nausea, Vomiting. Denies: Diarrhea (Associated with nausea and vomiting of bilious material) : Reports: No Symptoms Musculoskeletal: Reports: Other (Chest pain that site of recent triple bypass surgery with sternotomy and sternal wiring.) Skin: Reports: Other (Midline sternotomy wound appears to be healing satisfactorily. No signs of infection) Neurological: Reports: No Symptoms Psychiatric: Reports: No Symptoms Hematologic/Lymphatic: Reports: No Symptoms Immunologic: Reports: No Symptoms ED EXAM, GENERAL - Physical Exam Exam: See Below Exam Limited By: Physical Impairment (Ration is vomiting repeatedly during initial interview. Will be obtained after control of vomiting) General Appearance: Moderate Distress (Intractable nausea and vomiting.), Other (Mild pallor. Temperature is 36.4 pulse is 92 and sinus respiratory is 14 with sats 100% on room air BP mildly elevated 152/93) Eye Exam: Bilateral Eye: Normal Inspection Neck: Normal Inspection, Supple, Non-Tender, Full Range of Motion. No: Carotid Bruit, Lymphadenopathy (L), Lymphadenopathy (R) Respiratory/Chest: Lungs Clear, Normal Breath Sounds, No Accessory Muscle Use, Respiratory Distress (Mild tachypnea.), Rales (Left lung base.), Other ( Midline sternotomy wound present and seems to be healing well.) Cardiovascular: Normal Peripheral Pulses, Regular Rate, Rhythm, No Edema, No Gallop, No Murmur, No Rub Peripheral Pulses: 2+: Posterior Tibial (L), Posterior Tibial (R), Dorsalis Pedis (L), Dorsalis Pedis (R) GI/Abdominal: Normal Bowel Sounds, Soft, Non-Tender, No Organomegaly, No Abnormal Bruit, No Mass, Pelvis Stable, Other (Multiple ecchymoses from Lovenox injections.) Back Exam: Normal Inspection, Full Range of Motion. No: CVA Tenderness (L), CVA Tenderness (R) Extremities: Normal Inspection, Normal Range of Motion, Non-Tender, Other (AV fistula left antecubital fossa lower biceps left arm. Used yesterday for dialysis in [place].) Neurological: Alert, Oriented, CN II-XII Intact, Normal Cognition, Normal Gait Psychiatric: Anxious, Other (Can stop vomiting.) Skin Exam: Cool (And clammy.) EKG INTERPRETATION EKG Date: 09/20/19 Time: 09:57 Rhythm: NSR Rate (Beats/Min): 93 (Occasional PVCs) [place]: LAD-Left [place] Deviation (Left axis deviation of -5) P-Wave: Enlarged (Consider left atrial hypertrophy) QRS: Other (Q waves or near Q waves in leads V1 and V2 suggestive of an old anteroseptal myocardial infarction) ST-T: Other (There is mild T-wave inversion in leads 1 and aVL and V5 and V6.) QT: Prolonged (Moderately prolonged) EKG Interpretation Comments: Abnormal ECG Course - Vital Signs Last Recorded V/S: Last Vital Signs Temp 36.4 C 09/20/19 09:55 Pulse 92 09/20/19 09:55 Resp 14 09/20/19 09:55 BP 152/93 H 09/20/19 09:55 Pulse Ox 100 09/20/19 09:55 - Orders/Labs/Meds Orders: Active Orders 24 hr Category Date Time Status EKG Documentation Completion [RC] STAT Care 09/20/19 10:10 Active Abdomen 1V Flat [CR] Stat Exams 09/20/19 10:10 Taken Chest 1V Frontal [CR] Stat Exams 09/20/19 10:10 Taken URINALYSIS W/MICROSCOPIC [UA W/MICROSCOPIC] [URIN] Stat Lab 09/20/19 11:41 Ordered Labs: Laboratory Tests 09/20/19 09/20/19 09/20/19 Range/Units 10:20 10:20 10:20 WBC 12.25 H (3.98-10.04) K/mm3 RBC 3.69 L (3.98-5.22) M/mm3 Hgb 10.6 L (11.2-15.7) gm/dl Hct 34.2 (34.1-44.9) % MCV 92.7 (79.4-94.8) fl MCH 28.7 (25.6-32.2) pg MCHC 31.0 L (32.2-35.5) g/dl RDW Std Deviation 49.8 H (36.4-46.3) fL Plt Count 469 H (182-369) K/mm3 MPV 9.0 L (9.4-12.3) fl Neutrophils % (Manual) 89 H (40-60) % Band Neutrophils % 0 (0-10) % Lymphocytes % (Manual) 10 L (20-40) % Atypical Lymphs % 0 % Monocytes % (Manual) 1 L (2-10) % Eosinophils % (Manual) 0 L (0.7-5.8) % Basophils % (Manual) 0 L (0.1-1.2) Platelet Estimate Increased Plt Morphology Comment Normal Polychromasia 1+ slight Anisocytosis 1+ slight RBC Morph Comment Not Reportable PT 11.8 (9.7-12.0) SECONDS INR 1.09 APTT 26 D (22-31) SECONDS Sodium 140 (136-145) mEq/L Potassium 3.6 (3.5-5.1) mEq/L Chloride 100 (98-107) mEq/L Carbon Dioxide 26 (21-32) mEq/L Anion Gap 17.6 H (5-15) BUN 11 (7-18) mg/dL Creatinine 2.9 H (0.55-1.02) mg/dL Est Cr Clr Drug Dosing 22.82 mL/min Estimated GFR (MDRD) 17 (>60) mL/min BUN/Creatinine Ratio 3.8 L (14-18) Glucose 145 H (74-106) mg/dL Calcium 9.5 (8.5-10.1) mg/dL Magnesium 1.9 (1.8-2.4) mg/dl Total Bilirubin 0.7 (0.2-1.0) mg/dL AST 24 (15-37) U/L ALT 23 (14-59) U/L Alkaline Phosphatase 117 H (46-116) U/L CK-MB (CK-2) 4.7 H (0-3.6) ng/ml Troponin I 0.042 (0.00-0.056) ng/mL C-Reactive Protein 5.0 H* (<1.0) mg/dL NT-Pro-B Natriuret Pep (0-125) pg/mL Total Protein 8.0 (6.4-8.2) g/dl Albumin 3.4 (3.4-5.0) g/dl Globulin 4.6 gm/dL Albumin/Globulin Ratio 0.7 L (1-2) Lipase 191 (73-393) U/L 09/20/19 Range/Units 10:20 WBC (3.98-10.04) K/mm3 RBC (3.98-5.22) M/mm3 Hgb (11.2-15.7) gm/dl Hct (34.1-44.9) % MCV (79.4-94.8) fl MCH (25.6-32.2) pg MCHC (32.2-35.5) g/dl RDW Std Deviation (36.4-46.3) fL Plt Count (182-369) K/mm3 MPV (9.4-12.3) fl Neutrophils % (Manual) (40-60) % Band Neutrophils % (0-10) % Lymphocytes % (Manual) (20-40) % Atypical Lymphs % % Monocytes % (Manual) (2-10) % Eosinophils % (Manual) (0.7-5.8) % Basophils % (Manual) (0.1-1.2) Platelet Estimate Plt Morphology Comment Polychromasia Anisocytosis RBC Morph Comment PT (9.7-12.0) SECONDS INR APTT (22-31) SECONDS Sodium (136-145) mEq/L Potassium (3.5-5.1) mEq/L Chloride (98-107) mEq/L Carbon Dioxide (21-32) mEq/L Anion Gap (5-15) BUN (7-18) mg/dL Creatinine (0.55-1.02) mg/dL Est Cr Clr Drug Dosing mL/min Estimated GFR (MDRD) (>60) mL/min BUN/Creatinine Ratio (14-18) Glucose (74-106) mg/dL Calcium (8.5-10.1) mg/dL Magnesium (1.8-2.4) mg/dl Total Bilirubin (0.2-1.0) mg/dL AST (15-37) U/L ALT (14-59) U/L Alkaline Phosphatase (46-116) U/L CK-MB (CK-2) (0-3.6) ng/ml Troponin I (0.00-0.056) ng/mL C-Reactive Protein (<1.0) mg/dL NT-Pro-B Natriuret Pep > 79255 H (0-125) pg/mL Total Protein (6.4-8.2) g/dl Albumin (3.4-5.0) g/dl Globulin gm/dL Albumin/Globulin Ratio (1-2) Lipase (73-393) U/L Meds: Medications Discontinued Medications Generic Name Dose Route Start Last Admin Trade Name Joyce PRN Reason Stop Dose Admin Dicyclomine HCl 20 mg 09/20/19 12:24 09/20/19 12:55 Bentyl PO 09/20/19 12:25 20 mg ONETIME ONE Administration Famotidine 20 mg 09/20/19 12:24 09/20/19 12:55 Pepcid PO 09/20/19 12:25 20 mg ONETIME ONE Administration Hydromorphone HCl 1 mg 09/20/19 10:08 09/20/19 10:25 Dilaudid IVPUSH 09/20/19 10:09 1 mg ONETIME ONE Administration Hydromorphone HCl 0.5 mg 09/20/19 10:51 09/20/19 10:56 Dilaudid IVPUSH 09/20/19 10:52 0.5 mg ONETIME ONE Administration Sodium Chloride 1,000 mls @ 125 mls/hr 09/20/19 10:15 09/20/19 10:30 Normal Saline IV 125 mls/hr ASDIRECTED TAHIR Administration Metoclopramide HCl 7.5 mg 09/20/19 10:07 09/20/19 10:23 Reglan IVPUSH 09/20/19 10:08 7.5 mg ONETIME ONE Administration - Radiology Interpretation Free Text/Narrative:: 48-year-old female presents to the ED with acute onset of epigastric lower retrosternal chest pressure discomfort which is precipitated nausea and vomiting. She is underwent triple bypass on August 28 of this year. Pain medication and be stomach this morning. He was difficult to obtain as the patient continues to vomit during the interview. Mostly bilious and dry heaves. Able to examine her abdomen at this time. CT does not show any signs of acute coronary artery ischemia. Plan IV normal saline at 125 mils per hour. Reglan 7.5 mg IV to arrest vomiting Dilaudid 1 mg IV for pain relief. X-ray of the chest x-ray of the abdomen to be obtained routine labs to include cardiac markers and BNP. Reexamined her once her pain is under control. - Re-Assessments/Exams Free Text/Narrative Re-Assessment/Exam: 09/20/19 10:52 able to get a better history as her is here now. Surgery was done at [facility] and they stayed in [place] for a month. She basically went into renal failure and became a dialysis patient in July of this year. As part of her workup for potential kidney transplant she had an angiogram which revealed extensive coronary artery disease and they will hopefully could initially put stents in place. However she ended up with a triple bypass. The day and recurrence of left-sided pleural effusion with 800 mils pain removed in [facility] before they left and 700 mils of fluid last week in [place]. She had dialysis done in [place] yesterday and was discharged home. Fine until 5: 30 this morning when she developed pain in her epigastrium and then nausea and vomiting. This seems to happen every time she gets a pleural effusion. Chest x- ray done now shows some slight fluid in the left costophrenic angle but no true pleural effusion. Cardiac silhouette is upper limits of normal. X-ray of the abdomen show scattered stool in the abdomen and no bowel obstruction or air- fluid levels. So for left hand will repeat Dilaudid 0.5 mg IV for pain relief. Will await the labs. 09/20/19 11:41 White count is 12.25 with a left shift of 89% neutrophils. No band cells reported. Hemoglobin is 10.6 with hematocrit of 34.2. Platelet count is 469,000. PT is 11.8 with an INR 1.09. PTT is 26. Sodium 140 with potassium of 3.6 chloride 100 with a bicarbonate of 26 and a gap is 17.6. BUN is 11 with a creatinine of 2.9. EGFR is down to 17. Glucose 145 calcium 9.5 magnesium 1.9 liver function normal CK-MB fraction is elevated at 4.7 troponin I is 0.042. C- reactive protein is 5.0 BNP is greater than 35,000. 09/20/19 12:19 Patient is much improved and pain-free at this time. I'm wondering if she does have a stress ulcer . I am wondering if she is not withdrawing from narcotics as she's been taking them more or less for [address] her on Dilaudid tablet 2 mg strength one every 8 hours for the next 2 days and then one every 12 hours with another 3 days and off. I' m also going to suggest Pepcid 20 mg by mouth twice stayed next 2 weeks in case she does have a stress ulcer hoping to cause her abdominal pain. Also Bentyl 20 mg every 6 hours as needed for relief of abdominal cramping pain. Departure - Departure Time of Disposition: 12:25 Disposition: Home, Self-Care 01 Reason for Transfer *Q: Other Condition: Fair Clinical Impression: Abdominal pain Qualifiers: Abdominal location: generalized Qualified Code(s): R10.84 - Generalized abdominal pain Nausea and vomiting Qualifiers: Vomiting type: unspecified Vomiting Intractability: non-intractable Qualified Code(s): R11.2 - Nausea with vomiting, unspecified Prescriptions: Dicyclomine [Bentyl] 20 mg PO Q6H PRN #16 tablet PRN Reason: Abdominal Pain Famotidine [Pepcid] 20 mg PO BID #28 tab HYDROmorphone [Dilaudid] 2 mg PO ASDIRECTED #14 tab Instructions: Abdominal Pain, Adult, [id number] Referrals: Almas Galicia MD [Primary Care Provider] - Forms: ED Department Discharge Additional Instructions: Evaluation the emergency room this morning in regards to sudden onset of diffuse epigastric abdominal pain that precipitates nausea vomiting and dry heaves. Lab tests did not reveal any significant abnormalities other than excess fluid still on board that will be slowly removed with dialysis. Chest x- ray reveals only a trace amount of fluid in the bottom of the left long certainly no significant effusion that would require drainage. Heart enzymes proved to be normal. There is some increased stool in the upper abdomen that may be contributing to some of the abdominal pain but no sign of bowel obstructions. I have concerns that you may have a stress ulcer in your stomach as this is not an uncommon occurrence after having major surgery and prolonged periods of recovery with limited ability to eat. Just using Pepcid 20 mg twice daily for the next 2 weeks that would heal any ulceration in the stomach lining. One tablet was given in the ED and the next would be due at bedtime tonight The other concern is possibility of narcotic withdrawal since you have been on pain medications for the better part of 6 weeks or longer which could precipitate sudden onset of nausea vomiting and intense abdominal pain. Just using Dilaudid 2 mg tablet every 6 hours today with the next tablet due at about 4 PM today. Then 1 tablet every 8 hours for 2 days. Then 1 tablet every 12 hours for 2 days and off. With weaning from narcotics and prevent further vomiting from narcotic withdrawal. She is tablet Bentyl 20 mg tablet every 6 hours to relieve abdominal cramping pain and it has no narcotic in it. - My Orders Last 24 Hours: My Active Orders 09/20/19 10:10 EKG Documentation Completion [RC] STAT Abdomen 1V Flat [CR] Stat Chest 1V Frontal [CR] Stat 09/20/19 11:41 URINALYSIS W/MICROSCOPIC [UA W/MICROSCOPIC] [URIN] Stat - Assessment/Plan Last 24 Hours: My Active Orders 09/20/19 10:10 EKG Documentation Completion [RC] STAT Abdomen 1V Flat [CR] Stat Chest 1V Frontal [CR] Stat 09/20/19 11:41 URINALYSIS W/MICROSCOPIC [UA W/MICROSCOPIC] [URIN] Stat
[2019-09-20] MEDS ORDERED: Sodium Chloride 0.9% 1,000 ML IV SCH (10:15)
[2019-09-20] MEDS ORDERED: HYDROmorphone 0.5 MG/0.5 ML Syringe IVPUSH ONE (10:51)
[2019-09-20] MEDS ORDERED: Dicyclomine 10 MG Cap PO ONE (12:24)
[2019-09-20] MEDS ORDERED: Famotidine 20 MG Tab PO ONE (12:24)
--- NOTE | 2019-09-21 06:36 | CR ---
Abdomen: Supine view of the abdomen was obtained as well as frontal view of the chest. Comparison: Prior chest x-ray of 09/17/19. Heart is mildly enlarged. Previous sternotomy is noted. Small left-sided pleural effusion is seen. Pleural effusion has diminished from previous exam. Parenchymal density also improved from prior exam. Bowel gas pattern is normal. Previous cholecystectomy is noted. Other surgical clips are seen within the chest. Calcification is seen within the right mid abdomen. No corresponding finding is seen on previous CT exam and this is most likely due to bowel content. Impression: 1. Small left-sided pleural effusion which has improved from prior study. Improved parenchymal density within the left base also noted. 2. Slight cardiomegaly with previous sternotomy. 3. No other acute abnormality is appreciated. Diagnostic code #3 This report was dictated in [place] Standard Time
== END 2019-09-20 12:59 | disposition home or self-care (01) ==
LOC: JD.ED 09:51
DX: R11.2 Nausea with vomiting, unspecified (principal); R10.84 Generalized abdominal pain; I12.9 Hypertensive chronic kidney disease with stage 1 through stage 4 chronic kidney disease, or unspecified chronic kidney disease; E11.22 Type 2 diabetes mellitus with diabetic chronic kidney disease; N18.9 Chronic kidney disease, unspecified; E78.00 Pure hypercholesterolemia, unspecified; K21.9 Gastro-esophageal reflux disease without esophagitis; F41.9 Anxiety disorder, unspecified; Z99.2 Dependence on renal dialysis; Z90.49 Acquired absence of other specified parts of digestive tract; Z91.040 Latex allergy status; Z79.899 Other long term (current) drug therapy; Z79.82 Long term (current) use of aspirin
CPT/HCPCS: 36415; 71045; 74018; 80053; 82553; 83690; 83735; 83880; 84484; 85007; 85027; 85610; 85730; 86140; 93005; 96361; 96374; 96375; 96376; 99285; A9270; J1170; J2765; J7030; 93010; 99284

== ENCOUNTER 2019-09-21 12:22 | Emergency (ER) | payer BC ==
[2019-09-21] MEDS ORDERED: Sodium Chloride 0.9% 10 ML Syringe FLUSH PRN (12:52)
[2019-09-21] MEDS ORDERED: Ondansetron 4 MG/2 ML SDV IVPUSH ONE (12:52)
[2019-09-21] MEDS ORDERED: HYDROmorphone 1 MG/ML Syringe IVPUSH ONE ×2 (12:53→16:13)
[2019-09-21] MEDS ORDERED: Famotidine 20 MG/2 ML SDV IVPUSH ONE (12:54)
--- NOTE | 2019-09-21 14:04 | EDM.PDOC ---
ED HPI GENERAL MEDICAL PROBLEM - General Chief Complaint: Abdominal Pain Stated Complaint: ABD PAIN/VOMITING Time Seen by Provider: 09/21/19 12:44 Source of Information: Reports: Patient History Limitations: Reports: No Limitations - History of Present Illness INITIAL COMMENTS - FREE TEXT/NARRATIVE: The patient presents with upper abdominal pain, nausea and vomiting. This has been going on for a few days. She has been here yesterday and a few days ago. She was seen twice on . She was sent down to [facility] and admitted. She had a thorocentesis and dialysis and she was discharged. In the past when she had an effusion, she would have pain similar to this but she only had a mild effusion. She was thought to have a UTI and pneumonia but no antibiotics were continued. She was seen again here yesterday and felt to be withdrawing from opiods and having an ulcer. She was given some dilaudid and some other medication. She has not been able to keep anything down today. She has the upper abdominal pain again. She has no fever, chills, chest pain or shortness of breath. She does have a slight cough at times. She still makes urine and has no hematuria or dysuria. Onset: Gradual Duration: Week(s): Location: Reports: Abdomen Quality: Reports: Sharp Severity: Severe Improves with: Reports: None Worsens with: Reports: None Associated Symptoms: Reports: Fever/Chills, Nausea/Vomiting. Denies: Chest Pain , Cough, Headaches, Shortness of Breath Abdomen Pain Score (Numeric/FACES): 9 - Related Data Allergies Allergy/AdvReac Type Severity Reaction Status Date / Time Latex, Natural Rubber Allergy Rash Verified 09/21/19 12:37 Home Meds: Home Meds Rosuvastatin [Crestor] 5 mg PO BEDTIME 09/13/18 [History] Furosemide [Lasix] 20 mg PO BID 01/29/19 [History] Calcium Acetate 667 mg PO TID 06/08/19 [History] Acetaminophen/HYDROcodone [[place] 325-5 MG] 1 tab PO Q6H PRN #14 tablet 07/16/19 [Rx] Iron Polysaccharide Complex [Iferex 150] 150 mg PO BID 07/16/19 [History] Aspirin 81 mg PO DAILY 09/17/19 [History] Cholecalciferol (Vitamin D3) [Vitamin D] 0 unit PO DAILY 09/17/19 [History] Metoprolol Tartrate 12.5 mg PO BID 09/17/19 [History] Ondansetron [Zofran ODT] 4 mg PO Q6H PRN #10 tab.dis 09/17/19 [Rx] Polyethylene Glycol 3350 [MiraLAX] 17 gm PO DAILY 09/17/19 [History] Sennosides [Senna] 8.6 mg PO DAILY 09/17/19 [History] Dicyclomine [Bentyl] 20 mg PO Q6H PRN #16 tablet 09/20/19 [Rx] Famotidine [Pepcid] 20 mg PO BID #28 tab 09/20/19 [Rx] HYDROmorphone [Dilaudid] 2 mg PO ASDIRECTED #14 tab 09/20/19 [Rx] Past Medical History HEENT History: Reports: Hard of Hearing, Impaired Vision, Otitis Media Cardiovascular History: Reports: Bypass, High Cholesterol, Hypertension Respiratory History: Reports: Pneumonia, Recurrent Other Respiratory History: lungs drained Aug 20. Gastrointestinal History: Reports: GERD Genitourinary History: Reports: Chronic Renal Insuffiency, Dialysis Other Genitourinary History: Patient has been on hemodialysis since July. 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 [employer] History: Reports: None Other [employer] History: started menopause Musculoskeletal History: Reports: None Neurological History: Reports: None Psychiatric History: Reports: Anxiety Endocrine/Metabolic History: Reports: Diabetes, Type II Hematologic History: Reports: Iron Deficiency Immunologic History: Reports: None Oncologic (Cancer) History: Reports: None Dermatologic History: Reports: Other (See Below) Other Dermatologic History: Ulceration to 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 - Infectious Disease History Infectious Disease History: Reports: C-Difficile, Other (See Below) Other Infectious Disease History: found this admissionshouldn't develop Luis's gangrene in her right inguinal area that took almost a year to heal. She was in hospital for almost 6 months with multiple antibiotics that are thought to have probably hasten the demise of her kidneys. - Past Surgical History HEENT Surgical History: Reports: Myringotomy w Tube(s), Oral Surgery Cardiovascular Surgical History: Reports: Coronary Artery Bypass Other Cardiovascular Surgeries/Procedures: Triple Bypass done on August 27, 2019. Respiratory Surgical History: Reports: Thoracentesis GI Surgical History: Reports: Cholecystectomy Social & Family History - Family History Family Medical History: Noncontributory Cardiac: Reports: CAD - Tobacco Use Smoking Status *Q: Never Smoker - Caffeine Use Caffeine Use: Reports: None - Recreational Drug Use Recreational Drug Use: No - Living Situation & Occupation Living situation: Reports: , with Spouse Occupation: Employed ([employer]) ED ROS GENERAL - Review of Systems Review Of Systems: See Below Constitutional: Reports: Chills. Denies: Fever HEENT: Reports: No Symptoms Respiratory: Reports: No Symptoms Cardiovascular: Reports: No Symptoms Endocrine: Reports: No Symptoms GI/Abdominal: Reports: Abdominal Pain, Nausea, Vomiting. Denies: Diarrhea : Reports: No Symptoms Musculoskeletal: Reports: No Symptoms ED EXAM, GI/ABD - Physical Exam Exam: See Below Exam Limited By: No Limitations General Appearance: Alert, No Apparent Distress Ears: Normal External Exam Nose: Normal Inspection Head: Atraumatic, Normocephalic Neck: Normal Inspection Respiratory/Chest: No Respiratory Distress, Lungs Clear, Normal Breath Sounds Cardiovascular: Regular Rate, Rhythm, No Edema, No Murmur GI/Abdominal Exam: Soft, No Organomegaly, No Mass, Tender (Moderate tenderness to the upper abdomen) Extremities: Normal Inspection Neurological: Alert, Oriented, No Motor/Sensory Deficits Course - Vital Signs Last Recorded V/S: Last Vital Signs Temp 97.8 F 09/21/19 12:32 Pulse 92 09/21/19 12:32 Resp 20 09/21/19 12:32 BP 98/53 L 09/21/19 12:32 Pulse Ox 100 09/21/19 12:32 - Orders/Labs/Meds Orders: Active Orders 24 hr Category Date Time Status Peripheral IV Care [RC] . DIRECTED Care 09/21/19 12:53 Active CULTURE BLOOD [BC] Stat Lab 09/21/19 17:45 Received CULTURE BLOOD [BC] Stat Lab 09/21/19 18:00 Received LACTIC ACID [CHEM] Stat Lab 09/21/19 17:45 Received Sodium Chloride 0.9% [Saline Flush] Med 09/21/19 12:52 Active 10 ml FLUSH ASDIRECTED PRN Blood Culture x2 Reflex Set [OM.PC] Stat Oth 09/21/19 17:10 Ordered ED Antiemetic Medication Reflex [OM.PC] Stat Ot 09/21/19 12:53 Ordered Peripheral IV Insertion Adult [OM.PC] Stat Ot 09/21/19 12:52 Ordered Medication Orders Sodium Chloride (Saline Flush) 10 ml FLUSH ASDIRECTED PRN PRN Reason: Keep Vein Open Last Admin: 09/21/19 13:02 Dose: 10 ml Labs: Laboratory Tests 09/21/19 09/21/19 09/21/19 Range/Units 12:55 12:55 14:59 WBC 15.12 H (3.98-10.04) K/mm3 RBC 3.48 L (3.98-5.22) M/mm3 Hgb 10.0 L (11.2-15.7) gm/dl Hct 32.7 L (34.1-44.9) % MCV 94.0 (79.4-94.8) fl MCH 28.7 (25.6-32.2) pg MCHC 30.6 L (32.2-35.5) g/dl RDW Std Deviation 51.0 H (36.4-46.3) fL Plt Count 461 H (182-369) K/mm3 MPV 9.2 L (9.4-12.3) fl Neut % (Auto) 78.9 H (34.0-71.1) % Lymph % (Auto) 12.0 L (19.3-51.7) % [place] % (Auto) 4.8 (4.7-12.5) % Eos % (Auto) 3.7 (0.7-5.8) Baso % (Auto) 0.3 (0.1-1.2) % Neut # (Auto) 11.93 H (1.56-6.13) K/mm3 Lymph # (Auto) 1.82 (1.18-3.74) K/mm3 [place] # (Auto) 0.72 H (0.24-0.36) K/mm3 Eos # (Auto) 0.56 H (0.04-0.36) K/mm3 Baso # (Auto) 0.05 (0.01-0.08) K/mm3 Manual Slide Review Normal smear Sodium 140 (136-145) mEq/L Potassium 3.6 (3.5-5.1) mEq/L Chloride 102 (98-107) mEq/L Carbon Dioxide 28 (21-32) mEq/L Anion Gap 13.6 (5-15) BUN 18 (7-18) mg/dL Creatinine 3.4 H (0.55-1.02) mg/dL Est Cr Clr Drug Dosing 19.46 mL/min Estimated GFR (MDRD) 14 (>60) mL/min BUN/Creatinine Ratio 5.3 L (14-18) Glucose 167 H (74-106) mg/dL Calcium 8.9 (8.5-10.1) mg/dL Total Bilirubin 0.5 (0.2-1.0) mg/dL AST 24 (15-37) U/L ALT 20 (14-59) U/L Alkaline Phosphatase 106 (46-116) U/L Total Protein 7.4 (6.4-8.2) g/dl Albumin 3.1 L (3.4-5.0) g/dl Globulin 4.3 gm/dL Albumin/Globulin Ratio 0.7 L (1-2) Lipase 125 (73-393) U/L Urine Color Yellow (Yellow) Urine Appearance Clear (Clear) Urine pH 7.0 (5.0-8.0) Ur Specific [place] 1.025 (1.005-1.030) Urine Protein 3+ H (Negative) Urine Glucose (UA) Trace H (Negative) Urine Ketones Negative (Negative) Urine Occult Blood 2+ H (Negative) Urine Nitrite Negative (Negative) Urine Bilirubin 1+ H (Negative) Urine Urobilinogen 0.2 (0.2-1.0) Ur Leukocyte Esterase Negative (Negative) Urine RBC 5-10 H (0-5) /hpf Urine WBC 5-10 H (0-5) /hpf Ur Squamous Epith Cells 5-10 H (0-5) /hpf Urine Bacteria Few (FEW) /hpf Hyaline Casts 5-10 H (0-5) /lpf Urine Mucus Not seen (FEW) /hpf Urine Opiates Screen (CHUESG=105) Ur Buprenorphine Scrn (CUTOFF=10) Ur Oxycodone Screen (VZG4XV=138) Urine Methadone Screen (QQJNHH=530) Ur Propoxyphene Screen (ASOHFY=068) Ur Barbiturates Screen (FCQGIF=843) Ur Tricyclics Screen (AXDXYG=598) Ur Phencyclidine Scrn (CUTOFF=25) Ur Amphetamine Screen (KHRJAE=742) U Methamphetamines Scrn (SMXSWF=882) U Benzodiazepines Scrn (LCNAKV=404) U Cocaine Metab Screen (OKACKA=806) U Marijuana (THC) Screen (CUTOFF=50) 09/21/19 Range/Units 14:59 WBC (3.98-10.04) K/mm3 RBC (3.98-5.22) M/mm3 Hgb (11.2-15.7) gm/dl Hct (34.1-44.9) % MCV (79.4-94.8) fl MCH (25.6-32.2) pg MCHC (32.2-35.5) g/dl RDW Std Deviation (36.4-46.3) fL Plt Count (182-369) K/mm3 MPV (9.4-12.3) fl Neut % (Auto) (34.0-71.1) % Lymph % (Auto) (19.3-51.7) % [place] % (Auto) (4.7-12.5) % Eos % (Auto) (0.7-5.8) Baso % (Auto) (0.1-1.2) % Neut # (Auto) (1.56-6.13) K/mm3 Lymph # (Auto) (1.18-3.74) K/mm3 [place] # (Auto) (0.24-0.36) K/mm3 Eos # (Auto) (0.04-0.36) K/mm3 Baso # (Auto) (0.01-0.08) K/mm3 Manual Slide Review Sodium (136-145) mEq/L Potassium (3.5-5.1) mEq/L Chloride (98-107) mEq/L Carbon Dioxide (21-32) mEq/L Anion Gap (5-15) BUN (7-18) mg/dL Creatinine (0.55-1.02) mg/dL Est Cr Clr Drug Dosing mL/min Estimated GFR (MDRD) (>60) mL/min BUN/Creatinine Ratio (14-18) Glucose (74-106) mg/dL Calcium (8.5-10.1) mg/dL Total Bilirubin (0.2-1.0) mg/dL AST (15-37) U/L ALT (14-59) U/L Alkaline Phosphatase (46-116) U/L Total Protein (6.4-8.2) g/dl Albumin (3.4-5.0) g/dl Globulin gm/dL Albumin/Globulin Ratio (1-2) Lipase (73-393) U/L Urine Color (Yellow) Urine Appearance (Clear) Urine pH (5.0-8.0) Ur Specific [place] (1.005-1.030) Urine Protein (Negative) Urine Glucose (UA) (Negative) Urine Ketones (Negative) Urine Occult Blood (Negative) Urine Nitrite (Negative) Urine Bilirubin (Negative) Urine Urobilinogen (0.2-1.0) Ur Leukocyte Esterase (Negative) Urine RBC (0-5) /hpf Urine WBC (0-5) /hpf Ur Squamous Epith Cells (0-5) /hpf Urine Bacteria (FEW) /hpf Hyaline Casts (0-5) /lpf Urine Mucus (FEW) /hpf Urine Opiates Screen Presumptive positive H (MIUGSC=751) Ur Buprenorphine Scrn Negative (CUTOFF=10) Ur Oxycodone Screen Negative (UKY5LP=261) Urine Methadone Screen Negative (DTYMKR=695) Ur Propoxyphene Screen Negative (AIAHLK=975) Ur Barbiturates Screen Negative (UYOPRT=930) Ur Tricyclics Screen Negative (IORDPV=061) Ur Phencyclidine Scrn Negative (CUTOFF=25) Ur Amphetamine Screen Negative (FHLLTR=170) U Methamphetamines Scrn Negative (FXBJKO=952) U Benzodiazepines Scrn Negative (JKUUTG=659) U Cocaine Metab Screen Negative (SHFCPF=607) U Marijuana (THC) Screen Negative (CUTOFF=50) Meds: Medications Generic Name Dose Route Start Last Admin Trade Name Freq PRN Reason Stop Dose Admin Sodium Chloride 10 ml 09/21/19 12:52 09/21/19 13:02 Saline Flush FLUSH 10 ml ASDIRECTED PRN Administration Keep Vein Open Discontinued Medications Generic Name Dose Route Start Last Admin Trade Name Freq PRN Reason Stop Dose Admin Famotidine 20 mg 09/21/19 12:54 09/21/19 13:01 Pepcid IVPUSH 09/21/19 12:55 20 mg ONETIME ONE Administration Hydromorphone HCl 1 mg 09/21/19 12:53 09/21/19 13:01 Dilaudid IVPUSH 12/09/19 12:54 1 mg ONETIME ONE Administration Hydromorphone HCl 1 mg 09/21/19 16:13 09/21/19 16:19 Dilaudid IVPUSH 09/21/19 16:14 1 mg ONETIME ONE Administration Ondansetron HCl 4 mg 09/21/19 12:52 09/21/19 13:01 Zofran IVPUSH 09/21/19 12:53 4 mg ONETIME ONE Administration - Re-Assessments/Exams Free Text/Narrative Re-Assessment/Exam: 09/21/19 14:10 I ordered an IV saline lock, zofran 4mg IV, pepcid 20mg IV, dilaudid 1mg IV, labs and a UA. Her WBC was elevated at 15.2. Her Hgb is low at 10. Her creatinine is elevated at 3.4 with a low GFR of 14. Her electrolytes look good. Her glucose is 167. Her lipase is negative. Her WBC is even more elevated today. I will order a CT of her chest, abdomen and pelvis without contrast. 09/21/19 16:[address] of her chest shows small to moderate sized bilateral pleural effusions. Slight atelectasis within the left lung. Nothing acute is otherwise seen. The CT of her abdomen and pelvis shows pleural effusions seen within the chest which have slightly increased in amount when compared to prior abdominal and pelvic CT exam. Mild amount of fluid within the pelvis. Body wall edema. Other findings. No acute abnormality is appreciated within the abdomen and pelvis. She is having more pain. I have ordered another dose of dilaudid. Her UDS was positive for opiates which she is on. I am waiting for her UA results. 09/21/19 18:19 Her UA shows no UTI. I called [facility] and talked with Dr Wong the manufacturer's representative crayon painter. He did recommend blood cultures but he did not feel she needed to come to [place]. Cardiothoracic surgery was also consulted and they did not think this was related to the surgery. I will discharge her home and follow up with the cultures tomorrow or the next day. Departure - Departure Time of Disposition: 18:20 Disposition: Home, Self-Care 01 Condition: Good Clinical Impression: End stage renal failure on dialysis Abdominal pain Qualifiers: Abdominal location: generalized Qualified Code(s): R10.84 - Generalized abdominal pain Nausea and vomiting Qualifiers: Vomiting type: unspecified Vomiting Intractability: non-intractable Qualified Code(s): R11.2 - Nausea with vomiting, unspecified - Discharge Information *PRESCRIPTION DRUG MONITORING PROGRAM REVIEWED*: Not Applicable *COPY OF PRESCRIPTION DRUG MONITORING REPORT IN PATIENT JONNIE: Not Applicable Referrals: Almas Galicia MD [Primary Care Provider] - 1 Week Forms: ED Department Discharge Additional Instructions: Take your medications as prescribed. Follow up with Dr Galicia this week. Please return if you are worse. - My Orders Last 24 Hours: My Active Orders 09/21/19 12:52 Sodium Chloride 0.9% [Saline Flush] 10 ml FLUSH ASDIRECTED PRN Peripheral IV Insertion Adult [OM.PC] Stat 09/21/19 12:53 Peripheral IV Care [RC] . DIRECTED ED Antiemetic Medication Reflex [OM.PC] Stat 09/21/19 17:10 Blood Culture x2 Reflex Set [OM.PC] Stat 09/21/19 17:45 CULTURE BLOOD [BC] Stat LACTIC ACID [CHEM] Stat 09/21/19 18:00 CULTURE BLOOD [BC] Stat - Assessment/Plan Last 24 Hours: My Active Orders 09/21/19 12:52 Sodium Chloride 0.9% [Saline Flush] 10 ml FLUSH ASDIRECTED PRN Peripheral IV Insertion Adult [OM.PC] Stat 09/21/19 12:53 Peripheral IV Care [RC] . DIRECTED ED Antiemetic Medication Reflex [OM.PC] Stat 09/21/19 17:10 Blood Culture x2 Reflex Set [OM.PC] Stat 09/21/19 17:45 CULTURE BLOOD [BC] Stat LACTIC ACID [CHEM] Stat 09/21/19 18:00 CULTURE BLOOD [BC] Stat
--- NOTE | 2019-09-21 14:35 | CT ---
CT chest Technique: Multiple axial sections were obtained from above the lung apices inferiorly through the lung bases. Intravenous contrast was not utilized. Comparison: Previous chest CT study of 07/05/18. Findings: Small to moderate sized bilateral pleural effusions are noted. Subcutaneous edema is also noted within the body wall. No pericardial effusion is seen. No mediastinal adenopathy is appreciated. No axillary adenopathy is seen. Previous sternotomy is noted. Minimal atelectasis is seen within the left lung. Lungs otherwise are clear with no acute parenchymal change. Bone window settings were reviewed which show no acute osseous abnormality. Impression: 1. Small to moderate sized bilateral pleural effusions. 2. Slight atelectasis within the left lung. 3. Nothing acute is otherwise seen. Diagnostic code #3 CT abdomen and pelvis Technique: Multiple axial sections were obtained from above the dome of the diaphragm inferiorly through the pubic symphysis. Intravenous and oral contrast not utilized. Comparison: Prior CT abdomen and pelvis study of 09/17/19. Findings: Pleural effusions seen within both lung bases have increased from previous CT abdomen and pelvis study. Subcutaneous body wall edema is noted. Liver contains no focal abnormality. Surgical clips are seen from prior cholecystectomy. Spleen appears within normal limits. Adrenal glands show no nodule. Pancreas shows no discrete abnormality. Aorta shows atherosclerotic calcification which continues into the iliac vessels. Kidneys show no hydronephrosis or mass. Possible minimal nonobstructing calculi are noted within both kidneys. No retroperitoneal adenopathy or mesenteric abnormalities are seen. No pelvic mass or adenopathy is seen. Small amount of fluid is seen within the pelvis. Appendix is not definitely visualized. No inflammatory change is seen within the abdomen or pelvis. Impression: 1. Pleural effusions seen within the chest which have slightly increased in amount when compared to prior abdominal and pelvic CT exam. 2. Mild amount of fluid within the pelvis. 3. Body wall edema. 4. Other findings. 5. No acute abnormality is appreciated within the abdomen or pelvis. Diagnostic code #3 This report was dictated in [place] Standard Time
== END 2019-09-21 18:57 | disposition home or self-care (01) ==
LOC: JD.ED 12:22
DX: R10.84 Generalized abdominal pain (principal); R11.2 Nausea with vomiting, unspecified; E11.22 Type 2 diabetes mellitus with diabetic chronic kidney disease; I12.0 Hypertensive chronic kidney disease with stage 5 chronic kidney disease or end stage renal disease; N18.6 End stage renal disease; Z91.040 Latex allergy status; Z79.82 Long term (current) use of aspirin; E78.00 Pure hypercholesterolemia, unspecified; Z79.899 Other long term (current) drug therapy; Z99.2 Dependence on renal dialysis
CPT/HCPCS: 36415; 71250; 74176; 80053; 80306; 81001; 83605; 83690; 85025; 87040; 96374; 96375; 96376; 99284; J1170; J2405; J3490

== ENCOUNTER 2019-11-14 18:12 | Emergency (ER) | payer BC | END 2019-11-14 18:27 | disposition left against medical advice (07) | LOC: JD.ED 18:12 | DX: Z53.21 Procedure and treatment not carried out due to patient leaving prior to being seen by health care provider (principal) ==

== ENCOUNTER 2021-07-14 19:49 | Emergency (ER) | payer BC ==
[2021-07-14] MEDS ORDERED: Calcium Chloride 10% 1 GM/10 ML Syringe ONE ×2 (20:00)
[2021-07-14] MEDS ORDERED: DEXTROSE IV ONE (20:00)
[2021-07-14] MEDS ORDERED: EPINEPHrine 1:10,000 1 MG/10 ML Syringe ONE ×5 (20:00)
[2021-07-14] MEDS ORDERED: AMIODARONE IV ONE (20:00)
[2021-07-14] MEDS ORDERED: Amiodarone 150 MG/3 ML SDV ONE (20:00)
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
== END 2021-07-15 00:15 | disposition expired ==
LOC: JD.ED 19:49
DX: I46.9 Cardiac arrest, cause unspecified (principal); U07.1 COVID-19; I49.01 Ventricular fibrillation; E78.00 Pure hypercholesterolemia, unspecified; K21.9 Gastro-esophageal reflux disease without esophagitis; I12.0 Hypertensive chronic kidney disease with stage 5 chronic kidney disease or end stage renal disease; E11.22 Type 2 diabetes mellitus with diabetic chronic kidney disease; N18.6 End stage renal disease; D50.9 Iron deficiency anemia, unspecified; Z99.2 Dependence on renal dialysis; Z91.040 Latex allergy status; Z79.82 Long term (current) use of aspirin; Z79.899 Other long term (current) drug therapy
CPT/HCPCS: 36415; 36556; 36680; 80053; 83605; 84484; 85007; 85027; 87635; 92950; 92960; 99285; A9270; J0171; J0282; J7060; U0002